=== PATIENT | male | born 1960 | race Caucasian/White ===

== ENCOUNTER 2016-08-01 15:43 | Inpatient (IN) | payer MEDICARE ==
[2016-08-01 17:58] VITALS: BMI 28.0
[2016-08-01] MEDS ORDERED: ALBUTEROL NEBULIZED 2.5 MG/3 ML INHALATION PRN (18:51)
[2016-08-01] MEDS ORDERED: IPRATROPIUM-ALBUTEROL 3 ML NEB INHALATION PRN (18:51)
[2016-08-01] MEDS ORDERED: BENZOCAINE/MENTHOL LOZENG 1 EACH LOZENGE MUCOUS MEM PRN (20:20)
[2016-08-01 20:48] LABS: Troponin I 0.018 ng/mL (0.000-0.034)
[2016-08-01 20:57] LABS: Creatine Kinase MB 2.5 ng/mL (0.0-2.4)
[2016-08-01] MEDS: SYMBICORT 160-4.5 MCG INHALER INHALATION SCH (21:05)
[2016-08-01] MEDS: OSELTAMIVIR 75 MG CAP PO SCH (21:12)
[2016-08-01] MEDS: VARENICLINE 1 MG TAB PO SCH (21:13)
[2016-08-01] MEDS: methylPREDNISolone SOD SUCCI 125 MG/2 ML VIAL IV SCH ×2 (21:13→23:02)
[2016-08-01] MEDS: POTASSIUM CHLORIDE ER 10 MEQ TAB.ER.PRT PO SCH (21:13)
[2016-08-01] MEDS: traZODone HCL 50 MG TAB PO SCH (21:13)
[2016-08-01] MEDS: ACETAMINOPHEN TAB 500 MG TAB PO PRN (21:21)
[2016-08-01] MEDS: INSULIN LISPRO (humaLOG) 300 UNIT/3 ML VIAL SQ SCH (21:46)
[2016-08-01 22:21] LABS: Glucose,Whole Blood 126 mg/dL (75-99)
[2016-08-02] MEDS ORDERED: IPRATROPIUM-ALBUTEROL 3 ML NEB INHALATION SCH
[2016-08-02 01:21] LABS: CH 34.2; CHCM 32.4; HCT 49.7 % (39.0-53.0); HDW 2.19; HGB 16.2 gm/dL (13.0-17.5); MCH 34.5 pg (25.0-35.0); MCHC 32.5 g/dL (31.0-37.0); Macrocytosis Slight; RBC 4.69 m/uL (4.30-5.90); WBC 11.6 k/uL (3.8-10.6)
[2016-08-02 01:36] LABS: Anion Gap 9 mmol/L; Blood Urea Nitrogen 18 mg/dL (9-20); Calcium 8.6 mg/dL (8.4-10.2); Carbon Dioxide 35 mmol/L (22-30); Chloride 96 mmol/L (98-107); Glucose 153 mg/dL (74-99); Non-African American GFR(MDRD) >60 (>60 ml/min/1.73 sqM); Potassium 4.4 mmol/L (3.5-5.1); Sodium 140 mmol/L (137-145)
[2016-08-02] MEDS: methylPREDNISolone SOD SUCCI 125 MG/2 ML VIAL IV SCH (06:11)
[2016-08-02 06:52] LABS: Glucose,Whole Blood 142 mg/dL (75-99)
[2016-08-02] MEDS: INSULIN LISPRO (humaLOG) 300 UNIT/3 ML VIAL SQ SCH ×4 (06:52→20:46)
[2016-08-02] MEDS: SYMBICORT 160-4.5 MCG INHALER INHALATION SCH ×2 (07:03→19:03)
[2016-08-02] MEDS: IPRATROPIUM-ALBUTEROL 3 ML NEB INHALATION SCH ×4 (07:03→19:03)
[2016-08-02] MEDS: OSELTAMIVIR 75 MG CAP PO SCH ×2 (08:28→20:54)
[2016-08-02] MEDS: THEOPHYLLINE 24 HOUR 300 MG CAP.ER.24H PO SCH (08:28)
[2016-08-02] MEDS: VARENICLINE 1 MG TAB PO SCH ×2 (08:29→20:54)
[2016-08-02] MEDS: POTASSIUM CHLORIDE ER 10 MEQ TAB.ER.PRT PO SCH (08:29)
[2016-08-02] MEDS: ACETAMINOPHEN TAB 500 MG TAB PO PRN ×2 (08:49→21:04)
[2016-08-02] MEDS ORDERED: LEVOFLOXACIN 750MG-D5W PMX 750 MG in DEXTROSE/WATER 1 150ML.BAG IVPB SCH (09:00)
--- NOTE | 2016-08-02 09:00 | P.CRDCN ---
History of Present Illness Consult date: 08/02/16 Requesting physician: Nazanin Klein Consult reason: shortness of breath Chief complaint: Shortness of breath History of present illness: This is a 56-year-old gentleman with known history of COPD, nicotine dependence, asthma, who was transferred here from [facility]. He states that he presented there with symptoms of shortness of breath. Patient has been progressively more short of breath at home, he states he's also been having chills and productive cough. Denies any chest discomfort. Denies any history of hypertension, no diabetes, no hyperlipidemia, no family history of premature coronary artery disease, he has not had a prior cardiac workup.. He does drink at least 6 beers per day. Patient states that he has been cutting down on his smoking, smoking maybe 7-8 cigarettes a day now, he has smoked for 40 years. Currently on Chantix. Laboratory data [place] was reviewed, patient is positive for influenza A. Sodium 136, potassium 4.6, BUN 11, creatinine 0.5. Magnesium level II.2. WBC 11.9, hemoglobin 16.9, platelet count 193. EKG shows a sinus tachycardia, troponin at [place] 0.032, BNP level 159, TSH 0.7 to free T4 1 0.0, subsequent troponin 0.028. Approximately 2 weeks ago patient was started on home O2. Patient was transferred to [facility] because of abnormal troponin values. Laboratory data here at [facility], troponin 0.018, 0.019, 0.0- 7. WBC 11.6, hemoglobin 16.2, potassium 4.4, BUN 18, creatinine 0.6. Blood pressure 136/70, heart rate currently in the 80s, 120s on admission. At the time of my examination this morning, patient continues to feel short of breath. He states he did not sleep through the night last night. Past Medical History Past Medical History: COPD History of Any Multi-Drug Resistant Organisms: None Reported Smoking Status: Current every day smoker Medications and Allergies Home Medications Medication Instructions Recorded Confirmed Type Acetaminophen Tab [Tylenol Tab] 1,000 mg PO Q6HR PRN 08/01/16 08/01/16 History Albuterol Sulfate [Proair Hfa] 2 puff INHALATION RT-QID PRN 08/01/16 08/01/16 History Amoxicillin/Potassium Clav 1 tab PO MOWEFR 08/01/16 08/01/16 History [Augmentin 875-125 Tablet] Budesonide/Formoterol Fumarate 2 puff INHALATION RT-BID 08/01/16 08/01/16 History [Symbicort 160-4.5 Mcg Inhaler] Furosemide [Lasix] 20 mg PO DAILY 08/01/16 08/01/16 History Ipratropium-Albuterol Nebulize 3 ml INHALATION RT-QID PRN 08/01/16 08/01/16 History [Duoneb 0.5 mg-3 mg/3 ml Soln] Potassium Chloride [K-Tab ER] 10 meq PO BID 08/01/16 08/01/16 History Theophylline 12 Hour [Cayetano-Dur] 300 mg PO BID 08/01/16 08/01/16 History Varenicline [Chantix] 1 mg PO BID 08/01/16 08/01/16 History predniSONE [Deltasone] 20 mg PO BID 08/01/16 08/01/16 History traZODone HCL 50 mg PO HS 08/01/16 08/01/16 History Allergies Allergy/AdvReac Type Severity Reaction Status Date / Time No Known Allergies Allergy Verified 08/01/16 18:13 Physical Exam Vitals: Vital Signs Temp Pulse Pulse Resp BP Pulse Ox 08/02/16 07:17 80 08/02/16 07:03 76 08/02/16 03:00 98.7 F 120 H 22 137/70 90 L 08/02/16 01:34 80 08/02/16 01:24 92 08/01/16 23:20 97.6 F 133 H 22 149/97 90 L 08/01/16 21:26 122 H 08/01/16 21:09 122 H 08/01/16 20:00 97.6 F 123 H 22 161/73 93 L 08/01/16 19:00 97.6 F 135 H 22 154/65 90 L 08/01/16 17:45 135 H 22 136/82 90 L Intake and Output 08/01/16 08/02/16 08/02/16 22:59 06:59 14:59 Intake Total 20 200 Balance 20 200 Intake: IV 20 200 0.9@20mls/hr 20 200 Other: Voiding Method Toilet Toilet # Voids 1 3 Weight 83.7 kg 83.2 kg PHYSICAL EXAMINATION: HEENT: Head is atraumatic, normocephalic. Pupils equal, round. Neck is supple. There is no elevated jugular venous pressure. HEART EXAMINATION: Heart S1, S2 normal. No murmur or gallop heard. CHEST EXAMINATION: Lungs reveal scattered coarse rhonchi and wheezing throughout. ABDOMEN: Soft, nontender. Bowel sounds are heard. No organomegaly noted. EXTREMITIES: 1+ peripheral pulses with trace evidence of peripheral edema , no calf tenderness noted. NEUROLOGIC patient is awake, alert and oriented -3. . Results 08/02/16 00:34 08/02/16 00:34 Cardiac Enzymes 08/01/16 08/02/16 08/02/16 Range/Units 19:52 00:34 06:18 CK-MB (CK-2) 2.5 H* (0.0-2.4) ng/mL Troponin I 0.018 0.019 0.027 (0.000-0.034) ng/mL CBC 08/02/16 Range/Units 00:34 WBC 11.6 H (3.8-10.6) k/uL RBC 4.69 (4.30-5.90) m/uL Hgb 16.2 (13.0-17.5) gm/dL Hct 49.7 (39.0-53.0) % Plt Count 207 (150-450) k/uL Comprehensive Metabolic Panel 08/02/16 Range/Units 00:34 Sodium 140 (137-145) mmol/L Potassium 4.4 (3.5-5.1) mmol/L Chloride 96 L (98-107) mmol/L Carbon Dioxide 35 H (22-30) mmol/L BUN 18 (9-20) mg/dL Creatinine 0.60 L (0.66-1.25) mg/dL Glucose 153 H (74-99) mg/dL Calcium 8.6 (8.4-10.2) mg/dL Current Medications Generic Name Dose Route Start Last Admin Trade Name Freq PRN Reason Stop Dose Admin Acetaminophen 1,000 mg 08/01/16 18:51 08/01/16 21:21 Tylenol Tab PO 1,000 mg Q6HR PRN Administration Pain Albuterol/Ipratropium 3 ml 08/01/16 21:45 Duoneb 0.5 Mg-3 Mg/3 Ml Soln INHALATION RT-Q2H PRN Shortness Of Breath Albuterol/Ipratropium 3 ml 08/02/16 08:00 08/02/16 07:03 Duoneb 0.5 Mg-3 Mg/3 Ml Soln INHALATION 3 ml RT-QID MARGARET Administration Benzocaine/Menthol 1 each 08/01/16 20:20 Cepacol Lozenge MUCOUS MEM Q6HR PRN Cough Budesonide/Formoterol Fumarate 2 puff 08/01/16 20:00 08/02/16 07:03 Symbicort 160-4.5 Mcg Inhaler INHALATION 2 puff RT-BID MARGARET Administration Levofloxacin 750 mg/ IV 150 mls @ 100 mls/hr 08/02/16 09:00 Solution IVPB Q24H MARGARET Insulin Human Lispro 0 unit 08/01/16 21:00 08/02/16 06:52 Humalog SQ Not Given ACHS [facility] Protocol Methylprednisolone Sodium Succinate 60 mg 08/01/16 19:00 08/02/16 06:11 Solu-Medrol IV 60 mg Q6HR MARGARET Administration Oseltamivir Phosphate 75 mg 08/01/16 21:00 08/01/16 21:12 Tamiflu PO 08/06/16 09:01 75 mg Q12HR MARGARET Administration Potassium Chloride 10 meq 08/01/16 21:00 08/01/16 21:13 K-Dur 10 PO 10 meq BID MARGARET Administration Theophylline 600 mg 08/02/16 09:00 [place]-24 PO DAILY MARGARET Trazodone HCl 50 mg 08/01/16 21:00 08/01/16 21:13 Desyrel PO 50 mg HS MARGARET Administration Varenicline 1 mg 08/01/16 21:00 08/01/16 21:13 Chantix PO 1 mg BID MARGARET Administration Intake and Output 08/01/16 08/02/16 08/02/16 22:59 06:59 14:59 Intake Total 20 200 Balance 20 200 Intake: IV 20 200 0.9@20mls/hr 20 200 Other: Voiding Method Toilet Toilet # Voids 1 3 Weight 83.7 kg 83.2 kg 08/02/16 00:34 08/02/16 00:34 EKG Interpretations (text) EKG shows a sinus tachycardia Assessment and Plan Plan: Assessment and plan #1 symptoms of shortness of breath with associated chills and productive cough of green sputum. Possible exacerbation of COPD with tracheobronchitis. Positive influenza A. #2 abnormal troponins, not consistent with acute coronary syndrome, could be secondary to oxygen supply and demand mismatch. #3 nicotine dependence #4 EtOH use, patient states he drinks at least 6 beers a day. #5 COPD with home O2 use Plan We will obtain an echocardiogram with Doppler study. Continue Steroids and IV antibiotics. Obtain fasting lipid profile. Chest x-ray. Start the patient on a baby aspirin daily. Once the patient is stable from a lung perspective, stress testing as an outpatient may need to be performed to rule out underlying coronary artery disease. Further recommendations to follow. DNP note has been reviewed, I agree with a documented findings and plan of care. Patient was seen and examined.
[2016-08-02 09:21] LABS: Cholesterol 204 mg/dL (<200); HDL Cholesterol 71 mg/dL (40-60); Triglycerides 91 mg/dL (<150)
--- NOTE | 2016-08-02 09:22 | P.PN ---
Progress Note - Text This is an addendum to the dictated cardiology consultation. The patient has a known history of severe chronic obstructive lung disease, recently seen by Dr. Servin the first time recently. He is on home oxygen and has decreased his smoking quantity. He used to smoke up to a pack and a half daily. He presented with severe progression of dyspnea on exertion and cough. He was seen in [place] because of that and because of minimal elevation of the troponin he was transferred. He's feeling better today although continues to be dyspneic with minimal activity. He has chest tightness from his dyspnea, no dizziness or palpitations. He has no prior documented history of CAD. He had an episode of peripheral edema that resolved few weeks ago. His physical examination is remarkable for severe bilateral wheezing and decreased air exchange. He has no significant peripheral edema. His troponin are normal and there is no evidence of congestive heart failure by NT proBNP. His EKG shows no acute changes. The patient presents with exacerbation of severe chronic obstructive lung disease and probable influenza infection. I do not see any evidence to suggest acute ischemic heart disease or congestive heart failure. Because of his history of chronic dyspnea, COPD and chronic alcohol intake I will obtain an echocardiogram to evaluate his right-sided pressure and his systolic function. Thank you for this consult we will follow with you.
--- NOTE | 2016-08-02 09:30 | XR ---
EXAMINATION TYPE: XR chest 2V DATE OF EXAM: 08/02/2016 9:26 AM COMPARISON: 07/08/2016 TECHNIQUE: PA and lateral views submitted. HISTORY: Shortness of breath, COPD FINDINGS: The lungs are clear and there is no pneumothorax, pleural effusion, or focal pneumonia. Hyperinflation suggests COPD. Prominence the pulmonary arteries can be associated with pulmonary vijay rial hypertension. Findings appear stable. IMPRESSION: 1. No acute process. Correlate for COPD.
[2016-08-02 10:14] LABS: Hemoglobin A1C 6.6 % (4.2-6.1)
[2016-08-02 11:59] LABS: Glucose,Whole Blood 122 mg/dL (75-99)
[2016-08-02] MEDS: DOXYCYCLINE 50 MG CAP PO SCH ×2 (12:01→20:53)
[2016-08-02] MEDS: ASPIRIN 81 MG CHEW PO SCH (12:01)
[2016-08-02] MEDS: SODIUM CHLORIDE 0.9% 1,000 ML IV SCH ×2 (12:01→20:53)
--- NOTE | 2016-08-02 13:36 | P.CNPUL ---
History of Present Illness Consult date: 08/02/16 Requesting physician: Nazanin Klein Chief complaint: Shortness of breath cough and wheezing History of present illness: This is a 56-year-old white male, quite familiar to my service, patient is known to have history of severe emphysema, FEV1 is in the range of 21%. Patient is O2 dependent, he is on multiple bronchodilators, and unfortunately he was smoking until a couple of weeks ago. Patient quit smoking shortly after I saw him in the office a few weeks ago. I saw him for the first time a few weeks ago, and I have explained to him the severity of his underlying condition/ emphysema. 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 Since then the patient quit smoking, however the patient presented to [facility] on 08/01/2016 with symptoms of acute exacerbation of COPD including cough wheezing shortness of breath. Patient also had a sore throat, low-grade fever, aches and pains, and he was positive for influenza A. Patient was transferred to our facility, chest x-ray showed no evidence of infiltrate. Patient seems to be on proper bronchodilators, and he is already on treatment for his underlying influenza infection. Chest x-ray showed no evidence of infiltrate. Labs were reviewed he had a relatively normal CBC. Normal electrolytes. And normal renal profile. His meds were reviewed he is on proper bronchodilators including DuoNeb, methylprednisolone, Symbicort, Vibramycin, and he is also on theophylline patient is also on Tamiflu. Review of Systems 14 point review of systems were obtained, please refer to pertinent positives and negatives in HPI. Past Medical History Past Medical History: COPD History of Any Multi-Drug Resistant Organisms: None Reported Smoking Status: Current every day smoker Medications and Allergies Home Medications Medication Instructions Recorded Confirmed Type Acetaminophen Tab [Tylenol Tab] 1,000 mg PO Q6HR PRN 08/01/16 08/01/16 History Albuterol Sulfate [Proair Hfa] 2 puff INHALATION RT-QID PRN 08/01/16 08/01/16 History Amoxicillin/Potassium Clav 1 tab PO MOWEFR 08/01/16 08/01/16 History [Augmentin 875-125 Tablet] Budesonide/Formoterol Fumarate 2 puff INHALATION RT-BID 08/01/16 08/01/16 History [Symbicort 160-4.5 Mcg Inhaler] Furosemide [Lasix] 20 mg PO DAILY 08/01/16 08/01/16 History Ipratropium-Albuterol Nebulize 3 ml INHALATION RT-QID PRN 08/01/16 08/01/16 History [Duoneb 0.5 mg-3 mg/3 ml Soln] Potassium Chloride [K-Tab ER] 10 meq PO BID 08/01/16 08/01/16 History Theophylline 12 Hour [C[place]etano-Dur] 300 mg PO BID 08/01/16 08/01/16 History Varenicline [Chantix] 1 mg PO BID 08/01/16 08/01/16 History predniSONE [Deltasone] 20 mg PO BID 08/01/16 08/01/16 History traZODone HCL 50 mg PO HS 08/01/16 08/01/16 History Allergies Allergy/AdvReac Type Severity Reaction Status Date / Time No Known Allergies Allergy Verified 08/01/16 18:13 Physical Exam Vitals: Vital Signs Temp Pulse Pulse Resp BP Pulse Ox 08/02/16 08:00 98.7 F 120 H 24 118/77 90 L 08/02/16 07:17 80 08/02/16 07:03 76 08/02/16 03:00 98.7 F 120 H 22 137/70 90 L 08/02/16 01:34 80 08/02/16 01:24 92 08/01/16 23:20 97.6 F 133 H 22 149/97 90 L 08/01/16 21:26 122 H 08/01/16 21:09 122 H 08/01/16 20:00 97.6 F 123 H 22 161/73 93 L 08/01/16 19:00 97.6 F 135 H 22 154/65 90 L 08/01/16 17:45 135 H 22 136/82 90 L Intake and Output 08/01/16 08/02/16 08/02/16 22:59 06:59 14:59 Intake Total 20 200 180 Balance 20 200 180 Intake: IV 20 200 0.9@20mls/hr 20 200 Oral 180 Other: Voiding Method Toilet Toilet Toilet # Voids 1 3 Weight 83.7 kg 83.2 kg Physical Exam: Revealed a 56-year-old white male in no distress. HEENT:[Neck is supple.] [No neck masses.] [No thyromegaly.] [No JVD.] Chest: [Diminished breath sound bilaterally wheezing on forced expiratory maneuver throughout..] Cardiac Exam: [Normal S1 and S2, no S3 gallop, no murmur.] Abdomen: [Soft, nontender, no megaly, no rebound, no guarding, normal bowel sounds.] Extremities: [No clubbing, no edema, no cyanosis.] Neurological Exam: [No focal neurologic deficit.] Results - Laboratory Findings CBC and BMP: 08/02/16 00:34 08/02/16 00:34 Abnormal lab findings: Abnormal Labs 08/01/16 08/01/16 08/02/16 19:52 21:45 00:34 WBC 11.6 H MCV 106.0 H Chloride Carbon Dioxide Creatinine Glucose POC Glucose (mg/dL) 126 H Hemoglobin A1c CK-MB (CK-2) 2.5 H* Cholesterol LDL Cholesterol, Calc HDL Cholesterol 08/02/16 08/02/16 08/02/16 00:34 06:18 06:18 WBC MCV Chloride 96 L Carbon Dioxide 35 H Creatinine 0.60 L Glucose 153 H POC Glucose (mg/dL) Hemoglobin A1c 6.6 H CK-MB (CK-2) Cholesterol 204 H LDL Cholesterol, Calc 115 H HDL Cholesterol 71 H 08/02/16 08/02/16 06:37 11:56 WBC MCV Chloride Carbon Dioxide Creatinine Glucose POC Glucose (mg/dL) 142 H 122 H Hemoglobin A1c CK-MB (CK-2) Cholesterol LDL Cholesterol, Calc HDL Cholesterol - Diagnostic Findings Chest x-ray: image reviewed (No evidence of infiltrate.) Assessment and Plan Plan: Impression: Acute exacerbation of severe end-stage COPD, most likely triggered by his recent influenza infection. Recommendation: I fully agree with the present treatment plan, continue present bronchodilators, steroids, antibiotics, and antiviral therapy. Expect the patient to improve and possibly discharge home in the next 2-3 days. Time with Patient: Greater than 30
[2016-08-02] MEDS ORDERED: IV VANCOMYCIN PER PHARMACY 1 EACH MISC MISCELLANE PRN (16:53)
[2016-08-02 17:09] LABS: Glucose,Whole Blood 110 mg/dL (75-99)
[2016-08-02] MEDS: VANCOMYCIN 1,500 MG in SODIUM CHLORIDE 0.9% 250 ML IVPB SCH (18:21)
--- NOTE | 2016-08-02 18:27 | HP ---
DATE OF ADMISSION: Patient is a very pleasant 56-year-old gentleman who came in with known history of COPD; was recently started on oxygen by primary care physician Dr. Cohen. He came in with complaints of shortness of breath ( ) and patient is complaining of yellowish to greenish phlegm production. Chest x-ray did not show any pneumonic process. Patient denied any present fevers. Patient was quite ( ) better now and patient's myalgia was improving. Patient was started on Tamiflu. Patient has significant wheezing on exam. Patient is admitted for COPD exacerbation. Patient has minimally elevated troponins, although not high enough to say myocardial infarction. Troponins here have been normal: 0.018, 0.019 and 0.07, all of which are essentially within normal limits in my opinion. Cardiology evaluated the patient. No further workup from their perspective. Patient ( ) used to smoke in the past until 3 days ago. Patient was on Chantix ( ) patient used to smoke a pack per day in the past. He is trying to cut it down at this time. REVIEW OF SYSTEMS: CONSTITUTIONAL: No fever, no malaise, no fatigue. HEENT: No recent visual problems or hearing problems. Denied any sore throat. CARDIOVASCULAR: No chest pain, orthopnea, PND, no palpitations, no syncope. PULMONARY: As described in HPI. GASTROINTESTINAL: No diarrhea, no nausea, no vomiting, no abdominal pain. Normoactive bowel sounds. NEUROLOGICAL: No headaches, no weakness, no numbness. HEMATOLOGICAL: Denies any bleeding or petechiae. GENITOURINARY: Denies any burning micturition, frequency, or urgency. MUSCULOSKELETAL/RHEUMATOLOGICAL: Denies any joint pain, swelling, or any muscle pain. ENDOCRINE: Denies any polyuria or polydipsia. The rest of the 14 point review of systems is negative. Patient denies any active chest pain at this point of time. PAST MEDICAL HISTORY: COPD. Smoking history as mentioned above. Denied any alcohol abuse or any drug abuse. Home medications include: 1. Acetaminophen/hydrocodone. 2. Oxygen. 3. ( ) 4. Lasix. 5. Potassium. 6. ( ) 7. Prednisone 20 mg p.o. b.i.d. 8. Trazodone. ALLERGIES: NO KNOWN DRUG ALLERGIES. PHYSICAL EXAMINATION: VITAL SIGNS: Temperature 98.7, pulse of 120, respiratory rate of 22. Blood pressure is 137/70. Saturating at 90% on 4 L of oxygen. GENERAL: Xwecj-bjy-tvff-old female. Patient has significant expiratory wheezing with rhonchorous breath sounds. HEENT: Pupils are round and equally reacting to light. EOMI. No scleral icterus. No conjunctival pallor. Normocephalic, atraumatic. No pharyngeal erythema. No thyromegaly. CARDIOVASCULAR: S1 and S2 present. No murmurs, rubs, or gallops. PULMONARY: Significant expiratory wheezing with rhonchorous breath sounds. ABDOMEN: Soft, nontender, nondistended, normoactive bowel sounds. No palpable organomegaly. MUSCULOSKELETAL: No joint swelling or deformity. EXTREMITIES: No cyanosis, clubbing, or pedal edema. NEUROLOGICAL: Gross neurological examination did not reveal any focal deficits. SKIN: No rashes. LABORATORY DATA: CBC and CMP are abnormal for mildly elevated WBC count of 11,600 ( ) Rest of the lab data: no significant abnormality was appreciated except for elevated bicarbonate, secondary to CO2 retention. Troponins as mentioned above. EKG was reviewed. ASSESSMENT AND PLAN: 1. Acute hypercapnic respiratory failure secondary to chronic obstructive pulmonary disease exacerbation. Patient has ( ) respiratory failure. Will obtain sputum cultures. Patient will be started on broad-spectrum ( ) continue with ( ) treatment, systemic steroids ( ) 40 IV b.i.d. 2. Mildly elevated troponin; low suspicion for acute coronary syndromes. Mild elevation in troponin ( ) secondary to ( ). 3. Severe nicotine dependence. Counseling was provided. ( ) will watch him for withdrawals. Alcohol cessation counseling was provided. 4. Tachycardia secondary to intravascular volume ( ) Lasix will be held. Potassium will be held. ( )
[2016-08-02 20:47] LABS: Glucose,Whole Blood 119 mg/dL (75-99)
[2016-08-02] MEDS: traZODone HCL 50 MG TAB PO SCH (20:54)
[2016-08-02] MEDS: methylPREDNISolone SOD SUCCI 40 MG/ML 1 ML VIAL IV SCH (20:54)
[2016-08-02] MEDS ORDERED: LORazepam 2 MG/ML SYRINGE IV PRN ×2 (21:18)
[2016-08-02] MEDS: MELATONIN 5 MG TABLET PO SCH (22:17)
[2016-08-02] MEDS: LORazepam 2 MG/ML SYRINGE IV PRN (22:17)
[2016-08-03] MEDS: ACETAMINOPHEN TAB 500 MG TAB PO PRN ×3 (05:16→19:53)
[2016-08-03 06:25] LABS: Glucose,Whole Blood 138 mg/dL (75-99)
[2016-08-03] MEDS: INSULIN LISPRO (humaLOG) 300 UNIT/3 ML VIAL SQ SCH ×4 (06:26→19:49)
[2016-08-03] MEDS: SODIUM CHLORIDE 0.9% 1,000 ML IV SCH ×2 (06:26→11:13)
[2016-08-03] MEDS: VANCOMYCIN 1,500 MG in SODIUM CHLORIDE 0.9% 250 ML IVPB SCH ×2 (06:29→18:22)
[2016-08-03] MEDS: IPRATROPIUM-ALBUTEROL 3 ML NEB INHALATION SCH ×4 (08:17→19:53)
[2016-08-03] MEDS: SYMBICORT 160-4.5 MCG INHALER INHALATION SCH ×2 (08:17→19:53)
[2016-08-03] MEDS: THEOPHYLLINE 24 HOUR 300 MG CAP.ER.24H PO SCH (09:12)
[2016-08-03] MEDS: DOXYCYCLINE 50 MG CAP PO SCH ×2 (09:13→19:53)
[2016-08-03] MEDS: OSELTAMIVIR 75 MG CAP PO SCH ×2 (09:13→19:53)
[2016-08-03] MEDS: VARENICLINE 1 MG TAB PO SCH ×2 (09:13→19:53)
[2016-08-03] MEDS: ASPIRIN 81 MG CHEW PO SCH (09:14)
[2016-08-03] MEDS: methylPREDNISolone SOD SUCCI 40 MG/ML 1 ML VIAL IV SCH ×2 (09:14→19:53)
--- NOTE | 2016-08-03 10:50 | CDI ---
In responding to this query, please exercise your independent professional judgment. The [facility] Coding Staff and Clinical Documentation Specialists appreciate your assistance in clarifying documentation, maintaining compliance with coding guidelines, accurately documenting patients condition and capturing severity of illness. The fact that a question is asked does not imply that any particular answer is desired or expected. Communication forms are a method of clarifying documentation and are not made part of the Legal Health Record. Thank you in advance for your clarification. Last Revision, August 2015 Gary Hooks [address] [facility] [place] [address] Documentation Clarification Form Date: 08/03/2016 10:41:00 AM From: Marci Anderson Admit Date: 08/01/2016 5:27:00 PM Patient Name: Arian Pastrana Visit Number: [id number] Dr. Rafiq Servin Documentation in medical record included: 'O2 dependent' on 08/02 progress note. History/Risk Factors: COPD Influenza A Exsmoker Clinical Indicators: Documentation of O2 dependent Documentation of Acute Hypercapnic Respiratory Failure in H&P Vital signs: on admission HR 135, RR 22, sats 90% on 3L Lung/Breathing assessment: labored, accessory muscle use Treatment: Bronchodilators IV steroids Tamiflu IV Vancomycin O2 nasal cannula In your professional opinion, can you please clarify if these findings signify one of the following conditions? o Acute on Chronic Respiratory failure with hypercapnia o Acute on Chronic Respiratory failure with hypoxia o Other Diagnosis, please specify o Unable to determine Please document in your progress notes and discharge summary in order to capture severity of illness and risk of mortality. Include clinical findings that support your diagnosis. FYI: Press F11 to launch patient chart. Place X here if this finding has no clinical significance, is not applicable or if you are not able to provide any additional documentation. GILMA
--- NOTE | 2016-08-03 11:03 | CDI ---
In responding to this query, please exercise your independent professional judgment. The [facility] Coding Staff and Clinical Documentation Specialists appreciate your assistance in clarifying documentation, maintaining compliance with coding guidelines, accurately documenting patients condition and capturing severity of illness. The fact that a question is asked does not imply that any particular answer is desired or expected. Communication forms are a method of clarifying documentation and are not made part of the Legal Health Record. Thank you in advance for your clarification. Last Revision, April 2015 Gary Hooks [address] [facility] [place] [address] Documentation Clarification Form Date: 08/03/2016 10:51:00 AM From: Marci Lindsayeleanor Admit Date: 08/01/2016 5:27:00 PM Patient Name: Arian Pastrana Visit Number: [id number] Dr. Nazanin Klein Influenza A is documented by both Cardiology and Pulmonary. Patient started on Tamiflu per your H&P. Please include in your documentation if you agree. Patient history/risk factors COPD Home O2 Exsmoker Clinical Indicators: Lab findings: wbc 11.6 Lab data from [place] showed positive for influenza A per Cardiology note Vital Signs: on admission HR 135, RR 22, sats 90% on 3L Treatment: Consults: Pulmonary PO Tamiflu In your professional opinion, can you please clarify? Influenza A present on admission Other (please specify) Unable to determine Please document in your progress notes and discharge summary in order to capture severity of illness and risk of mortality. Include clinical findings that support your diagnosis. FYI: Press F11 to launch patient chart. Place X here if this finding has no clinical significance, is not applicable or if you are not able to provide any additional documentation. GILMA
--- NOTE | 2016-08-03 11:19 | ECHOF ---
Referral Reason:chf MEASUREMENTS -------- HEIGHT: 172.7 cm WEIGHT: 83.0 kg BP: 118/77 RVIDd: 3.3 cm (< 3.3) IVSd: 1.2 cm (0.6 - 1.1) LVIDd: 4.3 cm (3.9 - 5.3) LVPWd: 1.2 cm (0.6 - 1.1) IVSs: 1.6 cm LVIDs: 3.1 cm LVPWs: 1.9 cm LA Diam: 3.5 cm (2.7 - 3.8) LAESV Index (A-L): 30.44 ml/m Ao Diam: 3.5 cm (2.0 - 3.7) AV Cusp: 2.1 cm (1.5 - 2.6) MV EXCURSION: 26.920 mm (> 18.000) MV EF SLOPE: 118 mm/s (70 - 150) EPSS: 0.9 cm MV E Crow: 0.90 m/s MV DecT: 225 ms MV A Crow: 1.11 m/s MV E/A Ratio: 0.81 AV maxP.00 mmHg AV meanP.57 mmHg RAP: 5.00 mmHg RVSP: 42.30 mmHg FINDINGS -------- Resting tachycardia (HR>100bpm). This was a technically adequate study. The left ventricular size is normal. There is borderline concentric left ventricular hypertrophy. Overall left ventricular systolic function is normal with, an EF between 55 - 60 %. The right ventricle is mildly enlarged. LA is midly dilated 29-33ml/m2. The right atrium is normal in size. 1.5mg of Definity was utilized for enhancement of images Aortic valve is trileaflet and is mildly thickened. There is mild aortic stenosis present. Peak/mean gradient across the Aortic Valve is 16.00mmHg / 7.57mmHg. The mitral valve leaflets are mildly thickened. Mild mitral annular calcification present. Mild tricuspid regurgitation present. There is mild pulmonary hypertension. The right ventricular systolic pressure, as measured by Doppler, is 42.30mmHg. The pulmonic valve is normal. The aortic root size is normal. The inferior vena cava is mildly dilated. There is no pericardial effusion. CONCLUSIONS -------- 1. Resting tachycardia (HR>100bpm). 2. Aortic valve is trileaflet and is mildly thickened. 3. There is mild aortic stenosis present. 4. Peak/mean gradient across the Aortic Valve is 16.00mmHg / 7.57mmHg. 5. The mitral valve leaflets are mildly thickened. 6. Mild mitral annular calcification present. 7. Mild tricuspid regurgitation present. 8. There is mild pulmonary hypertension. 9. The right ventricular systolic pressure, as measured by Doppler, is 42.30mmHg. 10. The pulmonic valve is normal. 11. The aortic root size is normal. 12. This was a technically adequate study. 13. The inferior vena cava is mildly dilated. 14. There is no pericardial effusion. 15. The left ventricular size is normal. 16. There is borderline concentric left ventricular hypertrophy. 17. Overall left ventricular systolic function is normal with, an EF between 55 - 60 %. 18. The right ventricle is mildly enlarged. 19. LA is midly dilated 29-33ml/m2. 20. The right atrium is normal in size. 21. 1.5mg of Definity was utilized for enhancement of images SHIPPING SUPPORT: Patricia Fam RDCS
[2016-08-03 11:36] LABS: Glucose,Whole Blood 140 mg/dL (75-99)
--- NOTE | 2016-08-03 14:00 | PN ---
A 56-year-old admitted with COPD exacerbation, influenza type A. Patient has improvement in his respiratory status but still wheezing. The patient has withdrawals of CIWA score of around 8 and patient received Ativan last night and today morning and will continue to monitor him. Patient is not willing to quit alcohol. REVIEW OF SYSTEMS: RESPIRATORY: Improved shortness of breath. CARDIOVASCULAR: No chest pain, no orthopnea, no PND, no palpitations. GASTROINTESTINAL: No diarrhea, nausea or vomiting. No abdominal pain. Normoactive bowel sounds. NEUROLOGIC: No headaches, no weakness, no numbness. Medications were reviewed. PHYSICAL EXAMINATION: Temperature 98.0, pulse of 100, respiratory rate of 20, blood pressure is 143/91, saturating at 98% on 4 L of O2 by nasal cannula which we will cut today. GENERAL: The patient is alert and oriented x3, not in any acute distress. Well developed, well nourished. HEENT: Pupils are round and equally reacting to light. EOMI. No scleral icterus. No conjunctival pallor. Normocephalic, atraumatic. No pharyngeal erythema. No thyromegaly. CARDIOVASCULAR: S1 and S2 present. No murmurs, rubs, or gallops. PULMONARY: Expiratory wheezing improved compared to yesterday, rhonchus breath sounds. No crackles were appreciated. ABDOMEN: Soft, nontender, nondistended, normoactive bowel sounds. No palpable organomegaly. MUSCULOSKELETAL: No joint swelling or deformity. EXTREMITIES: No cyanosis, clubbing, or pedal edema. NEUROLOGICAL: Gross neurological examination did not reveal any focal deficits. SKIN: No rashes. ASSESSMENT AND PLAN: 1. Acute hypercapnic respiratory failure secondary to chronic obstructive pulmonary disease exacerbation which is frustrated by influenza A on admission, sputum cultures are pending. 2. Mildly elevated troponin without any evidence of acute coronary artery syndrome. 3. Nicotine dependence counseling was provided. 4. Tachycardia due to hypoxemia. 5. Alcoholic abuse history. Patient will continue with Ativan CIWA protocol, thiamine supplementation. 6. Influenza A MTDD
--- NOTE | 2016-08-03 14:24 | P.PN ---
Subjective Principal diagnosis: Acute on chronic hypoxic respiratory failure secondary to COPD exacerbation his is a 56-year-old white male, quite familiar to my service, patient is known to have history of severe emphysema, FEV1 is in the range of 21%. Patient is O2 dependent, he is on multiple bronchodilators, and unfortunately he was smoking until a couple of weeks ago. Patient quit smoking shortly after I saw him in the office a few weeks ago. I saw him for the first time a few weeks ago , and I have explained to him the severity of his underlying condition/ emphysema. 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 Since then the patient quit smoking, however the patient presented to [facility] on 08/01/2016 with symptoms of acute exacerbation of COPD including cough wheezing shortness of breath. Patient also had a sore throat, low-grade fever, aches and pains, and he was positive for influenza A. Patient was transferred to our facility, chest x-ray showed no evidence of infiltrate. Patient seems to be on proper bronchodilators, and he is already on treatment for his underlying influenza infection. Chest x-ray showed no evidence of infiltrate. Labs were reviewed he had a relatively normal CBC. Normal electrolytes. And normal renal profile. His meds were reviewed he is on proper bronchodilators including DuoNeb, methylprednisolone, Symbicort, Vibramycin, and he is also on theophylline patient is also on Tamiflu. Patient was reevaluated today on 08/03/2016, slightly better, less cough and less wheezing less shortness of breath, but nonetheless, the patient continues to have some shortness of breath with any activity. Blood sugar today is 140, all labs since admission were reviewed. Objective - Vital Signs Vital signs: Vital Signs Temp 98.8 F 08/03/16 12:10 Pulse 100 08/03/16 12:56 Resp 18 08/03/16 12:10 BP 147/81 08/03/16 12:10 Pulse Ox 97 08/03/16 12:10 Intake & Output 08/02/16 08/03/16 08/03/16 18:59 06:59 18:59 Intake Total 180 236 118 Balance 180 236 118 Weight 80.1 kg Intake: Oral 180 236 118 Other: Voiding Method Toilet Toilet # Voids 3 2 1 - Exam Physical Exam: Revealed a 56-year-old white male in no distress. HEENT:[Neck is supple.] [No neck masses.] [No thyromegaly.] [No JVD.] Chest: [Diminished breath sound bilaterally wheezing on forced expiratory maneuver throughout..] Cardiac Exam: [Normal S1 and S2, no S3 gallop, no murmur.] Abdomen: [Soft, nontender, no megaly, no rebound, no guarding, normal bowel sounds.] Extremities: [No clubbing, no edema, no cyanosis.] Neurological Exam: [No focal neurologic deficit.] - Labs CBC & Chem 7: 08/02/16 00:34 08/02/16 00:34 Labs: Abnormal Lab Results - Last 24 Hours (Table) 08/02/16 08/02/16 08/03/16 Range/Units 17:01 20:46 06:23 POC Glucose (mg/dL) 110 H 119 H 138 H (75-99) mg/dL 08/03/16 Range/Units 11:29 POC Glucose (mg/dL) 140 H (75-99) mg/dL Microbiology - Last 24 Hours (Table) 08/02/16 19:20 Gram Stain - Preliminary Sputum Sputum Culture - Preliminary Assessment and Plan Plan: Impression: Acute on chronic hypoxic respiratory failure secondary to severe end -stage COPD FEV1 is 21% based on PFT done in the office recently. This may have been triggered by his recent influenza infection. No documentation of hypercapnia on this admission, but there is clearly a picture of acute on chronic respiratory failure with hypoxia. Recommendation: I continue present treatment plan, and the treatment plan including bronchodilators, antiviral therapy, steroids, possible discharge planning in the next 24-48 hours. Time with Patient: Less than 30
--- NOTE | 2016-08-03 15:30 | P.PN ---
Subjective Principal diagnosis: Shortness of breath This is a 56-year-old gentleman with known history of COPD, nicotine dependence, asthma, who was transferred here from [facility]. He states that he presented there with symptoms of shortness of breath. Positive for influenza A. Patient was initially transferred here from [facility] because of abnormal troponins, not consistent with acute coronary syndrome. Likely secondary to oxygen supply and demand mismatch. Echocardiogram with Doppler study was performed which revealed an ejection fraction of 55-60%. Overall patient states he is feeling better today. Blood pressure 140/80 with a heart rate in the 90s. Objective - Vital Signs Vital signs: Vital Signs Temp 98.8 F 08/03/16 12:10 Pulse 100 08/03/16 12:56 Resp 18 08/03/16 12:10 BP 147/81 08/03/16 12:10 Pulse Ox 97 08/03/16 12:10 Intake & Output 08/02/16 08/03/16 08/03/16 18:59 06:59 18:59 Intake Total 180 236 118 Balance 180 236 118 Weight 80.1 kg Intake: Oral 180 236 118 Other: Voiding Method Toilet Toilet # Voids 3 2 1 - Labs CBC & Chem 7: 08/02/16 00:34 08/02/16 00:34 Labs: Abnormal Lab Results - Last 24 Hours (Table) 08/02/16 08/02/16 08/03/16 Range/Units 17:01 20:46 06:23 POC Glucose (mg/dL) 110 H 119 H 138 H (75-99) mg/dL 08/03/16 Range/Units 11:29 POC Glucose (mg/dL) 140 H (75-99) mg/dL Microbiology - Last 24 Hours (Table) 08/02/16 19:20 Gram Stain - Preliminary Sputum Sputum Culture - Preliminary Assessment and Plan Plan: Assessment and plan #1 symptoms of shortness of breath with associated chills and productive cough of green sputum. Possible exacerbation of COPD with tracheobronchitis. Positive influenza A. #2 abnormal troponins, not consistent with acute coronary syndrome, could be secondary to oxygen supply and demand mismatch. #3 nicotine dependence #4 EtOH use, patient states he drinks at least 6 beers a day. #5 COPD with home O2 use Plan From cardiology's perspective, we will follow this patient with you now on an as -needed basis only, please don't hesitate to call with any questions. DNP note has been reviewed, I agree with a documented findings and plan of care. Patient was seen and examined.
[2016-08-03 17:06] LABS: Glucose,Whole Blood 152 mg/dL (75-99)
[2016-08-03 19:45] LABS: Glucose,Whole Blood 90 mg/dL (75-99)
[2016-08-03] MEDS: MELATONIN 5 MG TABLET PO SCH (19:53)
[2016-08-03] MEDS: traZODone HCL 50 MG TAB PO SCH (19:53)
[2016-08-04] MEDS: LORazepam 2 MG/ML SYRINGE IV PRN ×2 (01:22→23:42)
[2016-08-04] MEDS: ACETAMINOPHEN TAB 500 MG TAB PO PRN ×4 (04:14→23:42)
[2016-08-04] MEDS: IPRATROPIUM-ALBUTEROL 3 ML NEB INHALATION PRN (04:26)
[2016-08-04] MEDS ORDERED: VANCOMYCIN TROUGH DUE 1 EACH MISC MISCELLANE ONE (05:00)
[2016-08-04 05:51] LABS: Carbon Dioxide 37 mmol/L (22-30); Chloride 98 mmol/L (98-107); Glucose 133 mg/dL (74-99); Potassium 4.4 mmol/L (3.5-5.1); Sodium 141 mmol/L (137-145)
[2016-08-04 05:52] LABS: Anion Gap 6 mmol/L; Blood Urea Nitrogen 16 mg/dL (9-20); Calcium 8.3 mg/dL (8.4-10.2); Non-African American GFR(MDRD) >60 (>60 ml/min/1.73 sqM)
[2016-08-04] MEDS: VANCOMYCIN 1,500 MG in SODIUM CHLORIDE 0.9% 250 ML IVPB SCH (06:00)
[2016-08-04] MEDS: SODIUM CHLORIDE 0.9% 1,000 ML IV SCH ×2 (06:24→15:29)
[2016-08-04 07:20] LABS: Glucose,Whole Blood 83 mg/dL (75-99)
[2016-08-04] MEDS: INSULIN LISPRO (humaLOG) 300 UNIT/3 ML VIAL SQ SCH ×4 (08:19→20:49)
[2016-08-04] MEDS: methylPREDNISolone SOD SUCCI 40 MG/ML 1 ML VIAL IV SCH (08:19)
[2016-08-04] MEDS: OSELTAMIVIR 75 MG CAP PO SCH ×2 (08:19→20:53)
[2016-08-04] MEDS: VARENICLINE 1 MG TAB PO SCH ×2 (08:20→20:54)
[2016-08-04] MEDS: THEOPHYLLINE 24 HOUR 300 MG CAP.ER.24H PO SCH (08:20)
[2016-08-04] MEDS: ASPIRIN 81 MG CHEW PO SCH (08:20)
[2016-08-04] MEDS: DOXYCYCLINE 50 MG CAP PO SCH ×2 (08:20→20:53)
--- NOTE | 2016-08-04 10:41 | PN ---
The patient is being treated for COPD exacerbation, tracheobronchitis, which was precipitated by influenza A viral infection. Patient's CIWA score is low at this point of time, but patient is still wheezing quite a bit. REVIEW OF SYSTEMS: CARDIOVASCULAR: No chest pain, no orthopnea, no PND, no palpitations. PULMONARY: Denied any shortness of breath. No cough or hemoptysis. GASTROINTESTINAL: No diarrhea, nausea or vomiting. No abdominal pain. Normoactive bowel sounds. NEUROLOGIC: No headaches, no weakness, no numbness. Medications were reviewed. PHYSICAL EXAMINATION: VITAL SIGNS: Temperature 98.1, pulse of 98, respiratory rate of 18, blood pressure 125/85, saturating at 92% on 3 L O2 nasal cannula. GENERAL: The patient is alert and oriented x3, not in any acute distress. Well developed, well nourished. HEENT: Pupils are round and equally reacting to light. EOMI. No scleral icterus. No conjunctival pallor. Normocephalic, atraumatic. No pharyngeal erythema. No thyromegaly. CARDIOVASCULAR: S1 and S2 present. No murmurs, rubs, or gallops. RESPIRATORY EXAMINATION: Significant expiratory wheezing was appreciated. Decreased air entry in bilateral lung elizabeth. ABDOMEN: Soft, nontender, nondistended, normoactive bowel sounds. No palpable organomegaly. MUSCULOSKELETAL: No joint swelling or deformity. EXTREMITIES: No cyanosis, clubbing, or pedal edema. NEUROLOGICAL: Gross neurological examination did not reveal any focal deficits. SKIN: No rashes. LABORATORY DATA: CBC and basic metabolic profile is essentially within normal limits. ASSESSMENT AND PLAN: 1. Acute hypercapnic respiratory failure secondary to chronic obstructive pulmonary disease exacerbation which is precipitated by influenza A. 2. Influenza A on admission. 3. Tracheobronchitis. 4. Mildly elevated troponin secondary to ( ) . 5. Nicotine dependence. 6. Tachycardia due to hypoxemia, which is improving. 7. Alcohol abuse history and is on CIWA protocol. Continue with thiamine and multivitamin supplementation.
[2016-08-04 11:13] LABS: Glucose,Whole Blood 107 mg/dL (75-99)
[2016-08-04] MEDS: IPRATROPIUM-ALBUTEROL 3 ML NEB INHALATION SCH ×4 (12:05→20:15)
[2016-08-04] MEDS: SYMBICORT 160-4.5 MCG INHALER INHALATION SCH ×2 (12:05→20:15)
--- NOTE | 2016-08-04 13:57 | P.PN ---
Subjective This is a 56-year-old white male, quite familiar to our service, patient is known to have history of severe emphysema, FEV1 is in the range of 21%. Patient is O2 dependent, he is on multiple bronchodilators, and unfortunately he was smoking until a couple of weeks ago. Patient quit smoking shortly after I saw him in the office a few weeks ago. Dr. Servin saw him for the first time a few weeks ago, and he explained to him the severity of his underlying condition/emphysema. 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 Since then the patient quit smoking, however the patient presented to [facility] on 08/01/2016 with symptoms of acute exacerbation of COPD including cough wheezing shortness of breath. Patient also had a sore throat, low-grade fever, aches and pains, and he was positive for influenza A. Patient was transferred to our facility, chest x-ray showed no evidence of infiltrate. Patient seems to be on proper bronchodilators, and he is already on treatment for his underlying influenza infection. Chest x-ray showed no evidence of infiltrate. Labs were reviewed he had a relatively normal CBC. Normal electrolytes. And normal renal profile. His meds were reviewed he is on proper bronchodilators including DuoNeb, methylprednisolone, Symbicort, Vibramycin, and he is also on theophylline patient is also on Tamiflu. Patient was reevaluated today on 08/03/2016, slightly better, less cough and less wheezing less shortness of breath, but nonetheless, the patient continues to have some shortness of breath with any activity. Blood sugar today is 140, all labs since admission were reviewed. The patient is seen again today 08/04/2016 in follow-up on the regular medical floor. He is awake and alert in no acute distress. He is doing better today as compared to yesterday. He does continue with nonproductive cough, shortness of breath and congestion. He is dyspneic on minimal exertion. Not quite back to his baseline. He continues to maintain good O2 saturations on 2 L/m per nasal cannula. His been afebrile. He denies any nausea, vomiting or diarrhea. Objective - Vital Signs Vital signs: Vital Signs Temp 98.1 F 08/04/16 07:00 Pulse 92 08/04/16 12:18 Resp 18 08/04/16 08:00 BP 125/85 08/04/16 07:00 Pulse Ox 92 L 08/04/16 07:00 Intake & Output 08/03/16 08/04/16 08/04/16 18:59 06:59 18:59 Intake Total 298 2540 Balance 298 2540 Intake: IV 1150 Sodium Chloride 0.9% 1, 1150 000 ml @ 100 mls/hr IV . Q10H MARGARET Rx#:[id number] Intake, IV Titration 250 Amount Vancomycin 1,500 mg In 250 Sodium Chloride 0.9% 250 ml @ 125 mls/hr IVPB Q12H MARGARET Rx#:[id number] Oral 298 1140 Other: Voiding Method Toilet Toilet # Voids 1 1 - Exam GENERAL EXAM: Alert, active, comfortable in no apparent distress. HEAD: Normocephalic. EYES: Normal reaction of pupils, equal size. NOSE: Clear with pink turbinates. THROAT: No erythema or exudates. NECK: No masses, no JVD. CHEST: No chest wall deformity. LUNGS: Equal air entry with bilateral wheeze. Diminished throughout.. CVS: S1 and S2 normal with no audible murmurs, regular rhythm. ABDOMEN: No hepatosplenomegaly, normal bowel sounds, no guarding or rigidity. SPINE: No scoliosis or deformity SKIN: No rashes CENTRAL NERVOUS SYSTEM: No focal deficits, tone is normal in all 4 extremities. Extremities: There is no significant peripheral edema. No clubbing, no cyanosis. Peripheral pulses are intact. - Labs CBC & Chem 7: 08/02/16 00:34 08/04/16 05:21 Labs: Abnormal Lab Results - Last 24 Hours (Table) 08/03/16 08/04/16 08/04/16 Range/Units 17:00 05:21 11:12 Carbon Dioxide 37 H (22-30) mmol/L Creatinine 0.49 L (0.66-1.25) mg/dL Glucose 133 H (74-99) mg/dL POC Glucose (mg/dL) 152 H 107 H (75-99) mg/dL Calcium 8.3 L (8.4-10.2) mg/dL Microbiology - Last 24 Hours (Table) 08/02/16 17:36 Blood Culture - Preliminary Blood No Growth after 24 hours Assessment and Plan Plan: Impression: #1 Acute exacerbation of severe end-stage Gold stage IV oxygen dependent chronic obstructive pulmonary disease with an FEV1 value 21% of predicted. #2 Acute on chronic hypoxic respiratory failure secondary to above. #3 Chronic and ongoing tobacco dependence. #4 Influenza A. #5 Daily alcohol use. Plan: The patient was seen and evaluated by Dr. Servin. The patient is improved but not quite back to his baseline. He remains on bronchodilators, Symbicort, IV site and Medrol and empiric antibiotics in the form of Vibramycin. He will also complete his course of Tamiflu. He is again educated regarding the importance of complete smoking cessation. He remains on Chantix. He remains in the CIXA protocol, he did receive 1 mg of Ativan at 1:20 this morning. We will increase his activity as tolerated. We'll continue to follow make further recommendations based on his clinical status.
[2016-08-04 17:15] LABS: Glucose,Whole Blood 125 mg/dL (75-99)
[2016-08-04] MEDS ORDERED: VANCOMYCIN 1,750 MG in SODIUM CHLORIDE 0.9% 250 ML IVPB SCH (18:00)
[2016-08-04 20:01] LABS: Glucose,Whole Blood 135 mg/dL (75-99)
[2016-08-04] MEDS: traZODone HCL 50 MG TAB PO SCH (20:53)
[2016-08-04] MEDS: MELATONIN 5 MG TABLET PO SCH (20:54)
[2016-08-05] MEDS: IPRATROPIUM-ALBUTEROL 3 ML NEB INHALATION PRN
[2016-08-05] MEDS: ACETAMINOPHEN TAB 500 MG TAB PO PRN ×3 (05:35→19:20)
[2016-08-05 07:42] LABS: Glucose,Whole Blood 92 mg/dL (75-99)
[2016-08-05] MEDS: IPRATROPIUM-ALBUTEROL 3 ML NEB INHALATION SCH ×4 (08:05→19:47)
[2016-08-05] MEDS: SYMBICORT 160-4.5 MCG INHALER INHALATION SCH ×2 (08:05→19:47)
[2016-08-05] MEDS: OSELTAMIVIR 75 MG CAP PO SCH ×2 (08:56→20:54)
[2016-08-05] MEDS: predniSONE 20 MG TAB PO SCH (08:57)
[2016-08-05] MEDS: THEOPHYLLINE 24 HOUR 300 MG CAP.ER.24H PO SCH (08:57)
[2016-08-05] MEDS: ASPIRIN 81 MG CHEW PO SCH (08:57)
[2016-08-05] MEDS: VARENICLINE 1 MG TAB PO SCH ×2 (08:58→20:53)
[2016-08-05] MEDS: INSULIN LISPRO (humaLOG) 300 UNIT/3 ML VIAL SQ SCH ×4 (09:05→20:53)
[2016-08-05 09:30] LABS: Blood Urea Nitrogen 17 mg/dL (9-20); Calcium 8.6 mg/dL (8.4-10.2); Chloride 94 mmol/L (98-107); Glucose 125 mg/dL (74-99); Non-African American GFR(MDRD) >60 (>60 ml/min/1.73 sqM); Potassium 4.1 mmol/L (3.5-5.1); Sodium 141 mmol/L (137-145)
[2016-08-05 09:37] LABS: Anion Gap 7 mmol/L
[2016-08-05 09:39] LABS: Carbon Dioxide 40 mmol/L (22-30)
[2016-08-05] MEDS: DOXYCYCLINE 50 MG CAP PO SCH ×2 (10:21→20:53)
--- NOTE | 2016-08-05 11:41 | PN ---
Patient is still wheezing quite a bit. Patient is still requiring a significant amount of oxygen 3 L and saturating 92%. Patient will need a day or two more. REVIEW OF SYSTEMS: CARDIOVASCULAR: No chest pain, no orthopnea, no PND, no palpitations. RESPIRATORY: Continued shortness of breath. GASTROINTESTINAL: No diarrhea, nausea or vomiting. No abdominal pain. Normoactive bowel sounds. NEUROLOGIC: No headaches, no weakness, no numbness. Medications were reviewed. PHYSICAL EXAMINATION: VITAL SIGNS: Temperature 98.3, pulse of 92, respiratory rate of 20, blood pressure is 139/77, saturating at 92% on 3 L of O2 by nasal cannula. GENERAL: The patient is alert and oriented x3, not in any acute distress. Well developed, well nourished. HEENT: Pupils are round and equally reacting to light. EOMI. No scleral icterus. No conjunctival pallor. Normocephalic, atraumatic. No pharyngeal erythema. No thyromegaly. CARDIOVASCULAR: S1 and S2 present. No murmurs, rubs, or gallops. RESPIRATORY EXAMINATION: Expiratory wheezing was appreciated. No crackles were appreciated. ABDOMEN: Soft, nontender, nondistended, normoactive bowel sounds. No palpable organomegaly. MUSCULOSKELETAL: No joint swelling or deformity. EXTREMITIES: No cyanosis, clubbing, or pedal edema. NEUROLOGICAL: Gross neurological examination did not reveal any focal deficits. SKIN: No rashes. LABORATORY DATA: Laboratory data was reviewed. The patient does have elevated bicarbonate secondary to CO2 retention. ASSESSMENT AND PLAN: 1. Acute hypercapnic respiratory failure secondary to chronic obstructive pulmonary disease exacerbation. 2. Influenza A tracheobronchitis. 3. ( ) tracheobronchitis. 4. Nicotine dependence. 5. Tachycardia due to hypoxemia, which is improving. 6. Alcohol dependence and patient is being watched for alcohol withdrawal. Plan is to continue the present medications. Continue to monitor. Patient may ( ) in the hospital for a day or two more. Patient may require oxygen at the time of discharge. Will try to get it set up tomorrow.
[2016-08-05 12:09] LABS: Glucose,Whole Blood 226 mg/dL (75-99)
--- NOTE | 2016-08-05 13:00 | P.PN ---
Subjective This is a 56-year-old white male, quite familiar to our service, patient is known to have history of severe emphysema, FEV1 is in the range of 21%. Patient is O2 dependent, he is on multiple bronchodilators, and unfortunately he was smoking until a couple of weeks ago. Patient quit smoking shortly after I saw him in the office a few weeks ago. Dr. Servin saw him for the first time a few weeks ago, and he explained to him the severity of his underlying condition/emphysema. 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 Since then the patient quit smoking, however the patient presented to [facility] on 08/01/2016 with symptoms of acute exacerbation of COPD including cough wheezing shortness of breath. Patient also had a sore throat, low-grade fever, aches and pains, and he was positive for influenza A. Patient was transferred to our facility, chest x-ray showed no evidence of infiltrate. Patient seems to be on proper bronchodilators, and he is already on treatment for his underlying influenza infection. Chest x-ray showed no evidence of infiltrate. Labs were reviewed he had a relatively normal CBC. Normal electrolytes. And normal renal profile. His meds were reviewed he is on proper bronchodilators including DuoNeb, methylprednisolone, Symbicort, Vibramycin, and he is also on theophylline patient is also on Tamiflu. Patient was reevaluated today on 08/03/2016, slightly better, less cough and less wheezing less shortness of breath, but nonetheless, the patient continues to have some shortness of breath with any activity. Blood sugar today is 140, all labs since admission were reviewed. The patient is seen again today 08/04/2016 in follow-up on the regular medical floor. He is awake and alert in no acute distress. He is doing better today as compared to yesterday. He does continue with nonproductive cough, shortness of breath and congestion. He is dyspneic on minimal exertion. Not quite back to his baseline. He continues to maintain good O2 saturations on 2 L/m per nasal cannula. His been afebrile. He denies any nausea, vomiting or diarrhea. The patient is seen again today 07/08/2016 in follow-up on the regular medical floor. He is awake and alert in no acute distress. He states he is breathing easier today as compared to yesterday. Nearly back to his baseline. He does have some dyspnea on exertion. He denies any nausea vomiting diarrhea. His cough is loose but nonproductive. His sputum culture revealed few normal madhu. He is currently afebrile. Objective - Vital Signs Vital signs: Vital Signs Temp 98.3 F 08/05/16 07:00 Pulse 92 08/05/16 08:17 Resp 20 08/05/16 08:00 BP 139/77 08/05/16 07:00 Pulse Ox 92 L 08/05/16 07:00 Intake & Output 08/04/16 08/05/16 08/05/16 18:59 06:59 18:59 Other: Voiding Method Toilet Toilet # Voids 2 2 - Exam GENERAL EXAM: Alert, active, comfortable in no apparent distress. HEAD: Normocephalic. EYES: Normal reaction of pupils, equal size. NOSE: Clear with pink turbinates. THROAT: No erythema or exudates. NECK: No masses, no JVD. CHEST: No chest wall deformity. LUNGS: Equal air entry with bilateral wheeze. Diminished throughout.. CVS: S1 and S2 normal with no audible murmurs, regular rhythm. ABDOMEN: No hepatosplenomegaly, normal bowel sounds, no guarding or rigidity. SPINE: No scoliosis or deformity SKIN: No rashes CENTRAL NERVOUS SYSTEM: No focal deficits, tone is normal in all 4 extremities. Extremities: There is no significant peripheral edema. No clubbing, no cyanosis. Peripheral pulses are intact. - Labs CBC & Chem 7: 08/02/16 00:34 08/05/16 08:42 Labs: Abnormal Lab Results - Last 24 Hours (Table) 08/04/16 08/04/16 08/05/16 Range/Units 17:12 19:59 08:42 Chloride 94 L (98-107) mmol/L Carbon Dioxide 40 H* (22-30) mmol/L Creatinine 0.53 L (0.66-1.25) mg/dL Glucose 125 H (74-99) mg/dL POC Glucose (mg/dL) 125 H 135 H (75-99) mg/dL 08/05/16 Range/Units 12:07 Chloride (98-107) mmol/L Carbon Dioxide (22-30) mmol/L Creatinine (0.66-1.25) mg/dL Glucose (74-99) mg/dL POC Glucose (mg/dL) 226 H (75-99) mg/dL Microbiology - Last 24 Hours (Table) 08/02/16 19:20 Gram Stain - Final Sputum Sputum Culture - Final 08/02/16 17:36 Blood Culture - Preliminary Blood No Growth after 48 hours Assessment and Plan Plan: Impression: #1 Acute exacerbation of severe end-stage Gold stage IV oxygen dependent chronic obstructive pulmonary disease with an FEV1 value 21% of predicted. #2 Acute on chronic hypoxic respiratory failure secondary to above. #3 Chronic and ongoing tobacco dependence. #4 Influenza A. #5 Daily alcohol use. Plan: The patient was seen and evaluated by Dr. Servin. He remains on bronchodilators , Symbicort, prednisone and empiric antibiotics in the form of Vibramycin. He will also complete his course of Tamiflu. He is again educated regarding the importance of complete smoking cessation. He remains on Chantix. He remains in the CIXA protocol, he did receive 1 mg of Ativan at 1:20 this morning. We will increase his activity as tolerated. We'll continue to follow make further recommendations based on his clinical status. The patient is anxious to go home and once discharged he will follow-up in our office with Dr. Servin in 1-2 weeks' time..
[2016-08-05] MEDS: SODIUM CHLORIDE 0.9% 1,000 ML IV SCH ×2 (16:13→20:38)
[2016-08-05 17:22] LABS: Glucose,Whole Blood 153 mg/dL (75-99)
[2016-08-05] MEDS: MELATONIN 5 MG TABLET PO SCH (20:53)
[2016-08-05 20:54] LABS: Glucose,Whole Blood 103 mg/dL (75-99)
[2016-08-05] MEDS: traZODone HCL 50 MG TAB PO SCH (20:54)
[2016-08-06] MEDS: LORazepam 2 MG/ML SYRINGE IV PRN (00:16)
[2016-08-06] MEDS: SODIUM CHLORIDE 0.9% 1,000 ML IV SCH ×2 (02:13→08:19)
[2016-08-06] MEDS: ACETAMINOPHEN TAB 500 MG TAB PO PRN ×2 (04:55→11:08)
[2016-08-06 07:52] LABS: Glucose,Whole Blood 91 mg/dL (75-99)
[2016-08-06 07:57] LABS: Anion Gap 5 mmol/L; Blood Urea Nitrogen 18 mg/dL (9-20); Calcium 8.6 mg/dL (8.4-10.2); Chloride 97 mmol/L (98-107); Glucose 100 mg/dL (74-99); Non-African American GFR(MDRD) >60 (>60 ml/min/1.73 sqM); Potassium 4.1 mmol/L (3.5-5.1); Sodium 142 mmol/L (137-145)
[2016-08-06 08:04] LABS: Carbon Dioxide 40 mmol/L (22-30)
[2016-08-06] MEDS: INSULIN LISPRO (humaLOG) 300 UNIT/3 ML VIAL SQ SCH ×2 (08:14→12:15)
[2016-08-06] MEDS: THEOPHYLLINE 24 HOUR 300 MG CAP.ER.24H PO SCH (08:17)
[2016-08-06] MEDS: ASPIRIN 81 MG CHEW PO SCH (08:17)
[2016-08-06] MEDS: VARENICLINE 1 MG TAB PO SCH (08:17)
[2016-08-06] MEDS: OSELTAMIVIR 75 MG CAP PO SCH (08:17)
[2016-08-06] MEDS: DOXYCYCLINE 50 MG CAP PO SCH (08:17)
[2016-08-06] MEDS: predniSONE 20 MG TAB PO SCH (08:17)
[2016-08-06 08:27] VITALS: BP 149/86; RESP 16; TEMP 98.2
[2016-08-06] MEDS: IPRATROPIUM-ALBUTEROL 3 ML NEB INHALATION SCH ×2 (08:54→12:58)
[2016-08-06] MEDS: SYMBICORT 160-4.5 MCG INHALER INHALATION SCH (08:54)
[2016-08-06 09:06] VITALS: PULSE 100
[2016-08-06 11:50] LABS: Glucose,Whole Blood 119 mg/dL (75-99)
--- NOTE | 2016-08-06 11:58 | P.PN ---
Subjective Principal diagnosis: Acute on chronic hypoxic respiratory failure secondary to COPD exacerbation his is a 56-year-old white male, quite familiar to my service, patient is known to have history of severe emphysema, FEV1 is in the range of 21%. Patient is O2 dependent, he is on multiple bronchodilators, and unfortunately he was smoking until a couple of weeks ago. Patient quit smoking shortly after I saw him in the office a few weeks ago. I saw him for the first time a few weeks ago , and I have explained to him the severity of his underlying condition/ emphysema. 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 Since then the patient quit smoking, however the patient presented to [facility] on 08/01/2016 with symptoms of acute exacerbation of COPD including cough wheezing shortness of breath. Patient also had a sore throat, low-grade fever, aches and pains, and he was positive for influenza A. Patient was transferred to our facility, chest x-ray showed no evidence of infiltrate. Patient seems to be on proper bronchodilators, and he is already on treatment for his underlying influenza infection. Chest x-ray showed no evidence of infiltrate. Labs were reviewed he had a relatively normal CBC. Normal electrolytes. And normal renal profile. His meds were reviewed he is on proper bronchodilators including DuoNeb, methylprednisolone, Symbicort, Vibramycin, and he is also on theophylline patient is also on Tamiflu. Patient was reevaluated today on 08/03/2016, slightly better, less cough and less wheezing less shortness of breath, but nonetheless, the patient continues to have some shortness of breath with any activity. Blood sugar today is 140, all labs since admission were reviewed. The patient is seen again today 08/04/2016 in follow-up on the regular medical floor. He is awake and alert in no acute distress. He is doing better today as compared to yesterday. He does continue with nonproductive cough, shortness of breath and congestion. He is dyspneic on minimal exertion. Not quite back to his baseline. He continues to maintain good O2 saturations on 2 L/m per nasal cannula. His been afebrile. He denies any nausea, vomiting or diarrhea. The patient is seen again today 07/08/2016 in follow-up on the regular medical floor. He is awake and alert in no acute distress. He states he is breathing easier today as compared to yesterday. Nearly back to his baseline. He does have some dyspnea on exertion. He denies any nausea vomiting diarrhea. His cough is loose but nonproductive. His sputum culture revealed few normal madhu. He is currently afebrile. Reevaluated today on 08/06/2016, patient is feeling much better, breathing a lot easier, he continues to have occasional cough and wheezing. Not surprising since the patient has severe underlying COPD. Patient remains on Tamiflu, remains on antibiotics and bronchodilators and steroids. Hence the patient could be considered for discharge planning today. Objective - Vital Signs Vital signs: Vital Signs Temp 98.2 F 08/06/16 07:00 Pulse 100 08/06/16 09:06 Resp 16 08/06/16 07:00 BP 149/86 08/06/16 07:00 Pulse Ox 94 L 08/06/16 07:00 Intake & Output 08/05/16 08/06/16 08/06/16 18:59 06:59 18:59 Other: Voiding Method Toilet # Voids 2 1 - Exam GENERAL EXAM: Alert, active, comfortable in no apparent distress. HEAD: Normocephalic. EYES: Normal reaction of pupils, equal size. NOSE: Clear with pink turbinates. THROAT: No erythema or exudates. NECK: No masses, no JVD. CHEST: No chest wall deformity. LUNGS: Equal air entry with bilateral wheeze. Diminished throughout.. CVS: S1 and S2 normal with no audible murmurs, regular rhythm. ABDOMEN: No hepatosplenomegaly, normal bowel sounds, no guarding or rigidity. SPINE: No scoliosis or deformity SKIN: No rashes CENTRAL NERVOUS SYSTEM: No focal deficits, tone is normal in all 4 extremities. Extremities: There is no significant peripheral edema. No clubbing, no cyanosis. Peripheral pulses are intact. - Labs CBC & Chem 7: 08/02/16 00:34 08/06/16 07:17 Labs: Abnormal Lab Results - Last 24 Hours (Table) 08/05/16 08/05/16 08/05/16 Range/Units 12:07 17:20 20:53 Chloride (98-107) mmol/L Carbon Dioxide (22-30) mmol/L Creatinine (0.66-1.25) mg/dL Glucose (74-99) mg/dL POC Glucose (mg/dL) 226 H 153 H 103 H (75-99) mg/dL 08/06/16 08/06/16 Range/Units 07:17 11:49 Chloride 97 L (98-107) mmol/L Carbon Dioxide 40 H* (22-30) mmol/L Creatinine 0.57 L (0.66-1.25) mg/dL Glucose 100 H (74-99) mg/dL POC Glucose (mg/dL) 119 H (75-99) mg/dL Microbiology - Last 24 Hours (Table) 08/02/16 17:36 Blood Culture - Preliminary Blood No Growth after 72 hours 08/02/16 19:20 Gram Stain - Final Sputum Sputum Culture - Final Assessment and Plan Plan: IImpression: #1 Acute exacerbation of severe end-stage Gold stage IV oxygen dependent chronic obstructive pulmonary disease with an FEV1 value 21% of predicted. #2 Acute on chronic hypoxic respiratory failure secondary to above. #3 Chronic and ongoing tobacco dependence. #4 Influenza A. #5 Daily alcohol use. Recommendation: Patient can be switched to oral antibiotics, prednisone burst and taper, and discharge the patient home today, continue his usual bronchodilators as given to him on outpatient basis. Cleared for discharge from the pulmonary perspective, patient already has home O2. I will see him in the office in one week post discharge Time with Patient: Less than 30
--- NOTE | 2016-08-06 13:26 | P.DS ---
Providers Date of admission: 08/01/16 17:27 Expected date of discharge: 08/06/16 Attending physician: Nazanin Klein Consults: 08/01/16 19:01 Consult Physician Routine Consulting Provider: Rafiq Servin Consult Reason/Comments: copd exacerbation Do you want consulting provider notified?: Yes, Notify in am 08/01/16 19:02 Consult Physician Routine Consulting Provider: Hoda Pratt Consult Reason/Comments: Positive troponins, tachycardia. Do you want consulting provider notified?: Yes, Notify in am Primary care physician: Diogenes Cohen [facility] Course: Final Diagnoses: 1. Acute hypoxic, hypercapnic respiratory failure secondary to COPD exacerbation 2. Influenza A tracheobronchitis 3. Nicotine dependence 4. Tachycardia due to hypoxemia, improving 5. Alcohol dependence Hospital course: This a 56-year-old gentleman admitted with acute hypoxic, hypercapnic respiratory failure secondary to COPD exacerbation, influenza A and multiple other medical issues. Evaluated by pulmonary. Maintained on nebulized bronchodilators, IV steroids, antibiotics, and Tamiflu with significant clinical improvement. Patient has been cleared for discharge by pulmonary. Patient is being discharged home in a stable condition with guarded prognosis. The impression and plan of care has been dictated as directed. Dr.: I performed a H&P examination of this patient and discussed the same with the dictator. I agree with the dictator's note. Any additional findings/opinions/ etc. will be noted. Patient Condition at Discharge: Stable Plan - Discharge Summary New Discharge Prescriptions: Doxycycline [Vibramycin] 100 mg PO BID #14 cap Discharge Medication List Acetaminophen Tab [Tylenol] 1,000 mg PO Q6HR PRN 08/01/16 [History] Albuterol Sulfate [Proair Hfa] 2 puff INHALATION RT-QID PRN 08/01/16 [History] Budesonide/Formoterol Fumarate [Symbicort 160-4.5 Mcg Inhaler] 2 puff INHALATION RT-BID 08/01/16 [History] Furosemide [Lasix] 20 mg PO DAILY 08/01/16 [History] Potassium Chloride [K-Tab ER] 10 meq PO BID 08/01/16 [History] Theophylline 12 Hour [Cayetano-Dur] 300 mg PO BID 08/01/16 [History] Varenicline [Chantix] 1 mg PO BID 08/01/16 [History] predniSONE [Deltasone] 20 mg PO BID 08/01/16 [History] traZODone HCL 50 mg PO HS 08/01/16 [History] Doxycycline [Vibramycin] 100 mg PO BID #14 cap 08/06/16 [Rx] Ipratropium-Albuterol Nebulize [Duoneb 0.5 mg-3 mg/3 ml Soln] 3 ml INHALATION RT -QID PRN #0 08/06/16 [Rx] Follow up Appointment(s)/Referral(s): Rafiq Servin MD [STAFF PHYSICIAN] - 1 Week Diogenes Cohen MD [Primary Care Provider] - 3 Days Ambulatory/Diagnostic Orders: Complete Blood Count w/diff [LAB.AMB] Time Frame: 3 Days, Location: Determined By Patient Activity/Diet/Wound Care/Special Instructions: 2lnc O2 prednisone taper as per pulmonary No ETOH, No smoking
== END 2016-08-06 15:40 | disposition home or self-care (01) | DRG 193 ==
LOC: 6SEL 17:27 → 5MS5E 08-04 00:02
PROVIDERS: ADMIT Internal Medicine; ATTEND Internal Medicine
PROC: HZ2ZZZZ Detoxification Services for Substance Abuse Treatment (ICD-10-PCS; principal; 2016-08-03)
DX: J10.1 Influenza due to other identified influenza virus with other respiratory manifestations (principal); J96.21 Acute and chronic respiratory failure with hypoxia; Z99.81 Dependence on supplemental oxygen; J44.1 Chronic obstructive pulmonary disease with (acute) exacerbation; F10.239 Alcohol dependence with withdrawal, unspecified; J45.909 Unspecified asthma, uncomplicated; R00.0 Tachycardia, unspecified; M79.1 Myalgia; R74.8 Abnormal levels of other serum enzymes; F17.210 Nicotine dependence, cigarettes, uncomplicated; Z71.6 Tobacco abuse counseling; Z79.891 Long term (current) use of opiate analgesic; Z79.52 Long term (current) use of systemic steroids; Z79.899 Other long term (current) drug therapy; Z79.51 Long term (current) use of inhaled steroids; Z71.41 Alcohol abuse counseling and surveillance of alcoholic
CPT/HCPCS: 71020; 80048; 80061; 80202; 82550; 82553; 83036; 84484; 85027; 87040; 87070; 87205; 93306; 94640; 94667; 94760

== ENCOUNTER 2022-09-29 09:24 | Day surgery (SDC) | payer MEDICARE, OTHER ==
[2022-09-24 13:12] VITALS: BMI 25.4
--- NOTE | 2022-09-28 18:18 | P.GSHP ---
History of Present Illness H&P Date: 09/28/22 62 yo male with gross hematuria. Was sent to me. Ct scan showed normal upper tracts and a cysto identified a 3 cm left posterior wall bladder tumor. He comes for a turbt. the risks , complications and alternatives have been discussed. - Constitutional Constitutional: Denies chills, Denies fever - EENT Eyes: denies blurred vision, denies pain Ears, nose, mouth and throat: Denies headache, Denies sore throat - Cardiovascular Cardiovascular: Denies chest pain, Denies shortness of breath - Respiratory Comment: covid with ventilator dependency last fall. resolved. Respiratory: Denies cough, Denies 7 - Gastrointestinal Gastrointestinal: Denies abdominal pain, Denies diarrhea, Denies nausea, Denies vomiting - Genitourinary (Female) Genitourinary: Denies dysuria, Denies hematuria - Genitourinary (Male) Genitourinary: Denies dysuria, Denies hematuria - Musculoskeletal Musculoskeletal: Denies myalgias - Integumentary Integumentary: Denies pruritus, Denies rash - Neurological Neurological: Denies numbness, Denies weakness - Psychiatric Psychiatric: Denies anxiety, Denies depression - Endocrine Endocrine: Denies fatigue, Denies weight change Past Medical History Past Medical History: Atrial Fibrillation, COPD, Hyperlipidemia, Hypertension Additional Past Medical History / Comment(s): Current bladder tumor, pressure with urination. Hx Covid 06/24/22, was hospitalized at [facility] for 18 days, was in ICU and on vent, went to rehab after that. History of Any Multi-Drug Resistant Organisms: None Reported Additional Past Surgical History / Comment(s): Colonoscopy. Past Anesthesia/Blood Transfusion Reactions: No Reported Reaction Additional Past Anesthesia/Blood Transfusion Reaction / Comment(s): Hx blood transfusion Jul 2022, no problems. Past Psychological History: No Psychological Hx Reported Smoking Status: Former smoker Past Alcohol Use History: Daily Additional Past Alcohol Use History / Comment(s): Quit smoking 3-4 months ago, started at age 13-14, smoked 2 ppd. No alcohol in 4 months, used to drink 2-3 beers daily prior to that. Past Drug Use History: Marijuana Additional Drug Use History / Comment(s): Marijuana use once in a while. Aware no use 24 hrs prior to procedure. - Past Family History Mother Family Medical History: No Reported History Medications and Allergies Home Medications Medication Instructions Recorded Confirmed Type Acetaminophen Tab [Tylenol] 1,000 mg PO Q6HR PRN 08/01/16 09/24/22 History Albuterol Sulfate [Proair Hfa] 2 puff INHALATION QID 08/01/16 09/24/22 History Budesonide/Formoterol Fumarate 2 puff INHALATION BID 08/01/16 09/24/22 History [Symbicort 160-4.5 Mcg Inhaler] Furosemide [Lasix] 20 mg PO QAM 08/01/16 09/24/22 History Theophylline 12 Hour [Cayetano-Dur] 300 mg PO BID 08/01/16 09/24/22 History Apixaban [Eliquis] 5 mg PO BID 09/24/22 09/24/22 History Ascorbic Acid [Vitamin C] 500 mg PO DAILY 09/24/22 09/24/22 History Atorvastatin [Lipitor] 10 mg PO HS 09/24/22 09/24/22 History Cholecalciferol [Vitamin D3 (25 50 mcg PO DAILY 09/24/22 09/24/22 History Mcg = 1000 Iu)] Cyanocobalamin [Vitamin B-12] 500 mcg PO DAILY 09/24/22 09/24/22 History FLUoxetine HCL 20 mg PO QAM 09/24/22 09/24/22 History Famotidine 20 mg PO BID 09/24/22 09/24/22 History Ferrous Sulfate [Feosol] 325 mg PO DAILY 09/24/22 09/24/22 History Metoprolol Tartrate 25 mg PO BID 09/24/22 09/24/22 History Multivitamins, Thera [Multivitamin 1 tab PO DAILY 09/24/22 09/24/22 History (formulary)] Zinc Gluconate [Zinc] 50 mg PO DAILY 09/24/22 09/24/22 History predniSONE 5 mg PO QAM 09/24/22 09/24/22 History traZODone HCL 100 mg PO HS 09/24/22 09/24/22 History Allergies Allergy/AdvReac Type Severity Reaction Status Date / Time No Known Allergies Allergy Verified 09/24/22 12:44 Surgical - Exam - General well developed, well nourished, no distress - Eyes normal ocular movement, no icteric - ENT no hearing loss, no congestion - Neck no masses, trachea midline - Respiratory normal respiratory effort, clear to auscultation - Abdomen Abdomen: soft, non tender, no guarding, no rigid, no rebound - Integumentary no rash, no abnormal pigmentation - Neurologic no disoriented, no combative - Psychiatric oriented to time, oriented to person, oriented to place, speech is normal, memory intact Results - Imaging CT scan - abdomen: report reviewed, image reviewed CT scan - pelvis: report reviewed, image reviewed Assessment and Plan Assessment: Impression: bladder ca, copd, asthma. htn, afib Plan: turbt
[~2022-09-29 09:24] MED LIST: DEXAMETHASONE SOD PHOSPHATE 4 MG/ML 1 ML VIAL IV ONE; LACTATED RINGERS 1,000 ML IV SCH; LIDOCAINE 1% (10MG/ML) FOR IV START INTRADERMA PRN; ONDANSETRON 4 MG/2 ML VIAL IVP ONE
[2022-09-29 10:26] LABS: Glucose,Whole Blood 106 mg/dL (70-110)
[2022-09-29] MEDS ORDERED: MIDAZOLAM 2 MG/2 ML VIAL ONE (11:20)
[2022-09-29] MEDS ORDERED: SUCCINYLCHOLINE CHLORIDE 200 MG/10 ML VIAL IV ONE (11:20)
[2022-09-29] MEDS ORDERED: LIDOCAINE 2% INJ 20 MG/ML (2 ML VIAL) ONE (11:20)
[2022-09-29] MEDS ORDERED: fentaNYL (PF) 50 MCG/ML 2 ML AMP ONE (11:20)
[2022-09-29] MEDS ORDERED: PROPOFOL 10 MG/ML 20 ML VIAL IV ONE (11:20)
[2022-09-29] MEDS ORDERED: PHENYLEPHRINE-0.9% NACL SYG 1,000 MCG/10 ML SYRINGE ONE (11:20)
--- NOTE | 2022-09-29 12:20 | P.OP ---
Date of Procedure: 09/29/22 Preoperative Diagnosis: Bladder cancer, medium Postoperative Diagnosis: Same Implants: TURBT medium (3 cm) Anesthesia: GETA Surgeon: Keshawn Agarwal Estimated Blood Loss (ml): 25 Pathology: other (Bladder tumor) Condition: stable Disposition: PACU Indications for Procedure: Patient had gross hematuria. He had a computed tomography scan identified a possible tumor on the posterior bladder wall. Cystoscopy identified a 3 cm tumor in the posterior directing towards anterior bladder wall on the left he comes for resection Description of Procedure: Patient brought to the operating suite. Given general anesthesia. He is placed lithotomy position with a sterile prep and drape. Under direct vision the 25- [place] sheath direct vision obturator and Foroblique lenses introduced in urethra. Normal. The prostate urethra shows minimal obstruction. The bladder wall shows some trabeculation. The posterior directing towards the anterior bladder wall towards the left side a medium-sized tumor is identified. His resected from medial to lateral. Dissected down to muscle tissue a. The bladder is free to of tumor with the Ellik evacuator. I control the bleeding of the bladder tumor site with electrocautery. At the end of the procedure the no remaining of the tumor nor is there any active bleeding. I removed the resectoscope. Introduce an 18-[place] Bakre catheter into the bladder with clear to light pink urine return. The patient's awake and returned recovery room good condition. He'll be discharged home upon recovery and found the office in one week for catheter removal path report.
[2022-09-29 12:31] VITALS: TEMP 97.8
[2022-09-29] MEDS: HYDROmorphone 0.5 MG/0.5 ML SYRINGE IVP PRN ×3 (12:32→12:54)
[2022-09-29 14:11] VITALS: BP 118/70; PULSE 61; RESP 15
== END 2022-09-29 14:11 | disposition home or self-care (01) ==
LOC: OR 09:24
PROVIDERS: ATTEND Urology
DX: C67.9 Malignant neoplasm of bladder, unspecified (principal); I48.91 Unspecified atrial fibrillation; J44.9 Chronic obstructive pulmonary disease, unspecified; I10 Essential (primary) hypertension; E78.5 Hyperlipidemia, unspecified; F10.20 Alcohol dependence, uncomplicated; F12.90 Cannabis use, unspecified, uncomplicated; K21.9 Gastro-esophageal reflux disease without esophagitis; Z86.16 Personal history of COVID-19; Z87.891 Personal history of nicotine dependence; Z79.51 Long term (current) use of inhaled steroids; Z79.01 Long term (current) use of anticoagulants; Z79.899 Other long term (current) drug therapy; Z79.52 Long term (current) use of systemic steroids
CPT/HCPCS: 52235; 88307; J2250; J0330; J1100; J0690; J2405; J3010; J2370; J2704; J1170; J2001

== ENCOUNTER 2023-01-01 14:52 | Emergency (ER) | payer MEDICARE ==
[2023-01-01 17:00] LABS: Color,Urine Red
[2023-01-01 17:02] LABS: Bacteria,Urine Few /hpf; RBC,Urine >182 /hpf (0-5); Squamous Epithelial Cell,Urine 0 /hpf (0-4); WBC,Urine 10 /hpf (0-5)
--- NOTE | 2023-01-01 17:16 | ED ---
Male Urogenital HPI - General Chief complaint: Urogenital Stated complaint: Blood in urine Time Seen by Provider: 01/01/23 15:59 Source: patient, RN notes reviewed Mode of arrival: ambulatory Limitations: no limitations - History of Present Illness Initial comments: This is a 62-year-old male who presents to the emergency department for hematuria. Patient states that a week ago he had an episode of blood in his urine. He had another episode of blood in his urine today. Patient is on Eliquis, and was concerned about losing too much blood, prompting him to come to the emergency department. He had a tumor in his bladder resected recently, however he was not having bleeding at that time. He has ongoing back and abdominal pain, however this is not worse than prior. Patient is on oxygen at home, and states that he has had mild increasing shortness of breath over the last several weeks. Denies any chest pain. Denies any fevers, chills, sore throat, cough, chest pain, palpitations, nausea, vomiting, diarrhea, or headaches. MD Complaint: other (Hematuria) - Related Data Home Medications Medication Instructions Recorded Confirmed Acetaminophen Tab [Tylenol] 1,000 mg PO Q6HR PRN 08/01/16 09/24/22 Albuterol Sulfate [Proair Hfa] 2 puff INHALATION QID 08/01/16 09/29/22 Budesonide/Formoterol Fumarate 2 puff INHALATION BID 08/01/16 09/24/22 [Symbicort 160-4.5 Mcg Inhaler] Furosemide [Lasix] 20 mg PO QAM 08/01/16 09/29/22 Theophylline 12 Hour [Cayetano-Dur] 300 mg PO BID 08/01/16 09/24/22 Apixaban [Eliquis] 5 mg PO BID 09/24/22 09/29/22 Ascorbic Acid [Vitamin C] 500 mg PO DAILY 09/24/22 09/24/22 Atorvastatin [Lipitor] 10 mg PO HS 09/24/22 09/29/22 Cholecalciferol [Vitamin D3 (25 50 mcg PO DAILY 09/24/22 09/24/22 Mcg = 1000 Iu)] Cyanocobalamin [Vitamin B-12] 500 mcg PO DAILY 09/24/22 09/24/22 FLUoxetine HCL 20 mg PO QAM 09/24/22 09/24/22 Famotidine 20 mg PO BID 09/24/22 09/24/22 Ferrous Sulfate [Feosol] 325 mg PO DAILY 09/24/22 09/24/22 Metoprolol Tartrate 25 mg PO BID 09/24/22 09/24/22 Multivitamins, Thera [Multivitamin 1 tab PO DAILY 09/24/22 09/24/22 (formulary)] Zinc Gluconate [Zinc] 50 mg PO DAILY 09/24/22 09/24/22 predniSONE 5 mg PO QAM 09/24/22 09/24/22 traZODone HCL 100 mg PO HS 09/24/22 09/29/22 Previous Rx's Medication Instructions Recorded HYDROcodone/APAP 7.5-325MG [Stow 1 tab PO Q6HR PRN 3 Days #12 tab 01/01/23 7.5-325] Allergies Allergy/AdvReac Type Severity Reaction Status Date / Time No Known Allergies Allergy Verified 09/24/22 12:44 Review of Systems ROS Statement: Those systems with pertinent positive or pertinent negative responses have been documented in the HPI. ROS Other: All systems not noted in ROS Statement are negative. Past Medical History Past Medical History: Atrial Fibrillation, Cancer, COPD, Hyperlipidemia, Hypertension Additional Past Medical History / Comment(s): Current bladder tumor, pressure with urination. Hx Covid 06/24/22, was hospitalized at [facility] for 18 days, was in ICU and on vent, went to rehab after that, bladder cancer History of Any Multi-Drug Resistant Organisms: None Reported Additional Past Surgical History / Comment(s): Colonoscopy. Past Anesthesia/Blood Transfusion Reactions: No Reported Reaction Additional Past Anesthesia/Blood Transfusion Reaction / Comment(s): Hx blood transfusion Jul 2022, no problems. Past Psychological History: No Psychological Hx Reported Smoking Status: Former smoker Past Alcohol Use History: Daily Past Drug Use History: Marijuana - Past Family History Mother Family Medical History: No Reported History General Exam Limitations: no limitations General appearance: alert, in no apparent distress Head exam: Present: atraumatic, normocephalic, normal inspection Respiratory exam: Present: normal lung sounds bilaterally. Absent: respiratory distress, wheezes, rales, rhonchi, stridor Cardiovascular Exam: Present: regular rate, normal rhythm, normal heart sounds. Absent: systolic murmur, diastolic murmur, rubs, gallop, clicks GI/Abdominal exam: Present: soft, normal bowel sounds. Absent: distended, tenderness, guarding, rebound, rigid Back exam: Absent: CVA tenderness (R), CVA tenderness (L) Neurological exam: Present: alert, oriented X3, CN II-XII intact Psychiatric exam: Present: normal affect, normal mood Skin exam: Present: warm, dry, intact, normal color. Absent: rash Course Vital Signs 01/01/23 01/01/23 01/01/23 15:10 18:13 20:12 Temperature 99.4 F 98.7 F Pulse Rate 88 83 81 Respiratory 16 20 18 Rate Blood Pressure 123/63 127/70 110/74 O2 Sat by Pulse 94 L 96 97 Oximetry Medical Decision Making - Medical Decision Making This is a 62-year-old male who presents to the emergency department for hematuria. Was pt. sent in by a medical professional or institution? @ -No Did you speak to anyone other than the patient for history? @ -No Did you review nursing and triage notes? @ -Yes, and I agree, it is accurate with regards to the patient's symptoms. Were old charts reviewed? @ -No Differential Diagnosis? @ -Differential Hematuria: UTI, pyelonephritis, malignancy, kidney stone, urethral injury, glomerulonephritis, this is not meant to be an all-inclusive list. EKG interpreted by me (3pts min.)? @ -Not obtained X-rays interpreted by me (1pt min.)? @ -Chest x-ray obtained. My interpretation identifies a possible nodularity in the right upper lobe. CT interpreted by me (1pt min.)? @ -Not obtained U/S interpreted by me (1pt. min.)? @ -Not interpreted by me What testing was considered but not performed? (CT, X-rays, U/S, labs)? Why? @ -None What meds were considered but not given? Why? @ -None Did you discuss the management of the patient with other professionals? @ -No Did you reconcile home meds? @ -No Was smoking cessation discussed for >3mins.? @ -No Was critical care preformed (if so, how long)? @ -No Were there social determinants of health that impacted care today? How? (Homelessness, low income, unemployed, alcoholism, drug addiction, transportation, low edu. Level, literacy, decrease access to med. care, [facility], rehab)? @ -No Was there de-escalation of care discussed even if they declined? (Discuss DNR or withdrawal of care, Hospice)? @ -No What co-morbidities impacted this encounter? (DM, HTN, Smoking, COPD, CAD, Cancer, CVA, Hep., AIDS, mental health diagnosis, sleep apnea, morbid obesity)? @ -A-fib, cancer Was patient admitted / discharged? @ -Discharged. Lab work obtained revealing a slightly decreased hemoglobin of 10.3. Lab work was otherwise nonactionable. Urinalysis revealed a large amount of blood which prevented it from being fully evaluated for signs of infection. Chest x-ray obtained revealing right apical pleural scarring with development of a right upper lobe the nodularity, which may be infectious versus inflammatory nature. Patient is advised to have close follow-up on this with his primary care provider. Given his lack of fevers and because he does not have an elevated white blood cell count or other upper respiratory symptoms, will avoid antibiotics at this time. Ultrasound of the abdomen and bladder obtained revealing a urinary bladder mass measuring up to 3.4 cm with vascular flow most consistent with tumor recurrence. Findings reviewed with the patient, in that this is most likely the cause of his hematuria. The patient admits to passing small clots in his urine, however this is not inhibiting his urine stream at th is time. He is instructed to hold his Eliquis for the next 2 days. Patient did not like the urologist he previously saw, and was thus given information for local urology follow-up. He is instructed to contact them first thing Tuesday morning for a follow-up appointment regarding the ultrasound findings. Patient inquired about medication to help manage his pain, as it is not effectively treated with ibuprofen and Tylenol at home. In light of the patient's recent cancer diagnosis, with likely recurrence of bladder cancer, I am agreeable to providing him with a 3 day course of Stow. He is instructed to take this sparingly when his pain is the most severe and to avoid driving or operating machinery when taking this. Undiagnosed new problem with uncertain prognosis? @ -None Drug Therapy requiring intensive monitoring for toxicity (Heparin, Nitro, Insulin, Cardizem)? @ -None Were any procedures done? @ -None Diagnosis/symptom? @ -Hematuria, bladder tumor Acute, or Chronic, or Acute on Chronic? @ -Acute Uncomplicated (without systemic symptoms) or Complicated (systemic symptoms)? @ -Uncomplicated Side effects of treatment? @ -None Exacerbation, Progression, or Severe Exacerbation] @ -Not applicable Poses a threat to life or bodily function? @ -Yes Return precautions reviewed in depth, the patient is instructed to return to the emergency department with any new, worsening, or concerning symptoms. Patient verbalized understanding. This case was discussed in detail with the attending ED physician, Dr. Elizabeth. Presentation, findings, and treatment plan discussed in detail as well. - Lab Data Result diagrams: 01/01/23 18:12 01/01/23 18:12 Lab Results 01/01/23 01/01/23 01/01/23 Range/Units 16:00 18:12 18:12 WBC 10.1 (3.8-10.6) k/uL RBC 3.53 L (4.30-5.90) m/uL Hgb 10.3 L (13.0-17.5) gm/dL Hct 31.7 L (39.0-53.0) % MCV 89.6 (80.0-100.0) fL MCH 29.3 (25.0-35.0) pg MCHC 32.6 (31.0-37.0) g/dL RDW 14.9 (11.5-15.5) % Plt Count 375 (150-450) k/uL MPV 7.0 Neutrophils % 71 % Lymphocytes % 16 % Monocytes % 10 % Eosinophils % 1 % Basophils % 0 % Neutrophils # 7.1 (1.3-7.7) k/uL Lymphocytes # 1.6 (1.0-4.8) k/uL Monocytes # 1.0 (0-1.0) k/uL Eosinophils # 0.1 (0-0.7) k/uL Basophils # 0.0 (0-0.2) k/uL PT 9.6 (9.0-12.0) sec INR 0.9 (<1.2) APTT 22.5 (22.0-30.0) sec Sodium (137-145) mmol/L Potassium (3.5-5.1) mmol/L Chloride (98-107) mmol/L Carbon Dioxide (22-30) mmol/L Anion Gap mmol/L BUN (9-20) mg/dL Creatinine (0.66-1.25) mg/dL Est GFR (CKD-EPI)AfAm (>60 ml/min/1.73 sqM) Est GFR (CKD-EPI)NonAf (>60 ml/min/1.73 sqM) Glucose (74-99) mg/dL Calcium (8.4-10.2) mg/dL Total Bilirubin (0.2-1.3) mg/dL AST (17-59) U/L ALT (4-49) U/L Alkaline Phosphatase (38-126) U/L Total Protein (6.3-8.2) g/dL Albumin (3.5-5.0) g/dL Urine Color Red Urine Appearance Bloody (Clear) Urine pH (5.0-8.0) Ur Specific [place] (1.001-1.035) Urine Protein (Negative) Urine Glucose (UA) (Negative) Urine Ketones (Negative) Urine Blood (Negative) Urine Nitrite (Negative) Urine Bilirubin (Negative) Urine Urobilinogen (<2.0) mg/dL Ur Leukocyte Esterase (Negative) Urine RBC >182 H (0-5) /hpf Urine WBC 10 H (0-5) /hpf Ur Squamous Epith Cells 0 (0-4) /hpf Urine Bacteria Few H (None) /hpf 01/01/23 Range/Units 18:12 WBC (3.8-10.6) k/uL RBC (4.30-5.90) m/uL Hgb (13.0-17.5) gm/dL Hct (39.0-53.0) % MCV (80.0-100.0) fL MCH (25.0-35.0) pg MCHC (31.0-37.0) g/dL RDW (11.5-15.5) % Plt Count (150-450) k/uL MPV Neutrophils % % Lymphocytes % % Monocytes % % Eosinophils % % Basophils % % Neutrophils # (1.3-7.7) k/uL Lymphocytes # (1.0-4.8) k/uL Monocytes # (0-1.0) k/uL Eosinophils # (0-0.7) k/uL Basophils # (0-0.2) k/uL PT (9.0-12.0) sec INR (<1.2) APTT (22.0-30.0) sec Sodium 140 (137-145) mmol/L Potassium 5.0 (3.5-5.1) mmol/L Chloride 102 (98-107) mmol/L Carbon Dioxide 32 H (22-30) mmol/L Anion Gap 6 mmol/L BUN 28 H (9-20) mg/dL Creatinine 1.02 (0.66-1.25) mg/dL Est GFR (CKD-EPI)AfAm >90 (>60 ml/min/1.73 sqM) Est GFR (CKD-EPI)NonAf 79 (>60 ml/min/1.73 sqM) Glucose 91 (74-99) mg/dL Calcium 9.0 (8.4-10.2) mg/dL Total Bilirubin 0.4 (0.2-1.3) mg/dL AST 28 (17-59) U/L ALT 23 (4-49) U/L Alkaline Phosphatase 106 (38-126) U/L Total Protein 7.1 (6.3-8.2) g/dL Albumin 4.2 (3.5-5.0) g/dL Urine Color Urine Appearance (Clear) Urine pH (5.0-8.0) Ur Specific [place] (1.001-1.035) Urine Protein (Negative) Urine Glucose (UA) (Negative) Urine Ketones (Negative) Urine Blood (Negative) Urine Nitrite (Negative) Urine Bilirubin (Negative) Urine Urobilinogen (<2.0) mg/dL Ur Leukocyte Esterase (Negative) Urine RBC (0-5) /hpf Urine WBC (0-5) /hpf Ur Squamous Epith Cells (0-4) /hpf Urine Bacteria (None) /hpf - Radiology Data Radiology results: report reviewed, image reviewed Disposition Clinical Impression: Hematuria, Bladder mass Disposition: HOME SELF-CARE Instructions (If sedation given, give patient instructions): Hematuria (ED) Additional Instructions: Return to the emergency department with any new, worsening, or concerning symptoms. Do not take your Eliquis tomorrow or the next day. Contact the urologist listed below. Let them know that you were seen in the emergency de partment for blood in your urine and found to have a tumor in the bladder, and they will schedule you for a follow-up appointment. Take the Stow sparingly when your pain is the most severe and be aware that it may make you drowsy. Follow up with your primary care provider in 1-2 days. Prescriptions: HYDROcodone/APAP 7.5-325MG [Stow 7.5-325] 1 tab PO Q6HR PRN 3 Days #12 tab PRN Reason: Pain Is patient prescribed a controlled substance at d/c from ED?: Yes When asked, does pt state using other controlled substances?: No If prescribed controlled substance>3 days was MAPS reviewed?: Prescribed <3 Days Referrals: [facility] [Family Provider] - 1-2 days Pierre Salas MD [STAFF PHYSICIAN] - 1-2 days
--- NOTE | 2023-01-01 17:22 | US ---
EXAMINATION TYPE: US kidneys/renal and bladder DATE OF EXAM: 01/01/2023 COMPARISON: None available CLINICAL INDICATION: Male, 62 years old with history of Hematuria, hx of bladder tumor; Patient had b ladder tumor removed last September, recent PET showed uptake at bladder, patient has gross hematuria wit h clots EXAM MEASUREMENTS: Right Kidney: 11.9 x 5.2 x 6.2 cm Left Kidney: 11.2 x 6.0 x 6.6 cm Right Kidney: No hydronephrosis or masses seen Left Kidney: No hydronephrosis or masses seen Bladder: superior mass seen measuring 2.9 x 2.6 x 2.4cm There is no evidence for hydronephrosis at this point in time. No nephrolithiasis is seen. Corticome dullary differentiation is maintained. No renal masses are identified. There is a soft tissue mass identified within the urinary bladder anterior superior wall measuring 2.9 x 3.4 x 2.6 cm with summer internship al color flow. IMPRESSION: Urinary bladder mass measuring up to 3.4 cm with vascular flow most consistent with tumor recurrence. Direct visualization is recommended.
--- NOTE | 2023-01-01 18:02 | XR ---
EXAMINATION TYPE: XR chest 2V DATE OF EXAM: 01/01/2023 5:53 PM COMPARISON: Chest radiographs from 08/23/2022, CT chest 10/12/2022 TECHNIQUE: XR chest 2V Frontal and lateral views of the chest. CLINICAL INDICATION:Male, 62 years old with history of ZULY; FINDINGS: Lungs/Pleura: There is flattening of the diaphragm with increased lucency of the lungs. No evidence o f pneumothorax, pleural effusion or focal consolidation. Chronic senescent parenchymal change. Right apical pleural-parenchymal scarring. Right upper lung faint nodularity suggested. Pulmonary vascularity: Unremarkable. Heart/mediastinum: Cardiomediastinal silhouette is unremarkable. Atherosclerotic calcifications are seen in the aorta. Musculoskeletal: No acute osseous pathology. IMPRESSION: Right apical pleural parenchymal scarring with development of right upper lobe faint nodularity. Like ly an infectious/inflammatory process. COPD changes. Continued follow-up is recommended.
[2023-01-01 18:18] LABS: Appearance,Urine Bloody (Clear)
[2023-01-01] MEDS ORDERED: HYDROmorphone 0.5 MG/0.5 ML SYRINGE IVP STA (18:22)
[2023-01-01 18:42] LABS: Basophils % (A) 0 %; Eosinophils # (A) 0.1 k/uL (0-0.7); Eosinophils % (A) 1 %; HCT 31.7 % (39.0-53.0); HGB 10.3 gm/dL (13.0-17.5); Lymphocytes # (A) 1.6 k/uL (1.0-4.8); Lymphocytes % (A) 16 %; MCH 29.3 pg (25.0-35.0); MCHC 32.6 g/dL (31.0-37.0); MCV 89.6 fL (80.0-100.0); Monocytes % (A) 10 %; Neutrophils # (A) 7.1 k/uL (1.3-7.7); Neutrophils % (A) 71 %; Platelet Count 375 k/uL (150-450); RBC 3.53 m/uL (4.30-5.90); RDW 14.9 % (11.5-15.5); WBC 10.1 k/uL (3.8-10.6)
[2023-01-01 18:55] LABS: ALT 23 U/L (4-49); AST 28 U/L (17-59); African American GFR (CKD) >90 (>60 ml/min/1.73 sqM); Albumin 4.2 g/dL (3.5-5.0); Alkaline Phosphatase 106 U/L (38-126); Anion Gap 6 mmol/L; Blood Urea Nitrogen 28 mg/dL (9-20); Carbon Dioxide 32 mmol/L (22-30); Chloride 102 mmol/L (98-107); Glucose 91 mg/dL (74-99); Non-African American GFR(CKD) 79 (>60 ml/min/1.73 sqM); Sodium 140 mmol/L (137-145); Total Bilirubin 0.4 mg/dL (0.2-1.3); Total Protein 7.1 g/dL (6.3-8.2)
[2023-01-01 19:01] LABS: INR 0.9 (<1.2); Partial Thromboplastin Time 22.5 sec (22.0-30.0); Prothrombin Time 9.6 sec (9.0-12.0)
[2023-01-01 20:14] VITALS: BP 110/74; PULSE 81; RESP 18; TEMP 98.7
== END 2023-01-01 20:14 | disposition home or self-care (01) ==
LOC: EC 14:52
DX: C67.9 Malignant neoplasm of bladder, unspecified (principal); R31.9 Hematuria, unspecified; I10 Essential (primary) hypertension; J44.9 Chronic obstructive pulmonary disease, unspecified; I48.91 Unspecified atrial fibrillation; E78.5 Hyperlipidemia, unspecified; F12.90 Cannabis use, unspecified, uncomplicated; Z79.01 Long term (current) use of anticoagulants; Z79.51 Long term (current) use of inhaled steroids; Z79.899 Other long term (current) drug therapy; Z87.891 Personal history of nicotine dependence
CPT/HCPCS: 36415; 80053; 85025; 85610; 85730; 81001; 71046; 76770; 99284; 96374; J1170

== ENCOUNTER → 2023-01-06 | Outpatient (CLI) | payer MEDICARE ==
--- NOTE | 2023-01-06 17:54 | CT ---
EXAMINATION TYPE: CT abdomen pelvis w con DATE OF EXAM: 01/06/2023 COMPARISON: 10/12/2022 HISTORY: 63-year-old male C67.9, neoplasm of the bladder. TECHNIQUE: Contiguous axial scanning of the abdomen and pelvis following administration of 100 ml Iso kelley 300 IV contrast. Delayed images through the kidneys and coronal/sagittal reconstructions perform ed. CT DLP: 1294.0 mGycm Automated exposure control for dose reduction was used. FINDINGS: Heart normal size without pericardial effusion. A few bilateral pulmonary nodules at the lung bases measuring up to 1 cm. These appear to be largely new from 10/12/2022. Underlying moderate emphysematous change. Patchy pleural parenchymal scarring post erior right base unchanged. Multiple new masses within both right and left liver lobes especially towards the hepatic dome measur ing up to 4.2 cm. Portal venous system is patent. No biliary ductal dilatation. Gallbladder, adrenal glands, spleen, and pancreas within normal limits. There is a small 1 cm cortical hypodensity right kidney and 8 mm cortical hypodensity left kidney too small for accurate CT characterization, likely small benign cortical cysts. Moderate atherosclerotic calcifications infrarenal abdominal aorta and iliac arteries. No dilated small bowel, free fluid, or free air. Numerous small retroperitoneal nodes though some are borderline enlarged measuring up to 1 cm. Possib le metastatic nodes. No mesenteric lymphadenopathy seen. Normal appendix. Mild to moderate stool in the right side of the colon. Minimal sigmoid diverticulosi s. No pericolonic inflammatory change. There is an irregular mass reporting the right anterior bladder wall. The mass measures approximately 4.7 x 4.2 x 2.8 cm, axial image 68 and coronal image 47. Prostate gland borderline enlarged at 4.1 cm wide. No abnormal fluid collection in the pelvis. Border line size lymph nodes along the right external iliac chain measuring up to 1 cm. Suspicious given irma t they are asymmetric to the contralateral side. Bones: Mild degenerative change of the hips. Moderate degenerative disc disease L4-L5 and L5-S1. Ther e is a lytic lesion centered within the L4 vertebral body which is suspicious. IMPRESSION: 1. IRREGULAR RIGHT ANTERIOR BLADDER WALL MASS MEASURING 4.7 X 4.2 X 2.8 CM. 2. NEW METASTATIC PULMONARY NODULES MEASURING UP TO 1 CM IN THE VISUALIZED LOWER LUNGS. IN ADDITION, THERE ARE NEW HEPATIC METASTASES MEASURING UP TO 4.2 CM. 3. NUMEROUS NONENLARGED AND BORDERLINE-SIZED RETROPERITONEAL NODES ARE NONSPECIFIC BUT SOMEWHAT SUSPI CIOUS MEASURING UP TO 1 CM. 4. A COUPLE RIGHT EXTERNAL ILIAC CHAIN LYMPH NODES MEASURING UP TO 1 CM ARE SUSPICIOUS WELL GIVEN ASYMMETRY. 5. A 2.4 CM LYTIC LESION CENTERED WITHIN THE L4 VERTEBRAL BODY SUGGESTIVE OF OSSEOUS METASTASIS.
== END | disposition home or self-care (01) ==
LOC: RADCTMAIN 15:29
PROVIDERS: ATTEND Internal Medicine
DX: C78.7 Secondary malignant neoplasm of liver and intrahepatic bile duct (principal); C78.00 Secondary malignant neoplasm of unspecified lung; C67.9 Malignant neoplasm of bladder, unspecified
CPT/HCPCS: 74177; Q9967

== ENCOUNTER 2023-01-12 07:44 | Day surgery (SDC) | payer MEDICARE ==
[2023-01-12] MEDS ORDERED: ALPRAZolam 0.5 MG TAB PO PRN (08:46)
[2023-01-12 09:24] LABS: Platelet Count 448 k/uL (150-450)
[2023-01-12 09:28] VITALS: TEMP 98
[2023-01-12 09:36] LABS: INR 0.9 (<1.2); Prothrombin Time 9.7 sec (9.0-12.0)
[2023-01-12] MEDS: HYDROmorphone 0.5 MG/0.5 ML SYRINGE IVP PRN ×2 (10:42→12:14)
[2023-01-12] MEDS ORDERED: HYDROcodone/APAP 5-325MG 1 EACH TAB PO PRN (11:15)
[2023-01-12 14:46] VITALS: RESP 16
[2023-01-12 15:12] VITALS: BP 137/75; PULSE 67
--- NOTE | 2023-01-12 19:01 | US ---
EXAMINATION TYPE: US biopsy liver DATE OF EXAM: 01/12/2023 11:08 AM CLINICAL INDICATION:Male, 63 years old with history of Liver mass; COMPARISON: Correlation CT 01/06/2023 Radiologist: Dr. Cerrato TECHNIQUE: Ultrasound guided percutaneous liver biopsy using coaxial method. Nursing administered 0.5 mg IV Dila udid to the patient. The patient was monitored by a qualified trained nurse independent of the Radiol ogist during sedation. FINDINGS: The procedure was explained to the patient. All questions were answered and informed consent was obta ined. The patient was placed supine and transverse ultrasound images of the anterior left liver lobe at the site of the dominant mass were obtained. The overlying skin was marked and prepped using sterile method. Timeout was taken per protocol. Follo wing administration 1% local lidocaine anesthesia, a 17/18-gauge Bard biopsy system was advanced with needle tip visualized within the anterior left liver lobe mass. Three 18-gauge core biopsies were obtained, placed in formalin solution, and sent to pathology. The needle was removed , hemostasis obtained, and a dressing placed. Other additional ultrasound scan funmi shows no abnormal fluid collection or evident complication. Patient was taken for postprocedure observation in stable condition. IMPRESSIONS: Status post ultrasound guided targeted biopsy of the anterior left liver lobe mass. Pathology results pending.
== END 2023-01-12 15:15 | disposition home or self-care (01) ==
LOC: RADPROMAIN 07:44
PROVIDERS: ATTEND Internal Medicine
DX: K76.89 Other specified diseases of liver (principal)
CPT/HCPCS: 85049; 85610; 88342; 88307; 88341; 36415; 47000; 76942; J1170

== ENCOUNTER 2023-01-27 12:11 | Emergency (ER) | payer MEDICARE ==
[2023-01-27 12:43] VITALS: PULSE 89; RESP 20
--- NOTE | 2023-01-27 13:05 | ED ---
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 Additionally, patient seen here on 01/01/23 due to recurrent dysuria and hematuria. At this time had an ultrasound of the knees and bladder that showed recurrent mass measuring 2.9 x 2.6 x 2.4 cm. Patient reports that this has not been resected. Patient presents to the ED for chief complaint of hematuria and difficulty urinating. Patient states that this is a recurrent issue however over the past week has had increasing difficulty urinating due to several clots. Was seen at [facility] earlier today and was advised to present to the ED for further evaluation. Notes abdominal pain however patient states that this is chronic in nature and unchanged. Denies nausea, vomiting, diarrhea, chest pain, shortness of breath. No other complaints. - Related Data Home Medications Medication Instructions Recorded Confirmed Acetaminophen Tab [Tylenol] 1,000 mg PO Q6HR PRN 08/01/16 01/12/23 Albuterol Sulfate [Proair Hfa] 2 puff INHALATION QID 08/01/16 01/12/23 Budesonide/Formoterol Fumarate 2 puff INHALATION BID 08/01/16 01/12/23 [Symbicort 160-4.5 Mcg Inhaler] Furosemide [Lasix] 20 mg PO QAM 08/01/16 01/12/23 Theophylline 12 Hour [Cayetano-Dur] 300 mg PO BID 08/01/16 01/12/23 Apixaban [Eliquis] 5 mg PO BID 09/24/22 01/12/23 Atorvastatin [Lipitor] 10 mg PO HS 09/24/22 01/12/23 Cholecalciferol [Vitamin D3 (25 50 mcg PO DAILY 09/24/22 01/12/23 Mcg = 1000 Iu)] Cyanocobalamin [Vitamin B-12] 500 mcg PO DAILY 09/24/22 01/12/23 FLUoxetine HCL 20 mg PO QAM 09/24/22 01/12/23 Famotidine 20 mg PO BID 09/24/22 01/12/23 Ferrous Sulfate [Feosol] 325 mg PO DAILY 09/24/22 01/12/23 Metoprolol Tartrate 25 mg PO BID 09/24/22 01/12/23 Multivitamins, Thera [Multivitamin 1 tab PO DAILY 09/24/22 01/12/23 (formulary)] Zinc Gluconate [Zinc] 50 mg PO DAILY 09/24/22 01/12/23 predniSONE 5 mg PO QAM 09/24/22 01/12/23 traZODone HCL 100 mg PO HS 09/24/22 01/12/23 Previous Rx's Medication Instructions Recorded HYDROcodone/APAP 7.5-325MG [[place] 1 tab PO Q6HR PRN 3 Days #12 tab 01/01/23 7.5-325] Cephalexin [Keflex] 500 mg PO Q6HR 5 Days #20 cap 01/27/23 Allergies Allergy/AdvReac Type Severity Reaction Status Date / Time No Known Allergies Allergy Verified 01/27/23 12:43 Review of Systems ROS Statement: Those systems with pertinent positive or pertinent negative responses have been documented in the HPI. ROS Other: All systems not noted in ROS Statement are negative. Past Medical History Past Medical History: Atrial Fibrillation, Cancer, COPD, Hyperlipidemia, Hypertension Additional Past Medical History / Comment(s): Current bladder tumor, pressure with urination. Hx Covid 06/24/22, was hospitalized at [facility] for 18 days, was in ICU and on vent, went to rehab after that, bladder cancer History of Any Multi-Drug Resistant Organisms: None Reported Additional Past Surgical History / Comment(s): Colonoscopy. Past Anesthesia/Blood Transfusion Reactions: No Reported Reaction Additional Past Anesthesia/Blood Transfusion Reaction / Comment(s): Hx blood transfusion Jul 2022, no problems. Past Psychological History: No Psychological Hx Reported Smoking Status: Former smoker Past Alcohol Use History: Daily Past Drug Use History: Marijuana - Past Family History Mother Family Medical History: No Reported History General Exam Limitations: no limitations General appearance: alert, in no apparent distress Eye exam: Present: normal appearance Neck exam: Present: normal inspection Respiratory exam: Present: normal lung sounds bilaterally Cardiovascular Exam: Present: regular rate, normal rhythm GI/Abdominal exam: Present: soft (No tenderness palpation. No rebound guarding or rigidity. No flank tenderness to percussion bilaterally.) Back exam: Present: normal inspection Neurological exam: Present: alert, oriented X3 Skin exam: Present: warm, dry Course Vital Signs 01/27/23 12:38 Temperature 98.9 F Pulse Rate 89 Respiratory 20 Rate Blood Pressure 130/65 O2 Sat by Pulse 93 L Oximetry Medical Decision Making - Medical Decision Making Was pt. sent in by a medical professional or institution (, [facility], [employer], urgent care, hospital, or [facility]...) When possible be specific @ -No Did you speak to anyone other than the patient for history (EMS, parent, family, police, friend...)? What history was obtained from this source @ -No Did you review nursing and triage notes (agree or disagree)? Why? @ -I reviewed and agree with nursing and triage notes Were old charts reviewed (outside hosp., previous admission, EMS record, old EKG, old radiological studies, urgent care reports/EKG's, [facility] records)? Report findings @ -Old charts reviewed. For further details please see HPI. Differential Diagnosis (chest pain, altered mental status, abdominal pain women, abdominal pain men, vaginal bleeding, weakness, fever, dyspnea, syncope, headache, dizziness, GI bleed, back pain, seizure, CVA, palpatations, mental health, musculoskeletal)? @ -Differential Abdominal Pain Men: Appendicitis, cholecystitis, diverticulosis, ischemic bowel, pancreatitis, hepatitis, UTI, gastroenteritis, AAA, incarcerated hernia, bowel obstruction, constipation, inflammatory bowel, hepatitis, peptic ulcer disease, splenic infarction, perforated viscus, testicular torsion, this is not meant to be an all-inclusive list EKG interpreted by me (3pts min.). @ -None X-rays interpreted by me (1pt min.). @ -None done CT interpreted by me (1pt min.). @ -None done U/S interpreted by me (1pt. min.). @ -Ultrasound interpreted by me. Ultrasound shows mass stable from prior. New approximately 2 cm mass versus clot. What testing was considered but not performed or refused? (CT, X-rays, U/S, labs)? Why? @ -None What meds were considered but not given or refused? Why? @ -None Did you discuss the management of the patient with other professionals ( professionals i.e. , [facility], [employer], lab, RT, psych nurse, social media assistant, volunteer services assistant, teacher, tax compliance officer, case management assistant)? Give summary @ -No Was smoking cessation discussed for >3mins.? @ -No Was critical care preformed (if so, how long)? @ -No Were there social determinants of health that impacted care today? How? (Homelessness, low income, unemployed, alcoholism, drug addiction, transpo rtation, low edu. Level, literacy, decrease access to med. care, care home, rehab)? @ -No Was there de-escalation of care discussed even if they declined (Discuss DNR or withdrawal of care, Hospice)? DNR status @ -No What co-morbidities impacted this encounter? (DM, HTN, Smoking, COPD, CAD, Cancer, CVA, ARF, Chemo, Hep., AIDS, mental health diagnosis, sleep apnea, morbid obesity)? @ -None Was patient admitted / discharged? Hospital course, mention meds given and route, prescriptions, significant lab abnormalities, going to OR and other pertinent info. @ -Discharge. Laboratory studies significant for a white blood cell count 12.1. Hemoglobin 9.8. Urine shows concern for UTI with greater than 182 white cells. Also has greater than 182 red blood cells. Otherwise laboratory studies unremarkable. Baker catheter inserted. With elevation in white count and whi te cells in urine, patient will be covered for UTI. Discharged home in stable condition. Discussed return precautions with patient who verbalizes agreement. Undiagnosed new problem with uncertain prognosis? @ -No Drug Therapy requiring intensive monitoring for toxicity (Heparin, Nitro, Insulin, Cardizem)? @ -No Were any procedures done? @ -No Diagnosis/symptom? @ -Dysuria/hematuria, UTI Acute, or Chronic, or Acute on Chronic? @ -Acute on chronic, acute Uncomplicated (without systemic symptoms) or Complicated (systemic symptoms)? @ -Uncomplicated Side effects of treatment? @ -No Exacerbation, Progression, or Severe Exacerbation? @ -No Poses a threat to life or bodily function? How? (Chest pain, USA, CT, pneumonia, PE, COPD, DKA, ARF, appy, cholecystitis, CVA, Diverticulitis, Homicidal, Suicidal, threat to staff... and all critical care pts) @ -No - Lab Data Result diagrams: 01/27/23 13:12 01/27/23 13:12 Lab Results 01/27/23 01/27/23 01/27/23 Range/Units 13:12 13:12 14:02 WBC 12.1 H (3.8-10.6) k/uL RBC 3.51 L (4.30-5.90) m/uL Hgb 9.8 L (13.0-17.5) gm/dL Hct 31.3 L (39.0-53.0) % MCV 89.2 (80.0-100.0) fL MCH 27.8 (25.0-35.0) pg MCHC 31.2 (31.0-37.0) g/dL RDW 14.1 (11.5-15.5) % Plt Count 500 H (150-450) k/uL MPV 7.0 Neutrophils % 77 % Lymphocytes % 11 % Monocytes % 8 % Eosinophils % 1 % Basophils % 0 % Neutrophils # 9.3 H (1.3-7.7) k/uL Lymphocytes # 1.4 (1.0-4.8) k/uL Monocytes # 0.9 (0-1.0) k/uL Eosinophils # 0.2 (0-0.7) k/uL Basophils # 0.0 (0-0.2) k/uL Hypochromasia Moderate Sodium 138 (137-145) mmol/L Potassium 5.0 (3.5-5.1) mmol/L Chloride 98 (98-107) mmol/L Carbon Dioxide 29 (22-30) mmol/L Anion Gap 11 mmol/L BUN 17 (9-20) mg/dL Creatinine 0.99 (0.66-1.25) mg/dL Est GFR (CKD-EPI)AfAm >90 (>60 ml/min/1.73 sqM) Est GFR (CKD-EPI)NonAf 81 (>60 ml/min/1.73 sqM) Glucose 118 H (74-99) mg/dL Calcium 9.3 (8.4-10.2) mg/dL Total Bilirubin 0.4 (0.2-1.3) mg/dL AST 38 (17-59) U/L ALT 31 (4-49) U/L Alkaline Phosphatase 159 H (38-126) U/L Total Protein 7.1 (6.3-8.2) g/dL Albumin 3.9 (3.5-5.0) g/dL Urine Color Dark Red Urine Appearance Bloody (Clear) Urine RBC >182 H (0-5) /hpf Urine WBC >182 H (0-5) /hpf Disposition Clinical Impression: Dysuria, Hematuria Disposition: HOME SELF-CARE Condition: Good Instructions (If sedation given, give patient instructions): Urinary Tract Infection in Men (ED) Additional Instructions: Please return to the Emergency Department if symptoms worsen or any other concerns. Follow up with urology. Prescriptions: Cephalexin [Keflex] 500 mg PO Q6HR 5 Days #20 cap Is patient prescribed a controlled substance at d/c from ED?: No Referrals: Diogenes Cohen MD [Primary Care Provider] - 1-2 days Time of Disposition: 15:30
[2023-01-27] MEDS ORDERED: HYDROcodone/APAP 7.5-325MG 1 EACH TAB PO ONE (13:12)
[2023-01-27 13:31] LABS: Basophils % (A) 0 %; Eosinophils # (A) 0.2 k/uL (0-0.7); Eosinophils % (A) 1 %; HCT 31.3 % (39.0-53.0); HGB 9.8 gm/dL (13.0-17.5); Hypochromasia Moderate; Lymphocytes # (A) 1.4 k/uL (1.0-4.8); Lymphocytes % (A) 11 %; MCH 27.8 pg (25.0-35.0); MCHC 31.2 g/dL (31.0-37.0); MCV 89.2 fL (80.0-100.0); Monocytes # (A) 0.9 k/uL (0-1.0); Monocytes % (A) 8 %; Neutrophils # (A) 9.3 k/uL (1.3-7.7); Neutrophils % (A) 77 %; Platelet Count 500 k/uL (150-450); RBC 3.51 m/uL (4.30-5.90); RDW 14.1 % (11.5-15.5); WBC 12.1 k/uL (3.8-10.6)
[2023-01-27 13:45] LABS: ALT 31 U/L (4-49); AST 38 U/L (17-59); African American GFR (CKD) >90 (>60 ml/min/1.73 sqM); Albumin 3.9 g/dL (3.5-5.0); Alkaline Phosphatase 159 U/L (38-126); Anion Gap 11 mmol/L; Blood Urea Nitrogen 17 mg/dL (9-20); Calcium 9.3 mg/dL (8.4-10.2); Carbon Dioxide 29 mmol/L (22-30); Chloride 98 mmol/L (98-107); Glucose 118 mg/dL (74-99); Non-African American GFR(CKD) 81 (>60 ml/min/1.73 sqM); Sodium 138 mmol/L (137-145); Total Bilirubin 0.4 mg/dL (0.2-1.3); Total Protein 7.1 g/dL (6.3-8.2)
[2023-01-27 14:28] LABS: RBC,Urine >182 /hpf (0-5); WBC,Urine >182 /hpf (0-5)
[2023-01-27 14:33] LABS: Appearance,Urine Bloody (Clear); Color,Urine Dark Red
--- NOTE | 2023-01-27 14:34 | US ---
EXAMINATION TYPE: US renals and bladder DATE OF EXAM: 01/27/2023 COMPARISON: NONE CLINICAL INDICATION: Male, 63 years old with history of recurrent dysuria hematuria hx 3.4 cm bladder mass; hematuria with clots EXAM MEASUREMENTS: Right Kidney: 12.1 x 6.5 x 6.0 cm Left Kidney: 11.4 x 6.0 x 4.9 cm Right Kidney: anechoic area = 1.1 x 0.9 x 1.1cm Left Kidney: no evidence of hydronephrosis Bladder: mass = 3.9 x 3.1 x 3.2cm superiorly (as on prior exam). possible 2nd mass = 1.8 x 1.3 x 1.6c m vs. clot Bilateral Jets seen: no There is no evidence for hydronephrosis at this point in time. No nephrolithiasis is seen. No mitra s are identified. IMPRESSION: Urinary bladder wall mass with a second mass possibly reflecting additional lesion versus a blood queenie t.
[2023-01-27 17:07] VITALS: BP 131/66; TEMP 98.5
== END 2023-01-27 16:45 | disposition home or self-care (01) ==
LOC: EC 12:11
DX: R31.9 Hematuria, unspecified (principal); R30.0 Dysuria; I48.91 Unspecified atrial fibrillation; I10 Essential (primary) hypertension; E78.5 Hyperlipidemia, unspecified; Z87.891 Personal history of nicotine dependence; F12.90 Cannabis use, unspecified, uncomplicated; Z86.16 Personal history of COVID-19; Z79.899 Other long term (current) drug therapy; Z79.51 Long term (current) use of inhaled steroids; Z79.01 Long term (current) use of anticoagulants
CPT/HCPCS: 36415; 51702; 76770; 80053; 81001; 85025; 99284

== ENCOUNTER → 2023-02-01 | Outpatient (CLI) | payer MEDICARE ==
--- NOTE | 2023-02-02 07:51 | XR ---
EXAMINATION TYPE: XR chest 2V DATE OF EXAM: 02/01/2023 5:28 PM COMPARISON: Chest radiographs from 01/01/2023 TECHNIQUE: XR chest 2V Frontal and lateral views of the chest. CLINICAL INDICATION:Male, 63 years old with history of C67.9,Z71.3; FINDINGS: Lungs/Pleura: Blunting of the right costophrenic angle. Patchy reticular nodular opacities throughout the right lung. Hyperinflation compatible with COPD. Pulmonary vascularity: Unremarkable. Heart/mediastinum: Cardiomediastinal silhouette is unremarkable. Atherosclerotic calcifications are seen in the aorta. Musculoskeletal: No acute osseous pathology. IMPRESSION: Small right pleural effusion with increased patchy reticulonodular opacities within the right lung co ncerning for infectious/inflammatory process.
== END | disposition home or self-care (01) ==
LOC: RADXRMAIN 17:16
PROVIDERS: ATTEND Nurse Practitioner Family
DX: C67.9 Malignant neoplasm of bladder, unspecified (principal); J90 Pleural effusion, not elsewhere classified; R91.8 Other nonspecific abnormal finding of lung field; Z71.3 Dietary counseling and surveillance
CPT/HCPCS: 71046

== ENCOUNTER 2023-02-15 14:02 | Inpatient (IN) | payer MEDICARE, OTHER ==
[2023-02-15] MEDS ORDERED: HYDROmorphone 0.5 MG/0.5 ML SYRINGE IVP STA (14:28)
--- NOTE | 2023-02-15 14:34 | ED ---
General Adult HPI - General Chief complaint: Shortness of Breath Stated complaint: SOB Time Seen by Provider: 02/15/23 14:15 Source: patient, RN notes reviewed, old records reviewed Mode of arrival: wheelchair - History of Present Illness Initial comments: This is a 63-year-old male who presents emergency Department with a past medical history significant for metastatic bladder disease but states this is due to his liver lungs. Patient comes in today because he was at Dr. Servin's office and only oxygenating at 85%. Patient had an x-ray there and Dr. Servin suspects a pleural effusion that needs to be drained so he sent to the emergency department immediately. Patient states she's also expressing sharp chest pain which is unusual for him. Patient states he also is very short of breath particularly with any movement. Patient states this is been ongoing for the last couple of weeks and getting progressively worse per patient denies any fever chills or cough per patient denies abdominal pain patient denies nausea vomiting diarrhea. Patient denies any palpitations. Patient denies headache patient denies numbness weakness per patient denies lightheadedness or dizziness. - Related Data Home Medications Medication Instructions Recorded Confirmed Acetaminophen Tab [Tylenol] 1,000 mg PO Q6HR 08/01/16 02/15/23 Albuterol Sulfate [Proair Hfa] 2 puff INHALATION RT-QID PRN 08/01/16 02/15/23 Budesonide/Formoterol Fumarate 2 puff INHALATION RT-BID@0500,1700 08/01/16 02/15/23 [Symbicort 160-4.5 Mcg Inhaler] Furosemide [Lasix] 20 mg PO Q2D 08/01/16 02/15/23 Theophylline 12 Hour [[place]-Dur] 300 mg PO BID@0500,1700 08/01/16 02/15/23 Atorvastatin [Lipitor] 10 mg PO HS 09/24/22 02/15/23 Famotidine 20 mg PO BID@0500,1700 09/24/22 02/15/23 Ferrous Sulfate [Feosol] 325 mg PO DAILY 09/24/22 02/15/23 Metoprolol Tartrate 25 mg PO BID@0500,1700 09/24/22 02/15/23 predniSONE 5 mg PO DAILY 09/24/22 02/15/23 traZODone HCL 100 mg PO HS 09/24/22 02/15/23 ALPRAZolam [Xanax] 0.25 mg PO BID PRN 02/15/23 02/15/23 FLUoxetine HCL [PROzac] 40 mg PO DAILY 02/15/23 02/15/23 Ipratropium-Albuterol Nebulize 3 ml INHALATION RT-QID 02/15/23 02/15/23 [Duoneb 0.5 mg-3 mg/3 ml Soln] Ondansetron [Zofran] 4 mg PO Q4H PRN 02/15/23 02/15/23 Previous Rx's Medication Instructions Recorded HYDROcodone/APAP 7.5-325MG [[place] 1 tab PO Q6HR PRN 3 Days #12 tab 01/01/23 7.5-325] Allergies Allergy/AdvReac Type Severity Reaction Status Date / Time No Known Allergies Allergy Verified 02/15/23 17:27 Review of Systems ROS Statement: Those systems with pertinent positive or pertinent negative responses have been documented in the HPI. ROS Other: All systems not noted in ROS Statement are negative. Past Medical History Past Medical History: Atrial Fibrillation, Cancer, COPD, Hyperlipidemia, Hypertension Additional Past Medical History / Comment(s): Current bladder tumor, pressure with urination. Hx Covid 06/24/22, was hospitalized at [facility] for 18 days, was in ICU and on vent, went to rehab after that, bladder cancer History of Any Multi-Drug Resistant Organisms: None Reported Additional Past Surgical History / Comment(s): Colonoscopy. Past Anesthesia/Blood Transfusion Reactions: No Reported Reaction Additional Past Anesthesia/Blood Transfusion Reaction / Comment(s): Hx blood transfusion Jul 2022, no problems. Past Psychological History: No Psychological Hx Reported Smoking Status: Former smoker Past Alcohol Use History: Daily Past Drug Use History: Marijuana - Past Family History Mother Family Medical History: No Reported History General Exam - General Exam Comments Initial Comments: GENERAL: Patient is well-developed and well-nourished. Patient is nontoxic and well-hydrated and is in mild distress. ENT: Neck is soft and supple. No significant lymphadenopathy is noted. Oropharynx is clear. Moist mucous membranes. Neck has full range of motion without eliciting any pain. EYES: The sclera were anicteric and conjunctiva were pink and moist. Extraocular movements were intact and pupils were equal round and reactive to light. Eyelids were unremarkable. PULMONARY: Diminished breath sounds on the left more so than the right CARDIOVASCULAR: There is a regular rate and rhythm without any murmurs gallops or rubs. ABDOMEN: Soft and nontender with normal bowel sounds. SKIN: Skin is clear with no lesions or rashes and otherwise unremarkable. NEUROLOGIC: Patient is alert and oriented x3. Cranial nerves II through XII are grossly intact. Motor and sensory are also intact. Normal speech, volume and content. Symmetrical smile. MUSCULOSKELETAL: Normal extremities with adequate strength and full range of motion. LYMPHATICS: No significant lymphadenopathy is noted PSYCHIATRIC: Normal psychiatric evaluation. Course Vital Signs 02/15/23 02/15/23 02/15/23 14:04 14:07 14:28 Temperature 98.6 F Pulse Rate 114 H 112 H Respiratory 24 22 21 Rate Blood Pressure 102/51 117/70 O2 Sat by Pulse 85 L 94 L Oximetry 02/15/23 02/15/23 02/15/23 14:30 15:00 17:00 Temperature Pulse Rate 108 H 109 H 114 H Respiratory 15 22 22 Rate Blood Pressure 117/70 118/72 116/91 O2 Sat by Pulse 95 94 L 89 L Oximetry 02/15/23 02/15/23 02/15/23 17:30 18:00 18:30 Temperature Pulse Rate 112 H 112 H 112 H Respiratory 22 16 16 Rate Blood Pressure 125/54 117/62 124/63 O2 Sat by Pulse 88 L 93 L 95 Oximetry Medical Decision Making - Medical Decision Making EKG is interpreted by myself. EKG shows a sinus rhythm at 96 bpm TN interval 229 dresses 100 QT interval 340 QTC is 411. Patient's EKG shows no ST segment elevation or depression Was pt. sent in by a medical professional or institution (, PA, PATIENT REGISTRATION SUPERVISOR, urgent care, hospital, or assisted...) When possible be specific @ -Dr. Servin or sent the patient in Did you speak to anyone other than the patient for history (EMS, parent, family, police, friend...)? What history was obtained from this source @ -Dr. Servin gave him extensive history on the patient Did you review nursing and triage notes (agree or disagree)? Why? @ -I reviewed and agree with nursing and triage notes Were old charts reviewed (outside hosp., previous admission, EMS record, old EKG, old radiological studies, urgent care reports/EKG's, assisted records)? Report findings @ -I reviewed prior charts in prior lab work Differential Diagnosis (chest pain, altered mental status, abdominal pain women, abdominal pain men, vaginal bleeding, weakness, fever, dyspnea, syncope, headache, dizziness, GI bleed, back pain, seizure, CVA, palpatations, mental health, musculoskeletal)? @ -Differential Dyspnea: Coronary syndrome, arrhythmia, tamponade, asthma, COPD, pulmonary embolism, pneumonia, pneumothorax, pulmonary effusion, anaphylaxis, diabetic ketoacidosis, flailed chest, pulmonary contusion, diaphragmatic rupture, anemia, neuromuscular, this is not meant to be an all-inclusive list. EKG interpreted by me (3pts min.). @ -As above X-rays interpreted by me (1pt min.). @ -Chest x-ray shows a large pleural effusion on the right CT interpreted by me (1pt min.). @ -CT shows no PE and a large pleural effusion U/S interpreted by me (1pt. min.). @ -None done What testing was considered but not performed or refused? (CT, X-rays, U/S, labs)? Why? @ -None What meds were considered but not given or refused? Why? @ -None Did you discuss the management of the patient with other professionals (professionals i.e. , PA, PATIENT REGISTRATION SUPERVISOR, lab, RT, psych nurse, social media content specialist, trailhead maintenance worker, teacher, ethics officer, home health care case manager)? Give summary @ -I spoke with Dr. Rosas and he agreed to admit the patient admitted the patient I wrote admitting orders Was smoking cessation discussed for >3mins.? @ -No Was critical care preformed (if so, how long)? @ -No Were there social determinants of health that impacted care today? How? (Homelessness, low income, unemployed, alcoholism, drug addiction, transportation, low edu. Level, literacy, decrease access to med. care, [place] [facility], rehab)? @ -No Was there de-escalation of care discussed even if they declined (Discuss DNR or withdrawal of care, Hospice)? DNR status @ -No What co-morbidities impacted this encounter? (DM, HTN, Smoking, COPD, CAD, Cancer, CVA, ARF, Chemo, Hep., AIDS, mental health diagnosis, sleep apnea, morbid obesity)? @ -None Was patient admitted / discharged? Hospital course, mention meds given and route, prescriptions, significant lab abnormalities, going to OR and other pertinent info. @ -Patient is a large pleural effusion on the right and patient will be admitted to Dr. Rosas with consult to Dr. Servin Undiagnosed new problem with uncertain prognosis? @ -No Drug Therapy requiring intensive monitoring for toxicity (Heparin, Nitro, Insulin, Cardizem)? @ -No Were any procedures done? @ -No Diagnosis/symptom? @ -Pleural effusion Acute, or Chronic, or Acute on Chronic? @ -Acute on chronic Uncomplicated (without systemic symptoms) or Complicated (systemic symptoms)? @ -Complicated Side effects of treatment? @ -No Exacerbation, Progression, or Severe Exacerbation? @ -No Poses a threat to life or bodily function? How? (Chest pain, USA, SC, pneumonia, PE, COPD, DKA, ARF, appy, cholecystitis, CVA, Diverticulitis, Homicidal, Suicidal, threat to staff... and all critical care pts) @ -No Diagnosis/symptom? @ -Metastatic cancer. Acute, or Chronic, or Acute on Chronic? @ -Acute Uncomplicated (without systemic symptoms) or Complicated (systemic symptoms)? @ -Complicated Side effects of treatment? @ -none Exacerbation, Progression, or Severe Exacerbation] @ -no Poses a threat to life or bodily function? @ -no - Lab Data Result diagrams: 02/15/23 14:31 02/15/23 14:31 Lab Results 02/15/23 02/15/23 02/15/23 Range/Units 14:31 14:31 14:31 WBC 16.9 H (3.8-10.6) k/uL RBC 3.24 L (4.30-5.90) m/uL Hgb 8.5 L (13.0-17.5) gm/dL Hct 28.3 L (39.0-53.0) % MCV 87.3 (80.0-100.0) fL MCH 26.1 (25.0-35.0) pg MCHC 29.9 L (31.0-37.0) g/dL RDW 15.0 (11.5-15.5) % Plt Count 625 H (150-450) k/uL MPV 7.0 Neutrophils % 85 % Lymphocytes % 6 % Monocytes % 7 % Eosinophils % 1 % Basophils % 0 % Neutrophils # 14.3 H (1.3-7.7) k/uL Lymphocytes # 1.0 (1.0-4.8) k/uL Monocytes # 1.1 H (0-1.0) k/uL Eosinophils # 0.2 (0-0.7) k/uL Basophils # 0.1 (0-0.2) k/uL Hypochromasia Marked PT 10.3 (9.0-12.0) sec INR 1.0 (<1.2) APTT 22.3 (22.0-30.0) sec D-Dimer 30.12 H (<0.60) mg/L FEU Sodium 138 (137-145) mmol/L Potassium 5.4 H (3.5-5.1) mmol/L Chloride 97 L (98-107) mmol/L Carbon Dioxide 32 H (22-30) mmol/L Anion Gap 9 mmol/L BUN 29 H (9-20) mg/dL Creatinine 0.96 (0.66-1.25) mg/dL Est GFR (CKD-EPI)AfAm >90 (>60 ml/min/1.73 sqM) Est GFR (CKD-EPI)NonAf 84 (>60 ml/min/1.73 sqM) Glucose 124 H (74-99) mg/dL Plasma Lactic Acid Ruddy (0.7-2.0) mmol/L Calcium 9.1 (8.4-10.2) mg/dL Magnesium 2.7 H (1.6-2.3) mg/dL Total Bilirubin 0.3 (0.2-1.3) mg/dL AST 43 (17-59) U/L ALT 40 (4-49) U/L Alkaline Phosphatase 175 H (38-126) U/L Troponin I (0.000-0.034) ng/mL Total Protein 6.7 (6.3-8.2) g/dL Albumin 3.3 L (3.5-5.0) g/dL 02/15/23 02/15/23 Range/Units 14:31 14:31 WBC (3.8-10.6) k/uL RBC (4.30-5.90) m/uL Hgb (13.0-17.5) gm/dL Hct (39.0-53.0) % MCV (80.0-100.0) fL MCH (25.0-35.0) pg MCHC (31.0-37.0) g/dL RDW (11.5-15.5) % Plt Count (150-450) k/uL MPV Neutrophils % % Lymphocytes % % Monocytes % % Eosinophils % % Basophils % % Neutrophils # (1.3-7.7) k/uL Lymphocytes # (1.0-4.8) k/uL Monocytes # (0-1.0) k/uL Eosinophils # (0-0.7) k/uL Basophils # (0-0.2) k/uL Hypochromasia PT (9.0-12.0) sec INR (<1.2) APTT (22.0-30.0) sec D-Dimer (<0.60) mg/L FEU Sodium (137-145) mmol/L Potassium (3.5-5.1) mmol/L Chloride (98-107) mmol/L Carbon Dioxide (22-30) mmol/L Anion Gap mmol/L BUN (9-20) mg/dL Creatinine (0.66-1.25) mg/dL Est GFR (CKD-EPI)AfAm (>60 ml/min/1.73 sqM) Est GFR (CKD-EPI)NonAf (>60 ml/min/1.73 sqM) Glucose (74-99) mg/dL Plasma Lactic Acid Ruddy 1.7 (0.7-2.0) mmol/L Calcium (8.4-10.2) mg/dL Magnesium (1.6-2.3) mg/dL Total Bilirubin (0.2-1.3) mg/dL AST (17-59) U/L ALT (4-49) U/L Alkaline Phosphatase (38-126) U/L Troponin I 0.048 H* (0.000-0.034) ng/mL Total Protein (6.3-8.2) g/dL Albumin (3.5-5.0) g/dL Disposition Clinical Impression: Pleural effusion, Malignant neoplasm metastatic from bladder Disposition: ADMITTED IP TO THIS [facility] Referrals: Diogenes Cohen MD [Primary Care Provider] - 1-2 days Time of Disposition: 18:51
[2023-02-15 14:48] LABS: Basophils # (A) 0.1 k/uL (0-0.2); Basophils % (A) 0 %; Eosinophils # (A) 0.2 k/uL (0-0.7); Eosinophils % (A) 1 %; HCT 28.3 % (39.0-53.0); HGB 8.5 gm/dL (13.0-17.5); Hypochromasia Marked; Lymphocytes % (A) 6 %; MCH 26.1 pg (25.0-35.0); MCHC 29.9 g/dL (31.0-37.0); MCV 87.3 fL (80.0-100.0); Monocytes # (A) 1.1 k/uL (0-1.0); Monocytes % (A) 7 %; Neutrophils # (A) 14.3 k/uL (1.3-7.7); Neutrophils % (A) 85 %; Platelet Count 625 k/uL (150-450); RBC 3.24 m/uL (4.30-5.90); WBC 16.9 k/uL (3.8-10.6)
--- NOTE | 2023-02-15 14:57 | XR ---
EXAMINATION TYPE: XR chest 2V DATE OF EXAM: 02/15/2023 COMPARISON: 02/01/2023 and 02/15/2023 HISTORY: 63-year-old male shortness of breath, difficulty breathing TECHNIQUE: AP and lateral views FINDINGS: As compared to 02/01/2023, increasing now moderate size right pleural effusion extending to the mid lorene ng level and obscuring the right heart margin. Similar to minimally larger from 02/15/2023. Reticulono dular opacities remain throughout. Bullous change at the right apex. No pleural effusion on the left. IMPRESSION: Redemonstrates diffuse metastatic pulmonary nodules. A moderate-sized right pleural effusion with und erlying atelectasis and/or consolidation much larger from 02/01/2023 and slightly larger from 3.
[2023-02-15 15:03] LABS: Partial Thromboplastin Time 22.3 sec (22.0-30.0); Prothrombin Time 10.3 sec (9.0-12.0)
[2023-02-15 15:08] LABS: ALT 40 U/L (4-49); AST 43 U/L (17-59); African American GFR (CKD) >90 (>60 ml/min/1.73 sqM); Albumin 3.3 g/dL (3.5-5.0); Alkaline Phosphatase 175 U/L (38-126); Anion Gap 9 mmol/L; Blood Urea Nitrogen 29 mg/dL (9-20); Calcium 9.1 mg/dL (8.4-10.2); Carbon Dioxide 32 mmol/L (22-30); Chloride 97 mmol/L (98-107); Glucose 124 mg/dL (74-99); Magnesium 2.7 mg/dL (1.6-2.3); Non-African American GFR(CKD) 84 (>60 ml/min/1.73 sqM); Potassium 5.4 mmol/L (3.5-5.1); Sodium 138 mmol/L (137-145); Total Bilirubin 0.3 mg/dL (0.2-1.3); Total Protein 6.7 g/dL (6.3-8.2)
--- NOTE | 2023-02-15 16:21 | CT ---
EXAMINATION TYPE: CT chest angio for PE DATE OF EXAM: 02/15/2023 COMPARISON: 10/22/2022 HISTORY: elevated d-dimer CT DLP: 437.7 mGycm CONTRAST: CT chest with contrast and 3D reconstruction with MIP imaging is performed with IV Contrast, patient injected with 80cc mL of Isovue 370. Contrast-enhanced CT of the chest was performed through the course of the pulmonary arteries with benitez g and mediastinal window settings submitted. 3D reconstruction with MIP imaging was also performed. PULMONARY ARTERIES: The pulmonary arteries and their major tributaries are patent. I do not see torres dence for sizable filling defect to suggest pulmonary embolic process. LUNGS: Innumerable pulmonary nodules are seen compatible with metastatic disease. There is right lowe r lobe volume loss with probable underlying mass right lower lobe measuring estimated 3.4 x 3.3 cm. T here is moderate right-sided pleural effusion. Nodular pleural scarring is noted as well. MEDIASTINUM: Thoracic aorta is of normal caliber. Small tracheal diverticulum noted to the right of midline seen on image 25 sequence 401. The heart is mildly enlarged. No evidence for mediastinal mas s. No mediastinal lymph nodes greater than 1cm. HILAR STRUCTURES: No evidence for mass. No hilar lymph nodes greater than 1 cm. UPPER ABDOMEN: Numerous hypoattenuating lesions are seen throughout the liver compatible with metasta tic disease. Periportal adenopathy measuring up to 1.6 cm. Adenopathy gastrohepatic ligament measurin g 1.1 cm. IMPRESSION: 1. No evidence for Pulmonary embolism at this time. 2. Findings compatible with metastatic disease to the chest and liver. 3. Periportal adenopathy. 4. Moderate right-sided pleural effusion.
--- NOTE | 2023-02-15 16:58 | US ---
EXAMINATION TYPE: US chest DATE OF EXAM: 02/15/2023 COMPARISON: CXR & CT CLINICAL INDICATION: Male, 63 years old with history of For possible thoracentesis; Effusion TECHNIQUE: Targeted ultrasound of the posterior lower right hemithorax EXAM MEASUREMENTS: Right Pleural Effusion pocket size: 14.5 cm Right skin surface to fluid distance: 4.0 cm Right side marked for possible thoracentesis outside the dept. Pulmonologists are able to review the images in the patient?s EMR. IMPRESSIONS: Moderate right pleural effusion
[2023-02-15] MEDS ORDERED: ALBUTEROL NEBULIZED 2.5 MG/3 ML INHALATION PRN (19:29)
[2023-02-15] MEDS ORDERED: ONDANSETRON 4 MG TAB PO PRN (19:29)
[2023-02-15] MEDS ORDERED: HYDROmorphone 1 MG/ML 1 ML SYRINGE IVP STA (19:51)
[2023-02-15] MEDS ORDERED: IPRATROPIUM-ALBUTEROL 3 ML NEB INHALATION SCH ×2 (20:00→21:32)
[2023-02-15] MEDS: ATORVASTATIN 10 MG TAB PO SCH (21:02)
--- NOTE | 2023-02-15 21:33 | P.HPIM ---
History of Present Illness H&P Date: 02/15/23 Chief Complaint: Short of breath 63-year-old patient who follows with [facility], with Dr. Cohen. Patient presented to weeks of increased shortness of breath. Some cough. Some brown sputum. Patient is on home oxygen 2-1/2 L. Also has some intermittent chest pressure. Patient does follow with surgery consultant Dr. Ellis Mullen. He was told that he's had a previous NV based on his stress test/echocardiogram done at our [facility] office. Patient has a bladder tumor that is being followed by Dr. Narayanan from urology. He did resected once. Patient is also started seeing Dr. Benz spending his first dose of immunotherapy. Patient does get intermittent hematuria. As he does not take any anticoagulation for his underlying atrial fibrillation. Patient had covered in May 2022 was on the ventilator for 9 days. 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 Patient is not short of breath at rest. No edema. is at the bedside. Patient had gone to Dr. Chu's office his diesel service journeyman who to send the patient to the ER. Patient known to have anemia from 20-30% lung function Review of systems: GEN.: Tired, EYES: None HEENT: None NECK: None RESPIRATORY: As above CARDIOVASCULAR: As above GASTROINTESTINAL: None GENITOURINARY: None MUSCULOSKELETAL: None LYMPHATICS: None HEMATOLOGICAL: None PSYCHIATRY: Anxious NEUROLOGICAL: None Past medical history to include: Atrial fibrillation, COPD, hypertension, hyperlipidemia, bladder Tumma resected transplant starting immunotherapy with Dr. Benz, COVID-19 intubated May 2022, Social history: Averaged about 2 packs a day for 50 years stopped about 9 months ago. Averaged about 6 beers a day for close to 50 years. 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 . Physical examination: VITAL SIGNS: 98.6, 114, 24, 102/51, 94% on 3 L GENERAL: BMI 26.1, sitting up in bed leaning forward short of breath. Scattered bruising EYES: Pupils equal. Conjunctiva normal. HEENT: External appearance of nose and ears normal, oral cavity grossly normal. NECK: JVD not raised; masses not palpable. HEART: First and second heart sounds are normal; no edema. LUNGS: Respiratory rate increased, accessory muscles or working, not able to speak in full centers, poor air entry. ABDOMEN: Soft, nontender, liver spleen not palpable, no masses palpable. PSYCH: Alert and oriented x3; mood and affect anxiousl. MUSCULOSKELETAL:No Clubbing/cyanosis;muscles-grossly intact. OA NEUROLOGICAL: Cranial nerves grossly intact; no facial asymmetry, power and sensation grossly intact. LYMPHATICS: No lymph nodes palpable in the axilla and neck INVESTIGATIONS, reviewed in the clinical context: White count 16.9 hemoglobin 8.5 platelets 625 sodium 138 potassium 5.4 BUN 29 creatinine 0.96 Troponin I 0.048 EKG tracing personally reviewed by me-normal sinus rhythm. Rate 96. Chest x-ray film personally reviewed by me-infiltrates. Right-sided effusion Chest CTA: No PE. Finding compatible metastatic disease of the chest and liver. Periportal adenopathy. Moderate right-sided pleural effusion. Chest ultrasound: Moderate right pleural effusion Assessment plan: -Acute on chronic shortness of breath multifactorial. COPD exacerbation. Right pleural effusion. Metastatic disease of the lung. Causing acute hypoxic respiratory failure. Supplemental oxygen -Chronic hypoxic respiratory failure from underlying COPD COPD 2-1/2 liters of oxygen at home. -Chest pressure. The patient will known cardiac factors. Positive troponin. Consult cardiology. -Bladder tumor. Patient underwent resection in September [address] Narayanan. Pathology shows: Invasive high-grade urothelial carcinoma. 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 Patient is due to start immunotherapy by DrF. Benz from oncology. This has been causing intermittent hematuria. Patient had a liver biopsy in January. Confirmed metastatic urothelial carcinoma. -Paroxysmal atrial fibrillation currently sinus rhythm. Because of hematuria patient is off any blood tenderness. -Moderate right pleural effusion, contributing acute hypoxicischemic failure. Patient will need to have this drained with thoracentesis and possibly have a Pleur-evac placed. -Acute COPD exacerbation in an ex-smoker Deena. -Hyperlipidemia Lipitor 10 mg daily at bedtime -Depression and anxiety Prozac 40 mg a day trazodone 100 mg daily at bedtime -Full code. Discussed with patient Discussed with patient and . Past Medical History Past Medical History: Atrial Fibrillation, Cancer, COPD, Hyperlipidemia, Hypertension Additional Past Medical History / Comment(s): Current bladder tumor, pressure with urination. Hx Covid 06/24/22, was hospitalized at [facility] for 18 days, was in ICU and on vent, went to rehab after that, bladder cancer History of Any Multi-Drug Resistant Organisms: None Reported Additional Past Surgical History / Comment(s): Colonoscopy. Past Anesthesia/Blood Transfusion Reactions: No Reported Reaction Additional Past Anesthesia/Blood Transfusion Reaction / Comment(s): Hx blood transfusion Jul 2022, no problems. Past Psychological History: No Psychological Hx Reported Smoking Status: Former smoker Past Alcohol Use History: Daily Past Drug Use History: Marijuana - Past Family History Mother Family Medical History: No Reported History Medications and Allergies Home Medications Medication Instructions Recorded Confirmed Type Acetaminophen Tab [Tylenol] 1,000 mg PO Q6HR 08/01/16 02/15/23 History Albuterol Sulfate [Proair Hfa] 2 puff INHALATION RT-QID PRN 08/01/16 02/15/23 History Budesonide/Formoterol Fumarate 2 puff INHALATION RT-BID@0500,1700 08/01/16 02/15/23 History [Symbicort 160-4.5 Mcg Inhaler] Furosemide [Lasix] 20 mg PO Q2D 08/01/16 02/15/23 History Theophylline 12 Hour [Cayetano-Dur] 300 mg PO BID@0500,1700 08/01/16 02/15/23 History Atorvastatin [Lipitor] 10 mg PO HS 09/24/22 02/15/23 History Famotidine 20 mg PO BID@0500,1700 09/24/22 02/15/23 History Ferrous Sulfate [Feosol] 325 mg PO DAILY 09/24/22 02/15/23 History Metoprolol Tartrate 25 mg PO BID@0500,1700 09/24/22 02/15/23 History predniSONE 5 mg PO DAILY 09/24/22 02/15/23 History traZODone HCL 100 mg PO HS 09/24/22 02/15/23 History HYDROcodone/APAP 7.5-325MG [[place] 1 tab PO Q6HR PRN 3 Days #12 tab 01/01/23 02/15/23 Rx 7.5-325] ALPRAZolam [Xanax] 0.25 mg PO BID PRN 02/15/23 02/15/23 History FLUoxetine HCL [PROzac] 40 mg PO DAILY 02/15/23 02/15/23 History Ipratropium-Albuterol Nebulize 3 ml INHALATION RT-QID 02/15/23 02/15/23 History [Duoneb 0.5 mg-3 mg/3 ml Soln] Ondansetron [Zofran] 4 mg PO Q4H PRN 02/15/23 02/15/23 History Allergies Allergy/AdvReac Type Severity Reaction Status Date / Time No Known Allergies Allergy Verified 02/15/23 17:27 Physical Exam Vitals: Vital Signs Temp Pulse Resp BP Pulse Ox 02/15/23 20:46 112 H 02/15/23 20:37 98 02/15/23 20:35 112 H 02/15/23 19:30 114 H 18 133/63 02/15/23 19:00 115 H 18 130/66 89 L 02/15/23 18:30 112 H 16 124/63 95 02/15/23 18:00 112 H 16 117/62 93 L 02/15/23 17:30 112 H 22 125/54 88 L 02/15/23 17:00 114 H 22 116/91 89 L 02/15/23 15:00 109 H 22 118/72 94 L 02/15/23 14:30 108 H 15 117/70 95 02/15/23 14:28 112 H 21 117/70 94 L 02/15/23 14:07 22 02/15/23 14:04 98.6 F 114 H 24 102/51 85 L Intake and Output 02/15/23 02/15/23 02/15/23 06:59 14:59 22:59 Other: Weight 78.925 kg Results CBC & Chem 7: 02/15/23 14:31 02/15/23 14:31 Labs: Abnormal Lab Results - Last 24 Hours (Table) 02/15/23 02/15/23 02/15/23 Range/Units 14:31 14:31 14:31 WBC 16.9 H (3.8-10.6) k/uL RBC 3.24 L (4.30-5.90) m/uL Hgb 8.5 L (13.0-17.5) gm/dL Hct 28.3 L (39.0-53.0) % MCHC 29.9 L (31.0-37.0) g/dL Plt Count 625 H (150-450) k/uL Neutrophils # 14.3 H (1.3-7.7) k/uL Monocytes # 1.1 H (0-1.0) k/uL D-Dimer 30.12 H (<0.60) mg/L FEU Potassium 5.4 H (3.5-5.1) mmol/L Chloride 97 L (98-107) mmol/L Carbon Dioxide 32 H (22-30) mmol/L BUN 29 H (9-20) mg/dL Glucose 124 H (74-99) mg/dL Magnesium 2.7 H (1.6-2.3) mg/dL Alkaline Phosphatase 175 H (38-126) U/L Troponin I (0.000-0.034) ng/mL Albumin 3.3 L (3.5-5.0) g/dL 02/15/23 Range/Units 14:31 WBC (3.8-10.6) k/uL RBC (4.30-5.90) m/uL Hgb (13.0-17.5) gm/dL Hct (39.0-53.0) % MCHC (31.0-37.0) g/dL Plt Count (150-450) k/uL Neutrophils # (1.3-7.7) k/uL Monocytes # (0-1.0) k/uL D-Dimer (<0.60) mg/L FEU Potassium (3.5-5.1) mmol/L Chloride (98-107) mmol/L Carbon Dioxide (22-30) mmol/L BUN (9-20) mg/dL Glucose (74-99) mg/dL Magnesium (1.6-2.3) mg/dL Alkaline Phosphatase (38-126) U/L Troponin I 0.048 H* (0.000-0.034) ng/mL Albumin (3.5-5.0) g/dL
[2023-02-15] MEDS: traZODone HCL 100 MG TAB PO SCH (22:30)
[2023-02-15] MEDS: ASPIRIN 81 MG PO SCH (23:27)
[2023-02-16] MEDS: BUDESONIDE 1 MG/2 ML NEBU INHALATION SCH ×3 (00:31→21:18)
[2023-02-16] MEDS: FORMOTEROL FUMARATE 20 MCG/2 ML NEBU INHALATION SCH ×3 (00:31→21:18)
[2023-02-16] MEDS: IPRATROPIUM-ALBUTEROL 3 ML NEB INHALATION SCH ×6 (00:37→21:18)
--- NOTE | 2023-02-16 02:58 | P.CNPUL ---
History of Present Illness Consult date: 02/16/23 Requesting physician: Kobi Rosas Reason for consult: pleural effusion Chief complaint: Shortness of breath History of present illness: I am seeing this patient in new consultation today 02/16/2023 after he was sent from the Pulmonary office with concerns of a dyspnea/hypoxia and moderate sized right sided pleural effusion. Patient is a 63-year-old white male with past medical history significant for metastatic bladder cancer with evidence of diffuse metastases to the liver and lung and bone, severe COPD with an FEV1 of 21% of predicted, chronic oxygen dependence on 2 L/m nasal cannula 27/12, coronary artery disease, pulmonary hypertension and cor pulmonale. Patient does follow Dr. Servin in the office for management of his severe oxygen and steroid dependent COPD. His established oncologist is Dr. Daniel. He reportedly has not started systemic treatment as of yet. He did have a TURBT September,. 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 Servin. He was found to be hypoxemic and in some respiratory distress. Chest x-ray demonstrated diffuse metastatic pulmonary nodules, moderate size right pleural effusion, and underlying atelectasis versus consolidation. Denies any fevers, chills, myalgias, cough, hemoptysis. Admits a generalized anterior chest pain without radiation. He was sent to the emergency room for further evaluation and possible thoracentesis. Chest CTA on arrival did not show any evidence of pulmonary embolism. It did demonstrate known suspected metastatic disease to the chest and liver, a right lower lobe masslike consolidation measuring 3.4 x 3.3 cm, and a moderate right-sided pleural effusion. Suspected malignant pleural effusion, However, infectious process with parapneumonic effusion is not ruled out. Denies prior thoracentesis. He is currently sitting up in bed, on 4 L per minute nasal cannula, in no acute distress. CBC on arrival shows leukocytosis with WBC count of 16.9, hemoglobin 8.5, hematocrit 28.3, platelets 625. BMP on arrival shows sodium 138, potassium 5.4, chloride 97, serum bicarbonate 32, BUN 29, creatinine 0.96, glucose 124. Lactic acid level was 1.7. Troponin mildly elevated at 0.048. ECG shows normal sinus rhythm without any obvious ischemic changes. Patient appears hemodynamically stable. Review of Systems REVIEW OF SYSTEMS: CONSTITUTIONAL: Denies any recent significant weight loss or weight gain. EYES: Denies change in vision. EARS, NOSE, MOUTH, THROAT: Denies headaches, denies sore throat. CARDIOVASCULAR: Denies palpitations, lightheadedness, syncopal episodes, lower extremity swelling. RESPIRATORY: See HPI GASTROINTESTINAL: Denies change in appetite, abdominal pain, nausea and vomiting, or diarrhea GENITOURINARY: Admits occasional hematuria, but none presently. denies infections. MUSKULOSKELETAL: Denies pain, denies swelling. INTEGUMENTARY: Denies rash, denies eczema. NEUROLOGICAL: Denies recent memory loss, no recent seizure activity. PSYCHIATRIC: Denies anxiety, denies depression. HEMATOLOGIC/LYMPHATIC: Denies anemia, denies enlarged lymph node Past Medical History Past Medical History: Atrial Fibrillation, Cancer, COPD, Hyperlipidemia, Hypertension Additional Past Medical History / Comment(s): Current bladder tumor, pressure with urination. Hx Covid 06/24/22, was hospitalized at [facility] for 18 days, was in ICU and on vent, went to rehab after that, bladder cancer History of Any Multi-Drug Resistant Organisms: None Reported Additional Past Surgical History / Comment(s): Colonoscopy. Past Anesthesia/Blood Transfusion Reactions: No Reported Reaction Additional Past Anesthesia/Blood Transfusion Reaction / Comment(s): Hx blood transfusion Jul 2022, no problems. Past Psychological History: No Psychological Hx Reported Smoking Status: Former smoker Past Alcohol Use History: Daily Past Drug Use History: Marijuana - Past Family History Mother Family Medical History: No Reported History Medications and Allergies Home Medications Medication Instructions Recorded Confirmed Type Acetaminophen Tab [Tylenol] 1,000 mg PO Q6HR 08/01/16 02/15/23 History Albuterol Sulfate [Proair Hfa] 2 puff INHALATION RT-QID PRN 08/01/16 02/15/23 History Budesonide/Formoterol Fumarate 2 puff INHALATION RT-BID@0500,1700 08/01/16 02/15/23 History [Symbicort 160-4.5 Mcg Inhaler] Furosemide [Lasix] 20 mg PO Q2D 08/01/16 02/15/23 History Theophylline 12 Hour [Cayetano-Dur] 300 mg PO BID@0500,1700 08/01/16 02/15/23 History Atorvastatin [Lipitor] 10 mg PO HS 09/24/22 02/15/23 History Famotidine 20 mg PO BID@0500,1700 09/24/22 02/15/23 History Ferrous Sulfate [Feosol] 325 mg PO DAILY 09/24/22 02/15/23 History Metoprolol Tartrate 25 mg PO BID@0500,1700 09/24/22 02/15/23 History predniSONE 5 mg PO DAILY 09/24/22 02/15/23 History traZODone HCL 100 mg PO HS 09/24/22 02/15/23 History HYDROcodone/APAP 7.5-325MG [Drake 1 tab PO Q6HR PRN 3 Days #12 tab 01/01/23 02/15/23 Rx 7.5-325] ALPRAZolam [Xanax] 0.25 mg PO BID PRN 02/15/23 02/15/23 History FLUoxetine HCL [PROzac] 40 mg PO DAILY 02/15/23 02/15/23 History Ipratropium-Albuterol Nebulize 3 ml INHALATION RT-QID 02/15/23 02/15/23 History [Duoneb 0.5 mg-3 mg/3 ml Soln] Ondansetron [Zofran] 4 mg PO Q4H PRN 02/15/23 02/15/23 History Allergies Allergy/AdvReac Type Severity Reaction Status Date / Time No Known Allergies Allergy Verified 02/15/23 17:27 Physical Exam Vitals: Vital Signs Temp Pulse Resp BP Pulse Ox 02/16/23 00:48 81 02/16/23 00:38 93 02/15/23 22:30 105 H 18 118/67 94 L 02/15/23 22:00 133/60 02/15/23 21:30 112 H 25 H 131/60 89 L 02/15/23 21:00 116 H 18 113/66 02/15/23 20:46 112 H 02/15/23 20:37 98 02/15/23 20:35 112 H 02/15/23 20:30 111 H 16 127/63 02/15/23 20:00 117 H 17 128/62 02/15/23 19:30 114 H 18 133/63 02/15/23 19:00 115 H 18 130/66 89 L 02/15/23 18:30 112 H 16 124/63 95 02/15/23 18:00 112 H 16 117/62 93 L 02/15/23 17:30 112 H 22 125/54 88 L 02/15/23 17:00 114 H 22 116/91 89 L 02/15/23 15:00 109 H 22 118/72 94 L 02/15/23 14:30 108 H 15 117/70 95 02/15/23 14:28 112 H 21 117/70 94 L 02/15/23 14:07 22 02/15/23 14:04 98.6 F 114 H 24 102/51 85 L Intake and Output 02/15/23 02/15/23 02/16/23 14:59 22:59 06:59 Other: Weight 78.925 kg GENERAL EXAM: Alert, 60-year-old white male, comfortable in no apparent distress. HEAD: Normocephalic and atraumatic EYES: Normal reaction of pupils, equal size. NOSE: Clear with pink turbinates. THROAT: No erythema or exudates. NECK: No masses, no JVD. CHEST: No chest wall deformity. LUNGS: Diminished right lower lobe lung sounds with minimal end expiratory wheezes heard throughout. On 4 L/m nasal cannula. No conversational dyspnea or accessory muscle use. CVS: S1 and S2 normal with no audible murmur, regular rhythm. No extra heart sounds ABDOMEN: No hepatosplenomegaly, active bowel sounds, no guarding or rigidity. SPINE: No scoliosis or deformity SKIN: No rashes CENTRAL NERVOUS SYSTEM: No focal deficits, tone is normal in all 4 extremities. EXTREMITIES: There is mild nonpitting bilateral lower extremity edema. No clubbing, or cyanosis. Peripheral pulses are intact. Results - Laboratory Findings CBC and BMP: 02/15/23 14:31 02/15/23 14:31 PT/INR, D-dimer PT 10.3 sec (9.0-12.0) 02/15/23 14:31 INR 1.0 (<1.2) 02/15/23 14:31 D-Dimer 30.12 mg/L FEU (<0.60) H 02/15/23 14:31 Abnormal lab findings: Abnormal Labs 02/15/23 02/15/23 02/15/23 14:31 14:31 14:31 WBC 16.9 H RBC 3.24 L Hgb 8.5 L Hct 28.3 L MCHC 29.9 L Plt Count 625 H Neutrophils # 14.3 H Monocytes # 1.1 H D-Dimer 30.12 H Potassium 5.4 H Chloride 97 L Carbon Dioxide 32 H BUN 29 H Glucose 124 H Magnesium 2.7 H Alkaline Phosphatase 175 H Troponin I Albumin 3.3 L 02/15/23 14:31 WBC RBC Hgb Hct MCHC Plt Count Neutrophils # Monocytes # D-Dimer Potassium Chloride Carbon Dioxide BUN Glucose Magnesium Alkaline Phosphatase Troponin I 0.048 H* Albumin - Diagnostic Findings Chest x-ray: image reviewed Assessment and Plan Assessment: Moderate sized right pleural effusion, Chest CTA on arrival did not show any evidence of pulmonary embolism. It did redemonstrate metastatic disease to the chest and liver. There was a new right lower lobe masslike consolidation measuring 3.4 x 3.3 cm, and a moderate right-sided pleural effusion. Suspected malignant pleural effusion, however, underlying infectious process with parapneumonic effusion is not ruled out. Acute on chronic hypoxemic respiratory failure, currently on 4 L/m nasal cannula, secondary to above Leukocytosis Chronic obstructive pulmonary disease, stable. History of severe chronic obstructive pulmonary disease with baseline FEV1 21% of predicted. Normally steroid and oxygen dependent. Metastatic bladder cancer, with diffuse metastasis demonstrated to the liver, lungs, and bone. Liver biopsy done January, was consistent with urothelial carcinoma. History of hematuria Anemia, possibly related to above Elevated troponins, rule out NSTEMI History of pulmonary hypertension Ex-smoker, as of May, Plan: Patient's medications, labs, imaging reviewed Chest ultrasound showed a 14.5 cm right pleural fluid pocket I will talk to Dr. Richter in the morning about a right-sided thoracentesis Risks/benefits/alternatives were discussed with the patient, who is agreeable. Will send pleural fluid cytology and cultures. Started on empiric antibiotics, although, suspect malignant pleural effusion Check procalcitonin level Started on a combination of bronchodilators, budesonide, formoterol. Cardiology was consulted for chest pressure and elevated troponins Oncology consult also obtained We will continue to follow, and further recommendations are forthcoming I have personally seen and examined the patient, performed the documentation and the assessment and plan as written. Number of minutes spent on the visit:20 This is a joint evaluation that was done along with the nurse practitioner. In summary, the patient has advanced COPD and metastatic rectal cancer. He had diffuse metastasis to the liver and the lungs with multiple pulmonary nodules and a moderate-sized right-sided pleural effusion. The patient was restless for worsening shortness of breath. This is multifactorial and obviously the pleural fluid is discontinuity due to his increased shortness of breath. The patient is going to undergo a diagnostic and therapeutic thoracentesis today. The fluid was sent for analysis. We'll optimize his COPD. The patient is also on empiric antibiotic coverage which will be discontinued within the next 24-48 hours if there is no signs of pneumonia. Obtain an echocardiogram as there is a vague history of aortic stenosis. Cardiology consultation. Oncology consultation. We'll continue to follow. Time with Patient: Greater than 30
[2023-02-16] MEDS: ACETAMINOPHEN TAB 500 MG TAB PO SCH ×6 (03:09→19:42)
[2023-02-16] MEDS: AZITHROMYCIN 500 MG in SODIUM CHLORIDE 0.9% 250 ML IVPB SCH ×3 (04:23→20:53)
[2023-02-16] MEDS ORDERED: SYMBICORT 160-4.5 MCG INHALER INHALATION SCH (05:00)
[2023-02-16] MEDS: FAMOTIDINE 20 MG TAB PO SCH ×2 (05:23→15:58)
[2023-02-16] MEDS: METOPROLOL TARTRATE 25 MG TAB PO SCH ×2 (05:23→15:58)
[2023-02-16] MEDS: FUROSEMIDE 20 MG TAB PO SCH (08:24)
[2023-02-16] MEDS: FERROUS SULFATE 325 MG TAB PO SCH (08:24)
[2023-02-16] MEDS: ASPIRIN 81 MG PO SCH (08:24)
[2023-02-16] MEDS: FLUoxetine HCL 20 MG CAP PO SCH (08:25)
[2023-02-16] MEDS: predniSONE 5 MG TAB PO SCH (08:26)
[2023-02-16] MEDS: THEOPHYLLINE 24 HOUR 300 MG CAP.ER.24H PO SCH (08:26)
--- NOTE | 2023-02-16 08:45 | P.PCN ---
Date of Procedure: 02/16/23 Preoperative Diagnosis: Pleural effusion, right Postoperative Diagnosis: Pleural effusion, right Procedure(s) Performed: Thoracentesis, right Anesthesia: local Surgeon: Zafar Richter Estimated Blood Loss (ml): 0 Pathology: other Condition: stable Disposition: floor Operative Findings: A time out was performed and the chest x-ray was reviewed, the appropriate side was confirmed and marked. My hands were washed immediately prior to the procedure. I wore a surgical cap, mask with protective eyewear, sterile gown and sterile gloves throughout the procedure. The patient was prepped and draped in a sterile manner using chlorhexidine scrub after the appropriate level was percussed and confirmed by ultrasound. 1% lidocaine was used to anesthesize the skin, subcutaneous tissue, superior aspect of the rib periosteum and parietal pleura. A finder needle was then introduced over the superior aspect of the rib to locate the pleural fluid; 2colored fluid was aspirated at a depth of approximately 2 cm. A 10-blade scalpel was used to moises the skin at the insertion site. The [id number] needle was then introduced through the skin incision into the pleural space using negative aspiration pressure and the red colometric indicator to confirm appropriate positioning of the needle. The thoracentesis catheter was then threaded without difficulty. 1800 ml of turbid colored fluid was removed without difficulty. The catheter was then removed. No immediate complications were noted during the procedure. A post-procedure chest x-ray is pending at the time of this note. The fluid will be sent for studies. Estimated blood loss is 0cc
[2023-02-16] MEDS: HYDROcodone/APAP 7.5-325MG 1 EACH TAB PO PRN ×3 (09:09→23:35)
--- NOTE | 2023-02-16 10:35 | XR ---
EXAMINATION TYPE: XR chest 1V DATE OF EXAM: 02/16/2023 COMPARISON: 02/15/2023 INDICATION: Postthoracentesis TECHNIQUE: Single frontal view of the chest is obtained. FINDINGS: The heart size is normal. The pulmonary vasculature is normal. Diffuse nodularities in the bilateral lung elizabeth. Small to moderate pleural effusion is present, dim inished from comparison. No pneumothorax is evident. IMPRESSION: 1. No pneumothorax postthoracentesis. 2. Nodularity present throughout the bilateral lung elizabeth.
[2023-02-16] MEDS: APIXABAN 2.5 MG TABLET PO SCH ×2 (12:28→20:52)
--- NOTE | 2023-02-16 13:15 | P.CRDCN ---
History of Present Illness Consult date: 02/16/23 Consult reason: chest pain History of present illness: History of present illness: This is a 63-year-old male patient of Dr. Lyons with past medical history of paroxysmal atrial fibrillation previously on eliquis, hypertension, metastatic bladder cancer with metastases to the liver, lung and bone, severe COPD, chronic hypoxic respiratory failure on home O2 at 2 L, history of tobacco use. We have been asked to evaluate the patient for chest pain. Patient was sent into the hospital from his pulmonary doctors office due to dyspnea and right-sided pleural effusion. He underwent a thoracentesis this morning with Dr. Richter with removal of 1800 ML's of turbid colored fluid. Patient states that he has had chest pain across his chest and also down in the right side of his abdomen since he was in the ER on 01/27 for hematuria . Pain is across his chest and goes down in the right side of his abdomen. EKG sinus rhythm with ventricular rate of 96. Chest x-ray: redemonstrated diffuse metastatic pulmonary nodules. Moderate sized right pleural effusion with underlying atelectasis and/or consolidation much larger from 02/01 and slightly larger from 02/15. CTA of the chest no evidence of pulmonary embolism. Findings compatible with me tastatic disease to the chest and liver.. Portal adenopathy. Moderate right- sided pleural effusion. Chest ultrasound moderate right pleural effusion pocket 14.5 cm WBC 16.9, hemoglobin 8.5, platelet count 625. INR 1. D-dimer 30. Sodium 138, potassium 5.4, chloride 97, CO2 32, BUN 29 creatinine 0.96. Blood sugar 124. Magnesium 2.7. Troponin 0.048. Alk phos 175 otherwise liver function tests are normal. Home cardiac medications: atorvastatin 10 mg at bedtime, Lasix 20 mg every 2 days, metoprolol tartrate 25 mg twice daily Echocardiogram performed in the office on 12/02/2022 revealed EF 50%. Small hypokinetic area of the inferior septal wall from the base to the mid wall. Small hypokinetic area of the inferior wall at the base. Moderate concentric left ventricular hypertrophy. Trileaflet aortic valve calcific aortic stenosis, [id number]. Mild mitral regurgitation. Trace to mild tricuspid regurgitation. Normal pulmonary artery systolic pressure of 22. Review Of Systems: At the time of my evaluation: Constitutional: No fever, no chills. No weakness, fatigue or lethargy. EENT: No headache. No dizziness. Lungs: Reports shortness of breath, cough, no sputum production. No wheezing. Cardiovascular: Reports chest pain, no lower extremity edema. No palpitations. No paroxysmal nocturnal dyspnea. No orthopnea. No lightheadedness or dizziness. No syncopal episodes. Abdominal: No abdominal pain. No nausea, vomiting. No diarrhea. No constipation. No bloody or tarry stools. Genitourinary: No dysuria.. No urinary retention. Musculoskeletal: No myalgias. No muscle weakness, no frequent falls. No back pain. No neck pain. Integumentary: No wounds. No rash. No unusual bruising. Neurologic: No aphasia. No facial droop. No change in mentation. No head injury. No headache. Physical examination: Gen: This is a 63 year old male resting in bed in no acute distress. VS: reviewed HEENT: Head is atraumatic, normocephalic. Pupils equal, round. Sclerae is anicteric. NECK: Supple. No JVD. . LUNGS:Diminished i. No intercostal retractions. HEART: Regular rate and rhythm. ABDOMEN: Soft No tenderness. EXTREMITIES: No pedal edema. No calf tenderness. NEUROLOGICAL: Patient is awake, alert and oriented x3. Assessment Atypical chest pain Elevated troponin Moderate right pleural effusion status post thoracentesis Acute on chronic hypoxic respiratory failure Paroxysmal atrial fibrillation [id number] aortic stenosis Hypertension Metastatic bladder cancer with metastatic disease to the liver, lung and bone Severe COPD Plan: Resume patient's home cardiac medications Repeat troponin 2 Resume patient on eliquis 2.5 mg twice daily at lower dose due to recent hematuria secondary to bladder cancer No need to repeat echocardiogram Further recommendations to follow based upon clinical course Thank you kindly for this consultation. Nurse practitioner note has been reviewed, I agree with documented findings and plan of care. Patient was seen and examined. Past Medical History Past Medical History: Atrial Fibrillation, Cancer, COPD, Hyperlipidemia, Hypertension Additional Past Medical History / Comment(s): Current bladder tumor, pressure with urination. Hx Covid 06/24/22, was hospitalized at [facility] for 18 days, was in ICU and on vent, went to rehab after that, bladder cancer History of Any Multi-Drug Resistant Organisms: None Reported Additional Past Surgical History / Comment(s): Colonoscopy. Past Anesthesia/Blood Transfusion Reactions: No Reported Reaction Additional Past Anesthesia/Blood Transfusion Reaction / Comment(s): Hx blood transfusion Jul 2022, no problems. Past Psychological History: No Psychological Hx Reported Smoking Status: Former smoker Past Alcohol Use History: Daily Past Drug Use History: Marijuana - Past Family History Mother Family Medical History: No Reported History Medications and Allergies Home Medications Medication Instructions Recorded Confirmed Type Acetaminophen Tab [Tylenol] 1,000 mg PO Q6HR 08/01/16 02/15/23 History Albuterol Sulfate [Proair Hfa] 2 puff INHALATION RT-QID PRN 08/01/16 02/15/23 History Budesonide/Formoterol Fumarate 2 puff INHALATION RT-BID@0500,1700 08/01/16 02/15/23 History [Symbicort 160-4.5 Mcg Inhaler] Furosemide [Lasix] 20 mg PO Q2D 08/01/16 02/15/23 History Theophylline 12 Hour [[place]-Dur] 300 mg PO BID@0500,1700 08/01/16 02/15/23 History Atorvastatin [Lipitor] 10 mg PO HS 09/24/22 02/15/23 History Famotidine 20 mg PO BID@0500,1700 09/24/22 02/15/23 History Ferrous Sulfate [Feosol] 325 mg PO DAILY 09/24/22 02/15/23 History Metoprolol Tartrate 25 mg PO BID@0500,1700 09/24/22 02/15/23 History predniSONE 5 mg PO DAILY 09/24/22 02/15/23 History traZODone HCL 100 mg PO HS 09/24/22 02/15/23 History HYDROcodone/APAP 7.5-325MG [[place] 1 tab PO Q6HR PRN 3 Days #12 tab 01/01/23 02/15/23 Rx 7.5-325] ALPRAZolam [Xanax] 0.25 mg PO BID PRN 02/15/23 02/15/23 History FLUoxetine HCL [PROzac] 40 mg PO DAILY 02/15/23 02/15/23 History Ipratropium-Albuterol Nebulize 3 ml INHALATION RT-QID 02/15/23 02/15/23 History [Duoneb 0.5 mg-3 mg/3 ml Soln] Ondansetron [Zofran] 4 mg PO Q4H PRN 02/15/23 02/15/23 History Allergies Allergy/AdvReac Type Severity Reaction Status Date / Time No Known Allergies Allergy Verified 02/15/23 17:27 Physical Exam Vitals: Vital Signs Temp Pulse Resp BP Pulse Ox 02/16/23 08:11 85 02/16/23 08:04 82 02/16/23 08:03 82 02/16/23 08:00 97 02/16/23 07:53 80 02/16/23 06:25 69 18 105/54 97 02/16/23 06:00 68 16 110/71 02/16/23 05:30 105 H 20 93 L 02/16/23 05:03 88 02/16/23 05:00 105 H 17 103/54 99 02/16/23 04:53 105 H 02/16/23 04:30 80 18 103/54 98 02/16/23 04:26 79 16 103/54 97 02/16/23 04:00 78 18 103/54 96 02/16/23 02:00 88 18 106/66 91 L 02/16/23 00:48 81 02/16/23 00:38 93 02/15/23 22:30 105 H 18 118/67 94 L 02/15/23 22:00 133/60 02/15/23 21:30 112 H 25 H 131/60 89 L 02/15/23 21:00 116 H 18 113/66 02/15/23 20:46 112 H 02/15/23 20:37 98 02/15/23 20:35 112 H 02/15/23 20:30 111 H 16 127/63 02/15/23 20:00 117 H 17 128/62 02/15/23 19:30 114 H 18 133/63 02/15/23 19:00 115 H 18 130/66 89 L 02/15/23 18:30 112 H 16 124/63 95 02/15/23 18:00 112 H 16 117/62 93 L 02/15/23 17:30 112 H 22 125/54 88 L 02/15/23 17:00 114 H 22 116/91 89 L 02/15/23 15:00 109 H 22 118/72 94 L 02/15/23 14:30 108 H 15 117/70 95 02/15/23 14:28 112 H 21 117/70 94 L 02/15/23 14:07 22 02/15/23 14:04 98.6 F 114 H 24 102/51 85 L Results 02/15/23 14:31 02/15/23 14:31 Cardiac Enzymes 02/15/23 02/15/23 Range/Units 14:31 14:31 AST 43 (17-59) U/L Troponin I 0.048 H* (0.000-0.034) ng/mL Coagulation 02/15/23 Range/Units 14:31 PT 10.3 (9.0-12.0) sec APTT 22.3 (22.0-30.0) sec CBC 02/15/23 Range/Units 14:31 WBC 16.9 H (3.8-10.6) k/uL RBC 3.24 L (4.30-5.90) m/uL Hgb 8.5 L (13.0-17.5) gm/dL Hct 28.3 L (39.0-53.0) % Plt Count 625 H (150-450) k/uL Comprehensive Metabolic Panel 02/15/23 Range/Units 14:31 Sodium 138 (137-145) mmol/L Potassium 5.4 H (3.5-5.1) mmol/L Chloride 97 L (98-107) mmol/L Carbon Dioxide 32 H (22-30) mmol/L BUN 29 H (9-20) mg/dL Creatinine 0.96 (0.66-1.25) mg/dL Glucose 124 H (74-99) mg/dL Calcium 9.1 (8.4-10.2) mg/dL AST 43 (17-59) U/L ALT 40 (4-49) U/L Alkaline Phosphatase 175 H (38-126) U/L Total Protein 6.7 (6.3-8.2) g/dL Albumin 3.3 L (3.5-5.0) g/dL Current Medications Generic Name Dose Route Start Last Admin Trade Name Freq PRN Reason Stop Dose Admin Acetaminophen 1,000 mg 02/16/23 00:00 02/16/23 03:18 Acetaminophen Tab 500 Mg Tab PO 1,000 mg Q6HR MARGARET Administration Hydrocodone Bitart/Acetaminophen 1 each 02/15/23 19:29 Hydrocodone/Apap 7.5-325mg 1 Each Tab PO Q6HR PRN Pain Albuterol Sulfate 2.5 mg 02/15/23 19:29 Albuterol Nebulized 2.5 Mg/3 Ml INHALATION RT-QID PRN Shortness Of Breath Albuterol/Ipratropium 3 ml 02/16/23 00:00 02/16/23 07:53 Ipratropium-Albuterol 3 Ml Neb INHALATION 3 ml Q4H MARGARET Administration Alprazolam 0.25 mg 02/15/23 19:29 Alprazolam 0.25 Mg Tab PO BID PRN Anxiety Aspirin 81 mg 02/15/23 21:45 02/15/23 23:27 Aspirin 81 Mg PO 81 mg DAILY MARGARET Administration Atorvastatin Calcium 10 mg 02/15/23 21:00 02/15/23 21:02 Atorvastatin 10 Mg Tab PO 10 mg HS MARGARET Administration Budesonide 1 mg 02/15/23 21:31 02/16/23 07:53 Budesonide 1 Mg/2 Ml Nebu INHALATION 1 mg RT-BID MARGARET Administration Famotidine 20 mg 02/16/23 05:00 02/16/23 05:23 Famotidine 20 Mg Tab PO 20 mg BID@0500,1700 MARGARET Administration Ferrous Sulfate 325 mg 02/16/23 09:00 Ferrous Sulfate 325 Mg Tab PO DAILY MARGARET Fluoxetine HCl 40 mg 02/16/23 09:00 Fluoxetine Hcl 20 Mg Cap PO DAILY MARGARET Formoterol Fumarate 20 mcg 02/15/23 21:31 02/16/23 07:53 Formoterol Fumarate 20 Mcg/2 Ml Nebu INHALATION 20 mcg RT-BID MARGARET Administration Furosemide 20 mg 02/16/23 09:00 Furosemide 20 Mg Tab PO Q2D MARGARET Azithromycin 500 mg/ Sodium 250 mls @ 250 mls/hr 02/16/23 02:20 02/16/23 04:23 Chloride IVPB 02/17/23 09:59 250 mls/hr DAILY MARGARET Administration Protocol Ceftriaxone Sodium 1 gm/ 50 mls @ 100 mls/hr 02/16/23 03:00 02/16/23 03:08 Sodium Chloride IVPB 100 mls/hr Q24H MARGARET Administration Protocol Metoprolol Tartrate 25 mg 02/16/23 05:00 02/16/23 05:23 Metoprolol Tartrate 25 Mg Tab PO 25 mg BID@0500,1700 [facility] Administration Ondansetron HCl 4 mg 02/15/23 19:29 Ondansetron 4 Mg Tab PO Q4H PRN Nausea Prednisone 5 mg 02/16/23 09:00 Prednisone 5 Mg Tab PO DAILY [facility] Theophylline 600 mg 02/16/23 09:00 Theophylline 24 Hour 300 Mg Cap.Er.24h PO DAILY [facility] Trazodone HCl 100 mg 02/15/23 21:00 02/15/23 22:30 Trazodone Hcl 100 Mg Tab PO 100 mg HS MARGARET Administration 02/15/23 14:31 02/15/23 14:31
--- NOTE | 2023-02-16 14:14 | P.CONS ---
History of Present Illness - Reason for Consult Consult date: 02/16/23 metastatic bladder cancer Requesting physician: Kobi Rosas - Chief Complaint SOB - History of Present Illness Mr. Pastrana is a 62-year-old gentleman with a past medical significant for COPD on home O2, atrial fibrillation, and stage IV high-grade urothelial carcinoma of the bladder. He noted having hematuria in August 2022. CT abdomen/pelvis with and without contrast on 09/06/2022 noted 3.5 x 2.6 cm mass in the bladder to the right of midline. No other abnormalities or pelvic lymphadenopathy was noted. He underwent TURBT on 09/29/2022, which noted a 3 cm tumor in the posterior bladder direction towards the anterior bladder wall. Pathology was notable for invasive high-grade urothelial carcinoma with invasion of the muscularis propria. Focal perineural invasion was noted with no evidence of lymphovascular invasion. Nuclear medicine bone scan performed on 10/12/2022 noted no suspicious uptake suggestive of osseous metastases. CT of the chest on 10/12/2022 with contrast noted noted mild centrilobular emphysematous and fibrotic changes with pulmonary nodules along the left major fissure measuring 3 mm in the right upper lobe measuring 5 mm. PET/CT noted findings concerning for metastatic disease to the lungs, liver, T4 vertebral body, and retroperitoneal lymphadenopathy. Liver biopsy performed on 01/14/2023 confirmed metastatic urothelial carcinoma. PD-L1 noted TPS of 20 to 25%. NGS noted EGFR amplification with 2 TP53 mutations and RB1 mutation. TMB was low and MSI negative. Guardant revealed known TP53 mutations in RB1 mutation. Given his ECOG performance status of 2 with oxygen dependent COPD, patient is not a good candidate for systemic chemotherapy with carboplatin/gemcitabine. Given his TPS of 20-25%, pembrolizumab/enfortumab vedotin for systemic treatment was recommended. Patient was scheduled to start regimen 2 weeks ago but upon clinic visit, he was diagnosed with suspected pneumonia and was started on moxifloxacin. He was subsequently seen in the ER in [place] and was given additional antibiotics. Patient states after treatment for pneumonia he had no significant improvement in symptoms. He denied fever and chills. Patient presented to the ER for worsening shortness of breath and cough and chest tightness. On admission chest x-ray redemonstrated diffuse metastatic pulmonary nodules. Moderate sized right pleural effusion with underlying atelectasis and/or consolidation much larger from 8/29/23. CTA chest showed no evidence for PE. Findings compatible with metastatic disease to chest and liver. Periportal adenopathy and moderate right sized right-sided pleural effusion. Ultrasound chest revealed moderate right pleural effusion. Patient underwent thoracentesis today with pulmonology and 1.8 L of fluid removed. Fluid sent for analysis and cytology. Patient has been started on azithromycin and rocephin. At today's visit patient is reporting improvement in symptoms since admission and S/P thoracentesis. Reports some chest discomfort with deep inspiration status post procedure. Repeat chest x-ray S/P thoracentesis revealed no pneumothorax. Patient afebrile, 97% on 3 L. WBC 16.9, hemoglobin 8.5, platelets 625,000. Blood cultures pending Review of Systems 10 point ROS is negative except as stated in the HPI Past Medical History Past Medical History: Atrial Fibrillation, Cancer, COPD, Hyperlipidemia, Hypertension Additional Past Medical History / Comment(s): Current bladder tumor, pressure with urination. Hx Covid 06/24/22, was hospitalized at [facility] for 18 days, was in ICU and on vent, went to rehab after that, bladder cancer History of Any Multi-Drug Resistant Organisms: None Reported Additional Past Surgical History / Comment(s): Colonoscopy. Past Anesthesia/Blood Transfusion Reactions: No Reported Reaction Additional Past Anesthesia/Blood Transfusion Reaction / Comm: Hx blood transfusion Jul 2022, no problems. Past Psychological History: No Psychological Hx Reported Smoking Status: Former smoker Past Alcohol Use History: Daily Past Drug Use History: Marijuana - Past Family History Mother Family Medical History: No Reported History Medications and Allergies Home Medications Medication Instructions Recorded Confirmed Type Acetaminophen Tab [Tylenol] 1,000 mg PO Q6HR 08/01/16 02/15/23 History Albuterol Sulfate [Proair Hfa] 2 puff INHALATION RT-QID PRN 08/01/16 02/15/23 History Budesonide/Formoterol Fumarate 2 puff INHALATION RT-BID@0500,1700 08/01/16 02/15/23 History [Symbicort 160-4.5 Mcg Inhaler] Furosemide [Lasix] 20 mg PO Q2D 08/01/16 02/15/23 History Theophylline 12 Hour [[place]-Dur] 300 mg PO BID@0500,1700 08/01/16 02/15/23 History Atorvastatin [Lipitor] 10 mg PO HS 09/24/22 02/15/23 History Famotidine 20 mg PO BID@0500,1700 09/24/22 02/15/23 History Ferrous Sulfate [Feosol] 325 mg PO DAILY 09/24/22 02/15/23 History Metoprolol Tartrate 25 mg PO BID@0500,1700 09/24/22 02/15/23 History predniSONE 5 mg PO DAILY 09/24/22 02/15/23 History traZODone HCL 100 mg PO HS 09/24/22 02/15/23 History HYDROcodone/APAP 7.5-325MG [[place] 1 tab PO Q6HR PRN 3 Days #12 tab 01/01/23 02/15/23 Rx 7.5-325] ALPRAZolam [Xanax] 0.25 mg PO BID PRN 02/15/23 02/15/23 History FLUoxetine HCL [PROzac] 40 mg PO DAILY 02/15/23 02/15/23 History Ipratropium-Albuterol Nebulize 3 ml INHALATION RT-QID 02/15/23 02/15/23 History [Duoneb 0.5 mg-3 mg/3 ml Soln] Ondansetron [Zofran] 4 mg PO Q4H PRN 02/15/23 02/15/23 History Allergies Allergy/AdvReac Type Severity Reaction Status Date / Time No Known Allergies Allergy Verified 02/15/23 17:27 Physical Exam Vitals: Vital Signs Temp Pulse Pulse Resp BP BP Pulse Ox 02/16/23 11:35 92 02/16/23 11:22 90 02/16/23 08:40 98.9 F 78 20 98/56 95 02/16/23 08:11 85 02/16/23 08:04 82 02/16/23 08:03 82 02/16/23 08:00 97 02/16/23 07:53 80 02/16/23 06:25 69 18 105/54 97 02/16/23 06:00 68 16 110/71 02/16/23 05:30 105 H 20 93 L 02/16/23 05:03 88 02/16/23 05:00 105 H 17 103/54 99 02/16/23 04:53 105 H 02/16/23 04:30 80 18 103/54 98 02/16/23 04:26 79 16 103/54 97 02/16/23 04:00 78 18 103/54 96 02/16/23 02:00 88 18 106/66 91 L 02/16/23 00:48 81 02/16/23 00:38 93 02/15/23 22:30 105 H 18 118/67 94 L 02/15/23 22:00 133/60 02/15/23 21:30 112 H 25 H 131/60 89 L 02/15/23 21:00 116 H 18 113/66 02/15/23 20:46 112 H 02/15/23 20:37 98 02/15/23 20:35 112 H 02/15/23 20:30 111 H 16 127/63 02/15/23 20:00 117 H 17 128/62 02/15/23 19:30 114 H 18 133/63 02/15/23 19:00 115 H 18 130/66 89 L 02/15/23 18:30 112 H 16 124/63 95 02/15/23 18:00 112 H 16 117/62 93 L 02/15/23 17:30 112 H 22 125/54 88 L 02/15/23 17:00 114 H 22 116/91 89 L 02/15/23 15:00 109 H 22 118/72 94 L 02/15/23 14:30 108 H 15 117/70 95 02/15/23 14:28 112 H 21 117/70 94 L 02/15/23 14:07 22 02/15/23 14:04 98.6 F 114 H 24 102/51 85 L Intake and Output 02/15/23 02/16/23 02/16/23 22:59 06:59 14:59 Intake Total 180 Balance 180 Intake: Oral 180 Other: Weight 78.925 kg - Constitutional General appearance: average body habitus, no acute distress - EENT Eyes: anicteric sclerae, EOMI ENT: hearing grossly normal - Respiratory Breathing mildly labored, distant breath sounds throughout, mild rales RLL - Cardiovascular Rhythm: regular Heart sounds: normal: S1, S2 Abnormal Heart Sounds: no systolic murmur, no diastolic murmur, no rub, no S3 Gallop, no S4 Gallop, no click, no other - Gastrointestinal General gastrointestinal: no distended, soft, no tenderness - Integumentary Integumentary: no cyanotic, no jaundiced - Neurologic grossly intact - Musculoskeletal Musculoskeletal: strength equal bilaterally - Psychiatric Psychiatric: A&O x's 3, appropriate affect, intact judgment & insight Results CBC & Chem 7: 02/15/23 14:31 02/15/23 14:31 Labs: Abnormal Lab Results - Last 24 Hours (Table) 02/15/23 02/15/23 02/15/23 Range/Units 14:31 14:31 14:31 WBC 16.9 H (3.8-10.6) k/uL RBC 3.24 L (4.30-5.90) m/uL Hgb 8.5 L (13.0-17.5) gm/dL Hct 28.3 L (39.0-53.0) % MCHC 29.9 L (31.0-37.0) g/dL Plt Count 625 H (150-450) k/uL Neutrophils # 14.3 H (1.3-7.7) k/uL Monocytes # 1.1 H (0-1.0) k/uL D-Dimer 30.12 H (<0.60) mg/L FEU Potassium 5.4 H (3.5-5.1) mmol/L Chloride 97 L (98-107) mmol/L Carbon Dioxide 32 H (22-30) mmol/L BUN 29 H (9-20) mg/dL Glucose 124 H (74-99) mg/dL Magnesium 2.7 H (1.6-2.3) mg/dL Alkaline Phosphatase 175 H (38-126) U/L Troponin I (0.000-0.034) ng/mL Albumin 3.3 L (3.5-5.0) g/dL Procalcitonin (0.02-0.09) ng/mL 02/15/23 02/16/23 02/16/23 Range/Units 14:31 06:39 11:36 WBC (3.8-10.6) k/uL RBC (4.30-5.90) m/uL Hgb (13.0-17.5) gm/dL Hct (39.0-53.0) % MCHC (31.0-37.0) g/dL Plt Count (150-450) k/uL Neutrophils # (1.3-7.7) k/uL Monocytes # (0-1.0) k/uL D-Dimer (<0.60) mg/L FEU Potassium (3.5-5.1) mmol/L Chloride (98-107) mmol/L Carbon Dioxide (22-30) mmol/L BUN (9-20) mg/dL Glucose (74-99) mg/dL Magnesium (1.6-2.3) mg/dL Alkaline Phosphatase (38-126) U/L Troponin I 0.048 H* 0.035 H* (0.000-0.034) ng/mL Albumin (3.5-5.0) g/dL Procalcitonin 0.61 H (0.02-0.09) ng/mL Comments: US chest reviewed Chest x-ray: report reviewed CT scan - chest: report reviewed Assessment and Plan (1) Malignant neoplasm metastatic from bladder Current Visit: Yes Status: Acute Priority: High Code(s): C67.9 - MALIGNANT NEOPLASM OF BLADDER, UNSPECIFIED SNOMED Code(s): 88862692 (2) Pleural effusion Current Visit: Yes Status: Acute Priority: High Code(s): J90 - PLEURAL EFFUSION, NOT ELSEWHERE CLASSIFIED SNOMED Code(s): 93596143 Plan: Pleural effusion: -Upon admission chest x-ray revealed moderate sized right pleural effusion with underlying atelectasis and/or consolidation much larger from 02/01/23. CTA chest showed no evidence for PE. And moderate right sized right-sided pleural effusion. Ultrasound chest revealed moderate right pleural effusion. Patient underwent thoracentesis today with pulmonology and 1.8 L of fluid removed. Fluid sent for analysis and cytology. Reports improvement in breathing s/p thoracentesis -Patient has been started on azithromycin and rocephin. Blood cultures pending -Patient was on 2 courses on antibiotics over the last 2 weeks without improvement in symptoms. Concerning that pleural effusion may be due to malignancy. Will await cytology -Pulmonology following -Will continue to monitor Stage IV high-grade urothelial bladder carcinoma: -He underwent TURBT on 09/29/2022, which noted a 3 cm tumor in the posterior bladder direction towards the anterior bladder wall. Pathology was notable for invasive high-grade urothelial carcinoma with invasion of the muscularis propria. Focal perineural invasion was noted with no evidence of lymphovascular invasion. Nuclear medicine bone scan performed on 10/12/2022 noted no suspicious uptake suggestive of osseous metastases. CT of the chest on 10/12/2022 with contrast noted noted mild centrilobular emphysematous and fibrotic changes with pulmonary nodules along the left major fissure measuring 3 mm in the right upper lobe measuring 5 mm. PET/CT noted findings concerning for metastatic disease to the lungs, liver, T4 vertebral body, and retroperitoneal lymphadenopathy. Liver biopsy performed on 01/14/2023 confirmed metastatic urothelial carcinoma. -Given his ECOG performance status of 2 with oxygen dependent COPD, patient is not a good candidate for systemic chemotherapy with carboplatin/gemcitabine. Given his TPS of 20-25%, pembrolizumab/enfortumab vedotin for systemic treatment was recommended. Patient was scheduled to start regimen 2 weeks ago. But due to repeat hospitalizations treatment has been delayed -He is scheduled to start treatment on 02/18. Pending course of hospitalization may need to delay treatment by 1 week Pt updated on POC attests: I performed a history and physical examination of this patient, de veloped impression and plan of care. Discussed with dictator. I agree with dictators note, documented as a scribe.
--- NOTE | 2023-02-16 14:58 | P.PN ---
Progress Note - Text Progress Note Date: 02/16/23 Chief Complaint: Short of breath 63-year-old patient who follows with [facility], with Dr. Cohen. Patient presented to weeks of increased shortness of breath. Some cough. Some brown sputum. Patient is on home oxygen 2-1/2 L. Also has some intermittent chest pressure. Patient does follow with steeplechase jockey Dr. Ellis Mullen. He was told that he's had a previous HI based on his stress test/echocardiogram done at our [facility] office. Patient has a bladder tumor that is being followed by Dr. Narayanan from urology. He did resected once. Patient is also started seeing Dr. Benz spending his first dose of immunotherapy. Patient does get intermittent hematuria. As he does not take any anticoagulation for his underlying atrial fibrillation. Patient had covered in May 2022 was on the ventilator for 9 days. 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 Patient is not short of breath at rest. No edema. is at the bedside. Patient had gone to Dr. Servin office his deck mechanic who to send the patient to the ER. Patient known to have lung function from 20-30% l Admitted with acute COPD exacerbation, acute hypoxia, right-sided pleural effusion. February 16: Dr. Richter - 1800 mL of right thoracentesis turbid fluid, from the right site. Breathing better. Computed tomography scan chest order to rule out any underlying malignancy. Slight improvement in shortness of breath.. Decreased appetite Cardiology did resume eliquis at a smaller dose because of hematuria Active Medications Acetaminophen (Acetaminophen Tab 500 Mg Tab) 1,000 mg PO Q6HR MARGARET Last Admin: 02/16/23 12:29 Dose: 1,000 mg Hydrocodone Bitart/Acetaminophen (Hydrocodone/Apap 7.5-325mg 1 Each Tab) 1 each PO Q6HR PRN PRN Reason: Pain Last Admin: 02/16/23 09:09 Dose: 1 each Albuterol Sulfate (Albuterol Nebulized 2.5 Mg/3 Ml) 2.5 mg INHALATION RT-QID PRN PRN Reason: Shortness Of Breath Albuterol/Ipratropium (Ipratropium-Albuterol 3 Ml Neb) 3 ml INHALATION Q4H MARGARET Last Admin: 02/16/23 11:22 Dose: 3 ml Alprazolam (Alprazolam 0.25 Mg Tab) 0.25 mg PO BID PRN PRN Reason: Anxiety Apixaban (Apixaban 2.5 Mg Tablet) 2.5 mg PO BID [facility]; Protocol Last Admin: 02/16/23 12:28 Dose: 2.5 mg Aspirin (Aspirin 81 Mg) 81 mg PO DAILY [facility] Last Admin: 02/16/23 08:24 Dose: 81 mg Atorvastatin Calcium (Atorvastatin 10 Mg Tab) 10 mg PO HS [facility] Last Admin: 02/15/23 21:02 Dose: 10 mg Budesonide (Budesonide 1 Mg/2 Ml Nebu) 1 mg INHALATION RT-BID [facility] Last Admin: 02/16/23 07:53 Dose: 1 mg Famotidine (Famotidine 20 Mg Tab) 20 mg PO BID@0500,1700 [facility] Last Admin: 02/16/23 05:23 Dose: 20 mg Ferrous Sulfate (Ferrous Sulfate 325 Mg Tab) 325 mg PO DAILY [facility] Last Admin: 02/16/23 08:24 Dose: 325 mg Fluoxetine HCl (Fluoxetine Hcl 20 Mg Cap) 40 mg PO DAILY [facility] Last Admin: 02/16/23 08:25 Dose: 40 mg Formoterol Fumarate (Formoterol Fumarate 20 Mcg/2 Ml Nebu) 20 mcg INHALATION RT-BID [facility] Last Admin: 02/16/23 07:53 Dose: 20 mcg Furosemide (Furosemide 20 Mg Tab) 20 mg PO Q2D [facility] Last Admin: 02/16/23 08:24 Dose: 20 mg Ceftriaxone Sodium 1 gm/ (Sodium Chloride) 50 mls @ 100 mls/hr IVPB Q24H [facility]; Protocol Last Admin: 02/16/23 03:08 Dose: 100 mls/hr Azithromycin 500 mg/ Sodium (Chloride) 250 mls @ 250 mls/hr IVPB HS [facility]; Protocol Stop: 02/17/23 21:59 Metoprolol Tartrate (Metoprolol Tartrate 25 Mg Tab) 25 mg PO BID@0500,1700 [facility] Last Admin: 02/16/23 05:23 Dose: 25 mg Ondansetron HCl (Ondansetron 4 Mg Tab) 4 mg PO Q4H PRN PRN Reason: Nausea Prednisone (Prednisone 5 Mg Tab) 5 mg PO DAILY [facility] Last Admin: 02/16/23 08:26 Dose: 5 mg Theophylline (Theophylline 24 Hour 300 Mg Cap.Er.24h) 600 mg PO DAILY [facility] Last Admin: 02/16/23 08:26 Dose: 600 mg Trazodone HCl (Trazodone Hcl 100 Mg Tab) 100 mg PO HS [facility] Last Admin: 02/15/23 22:30 Dose: 100 mg Past medical history to include: Atrial fibrillation, COPD, hypertension, hyperlipidemia, bladder Tumma resected transplant starting immunotherapy with Dr. Benz, COVID-19 intubated May 2022, Social history: Averaged about 2 packs a day for 50 years stopped about 9 months ago. Averaged about 6 beers a day for close to 50 years. 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 . Physical examination: VITAL SIGNS: 96.9, 86, 18, 1:30/60, 96% on 3 L GENERAL: Resting in bed. Scattered bruising EYES: Pupils equal. Conjunctiva normal. HEENT: External appearance of nose and ears normal, oral cavity grossly normal. NECK: JVD not raised; masses not palpable. HEART: First and second heart sounds are normal; no edema. LUNGS: Respiratory rate increased, , poor air entry. ABDOMEN: Soft, nontender, liver spleen not palpable, no masses palpable. PSYCH: Alert and oriented x3; mood and affect anxiousl. MUSCULOSKELETAL:No Clubbing/cyanosis;muscles-grossly intact. OA INVESTIGATIONS, reviewed in the clinical context: Procalcitonin 0.61 White count 16.9 hemoglobin 8.5 platelets 625 sodium 138 potassium 5.4 BUN 29 creatinine 0.96 Troponin I 0.048 EKG tracing personally reviewed by me-normal sinus rhythm. Rate 96. Chest x-ray film personally reviewed by me-infiltrates. Right-sided effusion Chest CTA: No PE. Finding compatible metastatic disease of the chest and liver. Periportal adenopathy. Moderate right-sided pleural effusion. Chest ultrasound: Moderate right pleural effusion Previous testin-D echocardiogram at [facility] [November 2022: EF 50%. Small area of hypokinesis of the inferior septal wall. Moderate concentric LVH. Some aortic stenosis. Assessment plan: -Acute on chronic shortness of breath multifactorial. COPD exacerbation. Right pleural effusion. Metastatic disease of the lung. Causing acute hypoxic respiratory failure. Supplemental oxygen -Chronic hypoxic respiratory failure from underlying COPD 2-1/2 liters of oxygen at home. -Chest pressure. Has known cardiac risk factors. Positive troponin. Being followed by cardiology -Bladder tumor. Patient underwent resection in September [address] Narayanan. Pathology shows: Invasive high-grade urothelial carcinoma. 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 Patient is due to start immunotherapy by DrF. Benz from oncology. This has been causing intermittent hematuria. Patient had a liver biopsy in January. Confirmed metastatic urothelial carcinoma. -Paroxysmal atrial fibrillation currently sinus rhythm. Eliquis started at a smaller dose per cardiology today because of hematuria -Moderate right pleural effusion, contributing acute hypoxici respiratory failure. Thoracentesis 1800 mL done -Acute COPD exacerbation in an ex-smoker: Slow to respond DuoNeb. -Hyperlipidemia Lipitor 10 mg daily at bedtime -Depression and anxiety Prozac 40 mg a day trazodone 100 mg daily at bedtime -Full code. Discussed with patient Thoracentesis today. Computed tomography scan chest ordered for rule out malignancy. Follow with pulmonary and cardiology. Started on eliquis. Watch for hematuria. Past Medical History Past Medical History: Atrial Fibrillation, Cancer, COPD, Hyperlipidemia, Hypertension Additional Past Medical History / Comment(s): Current bladder tumor, pressure wi th urination. Hx Covid 06/24/22, was hospitalized at [facility] for 18 days, was in ICU and on vent, went to rehab after that, bladder cancer History of Any Multi-Drug Resistant Organisms: None Reported Additional Past Surgical History / Comment(s): Colonoscopy. Past Anesthesia/Blood Transfusion Reactions: No Reported Reaction Additional Past Anesthesia/Blood Transfusion Reaction / Comment(s): Hx blood transfusion Jul 2022, no problems. Past Psychological History: No Psychological Hx Reported Smoking Status: Former smoker Past Alcohol Use History: Daily Past Drug Use History: Marijuana - Past Family History Mother Family Medical History: No Reported History Medications and Allergies Home Medications Medication Instructions Recorded Confirmed Type Acetaminophen Tab [Tylenol] 1,000 mg PO Q6HR 08/01/16 02/15/23 History Albuterol Sulfate [Proair Hfa] 2 puff INHALATION RT-QID PRN 08/01/16 02/15/23 History Budesonide/Formoterol Fumarate 2 puff INHALATION RT-BID@0500,1700 08/01/16 02/15/23 History [Symbicort 160-4.5 Mcg Inhaler] Furosemide [Lasix] 20 mg PO Q2D 08/01/16 02/15/23 History Theophylline 12 Hour [[place]-Dur] 300 mg PO BID@0500,1700 08/01/16 02/15/23 History Atorvastatin [Lipitor] 10 mg PO HS 09/24/22 02/15/23 History Famotidine 20 mg PO BID@0500,1700 09/24/22 02/15/23 History Ferrous Sulfate [Feosol] 325 mg PO DAILY 09/24/22 02/15/23 History Metoprolol Tartrate 25 mg PO BID@0500,1700 09/24/22 02/15/23 History predniSONE 5 mg PO DAILY 09/24/22 02/15/23 History traZODone HCL 100 mg PO HS 09/24/22 02/15/23 History HYDROcodone/APAP 7.5-325MG [[place] 1 tab PO Q6HR PRN 3 Days #12 tab 01/01/23 02/15/23 Rx 7.5-325] ALPRAZolam [Xanax] 0.25 mg PO BID PRN 02/15/23 02/15/23 History FLUoxetine HCL [PROzac] 40 mg PO DAILY 02/15/23 02/15/23 History Ipratropium-Albuterol Nebulize 3 ml INHALATION RT-QID 02/15/23 02/15/23 History [Duoneb 0.5 mg-3 mg/3 ml Soln] Ondansetron [Zofran] 4 mg PO Q4H PRN 02/15/23 02/15/23 History Allergies Allergy/AdvReac Type Severity Reaction Status Date / Time No Known Allergies Allergy Verified 02/15/23 17:27
[2023-02-16] MEDS: ATORVASTATIN 10 MG TAB PO SCH (20:52)
[2023-02-16] MEDS: ALPRAZolam 0.25 MG TAB PO PRN (20:53)
[2023-02-16] MEDS: traZODone HCL 100 MG TAB PO SCH (20:53)
[2023-02-17] MEDS: IPRATROPIUM-ALBUTEROL 3 ML NEB INHALATION SCH ×6 (00:28→19:49)
[2023-02-17] MEDS: ACETAMINOPHEN TAB 500 MG TAB PO SCH ×2 (00:50→05:33)
[2023-02-17] MEDS: METOPROLOL TARTRATE 25 MG TAB PO SCH ×2 (05:48→16:43)
[2023-02-17] MEDS: FAMOTIDINE 20 MG TAB PO SCH ×2 (05:48→16:43)
[2023-02-17] MEDS: HYDROcodone/APAP 7.5-325MG 1 EACH TAB PO PRN ×2 (05:48→12:07)
[2023-02-17] MEDS: FORMOTEROL FUMARATE 20 MCG/2 ML NEBU INHALATION SCH ×2 (07:11→19:49)
[2023-02-17] MEDS: BUDESONIDE 1 MG/2 ML NEBU INHALATION SCH ×2 (07:11→19:49)
[2023-02-17] MEDS: FLUoxetine HCL 20 MG CAP PO SCH (09:11)
[2023-02-17] MEDS: FERROUS SULFATE 325 MG TAB PO SCH (09:12)
[2023-02-17] MEDS: predniSONE 5 MG TAB PO SCH (09:12)
[2023-02-17] MEDS: ASPIRIN 81 MG PO SCH (09:12)
[2023-02-17] MEDS: THEOPHYLLINE 24 HOUR 300 MG CAP.ER.24H PO SCH (09:12)
[2023-02-17 12:06] LABS: African American GFR (CKD) >90 (>60 ml/min/1.73 sqM); Anion Gap 0 mmol/L; Blood Urea Nitrogen 33 mg/dL (9-20); Calcium 8.4 mg/dL (8.4-10.2); Carbon Dioxide 38 mmol/L (22-30); Chloride 99 mmol/L (98-107); Glucose 106 mg/dL (74-99); Non-African American GFR(CKD) 80 (>60 ml/min/1.73 sqM); Potassium 5.3 mmol/L (3.5-5.1); Sodium 137 mmol/L (137-145)
--- NOTE | 2023-02-17 12:28 | P.PN ---
Subjective Progress Note Date: 02/17/23 I am seeing this patient in new consultation today 02/16/2023 after he was sent from the Pulmonary office with concerns of a dyspnea/hypoxia and moderate sized right sided pleural effusion. Patient is a 63-year-old white male with past medical history significant for metastatic bladder cancer with evidence of diffuse metastases to the liver and lung and bone, severe COPD with an FEV1 of 21% of predicted, chronic oxygen dependence on 2 L/m nasal cannula /, coronary artery disease, pulmonary hypertension and cor pulmonale. Patient does follow Dr. Servin in the office for management of his severe oxygen and steroid dependent COPD. His established oncologist is Dr. Daniel. He reportedly has no t started systemic treatment as of yet. He did have a TURBT September,. Patient had been experiencing progressively worsening shortness of breath over the last 3 weeks, So he made an appointment with his application specialist Dr. Servin. He was found to be hypoxemic and in some respiratory distress. Chest x-ray demonstrated diffuse metastatic pulmonary nodules, moderate size right pleural effusion, and underlying atelectasis versus consolidation. Denies any fevers, chills, myalgias, cough, hemoptysis. Admits a generalized anterior chest pain without radiation. He was sent to the emergency room for further evaluation and possible thoracentesis. Chest CTA on arrival did not show any evidence of pulmonary embolism. It did demonstrate known suspected metastatic disease to the chest and liver, a right lower lobe masslike consolidation measuring 3.4 x 3.3 cm, and a moderate right-sided pleural effusion. Suspected malignant pleural effusion, However, infectious process with parapneumonic effusion is not ruled out. Denies prior thoracentesis. He is currently sitting up in bed, on 4 L per minute nasal cannula, in no acute distress. CBC on arrival shows leukocytosis with WBC count of 16.9, hemoglobin 8.5, hematocrit 28.3, platelets 625. BMP on arrival shows sodium 138, potassium 5.4, chloride 97, serum bicarbonate 32, BUN 29, creatinine 0.96, glucose 124. Lactic acid level was 1.7. Troponin mildly elevated at 0.048. ECG shows normal sinus rhythm without any obvious ischemic changes. Patient appears hemodynamically stable. On today's evaluation of 02/17/2023, the patient is stable. The patient has no significant respiratory difficulties at rest. Thoracentesis was done yesterday without any complication and a total of 1.8 L of fluid was removed. The cytology is still pending for now. Meanwhile, the patient remains on oxygen at 4 L with a pulse ox of 96%. BUN is at 33 with a creatinine of 1.0 and the troponins are 0.03 respectively 2 with a pro-calcitonin level of 0.6. Pleural fluid analysis including chemistry and cytology is still pending for now. The patient has no specific complaints. He is hemodynamically stable. There is evidence of metastatic disease as mentioned of a primary bladder cancer. The patient also has advanced COPD with an FEV1 of 21% of predicted as stated earlier. Objective - Vital Signs Vital signs: Vital Signs Temp 98 F 02/17/23 09:10 Pulse 77 02/17/23 09:10 Resp 18 02/17/23 09:10 BP 105/63 02/17/23 09:10 Pulse Ox 91 L 02/17/23 09:10 FiO2 Intake & Output 02/16/23 02/17/23 02/17/23 18:59 06:59 18:59 Intake Total 480 240 Output Total 250 300 Balance 230 -300 240 Intake: Oral 480 240 Output: Urine 250 300 Other: Voiding Method Urinal # Voids 2 - Exam GENERAL EXAM: Alert, 60-year-old white male, comfortable in no apparent distress. The patient is currently on 4 L of O2 nasal cannula HEAD: Normocephalic and atraumatic EYES: Normal reaction of pupils, equal size. NOSE: Clear with pink turbinates. THROAT: No erythema or exudates. NECK: No masses, no JVD. CHEST: No chest wall deformity. LUNGS: Diminished right lower lobe lung sounds with minimal end expiratory wheezes heard throughout. On 4 L/m nasal cannula. No conversational dyspnea or accessory muscle use. CVS: S1 and S2 normal with no audible murmur, regular rhythm. No extra heart sounds ABDOMEN: No hepatosplenomegaly, active bowel sounds, no guarding or rigidity. SPINE: No scoliosis or deformity SKIN: No rashes CENTRAL NERVOUS SYSTEM: No focal deficits, tone is normal in all 4 extremities. EXTREMITIES: There is mild nonpitting bilateral lower extremity edema. No clu bbing, or cyanosis. Peripheral pulses are intact. - Labs CBC & Chem 7: 02/15/23 14:31 02/17/23 11:32 Labs: Abnormal Lab Results - Last 24 Hours (Table) 02/16/23 02/16/23 Range/Units 06:39 11:36 Troponin I 0.035 H* (0.000-0.034) ng/mL Procalcitonin 0.61 H (0.02-0.09) ng/mL Microbiology - Last 24 Hours (Table) 02/15/23 14:28 Blood Culture - Preliminary Blood 02/15/23 14:12 Blood Culture - Preliminary Blood Assessment and Plan Assessment: Moderate sized right pleural effusion, Chest CTA on arrival did not show any evidence of pulmonary embolism. It did redemonstrate metastatic disease to the chest and liver. There was a new right lower lobe masslike consolidation measuring 3.4 x 3.3 cm, and a moderate right-sided pleural effusion. Suspected malignant pleural effusion, however, underlying infectious process with parapneumonic effusion is not ruled out.. The patient is post thoracentesis. Pleural fluid chemistry and cytology still pending for now. Less short of breath Acute on chronic shortness of breath improved following thoracentesis and evacuation of 1.8 L of pleural fluid from the right. Acute on chronic hypoxemic respiratory failure, currently on 4 L/m nasal cannula, secondary to above Leukocytosis Chronic obstructive pulmonary disease, stable. History of severe chronic obstructive pulmonary disease with baseline FEV1 21% of predicted. Normally steroid and oxygen dependent. Metastatic bladder cancer, with diffuse metastasis demonstrated to the liver, lungs, and bone. Liver biopsy done January, was consistent with urothelial carcinoma. History of hematuria Anemia, possibly related to above Elevated troponins, rule out NSTEMI History of pulmonary hypertension Ex-smoker, as of May, Plan: Right lung thoracentesis was done Pleural fluid chemistry and pathology still pending Currently on 4 L of O2 nasal cannula No clear indication for infection and the pro calcitonin level is at 0.6 Continue bronchodilators, budesonide, formoterol. Cardiology was consulted for chest pressure and elevated troponins Oncology consult also obtained We will continue to follow, and further recommendations are forthcoming
--- NOTE | 2023-02-17 13:10 | P.PN ---
Progress Note - Text Progress Note Date: 02/17/23 Chief Complaint: Short of breath 63-year-old patient who follows with [place], with Dr. Cohen. Patient presented to weeks of increased shortness of breath. Some cough. Some brown sputum. Patient is on home oxygen 2-1/2 L. Also has some intermittent chest pressure. Patient does follow with contract mail carrier Dr. Ellis Mullen. He was told that he's had a previous MT based on his stress test/echocardiogram done at our [facility] office. Patient has a bladder tumor that is being followed by Dr. Narayanan from urology. He did resected once. Patient is also started seeing Dr. Benz spending his first dose of immunotherapy. Patient does get intermittent hematuria. As he does not take any anticoagulation for his underlying atrial fibrillation. Patient had covered in May 2022 was on the ventilator for 9 days. 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 Patient is not short of breath at rest. No edema. is at the bedside. Patient had gone to Dr. Servin office his educational administrator who to send the patient to the ER. Patient known to have lung function from 20-30% l Admitted with acute COPD exacerbation, acute hypoxia, right-sided pleural effusion. February 16: Dr. Richter - 1800 mL of right thoracentesis turbid fluid, from the right site. Breathing better. Computed tomography scan chest order to rule out any underlying malignancy. Slight improvement in shortness of breath.. Decreased appetite Cardiology did resume eliquis at a smaller dose because of hematuria February 17: Laying in bed. Breathing has been better. 4 L nasal cannula. Add incentive spirometry. Eating about 25%. Increase activity. probable discharge tomorrow. Active Medications Hydrocodone Bitart/Acetaminophen (Hydrocodone/Apap 10-325mg 1 Each Tab) 1 each PO Q4HR PRN PRN Reason: Pain Albuterol Sulfate (Albuterol Nebulized 2.5 Mg/3 Ml) 2.5 mg INHALATION RT-QID PRN PRN Reason: Shortness Of Breath Albuterol/Ipratropium (Ipratropium-Albuterol 3 Ml Neb) 3 ml INHALATION Q4H MARGARET Last Admin: 02/17/23 11:43 Dose: 3 ml Alprazolam (Alprazolam 0.25 Mg Tab) 0.25 mg PO BID PRN PRN Reason: Anxiety Last Admin: 02/16/23 20:53 Dose: 0.25 mg Aspirin (Aspirin 81 Mg) 81 mg PO DAILY COUNT INCLUDES THE [facility] Last Admin: 02/17/23 09:12 Dose: 81 mg Atorvastatin Calcium (Atorvastatin 10 Mg Tab) 10 mg PO HS COUNT INCLUDES THE [facility] Last Admin: 02/16/23 20:52 Dose: 10 mg Budesonide (Budesonide 1 Mg/2 Ml Nebu) 1 mg INHALATION RT-BID COUNT INCLUDES THE [facility] Last Admin: 02/17/23 07:11 Dose: 1 mg Docusate Sodium (Docusate 100 Mg Cap) 100 mg PO BID COUNT INCLUDES THE [facility] Famotidine (Famotidine 20 Mg Tab) 20 mg PO BID@0500,1700 COUNT INCLUDES THE [facility] Last Admin: 02/17/23 05:48 Dose: 20 mg Ferrous Sulfate (Ferrous Sulfate 325 Mg Tab) 325 mg PO DAILY COUNT INCLUDES THE [facility] Last Admin: 02/17/23 09:12 Dose: 325 mg Fluoxetine HCl (Fluoxetine Hcl 20 Mg Cap) 40 mg PO DAILY COUNT INCLUDES THE [facility] Last Admin: 02/17/23 09:11 Dose: 40 mg Formoterol Fumarate (Formoterol Fumarate 20 Mcg/2 Ml Nebu) 20 mcg INHALATION RT-BID COUNT INCLUDES THE [facility] Last Admin: 02/17/23 07:11 Dose: 20 mcg Furosemide (Furosemide 20 Mg Tab) 20 mg PO Q2D COUNT INCLUDES THE [facility] Last Admin: 02/16/23 08:24 Dose: 20 mg Ceftriaxone Sodium 1 gm/ (Sodium Chloride) 50 mls @ 100 mls/hr IVPB Q24H COUNT INCLUDES THE [facility]; Protocol Last Admin: 02/17/23 03:56 Dose: 100 mls/hr Azithromycin 500 mg/ Sodium (Chloride) 250 mls @ 250 mls/hr IVPB HS COUNT INCLUDES THE [facility]; Protocol Stop: 02/17/23 21:59 Last Admin: 02/16/23 20:53 Dose: 250 mls/hr Metoprolol Tartrate (Metoprolol Tartrate 25 Mg Tab) 25 mg PO BID@0500,1700 COUNT INCLUDES THE [facility] Last Admin: 02/17/23 05:48 Dose: 25 mg Ondansetron HCl (Ondansetron 4 Mg Tab) 4 mg PO Q4H PRN PRN Reason: Nausea Prednisone (Prednisone 5 Mg Tab) 5 mg PO DAILY COUNT INCLUDES THE [facility] Last Admin: 02/17/23 09:12 Dose: 5 mg Theophylline (Theophylline 24 Hour 300 Mg Cap.Er.24h) 600 mg PO DAILY COUNT INCLUDES THE [facility] Last Admin: 02/17/23 09:12 Dose: 600 mg Trazodone HCl (Trazodone Hcl 100 Mg Tab) 100 mg PO HS COUNT INCLUDES THE [facility] Last Admin: 02/16/23 20:53 Dose: Not Given Past medical history to include: Atrial fibrillation, COPD, hypertension, hyperlipidemia, bladder Tumma resected transplant starting immunotherapy with Dr. Benz, COVID-19 intubated May 2022, Social history: Averaged about 2 packs a day for 50 years stopped about 9 months ago. Averaged about 6 beers a day for close to 50 years. 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 . Physical examination: VITAL SIGNS: 98.8, 78, 18, 124/56, 96% on 4 L GENERAL: Resting in bed. Scattered bruising EYES: Pupils equal. Conjunctiva normal. HEENT: External appearance of nose and ears normal, oral cavity grossly normal. NECK: JVD not raised; masses not palpable. HEART: First and second heart sounds are normal; no edema. LUNGS: Respiratory rate increased, , poor air entry. ABDOMEN: Soft, nontender, liver spleen not palpable, no masses palpable. PSYCH: Alert and oriented x3; mood and affect less anxious MUSCULOSKELETAL:No Clubbing/cyanosis;muscles-grossly intact. OA INVESTIGATIONS, reviewed in the clinical context: February 17: Potassium 5.3 BUN 33 creatinine 1.0 Procalcitonin 0.61 White count 16.9 hemoglobin 8.5 platelets 625 sodium 138 potassium 5.4 BUN 29 creatinine 0.96 Troponin I 0.048 EKG tracing personally reviewed by me-normal sinus rhythm. Rate 96. Chest x-ray film personally reviewed by me-infiltrates. Right-sided effusion Chest CTA: No PE. Finding compatible metastatic disease of the chest and liver. Periportal adenopathy. Moderate right-sided pleural effusion. Chest ultrasound: Moderate right pleural effusion Previous testin-D echocardiogram at [facility] [November 2022: EF 50%. Small area of hypokinesis of the inferior septal wall. Moderate concentric LVH. Some aortic stenosis. Assessment plan: -Acute on chronic shortness of breath multifactorial. COPD exacerbation. Right pleural effusion. Metastatic disease of the lung. Causing acute hypoxic resp iratory failure.: Better Supplemental oxygen -Chronic hypoxic respiratory failure from underlying COPD 2-1/2 liters of oxygen at home. -Chest pressure. Has known cardiac risk factors. Positive troponin. Being followed by cardiology -Bladder tumor. Patient underwent resection in September [address] Narayanan. Pathology shows: Invasive high-grade urothelial carcinoma. 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 Patient is due to start immunotherapy by DrF. Benz from oncology. This has been causing intermittent hematuria. Patient had a liver biopsy in January. Confirmed metastatic urothelial carcinoma. -Paroxysmal atrial fibrillation currently sinus rhythm. Eliquis 2.5 mg twice a day per cardiology -Moderate right pleural effusion, contributing acute hypoxici respiratory failure. Thoracentesis 1800 mL done -Acute COPD exacerbation in an ex-smoker: Improving DuoNeb. -Hyperlipidemia Lipitor 10 mg daily at bedtime -Depression and anxiety Prozac 40 mg a day trazodone 100 mg daily at bedtime -Full code. Discussed with patient Discussed with patient. Increase activity. Probable discharge tomorrow. Past Medical History Past Medical History: Atrial Fibrillation, Cancer, COPD, Hyperlipidemia, Hypertension Additional Past Medical History / Comment(s): Current bladder tumor, pressure with urination. Hx Covid 06/24/22, was hospitalized at [facility] for 18 days, was in ICU and on vent, went to rehab after that, bladder cancer History of Any Multi-Drug Resistant Organisms: None Reported Additional Past Surgical History / Comment(s): Colonoscopy. Past Anesthesia/Blood Transfusion Reactions: No Reported Reaction Additional Past Anesthesia/Blood Transfusion Reaction / Comment(s): Hx blood transfusion Jul 2022, no problems. Past Psychological History: No Psychological Hx Reported Smoking Status: Former smoker Past Alcohol Use History: Daily Past Drug Use History: Marijuana - Past Family History Mother Family Medical History: No Reported History Medications and Allergies Home Medications Medication Instructions Recorded Confirmed Type Acetaminophen Tab [Tylenol] 1,000 mg PO Q6HR 08/01/16 02/15/23 History Albuterol Sulfate [Proair Hfa] 2 puff INHALATION RT-QID PRN 08/01/16 02/15/23 Hi story Budesonide/Formoterol Fumarate 2 puff INHALATION RT-BID@0500,1700 08/01/16 02/15/23 History [Symbicort 160-4.5 Mcg Inhaler] Furosemide [Lasix] 20 mg PO Q2D 08/01/16 02/15/23 History Theophylline 12 Hour [[place]] 300 mg PO BID@0500,1700 08/01/16 02/15/23 History Atorvastatin [Lipitor] 10 mg PO HS 09/24/22 02/15/23 History Famotidine 20 mg PO BID@0500,1700 09/24/22 02/15/23 History Ferrous Sulfate [Feosol] 325 mg PO DAILY 09/24/22 02/15/23 History Metoprolol Tartrate 25 mg PO BID@0500,1700 09/24/22 02/15/23 History predniSONE 5 mg PO DAILY 09/24/22 02/15/23 History traZODone HCL 100 mg PO HS 09/24/22 02/15/23 History HYDROcodone/APAP 7.5-325MG [[place] 1 tab PO Q6HR PRN 3 Days #12 tab 01/01/23 02/15/23 Rx 7.5-325] ALPRAZolam [Xanax] 0.25 mg PO BID PRN 02/15/23 02/15/23 History FLUoxetine HCL [PROzac] 40 mg PO DAILY 02/15/23 02/15/23 History Ipratropium-Albuterol Nebulize 3 ml INHALATION RT-QID 02/15/23 02/15/23 History [Duoneb 0.5 mg-3 mg/3 ml Soln] Ondansetron [Zofran] 4 mg PO Q4H PRN 02/15/23 02/15/23 History Allergies Allergy/AdvReac Type Severity Reaction Status Date / Time No Known Allergies Allergy Verified 02/15/23 17:27
[2023-02-17 13:50] LABS: Glucose, BF Source Pleural fluid; Glucose, Body Fluid 67 mg/dL; LDH, Body Fluid Source Pleural fluid; T. Protein, Body Fluid Source Pleural fluid; Total Protein, Body Fluid >3600 mg/dL
--- NOTE | 2023-02-17 14:19 | P.PN ---
Subjective Progress Note Date: 02/17/23 Principal diagnosis: metastatic bladder cancer At todays visit pt is resting comfortably in bed. He reports some improvement in breathing. Breathing is unlabored. SPO2 91% on 4L. Reports chest pain with coughing, and current pain regimen not managing pain well. Will adjust pain regimen, from norco 7.5 to norco 10mg q4hrs prn. Also reports mild nausea, denies vomiting. Zofran ordered prn. Objective - Vital Signs Vital signs: Vital Signs Temp 98.8 F 02/17/23 12:00 Pulse 78 02/17/23 12:00 Resp 18 02/17/23 12:00 BP 124/56 02/17/23 12:00 Pulse Ox 96 02/17/23 12:00 FiO2 Intake & Output 02/16/23 02/17/23 02/17/23 18:59 06:59 18:59 Intake Total 480 360 Output Total 250 300 Balance 230 -300 360 Intake: Oral 480 360 Output: Urine 250 300 Other: Voiding Method Urinal Urinal # Voids 2 2 - Constitutional General appearance: Present: average body habitus, no acute distress - EENT Eyes: Present: anicteric sclerae, EOMI ENT: Present: hearing grossly normal - Respiratory Details: breathing even and unlabored - Cardiovascular Details: skin warm and dry - Gastrointestinal General gastrointestinal: Present: soft. Absent: tenderness - Integumentary Integumentary: Absent: cyanotic, jaundiced - Neurologic Neurologic Comment(s): grossly intact - Musculoskeletal Musculoskeletal: Present: generalized weakness - Psychiatric Psychiatric: Present: A&O x's 3, appropriate affect, intact judgment & insight - Labs CBC & Chem 7: 02/15/23 14:31 02/17/23 11:32 Labs: Abnormal Lab Results - Last 24 Hours (Table) 02/17/23 Range/Units 11:32 Potassium 5.3 H (3.5-5.1) mmol/L Carbon Dioxide 38 H (22-30) mmol/L BUN 33 H (9-20) mg/dL Glucose 106 H (74-99) mg/dL Microbiology - Last 24 Hours (Table) 02/15/23 14:28 Blood Culture - Preliminary Blood 02/15/23 14:12 Blood Culture - Preliminary Blood Assessment and Plan (1) Malignant neoplasm metastatic from bladder Current Visit: Yes Status: Acute Priority: High Code(s): C67.9 - MALIGNANT NEOPLASM OF BLADDER, UNSPECIFIED SNOMED Code(s): 26524761 (2) Pleural effusion Current Visit: Yes Status: Acute Priority: High Code(s): J90 - PLEURAL EFFUSION, NOT ELSEWHERE CLASSIFIED SNOMED Code(s): 41390626 Plan: Pleural effusion: -Upon admission chest x-ray revealed moderate sized right pleural effusion with underlying atelectasis and/or consolidation much larger from 02/01/23. CTA chest showed no evidence for PE. And moderate right sized right-sided pleural effusion. Ultrasound chest revealed moderate right pleural effusion. Patient underwent thoracentesis today with pulmonology and 1.8 L of fluid removed. Fluid sent for culture and cytology, results pending. Reports improvement in breathing s/p thoracentesis -Continues on azithromycin and rocephin. Blood cultures negative thus far -Patient was on 2 courses on antibiotics over the last 2 weeks without improvement in symptoms. Concerning that pleural effusion may be due to malignancy. Cytology pending -Pulmonology following -Will continue to monitor Stage IV high-grade urothelial bladder carcinoma: -He underwent TURBT on 09/29/2022, which noted a 3 cm tumor in the posterior bladder direction towards the anterior bladder wall. Pathology was notable for invasive high-grade urothelial carcinoma with invasion of the muscularis propria. Focal perineural invasion was noted with no evidence of lymphovascular invasion. Nuclear medicine bone scan performed on 10/12/2022 noted no suspicious uptake suggestive of osseous metastases. CT of the chest on 10/12/2022 with contrast noted noted mild centrilobular emphysematous and fibrotic changes with pulmonary nodules along the left major fissure measuring 3 mm in the right upper lobe measuring 5 mm. PET/CT noted findings concerning for metastatic disease to the lungs, liver, T4 vertebral body, and retroperitoneal lymphadenopathy. Liver biopsy performed on 01/14/2023 confirmed metastatic urothelial carcinoma. -Given his ECOG performance status of 2 with oxygen dependent COPD, patient is not a good candidate for systemic chemotherapy with carboplatin/gemcitabine. Given his TPS of 20-25%, pembrolizumab/enfortumab vedotin for systemic treatment was recommended. Patient was scheduled to start regimen 2 weeks ago. But due to repeat hospitalizations treatment has been delayed -He is scheduled to start treatment on 02/18. Will plan to delay treatment by 1 week. F/u in clinic scheduled with Dr. Medina Daniel on 02/23. Will reevaluate patient at that time to ensure he has adequately recovered prior to proceeding with tx Pt and updated on POC
--- NOTE | 2023-02-17 16:20 | P.PN ---
Subjective Progress Note Date: 02/17/23 History of present illness: This is a 63-year-old male patient of Dr. Lyons with past medical history of paroxysmal atrial fibrillation previously on eliquis, hypertension, metastatic bladder cancer with metastases to the liver, lung and bone, severe COPD, chronic hypoxic respiratory failure on home O2 at 2 L, history of tobacco use. We have been asked to evaluate the patient for chest pain. Patient was sent into the hospital from his pulmonary doctors office due to dyspnea and right-sided pleural effusion. He underwent a thoracentesis this morning with Dr. Richter with removal of 1800 ML's of turbid colored fluid. Patient states that he has had chest pain across his chest and also down in the right side of his abdomen since he was in the ER on 01/27 for hematuria . Pain is across his chest and goes down in the right side of his abdomen. EKG sinus rhythm with ventricular rate of 96. Chest x-ray: redemonstrated diffuse metastatic pulmonary nodules. Moderate sized right pleural effusion with underlying atelectasis and/or consolidation much larger from 02/01 and slightly larger from 02/15. CTA of the chest no evidence of pulmonary embolism. Findings compatible with metastatic disease to the chest and liver.. Portal adenopathy. Moderate right- sided pleural effusion. Chest ultrasound moderate right pleural effusion pocket 14.5 cm WBC 16.9, hemoglobin 8.5, platelet count 625. INR 1. D-dimer 30. Sodium 138, potassium 5.4, chloride 97, CO2 32, BUN 29 creatinine 0.96. Blood sugar 124. Magnesium 2.7. Troponin 0.048. Alk phos 175 otherwise liver function tests are normal. Home cardiac medications: atorvastatin 10 mg at bedtime, Lasix 20 mg every 2 days, metoprolol tartrate 25 mg twice daily Echocardiogram performed in the office on 12/02/2022 revealed EF 50%. Small hypo kinetic area of the inferior septal wall from the base to the mid wall. Small hypokinetic area of the inferior wall at the base. Moderate concentric left ventricular hypertrophy. [place] aortic valve calcific aortic stenosis, [id number]. Mild mitral regurgitation. Trace to mild tricuspid regurgitation. Normal pulmonary artery systolic pressure of 22. 9/14 Patient is seen today in follow-up. Repeat troponins came back flat neck and indicative of acute coronary syndrome. Repeat blood work reveals potassium of 5.3, creatinine 1.0. Patient is followed bipolar medicine and oncology. Due to intermittent bleeding, eliquis will be discontinued. Physical examination: Gen: This is a 63 year old male resting in bed in no acute distress. VS: reviewed HEENT: Head is atraumatic, normocephalic. Pupils equal, round. Sclerae is anicteric. NECK: Supple. No JVD. . LUNGS:Diminished i. No intercostal retractions. HEART: Regular rate and rhythm. ABDOMEN: Soft No tenderness. EXTREMITIES: No pedal edema. No calf tenderness. NEUROLOGICAL: Patient is awake, alert and oriented x3. Assessment Atypical chest pain Elevated troponin acute coronary syndrome ruled out Moderate right pleural effusion status post thoracentesis Acute on chronic hypoxic respiratory failure Paroxysmal atrial fibrillation [id number] aortic stenosis Hypertension Metastatic bladder cancer with metastatic disease to the liver, lung and bone Severe COPD Plan: Continue patient's home cardiac medications No need to repeat echocardiogram Cardiology will sign off this case and follow on an as-needed basis. Please reconsult for any new concerns. Patient may follow-up in the office in one to 2 weeks. Nurse practitioner note has been reviewed, I agree with documented findings and plan of care. Patient was seen and examined. Objective - Vital Signs Vital signs: Vital Signs Temp 98 F 02/17/23 09:10 Pulse 77 02/17/23 09:10 Resp 18 02/17/23 09:10 BP 105/63 02/17/23 09:10 Pulse Ox 91 L 02/17/23 09:10 FiO2 Intake & Output 02/16/23 02/17/23 02/17/23 18:59 06:59 18:59 Intake Total 480 240 Output Total 250 300 Balance 230 -300 240 Intake: Oral 480 240 Output: Urine 250 300 Other: Voiding Method Urinal # Voids 2 - Labs CBC & Chem 7: 02/15/23 14:31 02/17/23 11:32 Labs: Abnormal Lab Results - Last 24 Hours (Table) 02/16/23 02/16/23 Range/Units 06:39 11:36 Troponin I 0.035 H* (0.000-0.034) ng/mL Procalcitonin 0.61 H (0.02-0.09) ng/mL Microbiology - Last 24 Hours (Table) 02/15/23 14:28 Blood Culture - Preliminary Blood 02/15/23 14:12 Blood Culture - Preliminary Blood
[2023-02-17] MEDS: ALPRAZolam 0.25 MG TAB PO PRN (16:54)
[2023-02-17] MEDS: HYDROcodone/APAP 10-325MG 1 EACH TAB PO PRN (18:58)
[2023-02-17 19:40] LABS: Glucose,Whole Blood 164 mg/dL (70-110)
[2023-02-17] MEDS: APIXABAN 2.5 MG TABLET PO SCH (20:03)
[2023-02-17] MEDS: ATORVASTATIN 10 MG TAB PO SCH (21:00)
[2023-02-17] MEDS: AZITHROMYCIN 500 MG in SODIUM CHLORIDE 0.9% 250 ML IVPB SCH (21:00)
[2023-02-17] MEDS: traZODone HCL 100 MG TAB PO SCH (21:00)
[2023-02-17] MEDS: DOCUSATE 100 MG CAP PO SCH (21:00)
[2023-02-17 23:26] LABS: Glucose,Whole Blood 147 mg/dL (70-110)
[2023-02-18] MEDS: IPRATROPIUM-ALBUTEROL 3 ML NEB INHALATION SCH ×6 (00:23→21:19)
--- NOTE | 2023-02-18 00:44 | XR ---
EXAM: XR Chest, 1 View CLINICAL HISTORY: ITS.REASON XR Reason: Right pleural effusion; increased oxygen demands TECHNIQUE: Frontal view of the chest. COMPARISON: No relevant prior studies available. FINDINGS: Lungs: See below. Pleural space: Mild-moderate RIGHT pleural effusion. Airspace consolidation at the RIGHT lung base, correlate for pneumonia. No pneumothorax. Heart: Cardiomegaly. Mediastinum: Unremarkable. Bones/joints: Unremarkable. IMPRESSION: Mild-moderate RIGHT pleural effusion. Airspace consolidation at the RIGHT lung base, correlate for pneumonia.
[2023-02-18] MEDS: HYDROcodone/APAP 10-325MG 1 EACH TAB PO PRN ×3 (01:57→17:06)
[2023-02-18] MEDS: FAMOTIDINE 20 MG TAB PO SCH ×2 (04:58→16:31)
[2023-02-18] MEDS: METOPROLOL TARTRATE 25 MG TAB PO SCH ×2 (04:58→16:31)
[2023-02-18 06:25] LABS: Glucose,Whole Blood 164 mg/dL (70-110)
[2023-02-18 07:12] LABS: HGB 7.8 gm/dL (13.0-17.5); Hypochromasia Marked; MCH 26.6 pg (25.0-35.0); MCHC 29.8 g/dL (31.0-37.0); MCV 89.1 fL (80.0-100.0); Mean Platelet Volume 7.7; Platelet Count 679 k/uL (150-450); RBC 2.92 m/uL (4.30-5.90); RDW 15.2 % (11.5-15.5); WBC 15.2 k/uL (3.8-10.6)
[2023-02-18 07:59] LABS: ALT 30 U/L (4-49); AST 41 U/L (17-59); African American GFR (CKD) >90 (>60 ml/min/1.73 sqM); Albumin 2.9 g/dL (3.5-5.0); Alkaline Phosphatase 146 U/L (38-126); Anion Gap 4 mmol/L; Blood Urea Nitrogen 29 mg/dL (9-20); Calcium 8.5 mg/dL (8.4-10.2); Carbon Dioxide 33 mmol/L (22-30); Chloride 100 mmol/L (98-107); Glucose 130 mg/dL (74-99); Non-African American GFR(CKD) 84 (>60 ml/min/1.73 sqM); Potassium 5.2 mmol/L (3.5-5.1); Sodium 137 mmol/L (137-145); Total Bilirubin 0.3 mg/dL (0.2-1.3); Total Protein 5.9 g/dL (6.3-8.2)
[2023-02-18] MEDS: BUDESONIDE 1 MG/2 ML NEBU INHALATION SCH ×2 (08:08→21:19)
[2023-02-18] MEDS: FORMOTEROL FUMARATE 20 MCG/2 ML NEBU INHALATION SCH ×2 (08:08→21:19)
[2023-02-18 09:02] VITALS: BMI 26.0
[2023-02-18] MEDS: FLUoxetine HCL 20 MG CAP PO SCH (09:02)
[2023-02-18] MEDS: FERROUS SULFATE 325 MG TAB PO SCH (09:02)
[2023-02-18] MEDS: ASPIRIN 81 MG PO SCH (09:02)
[2023-02-18] MEDS: ALPRAZolam 0.25 MG TAB PO PRN (09:03)
[2023-02-18] MEDS: DOCUSATE 100 MG CAP PO SCH ×2 (09:04→20:25)
[2023-02-18] MEDS: predniSONE 5 MG TAB PO SCH (09:05)
[2023-02-18] MEDS: FUROSEMIDE 20 MG TAB PO SCH (09:07)
[2023-02-18] MEDS: THEOPHYLLINE 24 HOUR 300 MG CAP.ER.24H PO SCH (09:09)
[2023-02-18 11:43] LABS: Glucose,Whole Blood 160 mg/dL (70-110)
--- NOTE | 2023-02-18 12:44 | P.PN ---
Subjective Progress Note Date: 02/18/23 I am seeing this patient in new consultation today 02/16/2023 after he was sent from the Pulmonary office with concerns of a dyspnea/hypoxia and moderate sized right sided pleural effusion. Patient is a 63-year-old white male with past medical history significant for metastatic bladder cancer with evidence of diffuse metastases to the liver and lung and bone, severe COPD with an FEV1 of 21% of predicted, chronic oxygen dependence on 2 L/m nasal cannula /, coronary artery disease, pulmonary hypertension and cor pulmonale. Patient does follow Dr. Servin in the office for management of his severe oxygen and steroid dependent COPD. His established oncologist is Dr. Daniel. He reportedly has no t started systemic treatment as of yet. He did have a TURBT September,. Patient had been experiencing progressively worsening shortness of breath over the last 3 weeks, So he made an appointment with his senior asic design engineer Dr. Servin. He was found to be hypoxemic and in some respiratory distress. Chest x-ray demonstrated diffuse metastatic pulmonary nodules, moderate size right pleural effusion, and underlying atelectasis versus consolidation. Denies any fevers, chills, myalgias, cough, hemoptysis. Admits a generalized anterior chest pain without radiation. He was sent to the emergency room for further evaluation and possible thoracentesis. Chest CTA on arrival did not show any evidence of pulmonary embolism. It did demonstrate known suspected metastatic disease to the chest and liver, a right lower lobe masslike consolidation measuring 3.4 x 3.3 cm, and a moderate right-sided pleural effusion. Suspected malignant pleural effusion, However, infectious process with parapneumonic effusion is not ruled out. Denies prior thoracentesis. He is currently sitting up in bed, on 4 L per minute nasal cannula, in no acute distress. CBC on arrival shows leukocytosis with WBC count of 16.9, hemoglobin 8.5, hematocrit 28.3, platelets 625. BMP on arrival shows sodium 138, potassium 5.4, chloride 97, serum bicarbonate 32, BUN 29, creatinine 0.96, glucose 124. Lactic acid level was 1.7. Troponin mildly elevated at 0.048. ECG shows normal sinus rhythm without any obvious ischemic changes. Patient appears hemodynamically stable. On today's evaluation of 02/17/2023, the patient is stable. The patient has no significant respiratory difficulties at rest. Thoracentesis was done yesterday without any complication and a total of 1.8 L of fluid was removed. The cytology is still pending for now. Meanwhile, the patient remains on oxygen at 4 L with a pulse ox of 96%. BUN is at 33 with a creatinine of 1.0 and the troponins are 0.03 respectively 2 with a pro-calcitonin level of 0.6. Pleural fluid analysis including chemistry and cytology is still pending for now. The patient has no specific complaints. He is hemodynamically stable. There is evidence of metastatic disease as mentioned of a primary bladder cancer. The patient also has advanced COPD with an FEV1 of 21% of predicted as stated earlier. On 02/18/2023, the patient is on airvo , 50 L an FiO2 of 50%. There was interval decompensation worsening in his respiratory status and oxygenation overnight and the patient was taken from 4 L to high flow oxygen. Note that I performed a thoracentesis and the patient and the patient felt much better following the procedure. A repeat chest x-ray was done at time of the hypoxemia overnight and the chest x-ray findings of essentially stable, no evidence of any pneumothorax. The patient has a small to moderate-sized right-sided pleural effusion along with air space consolidation right lung base and bilateral nodularities consistent with metastatic disease. Remains on IV Rocephin. The interval decompensation of the exercises are explained. We'll do another CT angiogram of the chest accordingly. Objective - Vital Signs Vital signs: Vital Signs Temp 98 F 02/18/23 04:00 Pulse 114 H 02/18/23 08:31 Resp 20 02/18/23 04:00 BP 125/77 02/18/23 04:00 Pulse Ox 94 L 02/18/23 04:00 FiO2 50 02/18/23 08:09 Intake & Output 02/17/23 02/18/23 02/18/23 18:59 06:59 18:59 Intake Total 480 Output Total 225 175 Balance 480 -225 -175 Weight 78.925 kg Intake: Oral 480 Output: Urine 225 175 Other: Voiding Method Urinal Urinal # Voids 2 2 - Exam GENERAL EXAM: Alert, 60-year-old white male, comfortable in no apparent distress. The patient is currently on airvo at 50 L with an FiO2 of 50% HEAD: Normocephalic and atraumatic EYES: Normal reaction of pupils, equal size. NOSE: Clear with pink turbinates. THROAT: No erythema or exudates. NECK: No masses, no JVD. CHEST: No chest wall deformity. LUNGS: Diminished right lower lobe lung sounds with minimal end expiratory wheezes heard throughout. No conversational dyspnea or accessory muscle use. CVS: S1 and S2 normal with no audible murmur, regular rhythm. No extra heart sounds ABDOMEN: No hepatosplenomegaly, active bowel sounds, no guarding or rigidity. SPINE: No scoliosis or deformity SKIN: No rashes CENTRAL NERVOUS SYSTEM: No focal deficits, tone is normal in all 4 extremities. EXTREMITIES: There is mild nonpitting bilateral lower extremity edema. No clubbing, or cyanosis. Peripheral pulses are intact. - Labs CBC & Chem 7: 02/18/23 06:43 02/18/23 06:43 Labs: Abnormal Lab Results - Last 24 Hours (Table) 02/17/23 02/17/23 02/17/23 Range/Units 11:32 19:39 23:24 WBC (3.8-10.6) k/uL RBC (4.30-5.90) m/uL Hgb (13.0-17.5) gm/dL Hct (39.0-53.0) % MCHC (31.0-37.0) g/dL Plt Count (150-450) k/uL Potassium 5.3 H (3.5-5.1) mmol/L Carbon Dioxide 38 H (22-30) mmol/L BUN 33 H (9-20) mg/dL Glucose 106 H (74-99) mg/dL POC Glucose (mg/dL) 164 H 147 H (70-110) mg/dL Alkaline Phosphatase (38-126) U/L Total Protein (6.3-8.2) g/dL Albumin (3.5-5.0) g/dL 02/18/23 02/18/23 02/18/23 Range/Units 06:24 06:43 06:43 WBC 15.2 H (3.8-10.6) k/uL RBC 2.92 L (4.30-5.90) m/uL Hgb 7.8 L (13.0-17.5) gm/dL Hct 26.0 L (39.0-53.0) % MCHC 29.8 L (31.0-37.0) g/dL Plt Count 679 H (150-450) k/uL Potassium 5.2 H (3.5-5.1) mmol/L Carbon Dioxide 33 H (22-30) mmol/L BUN 29 H (9-20) mg/dL Glucose 130 H (74-99) mg/dL POC Glucose (mg/dL) 164 H (70-110) mg/dL Alkaline Phosphatase 146 H (38-126) U/L Total Protein 5.9 L (6.3-8.2) g/dL Albumin 2.9 L (3.5-5.0) g/dL Microbiology - Last 24 Hours (Table) 02/15/23 14:28 Blood Culture - Preliminary Blood 02/15/23 14:12 Blood Culture - Preliminary Blood Assessment and Plan Assessment: Moderate sized right pleural effusion, Chest CTA on arrival did not show any evidence of pulmonary embolism. It did redemonstrate metastatic disease to the chest and liver. There was a new right lower lobe masslike consolidation measuring 3.4 x 3.3 cm, and a moderate right-sided pleural effusion. Suspected malignant pleural effusion, however, underlying infectious process with parapneumonic effusion is not ruled out.. The patient is post thoracentesis. Pleural fluid chemistry and cytology still pending for now. Less short of breath Acute on chronic hypoxemia and the patient is currently on airvo 50 L an FiO2 of 50%, the exact cause for the worsening in oxygenation and respiratory status is no clear. I will recommend repeating the CT angiogram Acute on chronic shortness of breath improved following thoracentesis and evacuation of 1.8 L of pleural fluid from the right. Fluid cytology still pending for now Leukocytosis Chronic obstructive pulmonary disease, stable. History of severe chronic obstructive pulmonary disease with baseline FEV1 21% of predicted. Normally steroid and oxygen dependent. Metastatic bladder cancer, with diffuse metastasis demonstrated to the liver, lungs, and bone. Liver biopsy done January, was consistent with urothelial carcinoma. History of hematuria Anemia, possibly related to above Elevated troponins, rule out NSTEMI History of pulmonary hypertension Ex-smoker, as of May, Plan: Right lung thoracentesis was completed and the repeat chest x-ray shows a small to moderate-sized right-sided pleural effusion Pleural fluid chemistry and pathology still pending Interval worsening in oxygenation recommend doing a CT angiogram No clear indication for infection and the pro calcitonin level is at 0.6, pneumonia is doubtful Continue bronchodilators, budesonide, formoterol. Cardiology was consulted for chest pressure and elevated troponins Oncology consult also obtained We will continue to follow, and further recommendations are forthcoming
[2023-02-18] MEDS: ALPRAZolam 0.25 MG TAB PO SCH ×2 (14:15→20:25)
--- NOTE | 2023-02-18 15:51 | P.PN ---
Progress Note - Text Progress Note Date: 02/18/23 Chief Complaint: Short of breath 63-year-old patient who follows with [facility], with Dr. Cohen. Patient presented to weeks of increased shortness of breath. Some cough. Some brown sputum. Patient is on home oxygen 2-1/2 L. Also has some intermittent chest pressure. Patient does follow with mimeograph operator Dr. Ellis Mullen. He was told that he's had a previous RI based on his stress test/echocardiogram done at our [facility] office. Patient has a bladder tumor that is being followed by Dr. Narayanan from urology. He did resected once. Patient is also started seeing Dr. Benz spending his first dose of immunotherapy. Patient does get intermittent hematuria. As he does not take any anticoagulation for his underlying atrial fibrillation. Patient had covered in May 2022 was on the ventilator for 9 days. 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 Patient is not short of breath at rest. No edema. is at the bedside. Patient had gone to Dr. Servin office his regional marketing manager who to send the patient to the ER. Patient known to have lung function from 20-30% l Admitted with acute COPD exacerbation, acute hypoxia, right-sided pleural effusion. February 16: Dr. Richter - 1800 mL of right thoracentesis turbid fluid, from the right site. Breathing better. Computed tomography scan chest order to rule out any underlying malignancy. Slight improvement in shortness of breath.. Decreased appetite Cardiology did resume eliquis at a smaller dose because of hematuria February 17: Laying in bed. Breathing has been better. 4 L nasal cannula. Add incentive spirometry. Eating about 25%. Increase activity. probable discharge tomorrow. February 18: Overnight patient became more short of breath. Was placed on a Airvo. 50/50. CT chest with angiogram is pending today. Active Medications Hydrocodone Bitart/Acetaminophen (Hydrocodone/Apap 10-325mg 1 Each Tab) 1 each PO Q4HR PRN PRN Reason: Pain Last Admin: 02/18/23 09:03 Dose: 1 each Albuterol Sulfate (Albuterol Nebulized 2.5 Mg/3 Ml) 2.5 mg INHALATION RT-QID PRN PRN Reason: Shortness Of Breath Albuterol/Ipratropium (Ipratropium-Albuterol 3 Ml Neb) 3 ml INHALATION Q4H [facility] Last Admin: 02/18/23 11:53 Dose: 3 ml Alprazolam (Alprazolam 0.25 Mg Tab) 0.25 mg PO TID [facility] Last Admin: 02/18/23 14:15 Dose: 0.25 mg Aspirin (Aspirin 81 Mg) 81 mg PO DAILY [facility] Last Admin: 02/18/23 09:02 Dose: 81 mg Atorvastatin Calcium (Atorvastatin 10 Mg Tab) 10 mg PO HS [facility] Last Admin: 02/17/23 21:00 Dose: Not Given Budesonide (Budesonide 1 Mg/2 Ml Nebu) 1 mg INHALATION RT-BID [facility] Last Admin: 02/18/23 08:08 Dose: 1 mg Docusate Sodium (Docusate 100 Mg Cap) 100 mg PO BID [facility] Last Admin: 02/18/23 09:04 Dose: 100 mg Famotidine (Famotidine 20 Mg Tab) 20 mg PO BID@0500,1700 [facility] Last Admin: 02/18/23 04:58 Dose: 20 mg Ferrous Sulfate (Ferrous Sulfate 325 Mg Tab) 325 mg PO DAILY [facility] Last Admin: 02/18/23 09:02 Dose: 325 mg Fluoxetine HCl (Fluoxetine Hcl 20 Mg Cap) 40 mg PO DAILY [facility] Last Admin: 02/18/23 09:02 Dose: 40 mg Formoterol Fumarate (Formoterol Fumarate 20 Mcg/2 Ml Nebu) 20 mcg INHALATION RT-BID [facility] Last Admin: 02/18/23 08:08 Dose: 20 mcg Furosemide (Furosemide 20 Mg Tab) 20 mg PO Q2D [facility] Last Admin: 02/18/23 09:07 Dose: 20 mg Ceftriaxone Sodium 1 gm/ (Sodium Chloride) 50 mls @ 100 mls/hr IVPB Q24H [facility]; Protocol Last Admin: 02/18/23 04:58 Dose: 100 mls/hr Metoprolol Tartrate (Metoprolol Tartrate 25 Mg Tab) 25 mg PO BID@0500,1700 [facility] Last Admin: 02/18/23 04:58 Dose: 25 mg Ondansetron HCl (Ondansetron 4 Mg Tab) 4 mg PO Q4H PRN PRN Reason: Nausea Prednisone (Prednisone 5 Mg Tab) 5 mg PO DAILY [facility] Last Admin: 02/18/23 09:05 Dose: 5 mg Theophylline (Theophylline 24 Hour 300 Mg Cap.Er.24h) 600 mg PO DAILY [facility] Last Admin: 02/18/23 09:09 Dose: 600 mg Trazodone HCl (Trazodone Hcl 100 Mg Tab) 100 mg PO HS [facility] Last Admin: 02/17/23 21:00 Dose: Not Given Past medical history to include: Atrial fibrillation, COPD, hypertension, hyperlipidemia, bladder Tumma resected transplant starting immunotherapy with Dr. Benz, COVID-19 intubated May 2022, Social history: Averaged about 2 packs a day for 50 years stopped about 9 months ago. Averaged about 6 beers a day for close to 50 years. 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 . Physical examination: VITAL SIGNS: 98, 102, 20, 1 22 x 67, 96% on AIRVO GENERAL: Resting in bed. Scattered bruising EYES: Pupils equal. Conjunctiva normal. HEENT: External appearance of nose and ears normal, oral cavity grossly normal. NECK: JVD not raised; masses not palpable. HEART: First and second heart sounds are normal; no edema. LUNGS: Respiratory rate increased, , poor air entry. Some wheezing ABDOMEN: Soft, nontender, liver spleen not palpable, no masses palpable. PSYCH: Alert and oriented x3; mood and affect - anxious MUSCULOSKELETAL:No Clubbing/cyanosis;muscles-grossly intact. OA INVESTIGATIONS, reviewed in the clinical context: February 18: White count 15.2 hemoglobin 7.8 potassium 5.2 creatinine 0.96 February 17: Potassium 5.3 BUN 33 creatinine 1.0 Procalcitonin 0.61 White count 16.9 hemoglobin 8.5 platelets 625 sodium 138 potassium 5.4 BUN 29 creatinine 0.96 Troponin I 0.048 EKG tracing personally reviewed by me-normal sinus rhythm. Rate 96. Chest x-ray film personally reviewed by me-infiltrates. Right-sided effusion Chest CTA: No PE. Finding compatible metastatic disease of the chest and liver. Periportal adenopathy. Moderate right-sided pleural effusion. Chest ultrasound: Moderate right pleural effusion Previous testin-D echocardiogram at [facility] [November 2022: EF 50%. Small area of hypokinesis of the inferior septal wall. Moderate concentric LVH. Some aortic stenosis. Assessment plan: -Acute on chronic shortness of breath multifactorial. COPD exacerbation. Right pleural effusion. Metastatic disease of the lung. Causing acute hypoxic respiratory failure.: Worsening Supplemental oxygen -Acute hypoxic respiratory failure overnight, exact cause unknown Patient requiring Airvo 50/50. CT angiograms pending. -Chronic hypoxic respiratory failure from underlying COPD 2-1/2 liters of oxygen at home. -Chest pressure. Has known cardiac risk factors. Positive troponin. Being followed by cardiology -Bladder tumor. Patient underwent resection in September [address] Narayanan. Pathology shows: Invasive high-grade urothelial carcinoma. 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 Patient is due to start immunotherapy by DrF. Benz from oncology. This has been causing intermittent hematuria. Patient had a liver biopsy in January. Confirmed metastatic urothelial carcinoma. -Paroxysmal atrial fibrillation currently sinus rhythm. Eliquis 2.5 mg twice a day per cardiology -Moderate right pleural effusion, contributing acute hypoxici respiratory failure. Thoracentesis 1800 mL done -Acute COPD exacerbation in an ex-smoker: Improving DuoNeb. -Hyperlipidemia Lipitor 10 mg daily at bedtime -Depression and anxiety Prozac 40 mg a day trazodone 100 mg daily at bedtime -Full code. Discussed with patient Discussed. CT angiogram pending. Past Medical History Past Medical History: Atrial Fibrillation, Cancer, COPD, Hyperlipidemia, Hypertension Additional Past Medical History / Comment(s): Current bladder tumor, pressure with urination. Hx Covid 06/24/22, was hospitalized at [facility] for 18 days, was in ICU and on vent, went to rehab after that, bladder cancer History of Any Multi-Drug Resistant Organisms: None Reported Additional Past Surgical History / Comment(s): Colonoscopy. Past Anesthesia/Blood Transfusion Reactions: No Reported Reaction Additional Past Anesthesia/Blood Transfusion Reaction / Comment(s): Hx blood transfusion Jul 2022, no problems. Past Psychological History: No Psychological Hx Reported Smoking Status: Former smoker Past Alcohol Use History: Daily Past Drug Use History: Marijuana - Past Family History Mother Family Medical History: No Reported History Medications and Allergies Home Medications Medication Instructions Recorded Confirmed Type Acetaminophen Tab [Tylenol] 1,000 mg PO Q6HR 08/01/16 02/15/23 History Albuterol Sulfate [Proair Hfa] 2 puff INHALATION RT-QID PRN 08/01/16 02/15/23 History Budesonide/Formoterol Fumarate 2 puff INHALATION RT-BID@0500,1700 08/01/16 02/15/23 History [Symbicort 160-4.5 Mcg Inhaler] Furosemide [Lasix] 20 mg PO Q2D 08/01/16 02/15/23 History Theophylline 12 Hour [[place]-Dur] 300 mg PO BID@0500,1700 08/01/16 02/15/23 History Atorvastatin [Lipitor] 10 mg PO HS 09/24/22 02/15/23 History Famotidine 20 mg PO BID@0500,1700 09/24/22 02/15/23 History Ferrous Sulfate [Feosol] 325 mg PO DAILY 09/24/22 02/15/23 History Metoprolol Tartrate 25 mg PO BID@0500,1700 09/24/22 02/15/23 History predniSONE 5 mg PO DAILY 09/24/22 02/15/23 History traZODone HCL 100 mg PO HS 09/24/22 02/15/23 History HYDROcodone/APAP 7.5-325MG [[place] 1 tab PO Q6HR PRN 3 Days #12 tab 01/01/23 02/15/23 Rx 7.5-325] ALPRAZolam [Xanax] 0.25 mg PO BID PRN 02/15/23 02/15/23 History FLUoxetine HCL [PROzac] 40 mg PO DAILY 02/15/23 02/15/23 History Ipratropium-Albuterol Nebulize 3 ml INHALATION RT-QID 02/15/23 02/15/23 History [Duoneb 0.5 mg-3 mg/3 ml Soln] Ondansetron [Zofran] 4 mg PO Q4H PRN 02/15/23 02/15/23 History Allergies Allergy/AdvReac Type Severity Reaction Status Date / Time No Known Allergies Allergy Verified 02/15/23 17:27
--- NOTE | 2023-02-18 16:38 | P.PN ---
Subjective Progress Note Date: 02/18/23 Principal diagnosis: metastatic bladder cancer At todays visit pt is resting comfortably in bed. He reports some improvement in breathing today. he states last night when walking to the bathroom he began having significant shortness of breath which was further exacerbated by anxiety. Patient was found to be hypoxic and was placed on high flow O2. Breathing is currently mildly labored. SPO2 94% on high flow oxygen. Reports improvement in pain with adjusted pain regimen. Denies nausea and vomiting. Tolerating oral intake Objective - Vital Signs Vital signs: Vital Signs Temp 98.0 F 02/18/23 12:00 Pulse 112 H 02/18/23 16:10 Resp 20 02/18/23 14:00 BP 122/67 02/18/23 12:00 Pulse Ox 96 02/18/23 12:00 FiO2 50 02/18/23 11:56 Intake & Output 02/17/23 02/18/23 02/18/23 18:59 06:59 18:59 Intake Total 480 100 Output Total 225 175 Balance 480 -225 -75 Weight 78.925 kg Intake: Oral 480 100 Output: Urine 225 175 Other: Voiding Method Urinal Urinal Urinal # Voids 2 2 # Bowel Movements 1 - Constitutional General appearance: Present: average body habitus, no acute distress - EENT Eyes: Present: anicteric sclerae, EOMI ENT: Present: hearing grossly normal - Respiratory Respiratory: right: diminished - Cardiovascular Details: tachycardic Rhythm: regular Heart sounds: normal: S1, S2 Abnormal Heart Sounds: Absent: systolic murmur, diastolic murmur, rub, S3 Gallop, S4 Gallop, click, other - Gastrointestinal General gastrointestinal: Present: soft. Absent: tenderness - Integumentary Integumentary: Present: pale. Absent: cyanotic, jaundiced - Musculoskeletal Musculoskeletal: Present: generalized weakness - Psychiatric Psychiatric: Present: A&O x's 3, appropriate affect, intact judgment & insight - Labs CBC & Chem 7: 02/18/23 06:43 02/18/23 06:43 Labs: Abnormal Lab Results - Last 24 Hours (Table) 02/17/23 02/17/23 02/18/23 Range/Units 19:39 23:24 06:24 WBC (3.8-10.6) k/uL RBC (4.30-5.90) m/uL Hgb (13.0-17.5) gm/dL Hct (39.0-53.0) % MCHC (31.0-37.0) g/dL Plt Count (150-450) k/uL Potassium (3.5-5.1) mmol/L Carbon Dioxide (22-30) mmol/L BUN (9-20) mg/dL Glucose (74-99) mg/dL POC Glucose (mg/dL) 164 H 147 H 164 H (70-110) mg/dL Alkaline Phosphatase (38-126) U/L Total Protein (6.3-8.2) g/dL Albumin (3.5-5.0) g/dL 02/18/23 02/18/23 02/18/23 Range/Units 06:43 06:43 11:36 WBC 15.2 H (3.8-10.6) k/uL RBC 2.92 L (4.30-5.90) m/uL Hgb 7.8 L (13.0-17.5) gm/dL Hct 26.0 L (39.0-53.0) % MCHC 29.8 L (31.0-37.0) g/dL Plt Count 679 H (150-450) k/uL Potassium 5.2 H (3.5-5.1) mmol/L Carbon Dioxide 33 H (22-30) mmol/L BUN 29 H (9-20) mg/dL Glucose 130 H (74-99) mg/dL POC Glucose (mg/dL) 160 H (70-110) mg/dL Alkaline Phosphatase 146 H (38-126) U/L Total Protein 5.9 L (6.3-8.2) g/dL Albumin 2.9 L (3.5-5.0) g/dL Microbiology - Last 24 Hours (Table) 02/15/23 14:28 Blood Culture - Preliminary Blood 02/15/23 14:12 Blood Culture - Preliminary Blood Assessment and Plan (1) Malignant neoplasm metastatic from bladder Current Visit: Yes Status: Acute Priority: High Code(s): C67.9 - MALIGNANT NEOPLASM OF BLADDER, UNSPECIFIED SNOMED Code(s): 84521916 (2) Pleural effusion Current Visit: Yes Status: Acute Priority: High Code(s): J90 - PLEURAL EFFUSION, NOT ELSEWHERE CLASSIFIED SNOMED Code(s): 34799762 Plan: Pleural effusion: -Upon admission chest x-ray revealed moderate sized right pleural effusion with underlying atelectasis and/or consolidation much larger from 02/01/23. CTA chest showed no evidence for PE. And moderate right sized right-sided pleural effusion. Ultrasound chest revealed moderate right pleural effusion. Patient underwent thoracentesis today with pulmonology and 1.8 L of fluid removed. Fluid sent for culture and cytology, results pending. Reports improvement in breathing s/p thoracentesis, however due to hypoxia upon exertion last night pt has been transitioned to high flow O2, SPO2 94% -Continues on IV abx. Blood cultures negative thus far -Patient was on 2 courses on antibiotics over the last 2 weeks without improvement in symptoms. Concerning that pleural effusion may be due to malignancy. Cytology pending -Pulmonology following. Repeat CTA chest ordered -Will continue to monitor Stage IV high-grade urothelial bladder carcinoma: -He underwent TURBT on 09/29/2022, which noted a 3 cm tumor in the posterior bladder direction towards the anterior bladder wall. Pathology was notable for invasive high-grade urothelial carcinoma with invasion of the muscularis propria. Focal perineural invasion was noted with no evidence of lymphovascular invasion. Nuclear medicine bone scan performed on 10/12/2022 noted no suspicious uptake suggestive of osseous metastases. CT of the chest on 10/12/2022 with contrast noted noted mild centrilobular emphysematous and fibrotic changes with pulmonary nodules along the left major fissure measuring 3 mm in the right upper lobe measuring 5 mm. PET/CT noted findings concerning for metastatic disease to the lungs, liver, T4 vertebral body, and retroperitoneal lymphadenopathy. Liver biopsy performed on 01/14/2023 confirmed metastatic urothelial carcinoma. -Given his ECOG performance status of 2 with oxygen dependent COPD, patient is not a good candidate for systemic chemotherapy with carboplatin/gemcitabine. Given his TPS of 20-25%, pembrolizumab/enfortumab vedotin for systemic treatment was recommended. Patient was scheduled to start regimen 2 weeks ago. But due to repeat hospitalizations treatment has been delayed -He was scheduled to start treatment on 02/18. Will plan to delay treatment by 1 week. F/u in clinic scheduled with Dr. Medina Daniel on 02/23. Will reevaluate patient at that time to ensure he has adequately recovered prior to proceeding with tx Pt and updated on POC
[2023-02-18 16:45] LABS: Glucose,Whole Blood 161 mg/dL (70-110)
--- NOTE | 2023-02-18 17:05 | US ---
EXAMINATION TYPE: US venous doppler duplex LE BI DATE OF EXAM: 02/18/2023 4:35 PM Exam done portable COMPARISON: NONE CLINICAL INDICATION: Male, 63 years old with history of lower leg edema, assses for DVT; SIDE PERFORMED: Bilateral TECHNIQUE: The lower extremity deep venous system is examined utilizing real time linear array sonog roberto with graded compression, doppler sonography and color-flow sonography. VESSELS IMAGED: Common Femoral Vein Deep Femoral Vein Greater Saphenous Vein * Femoral Vein Popliteal Vein Small Saphenous Vein * Proximal Calf Veins (* superficial vessels) Right Leg: Positive for DVT from CFV through proximal calf veins Left Leg: Positive for DVT from mid femoral vein through proximal calf veins IMPRESSION: Findings compatible with bilateral DVT.
[2023-02-18 19:55] LABS: Glucose,Whole Blood 144 mg/dL (70-110)
[2023-02-18] MEDS: traZODone HCL 100 MG TAB PO SCH (20:25)
[2023-02-18] MEDS: ATORVASTATIN 10 MG TAB PO SCH (20:25)
[2023-02-18 21:13] LABS: Glucose,Whole Blood 166 mg/dL (70-110)
[2023-02-18] MEDS ORDERED: NALOXONE 0.4 MG/ML 1 ML VIAL IV PRN (21:20)
[2023-02-18 22:26] LABS: African American GFR (CKD) >90 (>60 ml/min/1.73 sqM); Anion Gap 4 mmol/L; Blood Urea Nitrogen 31 mg/dL (9-20); Calcium 8.4 mg/dL (8.4-10.2); Carbon Dioxide 35 mmol/L (22-30); Chloride 95 mmol/L (98-107); Glucose 129 mg/dL (74-99); Magnesium 2.7 mg/dL (1.6-2.3); Non-African American GFR(CKD) 83 (>60 ml/min/1.73 sqM); Potassium 5.3 mmol/L (3.5-5.1); Sodium 134 mmol/L (137-145)
[2023-02-18 22:52] LABS: Basophils # (A) 0.1 k/uL (0-0.2); Basophils % (A) 0 %; Eosinophils # (A) 0.1 k/uL (0-0.7); Eosinophils % (A) 1 %; HGB 7.7 gm/dL (13.0-17.5); Hypochromasia Marked; Lymphocytes # (A) 1.1 k/uL (1.0-4.8); Lymphocytes % (A) 7 %; MCH 26.4 pg (25.0-35.0); MCHC 29.5 g/dL (31.0-37.0); MCV 89.5 fL (80.0-100.0); Mean Platelet Volume 7.5; Monocytes # (A) 1.3 k/uL (0-1.0); Monocytes % (A) 8 %; Neutrophils % (A) 82 %; Platelet Count 635 k/uL (150-450); WBC 15.9 k/uL (3.8-10.6)
[2023-02-19] MEDS: IPRATROPIUM-ALBUTEROL 3 ML NEB INHALATION SCH ×6 (00:11→19:49)
[2023-02-19] MEDS: ACETAMINOPHEN TAB 325 MG TAB PO PRN ×2 (00:33→14:10)
[2023-02-19 04:25] LABS: Basophils % (A) 0 %; Eosinophils # (A) 0.2 k/uL (0-0.7); Eosinophils % (A) 1 %; HCT 27.3 % (39.0-53.0); HGB 8.2 gm/dL (13.0-17.5); Hypochromasia Marked; Lymphocytes # (A) 1.4 k/uL (1.0-4.8); Lymphocytes % (A) 8 %; MCH 26.4 pg (25.0-35.0); MCHC 29.9 g/dL (31.0-37.0); MCV 88.5 fL (80.0-100.0); Mean Platelet Volume 6.8; Monocytes # (A) 1.5 k/uL (0-1.0); Monocytes % (A) 9 %; Neutrophils # (A) 12.9 k/uL (1.3-7.7); Neutrophils % (A) 79 %; Platelet Count 634 k/uL (150-450); RBC 3.08 m/uL (4.30-5.90); RDW 15.5 % (11.5-15.5); WBC 16.3 k/uL (3.8-10.6)
[2023-02-19 04:40] LABS: African American GFR (CKD) >90 (>60 ml/min/1.73 sqM); Anion Gap 5 mmol/L; Blood Urea Nitrogen 28 mg/dL (9-20); Calcium 8.6 mg/dL (8.4-10.2); Carbon Dioxide 34 mmol/L (22-30); Chloride 96 mmol/L (98-107); Glucose 120 mg/dL (74-99); Non-African American GFR(CKD) 89 (>60 ml/min/1.73 sqM); Sodium 135 mmol/L (137-145)
[2023-02-19] MEDS: HYDROcodone/APAP 10-325MG 1 EACH TAB PO PRN ×3 (06:22→18:37)
[2023-02-19] MEDS: FAMOTIDINE 20 MG TAB PO SCH ×3 (06:30→18:37)
[2023-02-19] MEDS: METOPROLOL TARTRATE 25 MG TAB PO SCH ×3 (06:30→18:37)
[2023-02-19] MEDS: FORMOTEROL FUMARATE 20 MCG/2 ML NEBU INHALATION SCH ×2 (07:59→19:49)
[2023-02-19] MEDS: BUDESONIDE 1 MG/2 ML NEBU INHALATION SCH ×2 (08:00→19:49)
--- NOTE | 2023-02-19 08:07 | XR ---
EXAMINATION TYPE: XR chest 1V DATE OF EXAM: 02/19/2023 HISTORY: Shortness of breath. COMPARISON: 02/17/2023 TECHNIQUE: Single view of the chest is submitted. FINDINGS: Demonstrated are scattered senescent parenchymal change. Nonspecific reticulonodular infiltrates right greater than left more patchy flowing component to the right lung base. Small right-sided pleural effusion. Overall no significant change. The heart is stable. Hilar and mediastinal structures are within normal limits. Degenerative changes are seen of the dorsal spine. IMPRESSION: 1. Nonspecific reticulonodular infiltrates right greater than left more patchy flowing component to the right lung base. Small right-sided pleural effusion. Overall no significant change.
[2023-02-19 08:12] LABS: Glucose,Whole Blood 143 mg/dL (70-110)
[2023-02-19] MEDS: ASPIRIN 81 MG PO SCH (08:13)
[2023-02-19] MEDS: THEOPHYLLINE 24 HOUR 300 MG CAP.ER.24H PO SCH (08:14)
[2023-02-19] MEDS: FLUoxetine HCL 20 MG CAP PO SCH (08:14)
[2023-02-19] MEDS: FERROUS SULFATE 325 MG TAB PO SCH (08:14)
[2023-02-19] MEDS: DOCUSATE 100 MG CAP PO SCH ×2 (08:14→21:59)
[2023-02-19] MEDS: predniSONE 5 MG TAB PO SCH (08:15)
--- NOTE | 2023-02-19 09:40 | CT ---
EXAMINATION TYPE: CT angio chest DATE OF EXAM: 02/19/2023 COMPARISON: 02/15/2023 HISTORY: Severe SOB, mets to lung/liver from Bladder ca, rule out PE. CT DLP: 540.7 mGycm CONTRAST: CT chest with contrast and 3D reconstruction with MIP imaging is performed with IV Contrast, patient injected with 100 mL of Isovue 370. Contrast-enhanced CT of the chest was performed through the course of the pulmonary arteries with benitez g and mediastinal window settings submitted. 3D reconstruction with MIP imaging was also performed. PULMONARY ARTERIES: There is interval development of pulmonary embolism with saddle component noted w ithin the main pulmonary artery. A few Filling defects are now identified extending into the left upp er lobe segmental and subsegmental branches as well as right lower lobe segmental and subsegmental br anches. No evidence for right heart strain at this time. LUNGS: Innumerable pulmonary nodules are redemonstrated. Large infiltrate right lower lobe with pleur al effusion is unchanged. Emphysematous changes noted. MEDIASTINUM: Thoracic aorta is of normal caliber,however, evaluation is limited given timing of the contrast bolus. If there is concern for thoracic aortic pathology consider ALEN. Correlate clinicall y . The heart is is enlarged. No evidence for mediastinal mass. No mediastinal lymph nodes greater than 1cm. HILAR STRUCTURES: No evidence for mass. No hilar lymph nodes greater than 1 cm. UPPER ABDOMEN: No significant abnormality is seen. IMPRESSION: 1. Interval development of saddle embolism within the main pulmonary artery with segmental and subse gmental components as discussed above. No evidence for right heart strain at this time. 2. Persistent right lower lobe infiltrate and/or atelectasis with associated pleural effusion. 3. Scattered pulmonary nodules as described previously. This was notified via telephone
[2023-02-19] MEDS: ALPRAZolam 0.25 MG TAB PO SCH ×2 (09:59→15:27)
[2023-02-19 10:01] LABS: Appearance,Urine Turbid (Clear); Color,Urine Red
[2023-02-19 10:04] LABS: Hyaline Casts,Urine 16 /lpf (0-2); RBC,Urine >182 /hpf (0-5); WBC,Urine 88 /hpf (0-5)
--- NOTE | 2023-02-19 11:34 | P.PN ---
Subjective Progress Note Date: 02/19/23 I am seeing this patient in new consultation today 02/16/2023 after he was sent from the Pulmonary office with concerns of a dyspnea/hypoxia and moderate sized right sided pleural effusion. Patient is a 63-year-old white male with past medical history significant for metastatic bladder cancer with evidence of diffuse metastases to the liver and lung and bone, severe COPD with an FEV1 of 21% of predicted, chronic oxygen dependence on 2 L/m nasal cannula /, coronary artery disease, pulmonary hypertension and cor pulmonale. Patient does follow Dr. Servin in the office for management of his severe oxygen and steroid dependent COPD. His established oncologist is Dr. Daniel. He reportedly has no t started systemic treatment as of yet. He did have a TURBT September,. Patient had been experiencing progressively worsening shortness of breath over the last 3 weeks, So he made an appointment with his peg driver Dr. Servin. He was found to be hypoxemic and in some respiratory distress. Chest x-ray demonstrated diffuse metastatic pulmonary nodules, moderate size right pleural effusion, and underlying atelectasis versus consolidation. Denies any fevers, chills, myalgias, cough, hemoptysis. Admits a generalized anterior chest pain without radiation. He was sent to the emergency room for further evaluation and possible thoracentesis. Chest CTA on arrival did not show any evidence of pulmonary embolism. It did demonstrate known suspected metastatic disease to the chest and liver, a right lower lobe masslike consolidation measuring 3.4 x 3.3 cm, and a moderate right-sided pleural effusion. Suspected malignant pleural effusion, However, infectious process with parapneumonic effusion is not ruled out. Denies prior thoracentesis. He is currently sitting up in bed, on 4 L per minute nasal cannula, in no acute distress. CBC on arrival shows leukocytosis with WBC count of 16.9, hemoglobin 8.5, hematocrit 28.3, platelets 625. BMP on arrival shows sodium 138, potassium 5.4, chloride 97, serum bicarbonate 32, BUN 29, creatinine 0.96, glucose 124. Lactic acid level was 1.7. Troponin mildly elevated at 0.048. ECG shows normal sinus rhythm without any obvious ischemic changes. Patient appears hemodynamically stable. On today's evaluation of 02/17/2023, the patient is stable. The patient has no significant respiratory difficulties at rest. Thoracentesis was done yesterday without any complication and a total of 1.8 L of fluid was removed. The cytology is still pending for now. Meanwhile, the patient remains on oxygen at 4 L with a pulse ox of 96%. BUN is at 33 with a creatinine of 1.0 and the troponins are 0.03 respectively 2 with a pro-calcitonin level of 0.6. Pleural fluid analysis including chemistry and cytology is still pending for now. The patient has no specific complaints. He is hemodynamically stable. There is evidence of metastatic disease as mentioned of a primary bladder cancer. The patient also has advanced COPD with an FEV1 of 21% of predicted as stated earlier. On 02/18/2023, the patient is on airvo , 50 L an FiO2 of 50%. There was interval decompensation worsening in his respiratory status and oxygenation overnight and the patient was taken from 4 L to high flow oxygen. Note that I performed a thoracentesis and the patient and the patient felt much better following the procedure. A repeat chest x-ray was done at time of the hypoxemia overnight and the chest x-ray findings of essentially stable, no evidence of any pneumothorax. The patient has a small to moderate-sized right-sided pleural effusion along with air space consolidation right lung base and bilateral nodularities consistent with metastatic disease. Remains on IV Rocephin. The interval decompensation of the exercises are explained. We'll do another CT angiogram of the chest accordingly. On 02/19/2023, transfer the patient to the intensive care unit because of hypoxic respiratory failure. He was transferred to the ICU yesterday. He remai ns on high flow oxygen at 30 L an FiO2 of 50%. Pulse ox is in order of 95-96%. I had a high suspicion that the patient had a pulmonary embolism. He was unable to complete as the angiogram yesterday. Doppler of the lower extremity was done and the patient was found to have bilateral DVTs. As evaluation was not started as the patient is having hematuria from his bladder cancer. The patient is producing bloody urine output. He is known to have bladder cancer. This is a metastatic condition. I discussed the case with the vascular surgeon regarding the possibility of [place] filter placement and catheter directed thrombectomy. Meanwhile, I'll order another echocardiogram to evaluate his RV pressure. CT antigram of the chest was also completed this morning which essentially showed presence of a saddle embolus within the main pulmonary artery and the segmental and subsegmental branches. No evidence of any RV pattern strain based on CAT scan criteria. There is scattered bilateral pulmonary nodules which is metastatic in nature and the patient continues to have some right-sided pleural effusion and atelectatic changes in the right lung base. The patient has a white second of 16, hemoglobin stable at 8.2 and a platelet count is 634. BUN is at 28 mg and 0.9 and his sodium level is at 135. Condition is obviously still critical. Vascular surgeries on the case. We'll consult also urology regarding his hematuria. Objective - Vital Signs Vital signs: Vital Signs Temp 99.3 F 02/19/23 08:00 Pulse 95 02/19/23 10:00 Resp 18 02/19/23 10:00 BP 97/50 02/19/23 10:00 Pulse Ox 95 02/19/23 10:00 FiO2 50 02/19/23 09:30 Intake & Output 02/18/23 02/19/23 02/19/23 18:59 06:59 18:59 Intake Total 100 714 140 Output Total 175 1230 230 Balance -75 -516 -90 Weight 78.925 kg 84.1 kg Intake: IV 160 40 0.9 NS KVO 160 40 Oral 100 100 Blood Product 554 Rc Pheresis 2 As3 Unit 277 [id number] Output: Urine 175 1230 230 Uretheral (Baker) 250 Other: Voiding Method Urinal Indwelling Catheter Indwelling Catheter # Bowel Movements 1 - Exam GENERAL EXAM: Alert, 60-year-old white male, comfortable in no apparent distress. The patient is currently on airvo at 30 L with an FiO2 of 50% HEAD: Normocephalic and atraumatic EYES: Normal reaction of pupils, equal size. NOSE: Clear with pink turbinates. THROAT: No erythema or exudates. NECK: No masses, no JVD. CHEST: No chest wall deformity. LUNGS: Diminished right lower lobe lung sounds with minimal end expiratory wheezes heard throughout. No conversational dyspnea or accessory muscle use. CVS: S1 and S2 normal with no audible murmur, regular rhythm. No extra heart sounds ABDOMEN: No hepatosplenomegaly, active bowel sounds, no guarding or rigidity. SPINE: No scoliosis or deformity SKIN: No rashes CENTRAL NERVOUS SYSTEM: No focal deficits, tone is normal in all 4 extremities. EXTREMITIES: There is mild nonpitting bilateral lower extremity edema. No clubbing, or cyanosis. Peripheral pulses are intact. - Labs CBC & Chem 7: 02/19/23 03:53 02/19/23 03:53 Labs: Abnormal Lab Results - Last 24 Hours (Table) 02/18/23 02/18/23 02/18/23 Range/Units 11:36 16:40 19:53 WBC (3.8-10.6) k/uL RBC (4.30-5.90) m/uL Hgb (13.0-17.5) gm/dL Hct (39.0-53.0) % MCHC (31.0-37.0) g/dL Plt Count (150-450) k/uL Neutrophils # (1.3-7.7) k/uL Monocytes # (0-1.0) k/uL Sodium (137-145) mmol/L Potassium (3.5-5.1) mmol/L Chloride (98-107) mmol/L Carbon Dioxide (22-30) mmol/L BUN (9-20) mg/dL Glucose (74-99) mg/dL POC Glucose (mg/dL) 160 H 161 H 144 H (70-110) mg/dL Magnesium (1.6-2.3) mg/dL Urine RBC (0-5) /hpf Urine WBC (0-5) /hpf Hyaline Casts (0-2) /lpf Crossmatch 02/18/23 02/18/23 02/18/23 Range/Units 21:11 21:44 21:44 WBC 15.9 H (3.8-10.6) k/uL RBC 2.90 L (4.30-5.90) m/uL Hgb 7.7 L (13.0-17.5) gm/dL Hct 26.0 L (39.0-53.0) % MCHC 29.5 L (31.0-37.0) g/dL Plt Count 635 H (150-450) k/uL Neutrophils # 13.0 H (1.3-7.7) k/uL Monocytes # 1.3 H (0-1.0) k/uL Sodium 134 L (137-145) mmol/L Potassium 5.3 H (3.5-5.1) mmol/L Chloride 95 L (98-107) mmol/L Carbon Dioxide 35 H (22-30) mmol/L BUN 31 H (9-20) mg/dL Glucose 129 H (74-99) mg/dL POC Glucose (mg/dL) 166 H (70-110) mg/dL Magnesium 2.7 H (1.6-2.3) mg/dL Urine RBC (0-5) /hpf Urine WBC (0-5) /hpf Hyaline Casts (0-2) /lpf Crossmatch 02/18/23 02/19/23 02/19/23 Range/Units 21:44 03:53 03:53 WBC 16.3 H (3.8-10.6) k/uL RBC 3.08 L (4.30-5.90) m/uL Hgb 8.2 L (13.0-17.5) gm/dL Hct 27.3 L (39.0-53.0) % MCHC 29.9 L (31.0-37.0) g/dL Plt Count 634 H (150-450) k/uL Neutrophils # 12.9 H (1.3-7.7) k/uL Monocytes # 1.5 H (0-1.0) k/uL Sodium 135 L (137-145) mmol/L Potassium (3.5-5.1) mmol/L Chloride 96 L (98-107) mmol/L Carbon Dioxide 34 H (22-30) mmol/L BUN 28 H (9-20) mg/dL Glucose 120 H (74-99) mg/dL POC Glucose (mg/dL) (70-110) mg/dL Magnesium (1.6-2.3) mg/dL Urine RBC (0-5) /hpf Urine WBC (0-5) /hpf Hyaline Casts (0-2) /lpf Crossmatch See Detail 02/19/23 02/19/23 Range/Units 08:11 09:45 WBC (3.8-10.6) k/uL RBC (4.30-5.90) m/uL Hgb (13.0-17.5) gm/dL Hct (39.0-53.0) % MCHC (31.0-37.0) g/dL Plt Count (150-450) k/uL Neutrophils # (1.3-7.7) k/uL Monocytes # (0-1.0) k/uL Sodium (137-145) mmol/L Potassium (3.5-5.1) mmol/L Chloride (98-107) mmol/L Carbon Dioxide (22-30) mmol/L BUN (9-20) mg/dL Glucose (74-99) mg/dL POC Glucose (mg/dL) 143 H (70-110) mg/dL Magnesium (1.6-2.3) mg/dL Urine RBC >182 H (0-5) /hpf Urine WBC 88 H (0-5) /hpf Hyaline Casts 16 H (0-2) /lpf Crossmatch Microbiology - Last 24 Hours (Table) 02/15/23 14:28 Blood Culture - Preliminary Blood 02/15/23 14:12 Blood Culture - Preliminary Blood Assessment and Plan Assessment: Acute hypoxic respiratory failure, multifactorial, currently on 50 L with an FiO2 of 50% Acute bilateral pulmonary embolism with a saddle embolus, not a candidate for anticoagulation due to ongoing active hematuria bilateral DVT of the lower extremities Moderate sized right pleural effusion, Chest CTA on arrival did not show any evidence of pulmonary embolism. It did redemonstrate metastatic disease to the chest and liver. There was a new right lower lobe masslike consolidation measuring 3.4 x 3.3 cm, and a moderate right-sided pleural effusion. Suspected malignant pleural effusion, however, underlying infectious process with parapneumonic effusion is not ruled out.. The patient is post thoracentesis. Pleural fluid chemistry and cytology still pending for now. hematuria secondary to bladder cancer Acute on chronic shortness of breath improved following thoracentesis and evacuation of 1.8 L of pleural fluid from the right. Fluid cytology still pending for now Leukocytosis Chronic anemia without any interval dropped a day hemoglobin Chronic obstructive pulmonary disease, stable. History of severe chronic obstructive pulmonary disease with baseline FEV1 21% of predicted. Normally steroid and oxygen dependent. Metastatic bladder cancer, with diffuse metastasis demonstrated to the liver, lungs, and bone. Liver biopsy done January, was consistent with urothelial carcinoma. History of hematuria Anemia, possibly related to above Elevated troponins, rule out NSTEMI History of pulmonary hypertension Ex-smoker, as of May, Plan: Consulting vascular surgery for [place] filter placement Wean down FiO2 as tolerated Consider catheter directed thrombectomy and S2 surgery was consulted that regard and I discussed the case with the vascular surgeon Overall prognosis poor based on underlying metastatic bladder cancer Right lung thoracentesis was completed and the repeat chest x-ray shows a small to moderate-sized right-sided pleural effusion Pleural fluid chemistry and pathology still pending No clear indication for infection and the pro calcitonin level is at 0.6, pneumonia is doubtful Continue bronchodilators, budesonide, formoterol. Cardiology was consulted for chest pressure and elevated troponins Oncology consult also obtained Consult neurology Keep the patient ICU DNR/DNI CODE STATUS
--- NOTE | 2023-02-19 12:54 | P.GSCN ---
History of Present Illness Consult date: 02/19/23 Reason for Consult: Gross Hematuria History of present illness: This is a 63 yo male with hx of metastatic bladder cancer. He is a patient of Dr. 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 Subsequent evaluation showed evidence of metastatic disease. He is currently in the ICU with respiratory failure, and saddle pulmonary embolus. Urology is consulted for gross hematuria. He does have history of DVT and was previously on anticoagulation, subsquently anticoagulation was discontinued in December due to gross hematuria. For the past 2 months he's been having intermittent gross hematuria. He's also been complaining of suprapubic pressure with dysuria. Patient is currently on high flow oxygen, secondary to respirator failure. Patient code status was changed to DNR/DNI yesterday. Review of Systems - Constitutional Denies chills, Denies fever - Cardiovascular Reports leg edema, Reports shortness of breath - Respiratory Reports dyspnea, Denies cough - Gastrointestinal Reports abdominal pain, Denies nausea, Denies vomiting - Genitourinary Reports hematuria, Denies dysuria, Denies flank pain - Integumentary Denies rash, Denies unusual bruising Past Medical History Past Medical History: Atrial Fibrillation, Cancer, COPD, Hyperlipidemia, Hypertension Additional Past Medical History / Comment(s): Current bladder tumor, pressure with urination. Hx Covid 06/24/22, was hospitalized at [facility] for 18 days, was in ICU and on vent, went to rehab after that, bladder cancer History of Any Multi-Drug Resistant Organisms: None Reported Additional Past Surgical History / Comment(s): Colonoscopy. Past Anesthesia/Blood Transfusion Reactions: No Reported Reaction Additional Past Anesthesia/Blood Transfusion Reaction / Comm: Hx blood transfusion Jul 2022, no problems. Past Psychological History: No Psychological Hx Reported Smoking Status: Former smoker Past Alcohol Use History: Daily Past Drug Use History: Marijuana - Past Family History Mother Family Medical History: No Reported History Medications and Allergies Home Medications Medication Instructions Recorded Confirmed Type Acetaminophen Tab [Tylenol] 1,000 mg PO Q6HR 08/01/16 02/15/23 History Albuterol Sulfate [Proair Hfa] 2 puff INHALATION RT-QID PRN 08/01/16 02/15/23 History Budesonide/Formoterol Fumarate 2 puff INHALATION RT-BID@0500,1700 08/01/16 02/15/23 History [Symbicort 160-4.5 Mcg Inhaler] Furosemide [Lasix] 20 mg PO Q2D 08/01/16 02/15/23 History Theophylline 12 Hour [[place]-Dur] 300 mg PO BID@0500,1700 08/01/16 02/15/23 History Atorvastatin [Lipitor] 10 mg PO HS 09/24/22 02/15/23 History Famotidine 20 mg PO BID@0500,1700 09/24/22 02/15/23 History Ferrous Sulfate [Feosol] 325 mg PO DAILY 09/24/22 02/15/23 History Metoprolol Tartrate 25 mg PO BID@0500,1700 09/24/22 02/15/23 History predniSONE 5 mg PO DAILY 09/24/22 02/15/23 History traZODone HCL 100 mg PO HS 09/24/22 02/15/23 History HYDROcodone/APAP 7.5-325MG [[place] 1 tab PO Q6HR PRN 3 Days #12 tab 01/01/23 02/15/23 Rx 7.5-325] ALPRAZolam [Xanax] 0.25 mg PO BID PRN 02/15/23 02/15/23 History FLUoxetine HCL [PROzac] 40 mg PO DAILY 02/15/23 02/15/23 History Ipratropium-Albuterol Nebulize 3 ml INHALATION RT-QID 02/15/23 02/15/23 History [Duoneb 0.5 mg-3 mg/3 ml Soln] Ondansetron [Zofran] 4 mg PO Q4H PRN 02/15/23 02/15/23 History Allergies Allergy/AdvReac Type Severity Reaction Status Date / Time No Known Allergies Allergy Verified 02/15/23 17:27 Surgical - Exam Vital Signs Temp Pulse Resp BP Pulse Ox 98.6 F 114 H 24 102/51 85 L 02/15/23 14:04 02/15/23 14:04 02/15/23 14:04 02/15/23 14:04 02/15/23 14:04 - General no distress, moderate pain - Eyes normal ocular movement, no pale - ENT normal nares, normal mucosa - Respiratory Labored breathing - Abdomen Abdomen: soft, tender (Diffuse), distended (Mild) - Genitourinary normal penis with no external lesions, testicles present - Psychiatric oriented to time, oriented to person, oriented to place Results - Labs 02/19/23 03:53 02/19/23 03:53 Abnormal Lab Results - Last 24 Hours (Table) 02/18/23 02/18/23 02/18/23 Range/Units 16:40 19:53 21:11 WBC (3.8-10.6) k/uL RBC (4.30-5.90) m/uL Hgb (13.0-17.5) gm/dL Hct (39.0-53.0) % MCHC (31.0-37.0) g/dL Plt Count (150-450) k/uL Neutrophils # (1.3-7.7) k/uL Monocytes # (0-1.0) k/uL Sodium (137-145) mmol/L Potassium (3.5-5.1) mmol/L Chloride (98-107) mmol/L Carbon Dioxide (22-30) mmol/L BUN (9-20) mg/dL Glucose (74-99) mg/dL POC Glucose (mg/dL) 161 H 144 H 166 H (70-110) mg/dL Magnesium (1.6-2.3) mg/dL Urine RBC (0-5) /hpf Urine WBC (0-5) /hpf Hyaline Casts (0-2) /lpf Crossmatch 02/18/23 02/18/23 02/18/23 Range/Units 21:44 21:44 21:44 WBC 15.9 H (3.8-10.6) k/uL RBC 2.90 L (4.30-5.90) m/uL Hgb 7.7 L (13.0-17.5) gm/dL Hct 26.0 L (39.0-53.0) % MCHC 29.5 L (31.0-37.0) g/dL Plt Count 635 H (150-450) k/uL Neutrophils # 13.0 H (1.3-7.7) k/uL Monocytes # 1.3 H (0-1.0) k/uL Sodium 134 L (137-145) mmol/L Potassium 5.3 H (3.5-5.1) mmol/L Chloride 95 L (98-107) mmol/L Carbon Dioxide 35 H (22-30) mmol/L BUN 31 H (9-20) mg/dL Glucose 129 H (74-99) mg/dL POC Glucose (mg/dL) (70-110) mg/dL Magnesium 2.7 H (1.6-2.3) mg/dL Urine RBC (0-5) /hpf Urine WBC (0-5) /hpf Hyaline Casts (0-2) /lpf Crossmatch See Detail 02/19/23 02/19/23 02/19/23 Range/Units 03:53 03:53 08:11 WBC 16.3 H (3.8-10.6) k/uL RBC 3.08 L (4.30-5.90) m/uL Hgb 8.2 L (13.0-17.5) gm/dL Hct 27.3 L (39.0-53.0) % MCHC 29.9 L (31.0-37.0) g/dL Plt Count 634 H (150-450) k/uL Neutrophils # 12.9 H (1.3-7.7) k/uL Monocytes # 1.5 H (0-1.0) k/uL Sodium 135 L (137-145) mmol/L Potassium (3.5-5.1) mmol/L Chloride 96 L (98-107) mmol/L Carbon Dioxide 34 H (22-30) mmol/L BUN 28 H (9-20) mg/dL Glucose 120 H (74-99) mg/dL POC Glucose (mg/dL) 143 H (70-110) mg/dL Magnesium (1.6-2.3) mg/dL Urine RBC (0-5) /hpf Urine WBC (0-5) /hpf Hyaline Casts (0-2) /lpf Crossmatch 02/19/23 Range/Units 09:45 WBC (3.8-10.6) k/uL RBC (4.30-5.90) m/uL Hgb (13.0-17.5) gm/dL Hct (39.0-53.0) % MCHC (31.0-37.0) g/dL Plt Count (150-450) k/uL Neutrophils # (1.3-7.7) k/uL Monocytes # (0-1.0) k/uL Sodium (137-145) mmol/L Potassium (3.5-5.1) mmol/L Chloride (98-107) mmol/L Carbon Dioxide (22-30) mmol/L BUN (9-20) mg/dL Glucose (74-99) mg/dL POC Glucose (mg/dL) (70-110) mg/dL Magnesium (1.6-2.3) mg/dL Urine RBC >182 H (0-5) /hpf Urine WBC 88 H (0-5) /hpf Hyaline Casts 16 H (0-2) /lpf Crossmatch Microbiology - Last 24 Hours (Table) 02/15/23 14:28 Blood Culture - Preliminary Blood 02/15/23 14:12 Blood Culture - Preliminary Blood Diabetes panel 02/18/23 02/19/23 Range/Units 21:44 03:53 Sodium 134 L 135 L (137-145) mmol/L Potassium 5.3 H 5.0 (3.5-5.1) mmol/L Chloride 95 L 96 L (98-107) mmol/L Carbon Dioxide 35 H 34 H (22-30) mmol/L BUN 31 H 28 H (9-20) mg/dL Creatinine 0.97 0.91 (0.66-1.25) mg/dL Glucose 129 H 120 H (74-99) mg/dL Calcium 8.4 8.6 (8.4-10.2) mg/dL Calcium panel 02/18/23 02/19/23 Range/Units 21:44 03:53 Calcium 8.4 8.6 (8.4-10.2) mg/dL Pituitary panel 02/18/23 02/19/23 Range/Units 21:44 03:53 Sodium 134 L 135 L (137-145) mmol/L Potassium 5.3 H 5.0 (3.5-5.1) mmol/L Chloride 95 L 96 L (98-107) mmol/L Carbon Dioxide 35 H 34 H (22-30) mmol/L BUN 31 H 28 H (9-20) mg/dL Creatinine 0.97 0.91 (0.66-1.25) mg/dL Glucose 129 H 120 H (74-99) mg/dL Calcium 8.4 8.6 (8.4-10.2) mg/dL Adrenal panel 02/18/23 02/19/23 Range/Units 21:44 03:53 Sodium 134 L 135 L (137-145) mmol/L Potassium 5.3 H 5.0 (3.5-5.1) mmol/L Chloride 95 L 96 L (98-107) mmol/L Carbon Dioxide 35 H 34 H (22-30) mmol/L BUN 31 H 28 H (9-20) mg/dL Creatinine 0.97 0.91 (0.66-1.25) mg/dL Glucose 129 H 120 H (74-99) mg/dL Calcium 8.4 8.6 (8.4-10.2) mg/dL Assessment and Plan Assessment: 62-year-old male with history of muscle invasive bladder cancer with widespread metastatic disease. Urology is consulted for gross hematuria, has been having intermittent gross hematuria the past 2 months, has required 1 unit of blood transfusion, his hemoglobin has been slowly trending down. Patient has respiratory failure secondary to saddle pulmonary embolus, and at baseline is on 2 L of oxygen. He is currently DNR/DNI. Prolonged discussion with the patient and the family at this point proceeding with surgical resection and clot evacuation carries high risk given his current clinical status. Discussed with him with him this will not change his prognosis. Option of palliative radiation to control bleeding was discussed with them, at this point both patient and family to hold off any aggressive measure and agree to proceeding with palliative radiation -Catheter was upsized 22-Armenian from 12-Armenian, irrigate catheter as needed -Consult radiation oncology -Hold any anticogulation given the ongoing hematuria
[2023-02-19 16:11] LABS: Basophils % (A) 0 %; Eosinophils # (A) 0.1 k/uL (0-0.7); Eosinophils % (A) 0 %; HGB 8.9 gm/dL (13.0-17.5); Hypochromasia Marked; Lymphocytes % (A) 6 %; MCH 26.5 pg (25.0-35.0); MCHC 29.8 g/dL (31.0-37.0); Mean Platelet Volume 7.2; Monocytes # (A) 1.3 k/uL (0-1.0); Monocytes % (A) 8 %; Neutrophils % (A) 84 %; Platelet Count 665 k/uL (150-450); RBC 3.38 m/uL (4.30-5.90); RDW 15.3 % (11.5-15.5); WBC 16.6 k/uL (3.8-10.6)
[2023-02-19] MEDS ORDERED: LIDOCAINE 1% INJ 10MG/ML (20 ML MDV) ONE (16:21)
--- NOTE | 2023-02-19 16:24 | P.GSCN ---
History of Present Illness Consult date: 02/19/23 Reason for Consult: PE, DVT, need for IVC filter History of present illness: 63 yo male with hx of metastatic bladder cancer, hematuria, and previous DVT presented to the hospital secondary to breathing issues. He underwent thoracentesis 3 days ago and was feeling better until yesterday when he had an acute change and increase in his oxygen requirements. He was worked up for pulmonary embolism with a CTA which demonstrated a saddle embolism and he also had an increase in troponin levels indicating right heart strain. He is still having bleeding from his bladder and is unable to be anticoagulated and we were consulted at that time for possible intervention and IVC filter placement. Patient code status was changed to DNR/DNI yesterday. Currently he states having increased work of breathing and would like something done to make him more comfortable. He denies any fevers, chills, chest pain or shortness of breath. Review of Systems All systems: negative (what is mentioned in the PMH or HPI) Past Medical History Past Medical History: Atrial Fibrillation, Cancer, COPD, Hyperlipidemia, Hypertension Additional Past Medical History / Comment(s): Current bladder tumor, pressure with urination. Hx Covid 06/24/22, was hospitalized at [facility] for 18 days, was in ICU and on vent, went to rehab after that, bladder cancer History of Any Multi-Drug Resistant Organisms: None Reported Additional Past Surgical History / Comment(s): Colonoscopy. Past Anesthesia/Blood Transfusion Reactions: No Reported Reaction Additional Past Anesthesia/Blood Transfusion Reaction / Comm: Hx blood transfusion Jul 2022, no problems. Past Psychological History: No Psychological Hx Reported Smoking Status: Former smoker Past Alcohol Use History: Daily Past Drug Use History: Marijuana - Past Family History Mother Family Medical History: No Reported History Medications and Allergies Home Medications Medication Instructions Recorded Confirmed Type RX: Acetaminophen Tab [Tylenol] 1,000 mg PO Q6HR 08/01/16 02/15/23 History RX: Albuterol Sulfate [Proair Hfa] 2 puff INHALATION RT-QID PRN 08/01/16 02/15/23 History RX: Budesonide/Formoterol Fumarate 2 puff INHALATION RT-BID@0500,1700 08/01/16 02/15/23 History [Symbicort 160-4.5 Mcg Inhaler] RX: Furosemide [Lasix] 20 mg PO Q2D 08/01/16 02/15/23 History RX: Theophylline 12 Hour [[place]-Dur] 300 mg PO BID@0500,1700 08/01/16 02/15/23 History Atorvastatin [Lipitor] 10 mg PO HS 09/24/22 02/15/23 History Ferrous Sulfate [Feosol] 325 mg PO DAILY 09/24/22 02/15/23 History RX: Famotidine 20 mg PO BID@0500,1700 09/24/22 02/15/23 History RX: Metoprolol Tartrate 25 mg PO BID@0500,1700 09/24/22 02/15/23 History RX: predniSONE 5 mg PO DAILY 09/24/22 02/15/23 History RX: traZODone HCL 100 mg PO HS 09/24/22 02/15/23 History HYDROcodone/APAP 7.5-325MG [[place] 1 tab PO Q6HR PRN 3 Days #12 tab 01/01/23 02/15/23 Rx 7.5-325] ALPRAZolam [Xanax] 0.25 mg PO BID PRN 02/15/23 02/15/23 History FLUoxetine HCL [PROzac] 40 mg PO DAILY 02/15/23 02/15/23 History Ipratropium-Albuterol Nebulize 3 ml INHALATION RT-QID 02/15/23 02/15/23 History [Duoneb 0.5 mg-3 mg/3 ml Soln] Ondansetron [Zofran] 4 mg PO Q4H PRN 02/15/23 02/15/23 History Allergies Allergy/AdvReac Type Severity Reaction Status Date / Time No Known Allergies Allergy Verified 02/15/23 17:27 Surgical - Exam Vital Signs Temp Pulse Resp BP Pulse Ox 98.6 F 114 H 24 102/51 85 L 02/15/23 14:04 02/15/23 14:04 02/15/23 14:04 02/15/23 14:04 02/15/23 14:04 - General moderate distress - Eyes PERRL, normal ocular movement - ENT normal pinna - Neck no masses - Respiratory poor respiratory expansion. On high flow oxygen - Abdomen Abdomen: soft, non tender - Integumentary no rash, no growths - Psychiatric oriented to time, oriented to person, oriented to place, speech is normal diminished dp and pt pulses Results - Labs 02/19/23 03:53 02/19/23 03:53 Abnormal Lab Results - Last 24 Hours (Table) 02/18/23 02/18/23 02/18/23 Range/Units 16:40 19:53 21:11 WBC (3.8-10.6) k/uL RBC (4.30-5.90) m/uL Hgb (13.0-17.5) gm/dL Hct (39.0-53.0) % MCHC (31.0-37.0) g/dL Plt Count (150-450) k/uL Neutrophils # (1.3-7.7) k/uL Monocytes # (0-1.0) k/uL Sodium (137-145) mmol/L Potassium (3.5-5.1) mmol/L Chloride (98-107) mmol/L Carbon Dioxide (22-30) mmol/L BUN (9-20) mg/dL Glucose (74-99) mg/dL POC Glucose (mg/dL) 161 H 144 H 166 H (70-110) mg/dL Magnesium (1.6-2.3) mg/dL Urine RBC (0-5) /hpf Urine WBC (0-5) /hpf Hyaline Casts (0-2) /lpf Crossmatch 02/18/23 02/18/23 02/18/23 Range/Units 21:44 21:44 21:44 WBC 15.9 H (3.8-10.6) k/uL RBC 2.90 L (4.30-5.90) m/uL Hgb 7.7 L (13.0-17.5) gm/dL Hct 26.0 L (39.0-53.0) % MCHC 29.5 L (31.0-37.0) g/dL Plt Count 635 H (150-450) k/uL Neutrophils # 13.0 H (1.3-7.7) k/uL Monocytes # 1.3 H (0-1.0) k/uL Sodium 134 L (137-145) mmol/L Potassium 5.3 H (3.5-5.1) mmol/L Chloride 95 L (98-107) mmol/L Carbon Dioxide 35 H (22-30) mmol/L BUN 31 H (9-20) mg/dL Glucose 129 H (74-99) mg/dL POC Glucose (mg/dL) (70-110) mg/dL Magnesium 2.7 H (1.6-2.3) mg/dL Urine RBC (0-5) /hpf Urine WBC (0-5) /hpf Hyaline Casts (0-2) /lpf Crossmatch See Detail 02/19/23 02/19/23 02/19/23 Range/Units 03:53 03:53 08:11 WBC 16.3 H (3.8-10.6) k/uL RBC 3.08 L (4.30-5.90) m/uL Hgb 8.2 L (13.0-17.5) gm/dL Hct 27.3 L (39.0-53.0) % MCHC 29.9 L (31.0-37.0) g/dL Plt Count 634 H (150-450) k/uL Neutrophils # 12.9 H (1.3-7.7) k/uL Monocytes # 1.5 H (0-1.0) k/uL Sodium 135 L (137-145) mmol/L Potassium (3.5-5.1) mmol/L Chloride 96 L (98-107) mmol/L Carbon Dioxide 34 H (22-30) mmol/L BUN 28 H (9-20) mg/dL Glucose 120 H (74-99) mg/dL POC Glucose (mg/dL) 143 H (70-110) mg/dL Magnesium (1.6-2.3) mg/dL Urine RBC (0-5) /hpf Urine WBC (0-5) /hpf Hyaline Casts (0-2) /lpf Crossmatch 02/19/23 Range/Units 09:45 WBC (3.8-10.6) k/uL RBC (4.30-5.90) m/uL Hgb (13.0-17.5) gm/dL Hct (39.0-53.0) % MCHC (31.0-37.0) g/dL Plt Count (150-450) k/uL Neutrophils # (1.3-7.7) k/uL Monocytes # (0-1.0) k/uL Sodium (137-145) mmol/L Potassium (3.5-5.1) mmol/L Chloride (98-107) mmol/L Carbon Dioxide (22-30) mmol/L BUN (9-20) mg/dL Glucose (74-99) mg/dL POC Glucose (mg/dL) (70-110) mg/dL Magnesium (1.6-2.3) mg/dL Urine RBC >182 H (0-5) /hpf Urine WBC 88 H (0-5) /hpf Hyaline Casts 16 H (0-2) /lpf Crossmatch Microbiology - Last 24 Hours (Table) 02/15/23 14:28 Blood Culture - Preliminary Blood 02/15/23 14:12 Blood Culture - Preliminary Blood Diabetes panel 02/18/23 02/19/23 Range/Units 21:44 03:53 Sodium 134 L 135 L (137-145) mmol/L Potassium 5.3 H 5.0 (3.5-5.1) mmol/L Chloride 95 L 96 L (98-107) mmol/L Carbon Dioxide 35 H 34 H (22-30) mmol/L BUN 31 H 28 H (9-20) mg/dL Creatinine 0.97 0.91 (0.66-1.25) mg/dL Glucose 129 H 120 H (74-99) mg/dL Calcium 8.4 8.6 (8.4-10.2) mg/dL Calcium panel 02/18/23 02/19/23 Range/Units 21:44 03:53 Calcium 8.4 8.6 (8.4-10.2) mg/dL Pituitary panel 02/18/23 02/19/23 Range/Units 21:44 03:53 Sodium 134 L 135 L (137-145) mmol/L Potassium 5.3 H 5.0 (3.5-5.1) mmol/L Chloride 95 L 96 L (98-107) mmol/L Carbon Dioxide 35 H 34 H (22-30) mmol/L BUN 31 H 28 H (9-20) mg/dL Creatinine 0.97 0.91 (0.66-1.25) mg/dL Glucose 129 H 120 H (74-99) mg/dL Calcium 8.4 8.6 (8.4-10.2) mg/dL Adrenal panel 02/18/23 02/19/23 Range/Units 21:44 03:53 Sodium 134 L 135 L (137-145) mmol/L Potassium 5.3 H 5.0 (3.5-5.1) mmol/L Chloride 95 L 96 L (98-107) mmol/L Carbon Dioxide 35 H 34 H (22-30) mmol/L BUN 31 H 28 H (9-20) mg/dL Creatinine 0.97 0.91 (0.66-1.25) mg/dL Glucose 129 H 120 H (74-99) mg/dL Calcium 8.4 8.6 (8.4-10.2) mg/dL - Imaging CT scan - chest: report reviewed, image reviewed Assessment and Plan Assessment: Acute saddle pulmonary embolism Acute on chronic bilateral lower extremity dvt Metastatic bladder cancer Hematuria Plan: long discussion had with the patient and family about options. he is unable to have anticoagulation due to his metastatic disease and active bleeding and therefore we discussed thrombectomy and IVC filter placement. all risks, benefits and complications including bleeding and were discussed with the patient. the family and patient want to go foreword with the procedure. discussed with critical care team who is in agreement for the procedure. will schedule procedure this afternoon.
[2023-02-19 16:29] LABS: Partial Thromboplastin Time 24.7 sec (22.0-30.0); Prothrombin Time 10.5 sec (9.0-12.0)
--- NOTE | 2023-02-19 16:39 | CA ---
Transthoracic Echo Report Name: Arian Pastrana Age: 63 Gender: M : 1960 Exam Date: 02/19/2023 10:14 Exam Location: [place] [facility] Ht (in): 68 Wt (lb): 185 Ordering Physician: Zafar Richter MD Attending/Referring Phys: Dough Machine Operator Cherelle Rojas RDCS Procedure CPT: Indications: evaluate for RV dilation/PAP Cardiac Hx: Technical Quality: Very technically difficult study Contrast 1: [place] Total Dose (mL): 4 Contrast 2: Total Dose (mL): MEASUREMENTS (Male / Female) Normal Values 2D ECHO LV Diastolic Diameter PLAX 5.2 cm 4.2 - 5.9 / 3.9 - 5.3 cm LV Systolic Diameter PLAX 3.6 cm IVS Diastolic Thickness 1.5 cm 0.6 - 1.0 / 0.6 - 0.9 cm LVPW Diastolic Thickness 1.6 cm 0.6 - 1.0 / 0.6 - 0.9 cm LV Relative Wall Thickness 0.6 RV Internal Dim ED PLAX 5.5 cm LVOT Diameter 3.1 cm LA Systolic Diameter LX 5.5 cm 3.0 - 4.0 / 2.7 - 3.8 cm M-MODE Aortic Root Diameter MM 3.1 cm LA Systolic Diameter MM 6.4 cm LA Ao Ratio MM 2.1 AV Cusp Separation MM 1.4 cm DOPPLER AV Peak Velocity 204.3 cm/s AV Peak Gradient 16.7 mmHg AV Mean Velocity 139.1 cm/s AV Mean Gradient 9.9 mmHg AV Velocity Time Integral 34.4 cm FINDINGS Left Ventricle Mild increased left ventricular wall thickness. Left ventricular cavity size normal. Reduced global left ventricular systolic function. Left ventricular ejection fraction is estimated at 50 %. Flattened septum in diastole consistent with right ventricle volume overload. Right Ventricle Severe right ventricular dilatation. Generalized right ventricular hypokinesis. Right Atrium Severe Right atrial dilatation. Left Atrium Severely increased left atrial diameter. Mitral Valve Mitral valve not well visualized. Mitral annular calcification. Mild mitral regurgitation. Aortic Valve Mild aortic stenosis with a peak gradient of 17mmHg and a mean gradient of 10 mmHg. Tricuspid Valve Moderate tricuspid regurgitation. Pulmonic Valve Pulmonic valve not well visualized. Pericardium No pericardial effusion. Aorta Normal size aortic root and proximal ascending aorta. CONCLUSIONS Very technically difficult study. Left ventricular ejection fraction is estimated at 50 %. Severe RV dilatation with reduced global RV systolic function Signs of right ventricular pressure and volume overload Severe biatrial dilatation Mild aortic stenosis with mean gradient of 10 mmHg next and moderate tricuspid regurgitation RVSP could not be estimated but appears to be high No prior echocardiogram to compare with Previewed by: Dr José Low (Electronically Signed) Final Date: 19 February 2023 16:38
[2023-02-19] MEDS ORDERED: SODIUM CHLORIDE 0.9% 500 ML 500 ML IV ONE (17:20)
[2023-02-19] MEDS ORDERED: ALTEPLASE 2 MG VIAL (CATHFLO) IV STA (17:21)
[2023-02-19] MEDS ORDERED: LIDOCAINE 1% INJ 10MG/ML (30 ML VIAL-PF) SQ ONE (17:24)
--- NOTE | 2023-02-19 17:33 | P.PN ---
Progress Note - Text Progress Note Date: 02/19/23 Chief Complaint: Short of breath 63-year-old patient who follows with [facility], with Dr. Cohen. Patient presented to weeks of increased shortness of breath. Some cough. Some brown sputum. Patient is on home oxygen 2-1/2 L. Also has some intermittent chest pressure. Patient does follow with branch office administrator Dr. Ellis Mullen. He was told that he's had a previous OK based on his stress test/echocardiogram done at our [facility] office. Patient has a bladder tumor that is being followed by Dr. Narayanan from urology. He did resected once. Patient is also started seeing Dr. Benz spending his first dose of immunotherapy. Patient does get intermittent hematuria. As he does not take any anticoagulation for his underlying atrial fibrillation. Patient had covered in May 2022 was on the ventilator for 9 days. 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 Patient is not short of breath at rest. No edema. is at the bedside. Patient had gone to Dr. Servin office his moisture tester who to send the patient to the ER. Patient known to have lung function from 20-30% l Admitted with acute COPD exacerbation, acute hypoxia, right-sided pleural effusion. February 16: Dr. Richter - 1800 mL of right thoracentesis turbid fluid, from the right site. Breathing better. Computed tomography scan chest order to rule out any underlying malignancy. Slight improvement in shortness of breath.. Decreased appetite Cardiology did resume eliquis at a smaller dose because of hematuria February 17: Laying in bed. Breathing has been better. 4 L nasal cannula. Add incentive spirometry. Eating about 25%. Increase activity. probable discharge tomorrow. February 18: Overnight patient became more short of breath. Was placed on a Airvo. 50/50. CT chest with angiogram is pending today. February 19: Yesterday evening patient Doppler ultrasound showed bilateral DVT. Discussed with Dr. Richter over the phone yesterday. Watch overnight. Because of hematuria IV heparin cannot be given. Eliquis was discontinued by cardiology on February 17. Vascular was consulted for possible IVC filter. Patient continues to have hematuria. Remains on AIRVO. Discussed with patient. He somewhat disheartened about his entire clinical picture. CT angiogram is come back showing acute saddle pulmonary embolism. He discussed with the patient about possible thrombectomy and the filter. This is being scheduled for this afternoon. Active Medications Acetaminophen (Acetaminophen Tab 325 Mg Tab) 650 mg PO Q6HR PRN PRN Reason: Fever and/ or Pain Last Admin: 02/19/23 14:10 Dose: 650 mg Hydrocodone Bitart/Acetaminophen (Hydrocodone/Apap 10-325mg 1 Each Tab) 1 each PO Q4HR PRN PRN Reason: Pain Last Admin: 02/19/23 11:17 Dose: 1 each Albuterol Sulfate (Albuterol Nebulized 2.5 Mg/3 Ml) 2.5 mg INHALATION RT-QID PRN PRN Reason: Shortness Of Breath Last Admin: 02/19/23 04:59 Dose: 2.5 mg Albuterol/Ipratropium (Ipratropium-Albuterol 3 Ml Neb) 3 ml INHALATION Q4H [facility] Last Admin: 02/19/23 15:20 Dose: 3 ml Alprazolam (Alprazolam 0.25 Mg Tab) 0.25 mg PO TID [facility] Last Admin: 02/19/23 15:27 Dose: Not Given Aspirin (Aspirin 81 Mg) 81 mg PO DAILY [facility] Last Admin: 02/19/23 08:13 Dose: 81 mg Atorvastatin Calcium (Atorvastatin 10 Mg Tab) 10 mg PO HS [facility] Last Admin: 02/18/23 20:25 Dose: 10 mg Budesonide (Budesonide 1 Mg/2 Ml Nebu) 1 mg INHALATION RT-BID [facility] Last Admin: 02/19/23 08:00 Dose: 1 mg Docusate Sodium (Docusate 100 Mg Cap) 100 mg PO BID [facility] Last Admin: 02/19/23 08:14 Dose: 100 mg Famotidine (Famotidine 20 Mg Tab) 20 mg PO BID@0500,1700 [facility] Last Admin: 02/19/23 16:01 Dose: Not Given Ferrous Sulfate (Ferrous Sulfate 325 Mg Tab) 325 mg PO DAILY [facility] Last Admin: 02/19/23 08:14 Dose: 325 mg Fluoxetine HCl (Fluoxetine Hcl 20 Mg Cap) 40 mg PO DAILY [facility] Last Admin: 02/19/23 08:14 Dose: 40 mg Formoterol Fumarate (Formoterol Fumarate 20 Mcg/2 Ml Nebu) 20 mcg INHALATION RT-BID [facility] Last Admin: 02/19/23 07:59 Dose: 20 mcg Furosemide (Furosemide 20 Mg Tab) 20 mg PO Q2D [facility] Last Admin: 02/18/23 09:07 Dose: 20 mg Ceftriaxone Sodium 1 gm/ (Sodium Chloride) 50 mls @ 100 mls/hr IVPB Q24H [facility]; Protocol Last Admin: 02/19/23 04:23 Dose: 100 mls/hr Metoprolol Tartrate (Metoprolol Tartrate 25 Mg Tab) 25 mg PO BID@0500,1700 [facility] Last Admin: 02/19/23 06:30 Dose: 25 mg Naloxone HCl (Naloxone 0.4 Mg/Ml 1 Ml Vial) 0.2 mg IV Q2M PRN PRN Reason: Opioid Reversal Ondansetron HCl (Ondansetron 4 Mg Tab) 4 mg PO Q4H PRN PRN Reason: Nausea Prednisone (Prednisone 5 Mg Tab) 5 mg PO DAILY [facility] Last Admin: 02/19/23 08:15 Dose: 5 mg Theophylline (Theophylline 24 Hour 300 Mg Cap.Er.24h) 600 mg PO DAILY [facility] Last Admin: 02/19/23 08:14 Dose: 600 mg Trazodone HCl (Trazodone Hcl 100 Mg Tab) 100 mg PO HS [facility] Last Admin: 02/18/23 20:25 Dose: 100 mg Past medical history to include: Atrial fibrillation, COPD, hypertension, hyperlipidemia, bladder Tumma resected transplant starting immunotherapy with Dr. Benz, [facility] May 2022, Social history: Averaged about 2 packs a day for 50 years stopped about 9 months ago. Averaged about 6 beers a day for close to 50 years. 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 . Physical examination: VITAL SIGNS: 98.6, 100, 18, 1 10 x 67, 93% on AIRVO GENERAL: Resting in bed. Scattered bruising, short of breath EYES: Pupils equal. Conjunctiva normal. HEENT: External appearance of nose and ears normal, oral cavity grossly normal. NECK: JVD not raised; masses not palpable. HEART: First and second heart sounds are normal; no edema. LUNGS: Respiratory rate increased, , poor air entry. Some wheezing ABDOMEN: Soft, nontender, liver spleen not palpable, no masses palpable. PSYCH: Alert and oriented x3; mood and affect - anxious MUSCULOSKELETAL:No Clubbing/cyanosis;muscles-grossly intact. OA INVESTIGATIONS, reviewed in the clinical context: Chest CTA: Saddle embolism within the main pulmonary artery with segmental and subsegmental components. No evidence of right heart strain. Scattered pulmonary nodules. Ultrasound Doppler lower extremity: Right leg: Positive for DVT from common femoral vein through proximal calf vein. Left leg: Positive for DVT from femoral vein through proximal calf vein. February 19: White count 16.3 hemoglobin 8.2 platelets 634 potassium 5 BUN 28 creatinine 0.91 February 18: White count 15.2 hemoglobin 7.8 potassium 5.2 creatinine 0.96 February 17: Potassium 5.3 BUN 33 creatinine 1.0 Procalcitonin 0.61 White count 16.9 hemoglobin 8.5 platelets 625 sodium 138 potassium 5.4 BUN 29 cr eatinine 0.96 Troponin I 0.048 EKG tracing personally reviewed by me-normal sinus rhythm. Rate 96. Chest x-ray film personally reviewed by me-infiltrates. Right-sided effusion Chest CTA: No PE. Finding compatible metastatic disease of the chest and liver. Periportal adenopathy. Moderate right-sided pleural effusion. Chest ultrasound: Moderate right pleural effusion Previous testin-D echocardiogram at [facility] [November 2022: EF 50%. Small area of hypokinesis of the inferior septal wall. Moderate concentric LVH. Some aortic stenosis. Assessment plan: -Acute bilateral DVT and pulmonary saddle embolism, precipitated her underlying medical debility, and malignancy. Patient not a candidate for anticoagulant medication because of persistent hematuria. Vascular Dr. Jameson consulted. He has spoken to the patient and the family. We'll proceed with thrombectomy and IVC filter. -Acute on chronic shortness of breath multifactorial. COPD exacerbation. Right pleural effusion. Metastatic disease of the lung. Causing acute hypoxic respiratory failure.: Worsening Supplemental oxygen -Acute hypoxic respiratory failure overnight, secondary to acute saddle pulmonary embolism: New Airvo 60/60. -Chronic hypoxic respiratory failure from underlying COPD 2-1/2 liters of oxygen at home. -Chest pressure. Has known cardiac risk factors. Positive troponin. Was seen by by cardiology. To follow up outpatient -Bladder tumor. Patient underwent resection in September [address] Narayanan. Pathology shows: Invasive high-grade urothelial carcinoma. 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 Patient is due to start immunotherapy by DrF. Benz from oncology. This has been causing intermittent hematuria. Patient had a liver biopsy in January. Confirmed metastatic urothelial carcinoma. -Paroxysmal atrial fibrillation currently sinus rhythm. Eliquis 2.5 mg twice a day per cardiology -Moderate right pleural effusion, contributing acute hypoxici respiratory failure. Thoracentesis 1800 mL done -Acute COPD exacerbation in an ex-smoker: Not improving DuoNeb. -Hyperlipidemia Lipitor 10 mg daily at bedtime -Depression and anxiety Prozac 40 mg a day trazodone 100 mg daily at bedtime -DO NOT RESUSCITATE Past Medical History Past Medical History: Atrial Fibrillation, Cancer, COPD, Hyperlipidemia, Hypertension Additional Past Medical History / Comment(s): Current bladder tumor, pressure with urination. Hx Covid 06/24/22, was hospitalized at [facility] for 18 days, was in ICU and on vent, went to rehab after that, bladder cancer History of Any Multi-Drug Resistant Organisms: None Reported Additional Past Surgical History / Comment(s): Colonoscopy. Past Anesthesia/Blood Transfusion Reactions: No Reported Reaction Additional Past Anesthesia/Blood Transfusion Reaction / Comment(s): Hx blood transfusion Jul 2022, no problems. Past Psychological History: No Psychological Hx Reported Smoking Status: Former smoker Past Alcohol Use History: Daily Past Drug Use History: Marijuana - Past Family History Mother Family Medical History: No Reported History
[2023-02-19] MEDS ORDERED: IOPAMIDOL-250 100ML BTL IVP ONE (18:00)
--- NOTE | 2023-02-19 18:33 | IR ---
EXAMINATION TYPE: IR IVC filter placement DATE OF EXAM: 02/19/2023 COMPARISON: NONE HISTORY: Fluoroscopy time. Fluoroscopy was provided to the referring clinician.
--- NOTE | 2023-02-19 18:46 | P.OP ---
Date of Procedure: 02/19/23 Preoperative Diagnosis: Saddle pulmonary embolism Acute on Chronic bilateral DVT Postoperative Diagnosis: same Procedure(s) Performed: Ultrasound guided right common femoral vein access Pulmonary artery angiogram Percutaneous thrombectomy with extirpation of matter with Inari device IVC venogram Percutaneous IVC filter placement Surgeon: Néstor Jameson Estimated Blood Loss (ml): 100 Pathology: none sent Condition: stable Disposition: ICU Indications for Procedure: 63 year old gentleman with saddle embolism with right heart strain, bladder cancer and hematuria presents to the dental laboratory assistant for percutaneous thrombectomy and IVC filter placement. Operative Findings: small filling defect in the right truncus anterior branch. No thrombus noted in the interlobar, or segmental branches with brisk flow throughout. No filling defect on the left or right main pulmonary arteries. No thrombus noted in the segmental branches on the left with brisk flow throughout. Description of Procedure: After written and informed consent was obtained an all risks, benefits and complications were discussed the patient was brought to the dental laboratory assistant and laid in a supine position. The area of the right groin was prepped and draped in the usual fashion. Using ultrasound the right common femoral vein was located and shown to be patent without thrombus and cannulated with a multipurpose needle. An 8F sheath was then placed in usual Seldinger technique. A glidewire was then placed followed by an angled pigtail catheter and directed into the ventricle and up to the pulmonary artery. The wire was placed into the right main pulmonary artery and pigtail was removed. A JR4 catheter was then placed and the wire was exchanged for an amplatz wire. The Inari femoral sheath was then placed after removal of the 8F sheath and a 20F Flowtriever was placed into the right pulmonary artery at the area of the clot which was visualized on CT scan and multiple aspirations were performed with minimal clot removal. Angiogram was then obtained demonstrating brisk flow throughout the right pulmonary artery system but still present with a small area of thrombus. Another aspiration was performed again with minimal thrombus removed due to likely chronic nature of the clot. The Flowtriever was then directed to the left pulmonary artery and aspiration was performed with minimal thrombus removed. Angiogram was again obtained and no thrombus noted in the left pulmonary artery system and none at the bifurcation. At that time attention was placed to the IVC filter placement. The sheath was pulled back into the right iliac and venogram was obtained demo nstrating takeoff of the renal vein and a wire was placed followed by a Celect [place] filter which was deployed in normal fashion at the L2-L3 vertebra. Final venogram was obtained demonstrating good positioning. All guidewires, catheters and sheath was removed and suture was placed for hemostasis. Pressure was then held and patient was sent to ICU for recovery.
[2023-02-19] MEDS: traZODone HCL 100 MG TAB PO SCH (21:59)
[2023-02-19] MEDS: ATORVASTATIN 10 MG TAB PO SCH (21:59)
[2023-02-20] MEDS: HYDROcodone/APAP 10-325MG 1 EACH TAB PO PRN ×5 (00:09→23:33)
[2023-02-20] MEDS: IPRATROPIUM-ALBUTEROL 3 ML NEB INHALATION SCH ×7 (00:22→23:58)
[2023-02-20] MEDS: ALPRAZolam 0.25 MG TAB PO SCH ×4 (03:17→21:24)
[2023-02-20 04:09] LABS: Basophils % (A) 0 %; Eosinophils # (A) 0.1 k/uL (0-0.7); Eosinophils % (A) 1 %; HCT 25.3 % (39.0-53.0); HGB 7.5 gm/dL (13.0-17.5); Hypochromasia Marked; Lymphocytes % (A) 7 %; MCH 26.2 pg (25.0-35.0); MCHC 29.5 g/dL (31.0-37.0); Mean Platelet Volume 7.1; Monocytes # (A) 1.5 k/uL (0-1.0); Monocytes % (A) 10 %; Neutrophils # (A) 11.8 k/uL (1.3-7.7); Neutrophils % (A) 80 %; Platelet Count 592 k/uL (150-450); RBC 2.84 m/uL (4.30-5.90); RDW 15.3 % (11.5-15.5); WBC 14.7 k/uL (3.8-10.6)
[2023-02-20 04:19] LABS: African American GFR (CKD) >90 (>60 ml/min/1.73 sqM); Anion Gap 1 mmol/L; Blood Urea Nitrogen 28 mg/dL (9-20); Calcium 8.4 mg/dL (8.4-10.2); Carbon Dioxide 36 mmol/L (22-30); Chloride 99 mmol/L (98-107); Glucose 114 mg/dL (74-99); Non-African American GFR(CKD) 79 (>60 ml/min/1.73 sqM); Potassium 5.3 mmol/L (3.5-5.1); Sodium 136 mmol/L (137-145)
[2023-02-20] MEDS: FAMOTIDINE 20 MG TAB PO SCH ×2 (06:53→16:00)
--- NOTE | 2023-02-20 07:34 | XR ---
EXAMINATION TYPE: XR chest 1V DATE OF EXAM: 02/20/2023 HISTORY: Shortness of breath. COMPARISON: 02/19/2023 TECHNIQUE: Single view of the chest is submitted. FINDINGS: Demonstrated are scattered senescent parenchymal change. Persistent and unchanged reticulonodular infiltrates right greater than left with right basilar pleur al effusion. The heart is stable. Hilar and mediastinal structures are within normal limits. Degenerative changes are seen of the dorsal spine. IMPRESSION: 1. Persistent and unchanged reticulonodular infiltrates right greater than left with right basilar p leural effusion.
[2023-02-20] MEDS: ASPIRIN 81 MG PO SCH (08:00)
[2023-02-20] MEDS: DOCUSATE 100 MG CAP PO SCH ×2 (08:00→21:23)
[2023-02-20] MEDS: METOPROLOL TARTRATE 25 MG TAB PO SCH ×2 (08:01→16:00)
[2023-02-20] MEDS: FLUoxetine HCL 20 MG CAP PO SCH (08:01)
[2023-02-20] MEDS: FUROSEMIDE 20 MG TAB PO SCH (08:01)
[2023-02-20] MEDS: FERROUS SULFATE 325 MG TAB PO SCH (08:01)
[2023-02-20] MEDS: predniSONE 5 MG TAB PO SCH (08:02)
[2023-02-20] MEDS: THEOPHYLLINE 24 HOUR 300 MG CAP.ER.24H PO SCH (08:02)
[2023-02-20] MEDS: FORMOTEROL FUMARATE 20 MCG/2 ML NEBU INHALATION SCH ×2 (08:17→20:35)
[2023-02-20] MEDS: BUDESONIDE 1 MG/2 ML NEBU INHALATION SCH ×2 (08:17→20:35)
[2023-02-20] MEDS ORDERED: MORPHINE SULFATE 4 MG/ML SYRINGE IVP STA (09:18)
--- NOTE | 2023-02-20 09:47 | P.PN ---
Subjective Progress Note Date: 02/20/23 still having gross hematuria, having leakage around the catheter. Objective - Vital Signs Vital signs: Vital Signs Temp 98.2 F 02/20/23 08:00 Pulse 105 H 02/20/23 08:39 Resp 19 02/20/23 08:00 BP 126/59 02/20/23 08:00 Pulse Ox 90 L 02/20/23 08:00 FiO2 60 02/20/23 08:00 Intake & Output 02/19/23 02/20/23 02/20/23 18:59 06:59 18:59 Intake Total 190 350 40 Output Total 665 510 90 Balance -475 -160 -50 Weight 85.1 kg Intake: IV 90 60 40 0.9 NS KVO 40 60 40 Intake, IV Titration 50 Amount cefTRIAXone 1 gm In 50 Sodium Chloride 0.9% 50 ml @ 100 mls/hr IVPB Q24H [facility] Rx#:[id number] Oral 100 240 Output: Urine 665 510 90 Other: Voiding Method Indwelling Catheter Indwelling Catheter Indwelling Catheter # Voids 1 - Constitutional General appearance: Present: no acute distress - Gastrointestinal General gastrointestinal: Present: soft. Absent: distended, tenderness - Psychiatric Psychiatric: Present: A&O x's 3 - Labs CBC & Chem 7: 02/20/23 03:35 02/20/23 03:35 Labs: Abnormal Lab Results - Last 24 Hours (Table) 02/19/23 02/19/23 02/19/23 Range/Units 09:45 15:43 15:43 WBC 16.6 H (3.8-10.6) k/uL RBC 3.38 L (4.30-5.90) m/uL Hgb 8.9 L (13.0-17.5) gm/dL Hct 30.0 L (39.0-53.0) % MCHC 29.8 L (31.0-37.0) g/dL Plt Count 665 H (150-450) k/uL Neutrophils # 14.0 H (1.3-7.7) k/uL Monocytes # 1.3 H (0-1.0) k/uL Fibrinogen 577 H (200-500) mg/dL Sodium (137-145) mmol/L Potassium (3.5-5.1) mmol/L Carbon Dioxide (22-30) mmol/L BUN (9-20) mg/dL Glucose (74-99) mg/dL Urine RBC >182 H (0-5) /hpf Urine WBC 88 H (0-5) /hpf Hyaline Casts 16 H (0-2) /lpf 02/20/23 02/20/23 Range/Units 03:35 03:35 WBC 14.7 H (3.8-10.6) k/uL RBC 2.84 L (4.30-5.90) m/uL Hgb 7.5 L (13.0-17.5) gm/dL Hct 25.3 L (39.0-53.0) % MCHC 29.5 L (31.0-37.0) g/dL Plt Count 592 H (150-450) k/uL Neutrophils # 11.8 H (1.3-7.7) k/uL Monocytes # 1.5 H (0-1.0) k/uL Fibrinogen (200-500) mg/dL Sodium 136 L (137-145) mmol/L Potassium 5.3 H (3.5-5.1) mmol/L Carbon Dioxide 36 H (22-30) mmol/L BUN 28 H (9-20) mg/dL Glucose 114 H (74-99) mg/dL Urine RBC (0-5) /hpf Urine WBC (0-5) /hpf Hyaline Casts (0-2) /lpf Assessment and Plan Assessment: 62-year-old male with history of muscle invasive bladder cancer with widespread metastatic disease. Urology is consulted for gross hematuria, has been having intermittent gross hematuria the past 2 months, has required 1 unit of blood transfusion, his hemoglobin has been slowly trending down. Patient has respiratory failure secondary to saddle pulmonary embolus, and at baseline is on 2 L of oxygen. He is currently DNR/DNI. Prolonged discussion with the patient and the family at this point proceeding with surgical resection and clot evacuation carries high risk given his current clinical status. Discussed with him with him this will not change his prognosis. Option of palliative radiation to control bleeding was discussed with them, at this point both patient and family to hold off any aggressive measure and agree to proceeding with palliative radiation. 22 [place] Island[place] Baker silicone catheter was placed yesterday, still having hematuria intermittently clotting. -Consult radiation oncology -Hold any anticogulation given the ongoing hematuria -His catheter was exchanged to a 22-[place] Islander hematuria catheter, -Irrigate every 4 hours when necessary,
--- NOTE | 2023-02-20 09:48 | P.PCN ---
Date of Procedure: 02/20/23 Preoperative Diagnosis: Gross hematuria, Postoperative Diagnosis: same Procedure(s) Performed: Baker catheter placement, bladder irrigation Description of Procedure: Previous Baker catheter was removed. Penis was prepped with Betadine. Next a 22-Welsh hematuria catheter was placed, balloon was inflated to 10 mL. Next the bladder was irrigated using 1 L of saline, approximately 50 mL of clot was obtained.
--- NOTE | 2023-02-20 09:54 | P.PCN ---
Date of Procedure: 02/20/23 Operative Findings: Preoperative Diagnosis: Pleural effusion, right Postoperative Diagnosis: Pleural effusion, right Procedure(s) Performed: Thoracentesis, right Anesthesia: local Surgeon: Zafar Richter Estimated Blood Loss (ml): 0 Pathology: other Condition: stable Disposition: floor Operative Findings: A time out was performed and the chest x-ray was reviewed, the appropriate side was confirmed and marked. My hands were washed immediately prior to the procedure. I wore a surgical cap, mask with protective eyewear, sterile gown and sterile gloves throughout the procedure. The patient was prepped and draped in a sterile manner using chlorhexidine scrub after the appropriate level was percussed and confirmed by ultrasound. 1% lidocaine was used to anesthesize the skin, subcutaneous tissue, superior aspect of the rib periosteum and parietal pleura. A finder needle was then introduced over the superior aspect of the rib to locate the pleural fluid; 2colored fluid was aspirated at a depth of approximately 2 cm. A 10-blade scalpel was used to moises the skin at the insertion site. The [id number] needle was then introduced through the skin incision into the pleural space using negative aspiration pressure and the red colometric indicator to confirm appropriate positioning of the needle. The thoracentesis catheter was then threaded without difficulty. 2000 ml of turbid colored fluid was removed without difficulty. The catheter was then removed. No immediate complications were noted during the procedure. A post-procedure chest x-ray is pending at the time of this note. The fluid will be sent for studies. Estimated blood loss is 0cc
--- NOTE | 2023-02-20 10:20 | XR ---
EXAMINATION TYPE: XR chest 1V DATE OF EXAM: 02/20/2023 HISTORY: Status post thoracentesis COMPARISON: 02/20/2023 TECHNIQUE: Single view of the chest is submitted. FINDINGS: Diminution in right-sided pleural effusion without evidence for sizable pneumothorax. Reticulonodular infiltrates persist throughout both lung elizabeth unchanged. The heart is stable. Hilar and mediastinal structures are within normal limits. Degenerative changes are seen of the dorsal spine. IMPRESSION: 1. Diminution in right-sided pleural effusion without evidence for sizable pneumothorax. 2. Reticulonodular infiltrates persist throughout both lung elizabeth unchanged.
--- NOTE | 2023-02-20 11:23 | P.PN ---
Subjective Progress Note Date: 02/20/23 I am seeing this patient in new consultation today 02/16/2023 after he was sent from the Pulmonary office with concerns of a dyspnea/hypoxia and moderate sized right sided pleural effusion. Patient is a 63-year-old white male with past medical history significant for metastatic bladder cancer with evidence of diffuse metastases to the liver and lung and bone, severe COPD with an FEV1 of 21% of predicted, chronic oxygen dependence on 2 L/m nasal cannula /, coronary artery disease, pulmonary hypertension and cor pulmonale. Patient does follow Dr. Servin in the office for management of his severe oxygen and steroid dependent COPD. His established oncologist is Dr. Daniel. He reportedly has no t started systemic treatment as of yet. He did have a TURBT September,. Patient had been experiencing progressively worsening shortness of breath over the last 3 weeks, So he made an appointment with his livestock nutritionist Dr. Servin. He was found to be hypoxemic and in some respiratory distress. Chest x-ray demonstrated diffuse metastatic pulmonary nodules, moderate size right pleural effusion, and underlying atelectasis versus consolidation. Denies any fevers, chills, myalgias, cough, hemoptysis. Admits a generalized anterior chest pain without radiation. He was sent to the emergency room for further evaluation and possible thoracentesis. Chest CTA on arrival did not show any evidence of pulmonary embolism. It did demonstrate known suspected metastatic disease to the chest and liver, a right lower lobe masslike consolidation measuring 3.4 x 3.3 cm, and a moderate right-sided pleural effusion. Suspected malignant pleural effusion, However, infectious process with parapneumonic effusion is not ruled out. Denies prior thoracentesis. He is currently sitting up in bed, on 4 L per minute nasal cannula, in no acute distress. CBC on arrival shows leukocytosis with WBC count of 16.9, hemoglobin 8.5, hematocrit 28.3, platelets 625. BMP on arrival shows sodium 138, potassium 5.4, chloride 97, serum bicarbonate 32, BUN 29, creatinine 0.96, glucose 124. Lactic acid level was 1.7. Troponin mildly elevated at 0.048. ECG shows normal sinus rhythm without any obvious ischemic changes. Patient appears hemodynamically stable. On today's evaluation of 02/17/2023, the patient is stable. The patient has no significant respiratory difficulties at rest. Thoracentesis was done yesterday without any complication and a total of 1.8 L of fluid was removed. The cytology is still pending for now. Meanwhile, the patient remains on oxygen at 4 L with a pulse ox of 96%. BUN is at 33 with a creatinine of 1.0 and the troponins are 0.03 respectively 2 with a pro-calcitonin level of 0.6. Pleural fluid analysis including chemistry and cytology is still pending for now. The patient has no specific complaints. He is hemodynamically stable. There is evidence of metastatic disease as mentioned of a primary bladder cancer. The patient also has advanced COPD with an FEV1 of 21% of predicted as stated earlier. On 02/18/2023, the patient is on airvo , 50 L an FiO2 of 50%. There was interval decompensation worsening in his respiratory status and oxygenation overnight and the patient was taken from 4 L to high flow oxygen. Note that I performed a thoracentesis and the patient and the patient felt much better following the procedure. A repeat chest x-ray was done at time of the hypoxemia overnight and the chest x-ray findings of essentially stable, no evidence of any pneumothorax. The patient has a small to moderate-sized right-sided pleural effusion along with air space consolidation right lung base and bilateral nodularities consistent with metastatic disease. Remains on IV Rocephin. The interval decompensation of the exercises are explained. We'll do another CT angiogram of the chest accordingly. On 02/19/2023, transfer the patient to the intensive care unit because of hypoxic respiratory failure. He was transferred to the ICU yesterday. He remai ns on high flow oxygen at 30 L an FiO2 of 50%. Pulse ox is in order of 95-96%. I had a high suspicion that the patient had a pulmonary embolism. He was unable to complete as the angiogram yesterday. Doppler of the lower extremity was done and the patient was found to have bilateral DVTs. As evaluation was not started as the patient is having hematuria from his bladder cancer. The patient is producing bloody urine output. He is known to have bladder cancer. This is a metastatic condition. I discussed the case with the vascular surgeon regarding the possibility of [place] filter placement and catheter directed thrombectomy. Meanwhile, I'll order another echocardiogram to evaluate his RV pressure. CT antigram of the chest was also completed this morning which essentially showed presence of a saddle embolus within the main pulmonary artery and the segmental and subsegmental branches. No evidence of any RV pattern strain based on CAT scan criteria. There is scattered bilateral pulmonary nodules which is metastatic in nature and the patient continues to have some right-sided pleural effusion and atelectatic changes in the right lung base. The patient has a white second of 16, hemoglobin stable at 8.2 and a platelet count is 634. BUN is at 28 mg and 0.9 and his sodium level is at 135. Condition is obviously still critical. Vascular surgeries on the case. We'll consult also urology regarding his hematuria. On 02/20/2023, the patient remains hypoxic and the patient is currently on 60 L with an FiO2 of 60%. Pulse ox is 98% on the current settings. Note that the patient had some initial improvement in oxygenation following the catheter directed thrombectomy and subsequently overnight, he had required higher oxygen flow. The patient also has an IVC filter placed yesterday by vascular surgery. Repeat chest x-ray shows a large right-sided pleural effusion. Based on ongoing hypoxemia shortness of breath, performed another thoracentesis on this patient w ith a total of 2 L of fluid was aspirated from the right lung without any complications. The patient continues to have hematuria. The patient was seen by urology. A Baker catheter 22-Croatian was placed and the patient is going to be monitored. Bladder irrigation was also done. His hemoglobin is at 7.5, white suppositive 14.7, BUN is at 28 with a creatinine of 1 and his sodium level is at 136 with a potassium level of 5.3. He is awake and alert and communicating. Objective - Vital Signs Vital signs: Vital Signs Temp 98.2 F 02/20/23 08:00 Pulse 105 H 02/20/23 08:39 Resp 19 02/20/23 08:00 BP 126/59 02/20/23 08:00 Pulse Ox 90 L 02/20/23 08:00 FiO2 60 02/20/23 08:00 Intake & Output 02/19/23 02/20/23 02/20/23 18:59 06:59 18:59 Intake Total 190 350 40 Output Total 665 510 90 Balance -475 -160 -50 Weight 85.1 kg Intake: IV 90 60 40 0.9 NS KVO 40 60 40 Intake, IV Titration 50 Amount cefTRIAXone 1 gm In 50 Sodium Chloride 0.9% 50 ml @ 100 mls/hr IVPB Q24H [facility] Rx#:[id number] Oral 100 240 Output: Urine 665 510 90 Other: Voiding Method Indwelling Catheter Indwelling Catheter Indwelling Catheter # Voids 1 - Exam GENERAL EXAM: Alert, 60-year-old white male, comfortable in no apparent distress. The patient is currently on airvo at 60 L an FiO2 of 80% HEAD: Normocephalic and atraumatic EYES: Normal reaction of pupils, equal size. NOSE: Clear with pink turbinates. THROAT: No erythema or exudates. NECK: No masses, no JVD. CHEST: No chest wall deformity. LUNGS: Diminished right lower lobe lung sounds with minimal end expiratory wheezes heard throughout. No conversational dyspnea or accessory muscle use. CVS: S1 and S2 normal with no audible murmur, regular rhythm. No extra heart sounds ABDOMEN: No hepatosplenomegaly, active bowel sounds, no guarding or rigidity. SPINE: No scoliosis or deformity SKIN: No rashes CENTRAL NERVOUS SYSTEM: No focal deficits, tone is normal in all 4 extremities. EXTREMITIES: There is mild nonpitting bilateral lower extremity edema. No clubbing, or cyanosis. Peripheral pulses are intact. - Labs CBC & Chem 7: 02/20/23 03:35 02/20/23 03:35 Labs: Abnormal Lab Results - Last 24 Hours (Table) 02/19/23 02/19/23 02/19/23 Range/Units 09:45 15:43 15:43 WBC 16.6 H (3.8-10.6) k/uL RBC 3.38 L (4.30-5.90) m/uL Hgb 8.9 L (13.0-17.5) gm/dL Hct 30.0 L (39.0-53.0) % MCHC 29.8 L (31.0-37.0) g/dL Plt Count 665 H (150-450) k/uL Neutrophils # 14.0 H (1.3-7.7) k/uL Monocytes # 1.3 H (0-1.0) k/uL Fibrinogen 577 H (200-500) mg/dL Sodium (137-145) mmol/L Potassium (3.5-5.1) mmol/L Carbon Dioxide (22-30) mmol/L BUN (9-20) mg/dL Glucose (74-99) mg/dL Urine RBC >182 H (0-5) /hpf Urine WBC 88 H (0-5) /hpf Hyaline Casts 16 H (0-2) /lpf 02/20/23 02/20/23 Range/Units 03:35 03:35 WBC 14.7 H (3.8-10.6) k/uL RBC 2.84 L (4.30-5.90) m/uL Hgb 7.5 L (13.0-17.5) gm/dL Hct 25.3 L (39.0-53.0) % MCHC 29.5 L (31.0-37.0) g/dL Plt Count 592 H (150-450) k/uL Neutrophils # 11.8 H (1.3-7.7) k/uL Monocytes # 1.5 H (0-1.0) k/uL Fibrinogen (200-500) mg/dL Sodium 136 L (137-145) mmol/L Potassium 5.3 H (3.5-5.1) mmol/L Carbon Dioxide 36 H (22-30) mmol/L BUN 28 H (9-20) mg/dL Glucose 114 H (74-99) mg/dL Urine RBC (0-5) /hpf Urine WBC (0-5) /hpf Hyaline Casts (0-2) /lpf Assessment and Plan Assessment: Acute hypoxic respiratory failure, multifactorial, currently on 60 L an FiO2 of 80% Acute bilateral pulmonary embolism with a saddle embolus, not a candidate for anticoagulation due to ongoing active hematuria bilateral DVT of the lower extremities, the patient underwent catheter directed thrombectomy and the patient is postop day #1. The patient also had IVC filter placed, postop day #1 Recurrent right sided pleural effusion, the patient underwent a second thoracentesis today with evacuation of 2.08 is a fluid on 02/20/2023 Moderate sized right pleural effusion, metastatic disease to the chest and liver. There was a new right lower lobe masslike consolidation measuring 3.4 x 3.3 cm, and a moderate right-sided pleural effusion. Suspected malignant pleural effusion, however, underlying infectious process with parapneumonic effusion is not ruled out.. The patient is post thoracentesis. Pleural fluid chemistry and cytology still pending for now. The patient underwent thoracentesis on 2 separate occasions. The patient underwent thoracentesis on 02/16/2023 with evacuation of 1.8 L of fluid and subsequent thoracentesis on 02/20/2023 with evacuation of 2 L. hematuria secondary to bladder cancer Acute on chronic shortness of breath secondary to above Leukocytosis, improving Chronic anemia without any interval dropped a day hemoglobin, secondary to hematuria Chronic obstructive pulmonary disease, stable. History of severe chronic obstructive pulmonary disease with baseline FEV1 21% of predicted. Normally steroid and oxygen dependent. Metastatic bladder cancer, with diffuse metastasis demonstrated to the liver, lungs, and bone. Liver biopsy done January, was consistent with urothelial carcinoma. History of hematuria Anemia, possibly related to above Elevated troponins, rule out NSTEMI History of pulmonary hypertension Ex-smoker, as of May, Plan: A second thoracentesis was done today Wean down FiO2 as tolerated Patient is post catheter directed thrombectomy Patient is post Ananth filter placement Wean down FiO2 as tolerated Consider catheter directed thrombectomy and S2 surgery was consulted that regard and I discussed the case with the vascular surgeon Overall prognosis poor based on underlying metastatic bladder cancer Right lung thoracentesis was completed and the repeat chest x-ray shows a small to moderate-sized right-sided pleural effusion Pleural fluid pathology still pending No clear indication for infection and the pro calcitonin level is at 0.6, pneumonia is doubtful Continue bronchodilators, budesonide, formoterol. Cardiology was consulted for chest pressure and elevated troponins Oncology consult also obtained Consult neurology Keep the patient ICU DNR/DNI CODE STATUS Very poor prognosis based on the above-mentioned comorbidities and prednisone metastatic bladder cancer.
--- NOTE | 2023-02-20 13:38 | P.PN ---
Progress Note - Text Progress Note Date: 02/20/23 Chief Complaint: Short of breath 63-year-old patient who follows with [facility], with Dr. Cohen. Patient presented to weeks of increased shortness of breath. Some cough. Some brown sputum. Patient is on home oxygen 2-1/2 L. Also has some intermittent chest pressure. Patient does follow with striker out Dr. Ellis Mullen. He was told that he's had a previous [place] based on his stress test/echocardiogram done at our [facility] office. Patient has a bladder tumor that is being followed by Dr. Narayanan from urology. He did resected once. Patient is also started seeing Dr. Benz spending his first dose of immunotherapy. Patient does get intermittent hematuria. As he does not take any anticoagulation for his underlying atrial fibrillation. Patient had covered in May 2022 was on the ventilator for 9 days. 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 Patient is not short of breath at rest. No edema. is at the bedside. Patient had gone to Dr. Servin office his informatics nurse specialist who to send the patient to the ER. Patient known to have lung function from 20-30% l Admitted with acute COPD exacerbation, acute hypoxia, right-sided pleural effusion. February 16: Dr. Richter - 1800 mL of right thoracentesis turbid fluid, from the right site. Breathing better. Computed tomography scan chest order to rule out any underlying malignancy. Slight improvement in shortness of breath.. Decreased appetite Cardiology did resume eliquis at a smaller dose because of hematuria February 16: Laying in bed. Breathing has been better. 4 L nasal cannula. Add incentive spirometry. Eating about 25%. Increase activity. probable discharge tomorrow. February 17: Overnight patient became more short of breath. Was placed on a Airvo. 50/50. CT chest with angiogram is pending today. February 18: Yesterday evening patient Doppler ultrasound showed bilateral DVT. Discussed with Dr. Richter over the phone yesterday. Watch overnight. Because of hematuria IV heparin cannot be given. Eliquis was discontinued by cardiology on February 19. Vascular was consulted for possible IVC filter. Patient continues to have hematuria. Remains on AIRVO. Discussed with patient. He somewhat disheartened about his entire clinical picture. CT angiogram is come back showing acute saddle pulmonary embolism. He discussed with the patient about possible thrombectomy and the filter. This is being scheduled for this afternoon. February 20: ICU. For gross hematuria today 22-Kazakh hematuria catheter was placed by urology today. And bladder was indicated and about 50 mL of blood clot removed. Dr. Richter removed thousand cc of turbid colored fluid from the right chest. Yesterday by Dr. Jameson: Patient underwent percutaneous thrombectomy to small amount of clot been removed. IVC filter was placed. Patient currently on AIRVO. FiO2 60% and 49 L. Telemetry sinus tachycardia. Reclining in bed awake tired. Family did feed the patient Active Medications Acetaminophen (Acetaminophen Tab 325 Mg Tab) 650 mg PO Q6HR PRN PRN Reason: Fever and/ or Pain Last Admin: 02/19/23 14:10 Dose: 650 mg Hydrocodone Bitart/Acetaminophen (Hydrocodone/Apap 10-325mg 1 Each Tab) 1 each PO Q4HR PRN PRN Reason: Pain Last Admin: 02/20/23 12:12 Dose: 1 each Albuterol Sulfate (Albuterol Nebulized 2.5 Mg/3 Ml) 2.5 mg INHALATION RT-QID PRN PRN Reason: Shortness Of Breath Last Admin: 02/19/23 04:59 Dose: 2.5 mg Albuterol/Ipratropium (Ipratropium-Albuterol 3 Ml Neb) 3 ml INHALATION Q4H [facility] Last Admin: 02/20/23 11:35 Dose: 3 ml Alprazolam (Alprazolam 0.25 Mg Tab) 0.25 mg PO TID [facility] Last Admin: 02/20/23 08:01 Dose: 0.25 mg Aspirin (Aspirin 81 Mg) 81 mg PO DAILY [facility] Last Admin: 02/20/23 08:00 Dose: 81 mg Atorvastatin Calcium (Atorvastatin 10 Mg Tab) 10 mg PO HS [facility] Last Admin: 02/19/23 21:59 Dose: 10 mg Budesonide (Budesonide 1 Mg/2 Ml Nebu) 1 mg INHALATION RT-BID [facility] Last Admin: 02/20/23 08:17 Dose: 1 mg Docusate Sodium (Docusate 100 Mg Cap) 100 mg PO BID [facility] Last Admin: 02/20/23 08:00 Dose: 100 mg Famotidine (Famotidine 20 Mg Tab) 20 mg PO BID@0500,1700 [facility] Last Admin: 02/20/23 06:53 Dose: 20 mg Ferrous Sulfate (Ferrous Sulfate 325 Mg Tab) 325 mg PO DAILY [facility] Last Admin: 02/20/23 08:01 Dose: 325 mg Fluoxetine HCl (Fluoxetine Hcl 20 Mg Cap) 40 mg PO DAILY [facility] Last Admin: 02/20/23 08:01 Dose: 40 mg Formoterol Fumarate (Formoterol Fumarate 20 Mcg/2 Ml Nebu) 20 mcg INHALATION RT-BID [facility] Last Admin: 02/20/23 08:17 Dose: 20 mcg Furosemide (Furosemide 20 Mg Tab) 20 mg PO Q2D [facility] Last Admin: 02/20/23 08:01 Dose: 20 mg Ceftriaxone Sodium 1 gm/ (Sodium Chloride) 50 mls @ 100 mls/hr IVPB Q24H [facility]; Protocol Last Admin: 02/20/23 03:18 Dose: 100 mls/hr Metoprolol Tartrate (Metoprolol Tartrate 25 Mg Tab) 25 mg PO BID@0500,1700 [facility] Last Admin: 02/20/23 08:01 Dose: 25 mg Naloxone HCl (Naloxone 0.4 Mg/Ml 1 Ml Vial) 0.2 mg IV Q2M PRN PRN Reason: Opioid Reversal Ondansetron HCl (Ondansetron 4 Mg Tab) 4 mg PO Q4H PRN PRN Reason: Nausea Prednisone (Prednisone 5 Mg Tab) 5 mg PO DAILY [facility] Last Admin: 02/20/23 08:02 Dose: 5 mg Theophylline (Theophylline 24 Hour 300 Mg Cap.Er.24h) 600 mg PO DAILY [facility] Last Admin: 02/20/23 08:02 Dose: 600 mg Trazodone HCl (Trazodone Hcl 100 Mg Tab) 100 mg PO HS [facility] Last Admin: 02/19/23 21:59 Dose: 100 mg Past medical history to include: Atrial fibrillation, COPD, hypertension, hyperlipidemia, bladder Tumma resected transplant starting immunotherapy with Dr. Benz, COVID-19 intubated May 2022, Social history: Averaged about 2 packs a day for 50 years stopped about 9 months ago. Averaged about 6 beers a day for close to 50 years. 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 . Physical examination: VITAL SIGNS: 98, 88, 14, 135/72, 90% on AIRVO GENERAL: Resting in bed. Scattered bruising, short of breath EYES: Pupils equal. Conjunctiva normal. HEENT: External appearance of nose and ears normal, oral cavity grossly normal. NECK: JVD not raised; masses not palpable. HEART: First and second heart sounds are normal; no edema. LUNGS: Respiratory rate increased, , poor air entry. Some wheezing ABDOMEN: Soft, nontender, liver spleen not palpable, no masses palpable. Baker catheter PSYCH: Alert and oriented x3; mood and affect - anxious MUSCULOSKELETAL:No Clubbing/cyanosis;muscles-grossly intact. OA INVESTIGATIONS, reviewed in the clinical context: February 20: White count 14.7 hemoglobin 7.5 platelets 592 potassium 5.3 BUN 28 creatinine 1.01 Chest CTA: Saddle embolism within the main pulmonary artery with segmental and subsegmental components. No evidence of right heart strain. Scattered pulmonary nodules. Ultrasound Doppler lower extremity: Right leg: Positive for DVT from common femoral vein through proximal calf vein. Left leg: Positive for DVT from femoral vein through proximal calf vein. February 19: White count 16.3 hemoglobin 8.2 platelets 634 potassium 5 BUN 28 creatinine 0.91 February 18: White count 15.2 hemoglobin 7.8 potassium 5.2 creatinine 0.96 February 17: Potassium 5.3 BUN 33 creatinine 1.0 Procalcitonin 0.61 White count 16.9 hemoglobin 8.5 platelets 625 sodium 138 potassium 5.4 BUN 29 creatinine 0.96 Troponin I 0.048 EKG tracing personally reviewed by me-normal sinus rhythm. Rate 96. Chest x-ray film personally reviewed by me-infiltrates. Right-sided effusion Chest CTA: No PE. Finding compatible metastatic disease of the chest and liver. Periportal adenopathy. Moderate right-sided pleural effusion. Chest ultrasound: Moderate right pleural effusion Previous testin-D echocardiogram at [facility] [November 2022: EF 50%. Small area of hypokinesis of the inferior septal wall. Moderate concentric LVH. Some aortic stenosis. Assessment plan: -Acute bilateral DVT and pulmonary saddle embolism, precipitated her underlying medical debility, and malignancy. Patient not a candidate for anticoagulant medication because of persistent hematuria. Vascular Dr. Jameson : . February 19: Thrombectomy and IVC filter placement. -Acute on chronic shortness of breath multifactorial. COPD exacerbation. Right pleural effusion. Metastatic disease of the lung. Causing acute hypoxic respiratory failure.: Slow to respond AIRVO 60/49 -Acute hypoxic respiratory failure overnight, secondary to acute saddle pulmonary embolism: New Airvo 60/ 49. -Chronic hypoxic respiratory failure from underlying COPD 2-1/2 liters of oxygen at home. -Chest pressure. Has known cardiac risk factors. Positive troponin. Was seen by by cardiology. To follow up outpatient -Bladder tumor. Patient underwent resection in September [address] Narayanan. Pathology shows: Invasive high-grade urothelial carcinoma. 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 Patient is due to start immunotherapy by DrF. Benz from oncology. This has been causing intermittent hematuria. Patient had a liver biopsy in January. Confirmed metastatic urothelial carcinoma. -Persistent hematuria: Uncontrolled February 20: 22-Kazakh Baker catheter placed -Paroxysmal atrial fibrillation currently sinus rhythm. Eliquis 2.5 mg twice a day per cardiology -Moderate right pleural effusion, contributing acute hypoxici respiratory failure. Thoracentesis 1800 mL done -Acute COPD exacerbation in an ex-smoker: Not improving DuoNeb. -Hyperlipidemia Lipitor 10 mg daily at bedtime -Depression and anxiety Prozac 40 mg a day trazodone 100 mg daily at bedtime -DO NOT RESUSCITATE Discussed with patient. Prognosis guarded. Past Medical History Past Medical History: Atrial Fibrillation, Cancer, COPD, Hyperlipidemia, Hypertension Additional Past Medical History / Comment(s): Current bladder tumor, pressure with urination. Hx Covid 06/24/22, was hospitalized at [facility] for 18 days, was in ICU and on vent, went to rehab after that, bladder cancer History of Any Multi-Drug Resistant Organisms: None Reported Additional Past Surgical History / Comment(s): Colonoscopy. Past Anesthesia/Blood Transfusion Reactions: No Reported Reaction Additional Past Anesthesia/Blood Transfusion Reaction / Comment(s): Hx blood transfusion Jul 2022, no problems. Past Psychological History: No Psychological Hx Reported Smoking Status: Former smoker Past Alcohol Use History: Daily Past Drug Use History: Marijuana - Past Family History Mother Family Medical History: No Reported History
[2023-02-20] MEDS: OXYBUTYNIN 10 MG TAB.ER.24 PO SCH (16:08)
[2023-02-20] MEDS ORDERED: LIDOCAINE 2% URO-JET JELLY 5 ML KIT URETHRAL PRN (17:00)
[2023-02-20] MEDS: PHENAZOPYRIDINE 100 MG TAB PO SCH ×2 (18:20→21:23)
[2023-02-20] MEDS: traZODone HCL 100 MG TAB PO SCH (21:23)
[2023-02-20] MEDS: ATORVASTATIN 10 MG TAB PO SCH (21:23)
[2023-02-21] MEDS: IPRATROPIUM-ALBUTEROL 3 ML NEB INHALATION SCH ×4 (04:51→15:16)
[2023-02-21 05:35] LABS: Basophils % (A) 0 %; Eosinophils # (A) 0.1 k/uL (0-0.7); Eosinophils % (A) 1 %; HCT 24.3 % (39.0-53.0); HGB 7.1 gm/dL (13.0-17.5); Hypochromasia Marked; Lymphocytes # (A) 0.9 k/uL (1.0-4.8); Lymphocytes % (A) 5 %; MCH 26.1 pg (25.0-35.0); MCHC 29.2 g/dL (31.0-37.0); MCV 89.4 fL (80.0-100.0); Mean Platelet Volume 7.7; Monocytes # (A) 1.4 k/uL (0-1.0); Monocytes % (A) 8 %; Neutrophils # (A) 14.7 k/uL (1.3-7.7); Neutrophils % (A) 84 %; Platelet Count 549 k/uL (150-450); RBC 2.72 m/uL (4.30-5.90); RDW 15.7 % (11.5-15.5); WBC 17.4 k/uL (3.8-10.6)
[2023-02-21 06:08] LABS: African American GFR (CKD) 75 (>60 ml/min/1.73 sqM); Anion Gap 3 mmol/L; Blood Urea Nitrogen 40 mg/dL (9-20); Calcium 8.2 mg/dL (8.4-10.2); Carbon Dioxide 35 mmol/L (22-30); Chloride 96 mmol/L (98-107); Glucose 130 mg/dL (74-99); Non-African American GFR(CKD) 65 (>60 ml/min/1.73 sqM); Potassium 5.5 mmol/L (3.5-5.1); Sodium 134 mmol/L (137-145)
[2023-02-21] MEDS: METOPROLOL TARTRATE 25 MG TAB PO SCH ×2 (06:11→16:43)
[2023-02-21] MEDS: FAMOTIDINE 20 MG TAB PO SCH ×2 (06:11→16:43)
--- NOTE | 2023-02-21 08:12 | XR ---
EXAMINATION TYPE: XR chest 1V portable DATE OF EXAM: 02/21/2023 6:16 AM CLINICAL INDICATION:Male, 63 years old with history of pleural effusion; [facility] COMPARISON: Chest radiographs from 02/20/2023, CT 02/15/2023 TECHNIQUE: XR chest 1V portable Frontal view of the chest. FINDINGS: Lungs/Pleura: Blunting of right costophrenic angle with patchy airspace opacities. Pulmonary nodules are less well appreciated. There is no evidence of left pleural effusion, focal consolidation, or pne umothorax. Pulmonary vascularity: Unremarkable. Heart/mediastinum: Cardiomediastinal silhouette is unremarkable. Musculoskeletal: No acute osseous pathology. IMPRESSION: 1. Increasing right lower lung patchy airspace opacities 2. Right pleural effusion. 3. Multiple pulmonary nodules are better appreciated on prior CT
[2023-02-21] MEDS: BUDESONIDE 1 MG/2 ML NEBU INHALATION SCH (08:25)
[2023-02-21] MEDS: FORMOTEROL FUMARATE 20 MCG/2 ML NEBU INHALATION SCH (08:25)
--- NOTE | 2023-02-21 08:28 | P.PN ---
Subjective Progress Note Date: 02/21/23 The patient is known to our office with metastatic muscle invasive bladder cancer. He is in the hospital with respiratory distress due to significant pleural effusion. The patient has had this drained twice by pulmonary medicine. He has metastatic disease to the lungs. He has had hematuria since his r esection as the tumor is muscle invasive and was not completely resected. Apparently he is not a candidate for chemotherapy but is to receive immune therapy or his bladder cancer if this can be tolerated. With respect to the hematuria the treatment to control this would be resection and/or radiation therapy however at this present state he is not a candidate for either. Objective - Vital Signs Vital signs: Vital Signs Temp 98 F 02/21/23 04:00 Pulse 115 H 02/21/23 07:00 Resp 14 02/21/23 07:00 BP 107/61 02/21/23 07:00 Pulse Ox 94 L 02/21/23 07:00 FiO2 70 02/21/23 07:34 Intake & Output 02/20/23 02/21/23 02/21/23 18:59 06:59 18:59 Intake Total 390 450 0 Output Total 555 380 40 Balance -165 70 -40 Weight 81 kg Intake: IV 40 40 0 0.9 NS KVO 40 40 0 Intake, IV Titration 50 Amount cefTRIAXone 1 gm In 50 Sodium Chloride 0.9% 50 ml @ 100 mls/hr IVPB Q24H [facility] Rx#:[id number] Oral 350 360 Output: Urine 555 380 40 Other: Voiding Method Indwelling Catheter Indwelling Catheter - Respiratory Respiratory: bilateral: diminished - Genitourinary Genitourinary Comment(s): Gross hematuria, indwelling catheter - Labs CBC & Chem 7: 02/21/23 05:08 02/21/23 05:08 Labs: Abnormal Lab Results - Last 24 Hours (Table) 02/21/23 02/21/23 Range/Units 05:08 05:08 WBC 17.4 H (3.8-10.6) k/uL RBC 2.72 L (4.30-5.90) m/uL Hgb 7.1 L (13.0-17.5) gm/dL Hct 24.3 L (39.0-53.0) % MCHC 29.2 L (31.0-37.0) g/dL RDW 15.7 H (11.5-15.5) % Plt Count 549 H (150-450) k/uL Neutrophils # 14.7 H (1.3-7.7) k/uL Lymphocytes # 0.9 L (1.0-4.8) k/uL Monocytes # 1.4 H (0-1.0) k/uL Sodium 134 L (137-145) mmol/L Potassium 5.5 H (3.5-5.1) mmol/L Chloride 96 L (98-107) mmol/L Carbon Dioxide 35 H (22-30) mmol/L BUN 40 H (9-20) mg/dL Glucose 130 H (74-99) mg/dL Calcium 8.2 L (8.4-10.2) mg/dL Microbiology - Last 24 Hours (Table) 02/15/23 14:28 Blood Culture - Final Blood 02/15/23 14:12 Blood Culture - Final Blood 02/19/23 09:45 Urine Culture - Final Urine,Catheterized - Imaging and Cardiology CT scan - chest: report reviewed, image reviewed Assessment and Plan Assessment: Impression: Muscle invasive, metastatic bladder cancer with secondary pleural effusion probably related to the cancer. Hematuria related to the muscle invasive bladder cancer incompletely resected Recommendations: From urologic standpoint there is nothing that I can do immediately until his pulmonary status were to stabilize if this ever happened. He is not a candidate for anesthetic alone radiation at this point time. I will follow.
--- NOTE | 2023-02-21 08:37 | P.PN ---
Subjective Progress Note Date: 02/21/23 Principal diagnosis: acute respiratory failure Patient seen this AM. States he feels his breathing has slightly improved over the past 2 days. However, despite repeat thoracentesis on 02/20 (2L removal), he has not been able to wean down his O2. He still has bright red blood in his catheter and has seen a steady decline in hemoglobin. He does report pain at times in the pelvis - per nursing they believe he is having some bladder spasms. Objective - Vital Signs Vital signs: Vital Signs Temp 98 F 02/21/23 04:00 Pulse 115 H 02/21/23 07:00 Resp 14 02/21/23 07:00 BP 107/61 02/21/23 07:00 Pulse Ox 94 L 02/21/23 07:00 FiO2 70 02/21/23 07:34 Intake & Output 02/20/23 02/21/23 02/21/23 18:59 06:59 18:59 Intake Total 390 450 0 Output Total 555 380 40 Balance -165 70 -40 Weight 81 kg Intake: IV 40 40 0 0.9 NS KVO 40 40 0 Intake, IV Titration 50 Amount cefTRIAXone 1 gm In 50 Sodium Chloride 0.9% 50 ml @ 100 mls/hr IVPB Q24H [facility] Rx#:[id number] Oral 350 360 Output: Urine 555 380 40 Other: Voiding Method Indwelling Catheter Indwelling Catheter - Constitutional General appearance: Present: mild distress - EENT Eyes: Present: EOMI, PERRLA ENT: Present: hearing grossly normal - Neck Neck: Absent: lymphadenopathy - Respiratory Respiratory: bilateral: diminished - Cardiovascular Rhythm: regular - Gastrointestinal General gastrointestinal: Absent: distended, tenderness - Integumentary Integumentary: Absent: calor, cellulitis - Neurologic Neurologic: Present: CNII-XII intact - Psychiatric Psychiatric: Present: appropriate affect - Labs CBC & Chem 7: 02/21/23 05:08 02/21/23 05:08 Labs: Abnormal Lab Results - Last 24 Hours (Table) 02/21/23 02/21/23 Range/Units 05:08 05:08 WBC 17.4 H (3.8-10.6) k/uL RBC 2.72 L (4.30-5.90) m/uL Hgb 7.1 L (13.0-17.5) gm/dL Hct 24.3 L (39.0-53.0) % MCHC 29.2 L (31.0-37.0) g/dL RDW 15.7 H (11.5-15.5) % Plt Count 549 H (150-450) k/uL Neutrophils # 14.7 H (1.3-7.7) k/uL Lymphocytes # 0.9 L (1.0-4.8) k/uL Monocytes # 1.4 H (0-1.0) k/uL Sodium 134 L (137-145) mmol/L Potassium 5.5 H (3.5-5.1) mmol/L Chloride 96 L (98-107) mmol/L Carbon Dioxide 35 H (22-30) mmol/L BUN 40 H (9-20) mg/dL Glucose 130 H (74-99) mg/dL Calcium 8.2 L (8.4-10.2) mg/dL Microbiology - Last 24 Hours (Table) 02/15/23 14:28 Blood Culture - Final Blood 02/15/23 14:12 Blood Culture - Final Blood 02/19/23 09:45 Urine Culture - Final Urine,Catheterized Assessment and Plan Assessment: 63 year old male with advanced COPD found recently to have metastatic bladder cancer. Was hospitalized with increased dyspnea and found to have saddle PE/bilateral DVT. He is currently in the ICU with significant O2 requirement. Plan: 1. Acute respiratory failure: Multifactorial: DVT->PE in the setting of significant underlying COPD as well as a likely malignant effusion. Patient has not had improvement despite attempts to wean O2. Continues to have high O2 requirements. 2. Metastatic bladder cancer: Patient not a good candidate for chemotherapy. Has had further KPS decline. Now has hematuria with slow drop in Hgb. I discussed with the patient we could attempt palliative RT to slow bleeding, but I am concerned about his ability to be out of the ICU and concern about his high O2 requirement (as well as lay supine). Patient may be a good candidate for comfort care and this will be discussed with the family. We will continue to follow. Time with Patient: Less than 30
[2023-02-21] MEDS: DOCUSATE 100 MG CAP PO SCH (09:05)
[2023-02-21] MEDS: FLUoxetine HCL 20 MG CAP PO SCH (09:05)
[2023-02-21] MEDS: FERROUS SULFATE 325 MG TAB PO SCH (09:05)
[2023-02-21] MEDS: ASPIRIN 81 MG PO SCH (09:05)
[2023-02-21] MEDS: HYDROcodone/APAP 10-325MG 1 EACH TAB PO PRN ×2 (09:05→13:50)
[2023-02-21] MEDS: predniSONE 5 MG TAB PO SCH (09:05)
[2023-02-21] MEDS: THEOPHYLLINE 24 HOUR 300 MG CAP.ER.24H PO SCH (09:06)
[2023-02-21] MEDS: ALPRAZolam 0.25 MG TAB PO SCH ×2 (09:06→15:36)
[2023-02-21] MEDS: OXYBUTYNIN 10 MG TAB.ER.24 PO SCH (09:07)
[2023-02-21] MEDS: PHENAZOPYRIDINE 100 MG TAB PO SCH ×2 (09:07→15:36)
[2023-02-21 10:09] VITALS: TEMP 98.6
--- NOTE | 2023-02-21 11:07 | P.PN ---
Subjective Progress Note Date: 02/21/23 Principal diagnosis: Saddle pulmonary embolism, DVT Patient is seen and examined in the ICU. He is status post thrombectomy for PE and IVC filter placement. Patient remains short of breath and with increased demands for oxygen. Yesterday he underwent thoracentesis with 2 L removed. According to nurse there is going to be discussion regarding recommendations for hospice/palliative care. Objective - Vital Signs Vital signs: Vital Signs Temp 98.6 F 02/21/23 08:00 Pulse 98 02/21/23 10:00 Resp 14 02/21/23 10:00 BP 106/52 02/21/23 10:00 Pulse Ox 98 02/21/23 09:30 FiO2 70 02/21/23 08:00 Intake & Output 02/20/23 02/21/23 02/21/23 18:59 06:59 18:59 Intake Total 390 450 240 Output Total 555 380 125 Balance -165 70 115 Weight 81 kg Intake: IV 40 40 0 0.9 NS KVO 40 40 0 Intake, IV Titration 50 Amount cefTRIAXone 1 gm In 50 Sodium Chloride 0.9% 50 ml @ 100 mls/hr IVPB Q24H [facility] Rx#:[id number] Oral 350 360 240 Output: Urine 555 380 125 Other: Voiding Method Indwelling Catheter Indwelling Catheter Indwelling Catheter - Exam General appearance: The patient is alert, oriented, appears ill. HET: Head is normocephalic and atraumatic. . Neck: Supple. Heart: Regular. Lungs: Equal expansion, normal respiratory effort. Abdomen: Soft, nontender, nondistended. Extremities: Normal skin color and turgor. Right groin access site without any hematoma or bleeding. Neurological: No focal deficits. - Labs CBC & Chem 7: 02/21/23 05:08 02/21/23 05:08 Labs: Abnormal Lab Results - Last 24 Hours (Table) 02/21/23 02/21/23 Range/Units 05:08 05:08 WBC 17.4 H (3.8-10.6) k/uL RBC 2.72 L (4.30-5.90) m/uL Hgb 7.1 L (13.0-17.5) gm/dL Hct 24.3 L (39.0-53.0) % MCHC 29.2 L (31.0-37.0) g/dL RDW 15.7 H (11.5-15.5) % Plt Count 549 H (150-450) k/uL Neutrophils # 14.7 H (1.3-7.7) k/uL Lymphocytes # 0.9 L (1.0-4.8) k/uL Monocytes # 1.4 H (0-1.0) k/uL Sodium 134 L (137-145) mmol/L Potassium 5.5 H (3.5-5.1) mmol/L Chloride 96 L (98-107) mmol/L Carbon Dioxide 35 H (22-30) mmol/L BUN 40 H (9-20) mg/dL Glucose 130 H (74-99) mg/dL Calcium 8.2 L (8.4-10.2) mg/dL Microbiology - Last 24 Hours (Table) 02/15/23 14:28 Blood Culture - Final Blood 02/15/23 14:12 Blood Culture - Final Blood 02/19/23 09:45 Urine Culture - Final Urine,Catheterized Assessment and Plan Assessment: 1. Acute saddle pulmonary embolism status post thrombectomy with [place] 2. Acute on chronic DVT status post IVC filter placement 3. Pleural effusion, right status post thoracentesis 4. Metastatic bladder cancer 5. Hematuria Plan: There is no indication for any further vascular surgical intervention. Continue medical and ICU management. Outpatient follow-up in 2-3 weeks. Thank you for this consultation, we will sign off at this time. The impression and plan of care has been dictated as directed. I performed a history and examination of this patient, discussed the same with the dictator. I agree with the dictator's note ,documented as a scribe. Any additional findings or plans will be noted.
--- NOTE | 2023-02-21 11:42 | P.PN ---
Subjective Progress Note Date: 02/21/23 Principal diagnosis: Acute on chronic hypoxic respiratory failure On 02/19/2023, transfer the patient to the intensive care unit because of hypoxic respiratory failure. He was transferred to the ICU yesterday. He remains on high flow oxygen at 30 L an FiO2 of 50%. Pulse ox is in order of 95- 96%. I had a high suspicion that the patient had a pulmonary embolism. He was unable to complete as the angiogram yesterday. Doppler of the lower extremity was done and the patient was found to have bilateral DVTs. As evaluation was not started as the patient is having hematuria from his bladder cancer. The patient is producing bloody urine output. He is known to have bladder cancer. This is a metastatic condition. I discussed the case with the vascular surgeon regarding the possibility of [place] filter placement and catheter directed thrombectomy. Meanwhile, I'll order another echocardiogram to evaluate his RV pressure. CT antigram of the chest was also completed this morning which essentially showed presence of a saddle embolus within the main pulmonary artery and the segmental and subsegmental branches. No evidence of any RV pattern strain based on CAT scan criteria. There is scattered bilateral pulmonary nodules which is metastatic in nature and the patient continues to have some right-sided pleural effusion and atelectatic changes in the right lung base. The patient has a white second of 16, hemoglobin stable at 8.2 and a platelet count is 634. BUN is at 28 mg and 0.9 and his sodium level is at 135. Condition is obviously still critical. Vascular surgeries on the case. We'll consult also urology regarding his hematuria. On 02/20/2023, the patient remains hypoxic and the patient is currently on 60 L with an FiO2 of 60%. Pulse ox is 98% on the current settings. Note that the patient had some initial improvement in oxygenation following the catheter directed thrombectomy and subsequently overnight, he had required higher oxygen flow. The patient also has an IVC filter placed yesterday by vascular surgery. Repeat chest x-ray shows a large right-sided pleural effusion. Based on ongoing hypoxemia shortness of breath, performed another thoracentesis on this patient with a total of 2 L of fluid was aspirated from the right lung without any complications. The patient continues to have hematuria. The patient was seen by urology. A Baker catheter 22-Dutch was placed and the patient is going to be monitored. Bladder irrigation was also done. His hemoglobin is at 7.5, white suppositive 14.7, BUN is at 28 with a creatinine of 1 and his sodium level is at 136 with a potassium level of 5.3. He is awake and alert and communicating. Reevaluated 02/21/2023, patient remains in the ICU, relatively hypoxic however he is on 70% FiO2 and 60 L flow via airvo patient is marginal at best. His IV fluids at KVO remains on Lasix. Continues to have significant hematuria and discomfort over the bladder. Remains on antibiotics in the form of Rocephin. Patient was seen by many consultants today including urology and radiation oncology, everybody seems to be in agreement that the patient is not doing well and his prognosis is extremely poor. Patient is status post thrombectomy of his pulmonary embolus and he had IVC filter placement because he could not be on heparin mostly because of his bladder bleeding/hematuria. Patient did receive 1 unit of packed RBCs, nonetheless his hemoglobin remains low mostly because of his hematuria. Hemoglobin this morning is 7.1. His potassium is elevated at 5.5 renal functioning is slightly worse with a BUN of 40 creatinine 1.19. Radiation oncology felt that the patient is not a good candidate for palliative radiation of his bladder patient continues to have hematuria intermittently clotting chest x-ray is showing reticular nodular infiltrates mostly on the right side, and there is small right-sided pleural effusion coming back in spite of thoracentesis 2 in the last 5 days clearly the pleural effusion will get worse sooner than expected. Objective - Vital Signs Vital signs: Vital Signs Temp 98.6 F 02/21/23 08:00 Pulse 96 02/21/23 11:26 Resp 17 02/21/23 11:00 BP 99/60 02/21/23 11:00 Pulse Ox 97 02/21/23 11:00 FiO2 70 02/21/23 11:13 Intake & Output 02/20/23 02/21/23 02/21/23 18:59 06:59 18:59 Intake Total 390 450 240 Output Total 555 380 155 Balance -165 70 85 Weight 81 kg Intake: IV 40 40 0 0.9 NS KVO 40 40 0 Intake, IV Titration 50 Amount cefTRIAXone 1 gm In 50 Sodium Chloride 0.9% 50 ml @ 100 mls/hr IVPB Q24H [facility] Rx#:[id number] Oral 350 360 240 Output: Urine 555 380 155 Other: Voiding Method Indwelling Catheter Indwelling Catheter Indwelling Catheter - Exam Physical Exam: Revealed 63-year-old white male in no distress on airvo, patient looks chronically ill. Head: Atraumatic normocephalic. HEENT:[ Pale, Neck is supple.] [No neck masses.] [No thyromegaly.] [No JVD.] Chest: [Diminished breath sound bilaterally no rhonchi and wheezes Cardiac Exam: [Normal S1 and S2, no S3 gallop, no murmur.] Abdomen: [Soft, nontender, no megaly, no rebound, no guarding, normal bowel sounds.] Extremities: [No clubbing, no edema, no cyanosis.] Neurological Exam: [No focal neurologic deficit.] Alert and oriented 3. Psychiatric: Normal mood, affect and normal phallus examination. Skin: No rashes. - Labs CBC & Chem 7: 02/21/23 05:08 02/21/23 05:08 Labs: Abnormal Lab Results - Last 24 Hours (Table) 02/21/23 02/21/23 Range/Units 05:08 05:08 WBC 17.4 H (3.8-10.6) k/uL RBC 2.72 L (4.30-5.90) m/uL Hgb 7.1 L (13.0-17.5) gm/dL Hct 24.3 L (39.0-53.0) % MCHC 29.2 L (31.0-37.0) g/dL RDW 15.7 H (11.5-15.5) % Plt Count 549 H (150-450) k/uL Neutrophils # 14.7 H (1.3-7.7) k/uL Lymphocytes # 0.9 L (1.0-4.8) k/uL Monocytes # 1.4 H (0-1.0) k/uL Sodium 134 L (137-145) mmol/L Potassium 5.5 H (3.5-5.1) mmol/L Chloride 96 L (98-107) mmol/L Carbon Dioxide 35 H (22-30) mmol/L BUN 40 H (9-20) mg/dL Glucose 130 H (74-99) mg/dL Calcium 8.2 L (8.4-10.2) mg/dL Microbiology - Last 24 Hours (Table) 02/15/23 14:28 Blood Culture - Final Blood 02/15/23 14:12 Blood Culture - Final Blood 02/19/23 09:45 Urine Culture - Final Urine,Catheterized Assessment and Plan Assessment: Impression: Acute on chronic hypoxic respiratory failure Acute bilateral pulmonary emboli, provoked by his underlying malignancy/transitional cell carcinoma with metastasis to liver, lungs, and bones, status post thrombectomy/catheter directed thrombectomy Status post IVC filter placement Recurrent right-sided pleural effusion, malignant unless proven otherwise Metastatic transitional cell carcinoma Recurrent hematuria secondary to bladder cancer/transitional cell carcinoma Severe underlying COPD with chronic hypoxic respiratory failure baseline FEV1 is in the range of 21% Anemia secondary to chronic disease and acute blood loss secondary to hematuria Elevated troponin and possible non-ST elevation myocardial infarction History of pulmonary hypertension Ex-smoker as of May 07. Recommendation: Discussed the patient's status with urology Discussed the patient's status radiation oncology Discussed his status and his overall prognosis with his and daughter at bedside Discussed his condition with nursing staff Awaiting cytology report from his pleural effusion 2 seems to be very understanding of his overall prognosis and the fact that he is critically ill. CODE STATUS has been to be established as DO NOT RESUSCITATE/DO NOT INTUBATE Family seems to be quite agreeable to comfort care measures/hospice This will be addressed by nursing staff and social media assistant on the case. Critical care time is over 30 minutes Time with Patient: Greater than 30
--- NOTE | 2023-02-21 12:31 | P.PN ---
Subjective Progress Note Date: 02/21/23 Principal diagnosis: Bladder cancer, bilateral lower extremity DVT, saddle PE, hematuria. In follow-up today patient reports having a "rough" morning. He is experiencing some emotional distress over lack of improvement in his current medical condition. His respiratory status is not much improved, which he was anticipating would improve after thoracentesis and thrombectomy. Hematuria persists. He did have an IVC filter placed during thrombectomy. Pleural fluid is still pending. Patient is receiving a unit of blood this morning. Noted gradual decrease in his hemoglobin since admit. Hemoglobin 7.1 today, he is symptomatic with persistent shortness of breath. No other bleeding to report, no new pain. Objective - Vital Signs Vital signs: Vital Signs Temp 98.6 F 02/21/23 08:00 Pulse 96 02/21/23 11:26 Resp 17 02/21/23 11:00 BP 99/60 02/21/23 11:00 Pulse Ox 97 02/21/23 11:00 FiO2 70 02/21/23 11:13 Intake & Output 02/20/23 02/21/23 02/21/23 18:59 06:59 18:59 Intake Total 390 450 240 Output Total 555 380 155 Balance -165 70 85 Weight 81 kg Intake: IV 40 40 0 0.9 NS KVO 40 40 0 Intake, IV Titration 50 Amount cefTRIAXone 1 gm In 50 Sodium Chloride 0.9% 50 ml @ 100 mls/hr IVPB Q24H [facility] Rx#:[id number] Oral 350 360 240 Output: Urine 555 380 155 Other: Voiding Method Indwelling Catheter Indwelling Catheter Indwelling Catheter - Constitutional General appearance: Present: average body habitus, cooperative, mild distress - EENT Eyes: Present: anicteric sclerae, EOMI ENT: Present: hearing grossly normal - Respiratory Details: Respirations labored at rest, notable shortness of breath with speech, shallow breaths, weak respiratory effort - Cardiovascular Details: Tachycardia on monitor, regular rhythm, Skin warm and dry to the touch - Gastrointestinal General gastrointestinal: Present: soft - Neurologic Neurologic: Present: CNII-XII intact (Grossly) - Musculoskeletal Musculoskeletal: Present: generalized weakness - Psychiatric Psychiatric Comment(s): Depressed affect, slightly tearful Psychiatric: Present: A&O x's 3, intact judgment & insight - Labs CBC & Chem 7: 02/21/23 05:08 02/21/23 05:08 Labs: Abnormal Lab Results - Last 24 Hours (Table) 02/21/23 02/21/23 Range/Units 05:08 05:08 WBC 17.4 H (3.8-10.6) k/uL RBC 2.72 L (4.30-5.90) m/uL Hgb 7.1 L (13.0-17.5) gm/dL Hct 24.3 L (39.0-53.0) % MCHC 29.2 L (31.0-37.0) g/dL RDW 15.7 H (11.5-15.5) % Plt Count 549 H (150-450) k/uL Neutrophils # 14.7 H (1.3-7.7) k/uL Lymphocytes # 0.9 L (1.0-4.8) k/uL Monocytes # 1.4 H (0-1.0) k/uL Sodium 134 L (137-145) mmol/L Potassium 5.5 H (3.5-5.1) mmol/L Chloride 96 L (98-107) mmol/L Carbon Dioxide 35 H (22-30) mmol/L BUN 40 H (9-20) mg/dL Glucose 130 H (74-99) mg/dL Calcium 8.2 L (8.4-10.2) mg/dL Microbiology - Last 24 Hours (Table) 02/15/23 14:28 Blood Culture - Final Blood 02/15/23 14:12 Blood Culture - Final Blood 02/19/23 09:45 Urine Culture - Final Urine,Catheterized Assessment and Plan (1) Saddle pulmonary embolus Current Visit: Yes Status: Acute Priority: High Code(s): I26.92 - SADDLE EMBOLUS OF PULMONARY ARTERY W/O ACUTE COR PULMONALE SNOMED Code(s): 558097308224845 (2) Deep vein thrombosis Current Visit: Yes Status: Acute Priority: High Code(s): I82.409 - ACUTE EMBOLISM AND THOMBOS UNSP DEEP VN UNSP LOWER EXTREMITY SNOMED Code(s): 448225992 (3) Hematuria Current Visit: Yes Status: Acute Priority: High Code(s): R31.9 - HEMATURIA, UNSPECIFIED SNOMED Code(s): 55645290 (4) Malignant neoplasm metastatic from bladder Current Visit: Yes Status: Acute Priority: High Code(s): C67.9 - MALIGNANT NEOPLASM OF BLADDER, UNSPECIFIED SNOMED Code(s): 53967008 Plan: Saddle PE, bilateral lower extremity DVT -Multifactorial including malignancy, decreased activity levels -Patient is status post thrombectomy -Due to gross hematuria patient cannot be actively anticoagulated. IVC filter has been placed Shortness of breath -Multifactorial including end-stage COPD, pleural effusion, saddle PE and metastatic malignancy. -Status post thoracentesis, pending cytology on pleural fluid. -Status post thrombectomy, unable to be anticoagulated secondary to hematuria so IVC filter has been placed. -Abx, Steroids, respiratory treatments, high flow oxygen per Critical Care/Pulmonary Stage IV high-grade urothelial bladder carcinoma -TURBT 09/29/2022 revealed a 3 cm tumor in the posterior bladder, path revealed i nvasive high-grade urothelial carcinoma, invasion of the muscularis propria,focal perineural invasion, no lymphovascular invasion. NM bone scan 10/12/2022, no mets, CT chest with contrast reported mild centrilobular emphysematous and fibrotic changes with pulmonary nodules along the left major fissure measuring 3 mm, and in the right upper lobe measuring 5 mm. Staging PET/CT concerns for metastatic disease to the lungs, liver, T4 vertebral body, and retroperitoneal lymphadenopathy. Liver biopsy 01/14/2023 confirmed metastatic urothelial carcinoma. -Patient has not received systemic treatment due to repeated hospitalizations. -Patient's performance status of 2 impacts his options for treatment. Keytruda and padcev ( immunotherapy and targeted agent) recommended treatment. Median duration of response 7-10 months. -Pt is appropriately no code. Continue aggressive medical care at this time. -F/U in clinic will be rescheduled attests: I have seen and examined patient, performed H&P, developed impression and plan of care. Discussed with dictator. Agree with documentation, dictated as a scribe
--- NOTE | 2023-02-21 16:59 | P.PN ---
Progress Note - Text Progress Note Date: 02/21/23 Chief Complaint: Short of breath 63-year-old patient who follows with [facility], with Dr. Cohen. Patient presented to weeks of increased shortness of breath. Some cough. Some brown sputum. Patient is on home oxygen 2-1/2 L. Also has some intermittent chest pressure. Patient does follow with supervisor pairing and inspecting Dr. Ellis Mullen. He was told that he's had a previous UT based on his stress test/echocardiogram done at our [facility] office. Patient has a bladder tumor that is being followed by Dr. Narayanan from urology. He did resected once. Patient is also started seeing Dr. Benz spending his first dose of immunotherapy. Patient does get intermittent hematuria. As he does not take any anticoagulation for his underlying atrial fibrillation. Patient had covered in May 2022 was on the ventilator for 9 days. 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 Patient is not short of breath at rest. No edema. is at the bedside. Patient had gone to Dr. Servin office his geriatric nurse practitioner who to send the patient to the ER. Patient known to have lung function from 20-30% l Admitted with acute COPD exacerbation, acute hypoxia, right-sided pleural effusion. February 16: Dr. Richter - 1800 mL of right thoracentesis turbid fluid, from the right site. Breathing better. Computed tomography scan chest order to rule out any underlying malignancy. Slight improvement in shortness of breath.. Decreased appetite Cardiology did resume eliquis at a smaller dose because of hematuria February 16: Laying in bed. Breathing has been better. 4 L nasal cannula. Add incentive spirometry. Eating about 25%. Increase activity. probable discharge tomorrow. February 17: Overnight patient became more short of breath. Was placed on a Airvo. 50/50. CT chest with angiogram is pending today. February 18: Yesterday evening patient Doppler ultrasound showed bilateral DVT. Discussed with Dr. Richter over the phone yesterday. Watch overnight. Because of hematuria IV heparin cannot be given. Eliquis was discontinued by cardiology on February 19. Vascular was consulted for possible IVC filter. Patient continues to have hematuria. Remains on AIRVO. Discussed with patient. He somewhat disheartened about his entire clinical picture. CT angiogram is come back showing acute saddle pulmonary embolism. He discussed with the patient about possible thrombectomy and the filter. This is being scheduled for this afternoon. February 20: ICU. For gross hematuria today 22-Frisian hematuria catheter was placed by urology today. And bladder was indicated and about 50 mL of blood clot removed. Dr. Richter removed thousand cc of turbid colored fluid from the right chest. Yesterday by Dr. Jameson: Patient underwent percutaneous thrombectomy to small amount of clot been removed. IVC filter was placed. Patient currently on AIRVO. FiO2 60% and 49 L. Telemetry sinus tachycardia. Reclining in bed awake tired. Family did feed the patient February 21: ICU. Remains short of breath. On AIRVO. Patient's and daughter the bedside. Patient is able to answer questions understands. Talk to the patient and and the daughter. Patient is agreeable to hospice. He is requesting to go home. Does not wish to in the hospital. Spoke to the hospitalist team and the nurse. We'll try to decrease oxygen as tolerated. Use morphine and Ativan as needed. If tolerated then we'll try to discharge the patient home. Understanding well the patient's oxygen requirement is significant. Time spent over 1 hour. Active Medications Acetaminophen (Acetaminophen Tab 325 Mg Tab) 650 mg PO Q6HR PRN PRN Reason: Fever and/ or Pain Last Admin: 02/19/23 14:10 Dose: 650 mg Hydrocodone Bitart/Acetaminophen (Hydrocodone/Apap 10-325mg 1 Each Tab) 1 each PO Q4HR PRN PRN Reason: Pain Last Admin: 02/21/23 13:50 Dose: 1 each Albuterol Sulfate (Albuterol Nebulized 2.5 Mg/3 Ml) 2.5 mg INHALATION RT-QID PRN PRN Reason: Shortness Of Breath Last Admin: 02/19/23 04:59 Dose: 2.5 mg Albuterol/Ipratropium (Ipratropium-Albuterol 3 Ml Neb) 3 ml INHALATION Q4H [facility] Last Admin: 02/21/23 15:16 Dose: Not Given Alprazolam (Alprazolam 0.25 Mg Tab) 0.25 mg PO TID [facility] Last Admin: 02/21/23 15:36 Dose: 0.25 mg Aspirin (Aspirin 81 Mg) 81 mg PO DAILY [facility] Last Admin: 02/21/23 09:05 Dose: 81 mg Atorvastatin Calcium (Atorvastatin 10 Mg Tab) 10 mg PO HS [facility] Last Admin: 02/20/23 21:23 Dose: 10 mg Budesonide (Budesonide 1 Mg/2 Ml Nebu) 1 mg INHALATION RT-BID [facility] Last Admin: 02/21/23 08:25 Dose: Not Given Docusate Sodium (Docusate 100 Mg Cap) 100 mg PO BID [facility] Last Admin: 02/21/23 09:05 Dose: 100 mg Famotidine (Famotidine 20 Mg Tab) 20 mg PO BID@0500,1700 [facility] Last Admin: 02/21/23 16:43 Dose: Not Given Ferrous Sulfate (Ferrous Sulfate 325 Mg Tab) 325 mg PO DAILY [facility] Last Admin: 02/21/23 09:05 Dose: 325 mg Fluoxetine HCl (Fluoxetine Hcl 20 Mg Cap) 40 mg PO DAILY [facility] Last Admin: 02/21/23 09:05 Dose: 40 mg Formoterol Fumarate (Formoterol Fumarate 20 Mcg/2 Ml Nebu) 20 mcg INHALATION RT-BID [facility] Last Admin: 02/21/23 08:25 Dose: Not Given Furosemide (Furosemide 20 Mg Tab) 20 mg PO Q2D [facility] Last Admin: 02/20/23 08:01 Dose: 20 mg Ceftriaxone Sodium 1 gm/ (Sodium Chloride) 50 mls @ 100 mls/hr IVPB Q24H [facility]; Protocol Last Admin: 02/21/23 03:16 Dose: 100 mls/hr Lidocaine HCl (Lidocaine 2% Uro-Jet Jelly 5 Ml Kit) 1 ml URETHRAL ONCE PRN PRN Reason: Urethral Pain Last Admin: 02/20/23 18:21 Dose: 1 ml Metoprolol Tartrate (Metoprolol Tartrate 25 Mg Tab) 25 mg PO BID@0500,1700 [facility] Last Admin: 02/21/23 16:43 Dose: Not Given Naloxone HCl (Naloxone 0.4 Mg/Ml 1 Ml Vial) 0.2 mg IV Q2M PRN PRN Reason: Opioid Reversal Ondansetron HCl (Ondansetron 4 Mg Tab) 4 mg PO Q4H PRN PRN Reason: Nausea Oxybutynin Chloride (Oxybutynin 10 Mg Tab.Er.24) 10 mg PO DAILY [facility] Last Admin: 02/21/23 09:07 Dose: 10 mg Phenazopyridine HCl (Phenazopyridine 100 Mg Tab) 100 mg PO TID [facility] Last Admin: 02/21/23 15:36 Dose: 100 mg Prednisone (Prednisone 5 Mg Tab) 5 mg PO DAILY [facility] Last Admin: 02/21/23 09:05 Dose: 5 mg Theophylline (Theophylline 24 Hour 300 Mg Cap.Er.24h) 600 mg PO DAILY [facility] Last Admin: 02/21/23 09:06 Dose: 600 mg Trazodone HCl (Trazodone Hcl 100 Mg Tab) 100 mg PO HS [facility] Last Admin: 02/20/23 21:23 Dose: Not Given Past medical history to include: Atrial fibrillation, COPD, hypertension, hyperlipidemia, bladder Tumma resected transplant starting immunotherapy with Dr. Benz, COVID-19 intubated May 2022, Social history: Averaged about 2 packs a day for 50 years stopped about 9 months ago. Averaged about 6 beers a day for close to 50 years. 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 . Physical examination: VITAL SIGNS: 98.6, 93, 14, 92/62, 98% on AIRVO 60/70 GENERAL: Tired. Scattered bruising, short of breath EYES: Pupils equal. Conjunctiva normal. HEENT: External appearance of nose and ears normal, oral cavity grossly normal. NECK: JVD not raised; masses not palpable. HEART: First and second heart sounds are normal; no edema. LUNGS: Respiratory rate increased, , poor air entry. Some wheezing . Accessory muscle working ABDOMEN: Soft, nontender, liver spleen not palpable, no masses palpable. Baker catheter PSYCH: Alert and oriented x3; mood and affect - anxious MUSCULOSKELETAL:No Clubbing/cyanosis;muscles-grossly intact. OA INVESTIGATIONS, reviewed in the clinical context: February 21: White count 7.4 hemoglobin 7.1 sodium 134 potassium 5.5 creatinine 1.19 February 20: White count 14.7 hemoglobin 7.5 platelets 592 potassium 5.3 BUN 28 creatinine 1.01 Chest CTA: Saddle embolism within the main pulmonary artery with segmental and subsegmental components. No evidence of right heart strain. Scattered pulmonary nodules. Ultrasound Doppler lower extremity: Right leg: Positive for DVT from common femoral vein through proximal calf vein. Left leg: Positive for DVT from femoral vein through proximal calf vein. February 19: White count 16.3 hemoglobin 8.2 platelets 634 potassium 5 BUN 28 creatinine 0.91 February 18: White count 15.2 hemoglobin 7.8 potassium 5.2 creatinine 0.96 February 17: Potassium 5.3 BUN 33 creatinine 1.0 Procalcitonin 0.61 White count 16.9 hemoglobin 8.5 platelets 625 sodium 138 potassium 5.4 BUN 29 creatinine 0.96 Troponin I 0.048 EKG tracing personally reviewed by me-normal sinus rhythm. Rate 96. Chest x-ray film personally reviewed by me-infiltrates. Right-sided effusion Chest CTA: No PE. Finding compatible metastatic disease of the chest and liver. Periportal adenopathy. Moderate right-sided pleural effusion. Chest ultrasound: Moderate right pleural effusion Previous testin-D echocardiogram at [facility] [November 2022: EF 50%. Small area of hypokinesis of the inferior septal wall. Moderate concentric LVH. Some aortic stenosis. Assessment plan: -Acute bilateral DVT and pulmonary saddle embolism, precipitated her underlying medical debility, and malignancy. Patient not a candidate for anticoagulant medication because of persistent hematuria. Vascular Dr. Jameson : . February 19: Thrombectomy and IVC filter placement. -Acute on chronic shortness of breath multifactorial. COPD exacerbation. Right pleural effusion. Metastatic disease of the lung. Causing acute hypoxic respiratory failure.: Worsening AIRVO 60/70 -Acute hypoxic respiratory failure overnight, secondary to acute saddle pulmonary embolism: New Airvo 60/ 70 -Chronic hypoxic respiratory failure from underlying COPD 2-1/2 liters of oxygen at home. -Chest pressure. Has known cardiac risk factors. Positive troponin. Was seen by by cardiology. -Bladder tumor. Patient underwent resection in September [address] Narayanan. Pathology shows: Invasive high-grade urothelial carcinoma. 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 Patient is due to start immunotherapy by DrF. Benz from oncology. This has been causing intermittent hematuria. Patient had a liver biopsy in January. Confirmed metastatic urothelial carcinoma. -Persistent hematuria: Uncontrolled February 20: 22-Frisian Baker catheter placed -Paroxysmal atrial fibrillation currently sinus rhythm. Eliquis 2.5 mg twice a day per cardiology -was discontinued -Moderate right pleural effusion, contributing acute hypoxici respiratory failure. Thoracentesis 1800 mL done -Acute COPD exacerbation in an ex-smoker: Not improving DuoNeb. -Hyperlipidemia Lipitor 10 mg daily at bedtime -Depression and anxiety Prozac 40 mg a day trazodone 100 mg daily at bedtime -DO NOT RESUSCITATE Proptosis poor. Discussed with hospice team. At the [facility] or home with hospice. Depending upon oxygen. Advance care planning: End-of-life care discussed with the patient and all the bedside. Patient's preference is to go home and not in the hospital. He was initially tearful and in denial but has accepted the fact. and the daughter understand the same. We will convey this to the hospice team and nurse. I spent for this 25 minutes Past Medical History Past Medical History: Atrial Fibrillation, Cancer, COPD, Hyperlipidemia, Hypertension Additional Past Medical History / Comment(s): Current bladder tumor, pressure with urination. Hx Covid 06/24/22, was hospitalized at [facility] for 18 days, was in ICU and on vent, went to rehab after that, bladder cancer History of Any Multi-Drug Resistant Organisms: None Reported Additional Past Surgical History / Comment(s): Colonoscopy. Past Anesthesia/Blood Transfusion Reactions: No Reported Reaction Additional Past Anesthesia/Blood Transfusion Reaction / Comment(s): Hx blood transfusion Jul 2022, no problems. Past Psychological History: No Psychological Hx Reported Smoking Status: Former smoker Past Alcohol Use History: Daily Past Drug Use History: Marijuana - Past Family History Mother Family Medical History: No Reported History
[2023-02-21 17:07] VITALS: BP 103/62; PULSE 87; RESP 15
--- NOTE | 2023-02-21 18:46 | P.DS ---
Providers Date of admission: 02/15/23 19:29 Expected date of discharge: 02/21/23 Attending physician: Kobi Rosas Consults: 02/15/23 19:29 Consult Physician Urgent Consulting Provider: Rafiq Servin Consult Reason/Comments: Pleural effusion Do you want consulting provider notified?: Yes 02/15/23 21:29 Consult Physician Routine Consulting Provider: Mayur Seals Consult Reason/Comments: Chest pressure Do you want consulting provider notified?: Yes Consult Physician Routine Consulting Provider: Medina Daniel Consult Reason/Comments: Metastatic bladder cancer Do you want consulting provider notified?: Yes 02/18/23 19:42 Consult Physician Urgent Consulting Provider: Faith Baker Consult Reason/Comments: bilateral dvts Do you want consulting provider notified?: Yes 02/19/23 10:39 Consult Physician Urgent Consulting Provider: Michael Gonzalez Consult Reason/Comments: Hematuria, known bladder Ca Do you want consulting provider notified?: Yes 02/19/23 12:13 Consult Physician Urgent Consulting Provider: Daniel Frazier Consult Reason/Comments: hematuria, known bladder cancer Do you want consulting provider notified?: Yes Primary care physician: [facility] Course: Chief Complaint: Short of breath 63-year-old patient who follows with [place], with Dr. Cohen. Patient presented to weeks of increased shortness of breath. Some cough. Some brown sputum. Patient is on home oxygen 2-1/2 L. Also has some intermittent chest pressure. Patient does follow with photo lab technician Dr. Ellis Mullen. He was told that he's had a previous ME based on his stress test/echocardiogram done at our [facility] office. Patient has a bladder tumor that is being followed by Dr. Narayanan from urology. He did resected once. Patient is also started seeing Dr. Benz spending his first dose of immunotherapy. Patient does get intermittent hematuria. As he does not take any anticoagulation for his underlying atrial fibrillation. Patient had covered in May 2022 was on the ventilator for 9 days. 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 Patient is not short of breath at rest. No edema. is at the bedside. Patient had gone to Dr. Servin office his blueprint developer who to send the patient to the ER. Patient known to have lung function from 20-30% l Admitted with acute COPD exacerbation, acute hypoxia, right-sided pleural effusion. February 16: Dr. Richter - 1800 mL of right thoracentesis turbid fluid, from the right site. Breathing better. Computed tomography scan chest order to rule out any underlying malignancy. Slight improvement in shortness of breath.. Decreased appetite Cardiology did resume eliquis at a smaller dose because of hematuria February 16: Laying in bed. Breathing has been better. 4 L nasal cannula. Add incentive spirometry. Eating about 25%. Increase activity. probable discharge tomorrow. February 17: Overnight patient became more short of breath. Was placed on a Airvo. 50/50. CT chest with angiogram is pending today. February 18: Yesterday evening patient Doppler ultrasound showed bilateral DVT. Discussed with Dr. Richter over the phone yesterday. Watch overnight. Because of hematuria IV heparin cannot be given. Eliquis was discontinued by cardiology on February 19. Vascular was consulted for possible IVC filter. Patient continues to have hematuria. Remains on AIRVO. Discussed with patient. He somewhat disheartened about his entire clinical picture. CT angiogram is come back showing acute saddle pulmonary embolism. He discussed with the patient about possible thrombectomy and the filter. This is being scheduled for this afternoon. February 20: ICU. For gross hematuria today 22-Italian hematuria catheter was placed by urology today. And bladder was indicated and about 50 mL of blood clot removed. Dr. Richter removed thousand cc of turbid colored fluid from the right chest. Yesterday by Dr. Jameson: Patient underwent percutaneous thrombectomy to small amount of clot been removed. IVC filter was placed. Patient currently on AIRVO. FiO2 60% and 49 L. Telemetry sinus tachycardia. Reclining in bed awake tired. Family did feed the patient February 18: ICU. Remains short of breath. On AIRVO. Patient's and daughter the bedside. Patient is able to answer questions understands. Talk to the patient and and the daughter. Patient is agreeable to hospice. He is requesting to go home. Does not wish to in the hospital. Spoke to the hospitalist team and the nurse. We'll try to decrease oxygen as tolerated. Use morphine and Ativan as needed. If tolerated then we'll try to discharge the patient home. Understanding well the patient's oxygen requirement is significant. Time spent over 1 hour. Admitted today patient progressed to [facility]IP/inpatient hospice care. Comfort care set initiated. [facility] hospice following. Past medical history to include: Atrial fibrillation, COPD, hypertension, hyperlipidemia, bladder Tumma resected transplant starting immunotherapy with Dr. Benz, COVID-19 intubated May 2022, Social history: Averaged about 2 packs a day for 50 years stopped about 9 months ago. Averaged about 6 beers a day for close to 50 years. 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 . Physical examination: VITAL SIGNS: 98.6, 93, 14, 92/62, 98% on AIRVO 60/70 GENERAL: Tired. Scattered bruising, short of breath EYES: Pupils equal. Conjunctiva normal. HEENT: External appearance of nose and ears normal, oral cavity grossly normal. NECK: JVD not raised; masses not palpable. HEART: First and second heart sounds are normal; no edema. LUNGS: Respiratory rate increased, , poor air entry. Some wheezing . Accessory muscle working ABDOMEN: Soft, nontender, liver spleen not palpable, no masses palpable. Baker catheter PSYCH: Alert and oriented x3; mood and affect - anxious MUSCULOSKELETAL:No Clubbing/cyanosis;muscles-grossly intact. OA INVESTIGATIONS, reviewed in the clinical context: February 21: White count 7.4 hemoglobin 7.1 sodium 134 potassium 5.5 creatinine 1.19 February 20: White count 14.7 hemoglobin 7.5 platelets 592 potassium 5.3 BUN 28 creatinine 1.01 Chest CTA: Saddle embolism within the main pulmonary artery with segmental and subsegmental components. No evidence of right heart strain. Scattered pulmonary nodules. Ultrasound Doppler lower extremity: Right leg: Positive for DVT from common femoral vein through proximal calf vein. Left leg: Positive for DVT from femoral vein through proximal calf vein. February 19: White count 16.3 hemoglobin 8.2 platelets 634 potassium 5 BUN 28 creatinine 0.91 February 18: White count 15.2 hemoglobin 7.8 potassium 5.2 creatinine 0.96 February 17: Potassium 5.3 BUN 33 creatinine 1.0 Procalcitonin 0.61 White count 16.9 hemoglobin 8.5 platelets 625 sodium 138 potassium 5.4 BUN 29 creatinine 0.96 Troponin I 0.048 EKG tracing personally reviewed by me-normal sinus rhythm. Rate 96. Chest x-ray film personally reviewed by me-infiltrates. Right-sided effusion Chest CTA: No PE. Finding compatible metastatic disease of the chest and liver. Periportal adenopathy. Moderate right-sided pleural effusion. Chest ultrasound: Moderate right pleural effusion Previous testin-D echocardiogram at [facility] [November 2022: EF 50%. Small area of hypokinesis of the inferior septal wall. Moderate concentric LVH. Some aortic stenosis. Assessment plan: -Acute bilateral DVT and pulmonary saddle embolism, precipitated her underlying medical debility, and malignancy. Patient not a candidate for anticoagulant medication because of persistent hematuria. Vascular Dr. Jameson : . February 19: Thrombectomy and IVC filter placement. -Acute on chronic shortness of breath multifactorial. COPD exacerbation. Right pleural effusion. Metastatic disease of the lung. Causing acute hypoxic respiratory failure.: Worsening AIRVO 60/70 -Acute hypoxic respiratory failure overnight, secondary to acute saddle pulmonary embolism: New Airvo 60/ 70 -Chronic hypoxic respiratory failure from underlying COPD 2-1/2 liters of oxygen at home. -Chest pressure. Has known cardiac risk factors. Positive troponin. Was seen by by cardiology. -Bladder tumor. Patient underwent resection in September [address] Narayanan. Pathology shows: Invasive high-grade urothelial carcinoma. 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 Patient is due to start immunotherapy by DrF. Benz from oncology. This has been causing intermittent hematuria. Patient had a liver biopsy in January. Confirmed metastatic urothelial carcinoma. -Persistent hematuria: Uncontrolled February 20: 22-Italian Baker catheter placed -Paroxysmal atrial fibrillation currently sinus rhythm. Eliquis 2.5 mg twice a day per cardiology -was discontinued -Moderate right pleural effusion, contributing acute hypoxici respiratory failure. Thoracentesis 1800 mL done -Acute COPD exacerbation in an ex-smoker: Not improving DuoNeb. -Hyperlipidemia Lipitor 10 mg daily at bedtime -Depression and anxiety Prozac 40 mg a day trazodone 100 mg daily at bedtime -DO NOT RESUSCITATE Advance care planning: End-of-life care discussed with the patient and all the bedside. Patient's preference is to go home and not in the hospital. He was initially tearful and in denial but has accepted the fact. and the daughter understand the same. We will convey this to the hospice team and nurse. I spent for this 25 minutes Disposition: [facility]/inpatient hospice with [facility]. Past Medical History Past Medical History: Atrial Fibrillation, Cancer, COPD, Hyperlipidemia, Hypertension Additional Past Medical History / Comment(s): Current bladder tumor, pressure with urination. Hx Covid 06/24/22, was hospitalized at [facility] for 18 days, was in ICU and on vent, went to rehab after that, bladder cancer History of Any Multi-Drug Resistant Organisms: None Reported Additional Past Surgical History / Comment(s): Colonoscopy. Past Anesthesia/Blood Transfusion Reactions: No Reported Reaction Additional Past Anesthesia/Blood Transfusion Reaction / Comment(s): Hx blood transfusion Jul 2022, no problems. Past Psychological History: No Psychological Hx Reported Smoking Status: Former smoker Past Alcohol Use History: Daily Past Drug Use History: Marijuana - Past Family History Mother Family Medical History: No Reported History Plan - Discharge Summary Discharge Rx Participant: No New Discharge Prescriptions: No Action Budesonide/Formoterol Fumarate [Symbicort 160-4.5 Mcg Inhaler] 2 puff INHALATION RT-BID@0500,1700 Acetaminophen Tab [Tylenol] 1,000 mg PO Q6HR Theophylline 12 Hour [[place]-Dur] 300 mg PO BID@0500,1700 Furosemide [Lasix] 20 mg PO Q2D Albuterol Sulfate [Proair Hfa] 2 puff INHALATION RT-QID PRN PRN Reason: Shortness Of Breath Metoprolol Tartrate 25 mg PO BID@0500,1700 Famotidine 20 mg PO BID@0500,1700 Ferrous Sulfate [Feosol] 325 mg PO DAILY Atorvastatin [Lipitor] 10 mg PO HS predniSONE 5 mg PO DAILY traZODone HCL 100 mg PO HS HYDROcodone/APAP 7.5-325MG [[place] 7.5-325] 1 tab PO Q6HR PRN 3 Days #12 tab PRN Reason: Pain ALPRAZolam [Xanax] 0.25 mg PO BID PRN PRN Reason: Anxiety FLUoxetine HCL [PROzac] 40 mg PO DAILY Ondansetron [Zofran] 4 mg PO Q4H PRN PRN Reason: Nausea Ipratropium-Albuterol Nebulize [Duoneb 0.5 mg-3 mg/3 ml Soln] 3 ml INHALATION RT-QID Discharge Medication List Acetaminophen Tab [Tylenol] 1,000 mg PO Q6HR 08/01/16 [History] Albuterol Sulfate [Proair Hfa] 2 puff INHALATION RT-QID PRN 08/01/16 [History] Budesonide/Formoterol Fumarate [Symbicort 160-4.5 Mcg Inhaler] 2 puff INHALATION RT-BID@0500,1700 08/01/16 [History] Furosemide [Lasix] 20 mg PO Q2D 08/01/16 [History] Theophylline 12 Hour [[place]-Dur] 300 mg PO BID@0500,1700 08/01/16 [History] Atorvastatin [Lipitor] 10 mg PO HS 09/24/22 [History] Famotidine 20 mg PO BID@0500,1700 09/24/22 [History] Ferrous Sulfate [Feosol] 325 mg PO DAILY 09/24/22 [History] Metoprolol Tartrate 25 mg PO BID@0500,1700 09/24/22 [History] predniSONE 5 mg PO DAILY 09/24/22 [History] traZODone HCL 100 mg PO HS 09/24/22 [History] HYDROcodone/APAP 7.5-325MG [[place] 7.5-325] 1 tab PO Q6HR PRN 3 Days #12 tab 01/01/23 [Rx] ALPRAZolam [Xanax] 0.25 mg PO BID PRN 02/15/23 [History] FLUoxetine HCL [PROzac] 40 mg PO DAILY 02/15/23 [History] Ipratropium-Albuterol Nebulize [Duoneb 0.5 mg-3 mg/3 ml Soln] 3 ml INHALATION RT-QID 02/15/23 [History] Ondansetron [Zofran] 4 mg PO Q4H PRN 02/15/23 [History] Follow up Appointment(s)/Referral(s): Medina Daniel MD [STAFF PHYSICIAN] - 10 Days Diogenes Cohen MD [Primary Care Provider] - 1-2 days Discharge/Stand Alone Forms: Personal Community [facility] Nursing Director Discharge Disposition: [facility]CH TO [facility]
== END 2023-02-21 17:42 | disposition hospice, inpatient (51) | DRG 163 ==
LOC: EC 14:02 → 3SCARD 19:29 → 2SICU 02-18 20:52
PROVIDERS: ADMIT Hospitalist; ATTEND Hospitalist
PROC: 0W993ZX Drainage of Right Pleural Cavity, Percutaneous Approach, Diagnostic (ICD-10-PCS; 2023-02-16)
PROC: B31S1ZZ Fluoroscopy of Right Pulmonary Artery using Low Osmolar Contrast (ICD-10-PCS; principal; 2023-02-18)
PROC: 02CQ3ZZ Extirpation of Matter from Right Pulmonary Artery, Percutaneous Approach (ICD-10-PCS; principal; 2023-02-18)
PROC: 02CR3ZZ Extirpation of Matter from Left Pulmonary Artery, Percutaneous Approach (ICD-10-PCS; principal; 2023-02-18)
PROC: B31T1ZZ Fluoroscopy of Left Pulmonary Artery using Low Osmolar Contrast (ICD-10-PCS; principal; 2023-02-18)
PROC: 06H03DZ Insertion of Intraluminal Device into Inferior Vena Cava, Percutaneous Approach (ICD-10-PCS; principal; 2023-02-18)
PROC: 30233N1 Transfusion of Nonautologous Red Blood Cells into Peripheral Vein, Percutaneous Approach (ICD-10-PCS; 2023-02-19)
PROC: 0T9B70Z Drainage of Bladder with Drainage Device, Via Natural or Artificial Opening (ICD-10-PCS; 2023-02-20)
PROC: 0W993ZX Drainage of Right Pleural Cavity, Percutaneous Approach, Diagnostic (ICD-10-PCS; 2023-02-20)
DX: J96.21 Acute and chronic respiratory failure with hypoxia (principal); I21.4 Non-ST elevation (NSTEMI) myocardial infarction; I26.92 Saddle embolus of pulmonary artery without acute cor pulmonale; I82.403 Acute embolism and thrombosis of unspecified deep veins of lower extremity, bilateral; C79.51 Secondary malignant neoplasm of bone; C79.89 Secondary malignant neoplasm of other specified sites; J44.1 Chronic obstructive pulmonary disease with (acute) exacerbation; D62 Acute posthemorrhagic anemia; J91.0 Malignant pleural effusion; C78.00 Secondary malignant neoplasm of unspecified lung; C78.7 Secondary malignant neoplasm of liver and intrahepatic bile duct; I82.503 Chronic embolism and thrombosis of unspecified deep veins of lower extremity, bilateral; I27.29 Other secondary pulmonary hypertension; C67.9 Malignant neoplasm of bladder, unspecified; D63.0 Anemia in neoplastic disease; I27.81 Cor pulmonale (chronic); I48.0 Paroxysmal atrial fibrillation; Z66 Do not resuscitate; Z51.5 Encounter for palliative care; R59.0 Localized enlarged lymph nodes; R31.0 Gross hematuria; E78.5 Hyperlipidemia, unspecified; I10 Essential (primary) hypertension; I35.0 Nonrheumatic aortic (valve) stenosis; F41.9 Anxiety disorder, unspecified; I25.10 Atherosclerotic heart disease of native coronary artery without angina pectoris; I25.2 Old myocardial infarction; Z99.81 Dependence on supplemental oxygen; Z79.51 Long term (current) use of inhaled steroids; Z79.52 Long term (current) use of systemic steroids; Z79.891 Long term (current) use of opiate analgesic; Z79.899 Other long term (current) drug therapy; Z87.891 Personal history of nicotine dependence; Z86.16 Personal history of COVID-19
CPT/HCPCS: 36415; 37184; 37185; 37191; 71045; 71046; 71275; 76604; 80048; 80053; 81001; 82945; 83605; 83615; 83735; 84145; 84157; 84484; 85025; 85027; 85379; 85384; 85610; 85730; 86850; 86900; 86901; 86920; 87040; 87086; 88108; 88305; 88341; 88342; 89050; 93005; 93306; 93970; 94640; 94760; 96365; 96367; 96375; 96376; 99285

== ENCOUNTER 2023-02-21 17:27 | Inpatient (IN) | payer MEDICAID ==
[2023-02-21] MEDS ORDERED: DRY MOUTH SPRAY 44.3 SPRAY/44.3 ML SPRAY MUCOUS MEM PRN (17:28)
[2023-02-21] MEDS ORDERED: ARTIFICIAL TEARS-HYPROMELLOSE DROPS 15 ML BTL BOTH EYES PRN (17:28)
[2023-02-21] MEDS ORDERED: GLYCOPYRROLATE 0.2 MG/ML 2 ML VIAL IVP PRN (17:28)
[2023-02-21] MEDS ORDERED: ONDANSETRON 4 MG/2 ML VIAL IVP PRN (17:28)
[2023-02-21] MEDS ORDERED: ATROPINE OPHTH SOLN 1% 5ML BTL SUBLINGUAL PRN (17:28)
[2023-02-21] MEDS ORDERED: MORPHINE SULFATE 2 MG/ML SYRINGE IV PRN (17:28)
[2023-02-21] MEDS ORDERED: MORPHINE SULFATE (100 MG/2 ML) 100 MG in SODIUM CHLORIDE 0.9% 100 ML IV SCH (17:30)
[2023-02-21] MEDS ORDERED: SCOPOLAMINE 1 MG/72 HR PATCH TRANSDERM SCH (17:30)
[2023-02-21] MEDS ORDERED: IPRATROPIUM-ALBUTEROL 3 ML NEB INHALATION PRN (17:34)
[2023-02-21] MEDS ORDERED: ACETAMINOPHEN SUPPOSITORY 650 MG SUPP RECTAL PRN (17:48)
[2023-02-21] MEDS: MORPHINE SULFATE 4 MG/ML SYRINGE IV PRN ×3 (18:00→21:19)
[2023-02-21] MEDS: LORazepam 2 MG/ML INJ IV PRN ×2 (18:35→22:03)
[2023-02-21] MEDS ORDERED: PHENAZOPYRIDINE 100 MG TAB PO SCH (22:00)
[2023-02-21 22:32] VITALS: RESP 14
[2023-02-22] MEDS: LORazepam 2 MG/ML INJ IV PRN (01:18)
--- NOTE | 2023-02-22 13:40 | P.HPIM ---
History of Present Illness H&P Date: 02/22/23 This is a 63 year old female with medical history of atrial fibrillation, COPD, hyperlipidemia, hypertension, bladder cancer diagnosed in September 2022 with pathology showing invasive high-grade urothelial carcinoma with lung metastasis. Former smoker. Patient came into the hospital for oxygen saturation of 85%. He was sent in from his pulmonary office. Patient sees Dr. Rodriguez outpatient. Patient is a progressive shortness of breath. Patient was found to have bilateral DVT and suspicion was high for pulmonary embolism. Vascular surgeon placed a [place] filter on February 19 and patient also underwent thrombectomy. Patient had a CT angiogram of the chest showed a saddle pulmonary embolism there is no evidence of RV strain. There were scattered bilateral pulmonary nodules metastatic in nature also has a right-sided pleural effusion. Patient underwent a right-sided thoracentesis with 800 mL fluid off. Was scheduled to undergo immunotherapy with Dr. Daniel outpatient. He continues to have hematuria from the bladder tumor and bladder cancer. There is evidence of lung metastasis. Patient had worsening of hypoxic respiratory failure and ended up requiring airflow oxygen support. The decision was made with Dr. estrella and family and patient opted for hospice. Did not complete review of systems patient was not evaluated by writing provider Patient had prior to being seen Did not complete physical exam as above. Assessment and Plan -Acute bilateral DVT and pulmonary saddle embolism, precipitated her underlying medical debility, and malignancy. Patient not a candidate for anticoagulant medication because of persistent hematuria. underwent on February 19: Thrombectomy and IVC filter placement. -Acute on chronic shortness of breath -Acute hypoxic respiratory failure secondary to COPD exacerbation and right pleural effusion and metastatic disease of the lung. Saddle PE causing worsening respiratory failure and patient requiring AIRVO oxygen support. -Acute on Chronic hypoxic respiratory failure from COPD exacerbation, oxygen dependent at baseline -Acute bilateral DVT found on admission -Bladder tumor. Patient underwent resection in September [address] Narayanan. Pathology shows: Invasive high-grade urothelial carcinoma. 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 Patient is due to start immunotherapy by DrF. Benz from oncology. This has been causing intermittent hematuria. Patient had a liver biopsy in January. Confirmed metastatic urothelial carcinoma. -Persistent hematuria: Uncontrolled with indwelling catheter in place -Paroxysmal atrial fibrillation currently sinus rhythm eliquis held due to the the hematuria. -Moderate right pleural effusion, contributing acute hypoxic respiratory failure. Thoracentesis 1800 mL done -Hyperlipidemia -Depression and anxiety -History of smoking -Covid infection requiring ICU care and ventilation back in Jun. -DO NOT RESUSCITATE Plan Impression cautious current for this patient has met with the family at the bedside and had long discussion with the patient and decision was made for hospice. Advance care planning: [facility]/inpatient hospice with [facility]. The impression and plan of care has been dictated by Jane Montero, Nurse Practitioner as directed. Dr. Ernie MD I have performed a history and physical examination and medical decision making of this patient, discussed the same with the dictator, and agree with the dictators assessment and plan as written, documented as a scribe. Based on total visit time, I have performed more than 50% of this visit. Past Medical History Past Medical History: Atrial Fibrillation, Cancer, COPD, Hyperlipidemia, Hypertension Additional Past Medical History / Comment(s): Current bladder tumor, pressure with urination. Hx Covid 06/24/22, was hospitalized at [facility] for 18 days, was in ICU and on vent, went to rehab after that, bladder cancer History of Any Multi-Drug Resistant Organisms: None Reported Additional Past Surgical History / Comment(s): Colonoscopy. Past Anesthesia/Blood Transfusion Reactions: No Reported Reaction Additional Past Anesthesia/Blood Transfusion Reaction / Comment(s): Hx blood transfusion Jul 2022, no problems. Past Psychological History: No Psychological Hx Reported Smoking Status: Former smoker Past Alcohol Use History: Daily Past Drug Use History: Marijuana - Past Family History Mother Family Medical History: No Reported History Medications and Allergies Home Medications Medication Instructions Recorded Confirmed Type Acetaminophen Tab [Tylenol] 1,000 mg PO Q6HR 08/01/16 02/21/23 History Albuterol Sulfate [Proair Hfa] 2 puff INHALATION RT-QID PRN 08/01/16 02/21/23 History Budesonide/Formoterol Fumarate 2 puff INHALATION RT-BID@0500,1700 08/01/16 02/21/23 History [Symbicort 160-4.5 Mcg Inhaler] Furosemide [Lasix] 20 mg PO Q2D 08/01/16 02/21/23 History Theophylline 12 Hour [[place]et[place]-Dur] 300 mg PO BID@0500,1700 08/01/16 02/21/23 History Atorvastatin [Lipitor] 10 mg PO HS 04/21/23 09/18/23 History Famotidine 20 mg PO BID@0500,1700 09/24/22 02/21/23 History Ferrous Sulfate [Feosol] 325 mg PO DAILY 09/24/22 02/21/23 History Metoprolol Tartrate 25 mg PO BID@0500,1700 09/24/22 02/21/23 History predniSONE 5 mg PO DAILY 09/24/22 02/21/23 History traZODone HCL 100 mg PO HS 09/24/22 02/21/23 History HYDROcodone/APAP 7.5-325MG [[place] 1 tab PO Q6HR PRN 3 Days #12 tab 01/01/23 02/21/23 Rx 7.5-325] ALPRAZolam [Xanax] 0.25 mg PO BID PRN 02/15/23 02/21/23 History FLUoxetine HCL [PROzac] 40 mg PO DAILY 02/15/23 02/21/23 History Ipratropium-Albuterol Nebulize 3 ml INHALATION RT-QID 02/15/23 02/21/23 History [Duoneb 0.5 mg-3 mg/3 ml Soln] Ondansetron [Zofran] 4 mg PO Q4H PRN 02/15/23 02/21/23 History Allergies Allergy/AdvReac Type Severity Reaction Status Date / Time No Known Allergies Allergy Verified 02/15/23 17:27 Physical Exam Vitals: Vital Signs Resp FiO2 02/22/23 00:12 28 02/21/23 21:32 45 02/21/23 20:00 14 Intake and Output 02/21/23 02/22/23 02/22/23 22:59 06:59 14:59 Intake Total 0.799 63.784 Output Total 200 Balance -199.201 63.784 Intake: Intake, IV Titration 0.799 63.784 Amount Morphine Sulfate (100 mg/ 0.799 63.784 2 ml) 100 mg In Sodium Chloride 0.9% 100 ml @ 1 MG/HR 1.02 mls/hr IV . Q24H [facility] Rx#:[id number] Output: Urine 200 Other: Voiding Method Indwelling Catheter Weight 81 kg Assessment and Plan Time with Patient: Less than 30
--- NOTE | 2023-02-22 13:46 | P.DS ---
Providers Date of admission: 02/21/23 17:45 Attending physician: Kobi Estrella Primary care physician: Allen Parish Hospital Course: Final Diagnosis -Acute bilateral DVT and pulmonary saddle embolism, precipitated her underlying medical debility, and malignancy. Patient not a candidate for anticoagulant medication because of persistent hematuria. underwent on February 19: Thrombectomy and IVC filter placement. -Acute on chronic shortness of breath -Acute hypoxic respiratory failure secondary to COPD exacerbation and right pleural effusion and metastatic disease of the lung. Saddle PE causing worsening respiratory failure and patient requiring AIRVO oxygen support. -Acute on Chronic hypoxic respiratory failure from COPD exacerbation, oxygen dependent at baseline -Acute bilateral DVT found on admission -Bladder tumor. Patient underwent resection in September [address] Narayanan. Pathology shows: Invasive high-grade urothelial carcinoma. 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 Patient is due to start immunotherapy by DrF. Benz from oncology. This has been causing intermittent hematuria. Patient had a liver biopsy in January. Confirmed metastatic urothelial carcinoma. -Persistent hematuria: Uncontrolled with indwelling catheter in place -Paroxysmal atrial fibrillation currently sinus rhythm eliquis held due to the the hematuria. -Moderate right pleural effusion, contributing acute hypoxic respiratory failure. Thoracentesis 1800 mL done -Hyperlipidemia -Depression and anxiety -History of smoking -Covid infection requiring ICU care and ventilation back in Jun. -DO NOT RESUSCITATE Patient on 02/22/2023 at 245 Hospital course This is a 63 year old female with medical history of atrial fibrillation, COPD, hyperlipidemia, hypertension, bladder cancer diagnosed in September 2022 with pathology showing invasive high-grade urothelial carcinoma with lung metastasis. Former smoker. Patient came into the hospital for oxygen saturation of 85%. He was sent in from his pulmonary office. Patient sees Dr. Rodriguez outpatient. Patient is a progressive shortness of breath. Patient was found to have bilateral DVT and suspicion was high for pulmonary embolism. Vascular surgeon placed a Biggs filter on February 19 and patient also underwent thrombectomy. Patient had a CT angiogram of the chest showed a saddle pulmonary embolism there is no evidence of RV strain. There were scattered bilateral pulmonary nodules metastatic in nature also has a right-sided pleural effusion. Patient underwent a right-sided thoracentesis with 800 mL fluid off. Was scheduled to undergo immunotherapy with Dr. Daniel outpatient. He continues to have hematuria from the bladder tumor and bladder cancer. There is evidence of lung metastasis. Patient had worsening of hypoxic respiratory failure and ended up requiring airflow oxygen support. The decision was made with Dr. estrella and family and patient opted for hospice. Thank you for allowing us to persist in the care of this patient. Patient was not evaluated however by the writing provider patient had over the night prior to being seen. The impression and plan of care has been dictated by Jane Montero, Nurse Practitioner as directed. Dr. Ernie MD I have performed a history and physical examination and medical decision making of this patient, discussed the same with the dictator, and agree with the dictators assessment and plan as written, documented as a scribe. Based on total visit time, I have performed more than 50% of this visit. Plan - Discharge Summary New Discharge Prescriptions: No Action Budesonide/Formoterol Fumarate [Symbicort 160-4.5 Mcg Inhaler] 2 puff INHALATION RT-BID@0500,1700 Acetaminophen Tab [Tylenol] 1,000 mg PO Q6HR Theophylline 12 Hour [[place]-Dur] 300 mg PO BID@0500,1700 Furosemide [Lasix] 20 mg PO Q2D Albuterol Sulfate [Proair Hfa] 2 puff INHALATION RT-QID PRN PRN Reason: Shortness Of Breath Metoprolol Tartrate 25 mg PO BID@0500,1700 Famotidine 20 mg PO BID@0500,1700 Ferrous Sulfate [Feosol] 325 mg PO DAILY Atorvastatin [Lipitor] 10 mg PO HS predniSONE 5 mg PO DAILY traZODone HCL 100 mg PO HS HYDROcodone/APAP 7.5-325MG [[place] 7.5-325] 1 tab PO Q6HR PRN 3 Days #12 tab PRN Reason: Pain ALPRAZolam [Xanax] 0.25 mg PO BID PRN PRN Reason: Anxiety FLUoxetine HCL [PROzac] 40 mg PO DAILY Ondansetron [Zofran] 4 mg PO Q4H PRN PRN Reason: Nausea Ipratropium-Albuterol Nebulize [Duoneb 0.5 mg-3 mg/3 ml Soln] 3 ml INHALATION RT-QID Discharge Medication List Acetaminophen Tab [Tylenol] 1,000 mg PO Q6HR 08/01/16 [History] Albuterol Sulfate [Proair Hfa] 2 puff INHALATION RT-QID PRN 08/01/16 [History] Budesonide/Formoterol Fumarate [Symbicort 160-4.5 Mcg Inhaler] 2 puff INHALATION RT-BID@0500,1700 08/01/16 [History] Furosemide [Lasix] 20 mg PO Q2D 08/01/16 [History] Theophylline 12 Hour [[place]-Dur] 300 mg PO BID@0500,1700 08/01/16 [History] Atorvastatin [Lipitor] 10 mg PO HS 09/24/22 [History] Famotidine 20 mg PO BID@0500,1700 09/24/22 [History] Ferrous Sulfate [Feosol] 325 mg PO DAILY 09/24/22 [History] Metoprolol Tartrate 25 mg PO BID@0500,1700 09/24/22 [History] predniSONE 5 mg PO DAILY 09/24/22 [History] traZODone HCL 100 mg PO HS 09/24/22 [History] HYDROcodone/APAP 7.5-325MG [[place] 7.5-325] 1 tab PO Q6HR PRN 3 Days #12 tab [Rx] ALPRAZolam [Xanax] 0.25 mg PO BID PRN 02/15/23 [History] FLUoxetine HCL [PROzac] 40 mg PO DAILY 02/15/23 [History] Ipratropium-Albuterol Nebulize [Duoneb 0.5 mg-3 mg/3 ml Soln] 3 ml INHALATION RT-QID 02/15/23 [History] Ondansetron [Zofran] 4 mg PO Q4H PRN 02/15/23 [History] Discharge Disposition: - Preliminary Cause of Preliminary Cause of : metastatic urothelial carcinoma
== END 2023-02-22 02:00 | disposition expired | DRG 951 ==
LOC: 2SICU 17:45 → UNDODISIN 02-22 02:45
PROVIDERS: ADMIT Hospitalist; ATTEND Hospitalist
DX: Z51.5 Encounter for palliative care (principal); I26.92 Saddle embolus of pulmonary artery without acute cor pulmonale; J96.21 Acute and chronic respiratory failure with hypoxia; I82.403 Acute embolism and thrombosis of unspecified deep veins of lower extremity, bilateral; J90 Pleural effusion, not elsewhere classified; J44.1 Chronic obstructive pulmonary disease with (acute) exacerbation; C78.00 Secondary malignant neoplasm of unspecified lung; D69.2 Other nonthrombocytopenic purpura; C67.9 Malignant neoplasm of bladder, unspecified; I48.0 Paroxysmal atrial fibrillation; Z66 Do not resuscitate; E78.5 Hyperlipidemia, unspecified; R31.9 Hematuria, unspecified; F32.A Depression, unspecified; F41.9 Anxiety disorder, unspecified; I10 Essential (primary) hypertension; Z99.81 Dependence on supplemental oxygen; Z87.891 Personal history of nicotine dependence; Z86.16 Personal history of COVID-19; Z79.51 Long term (current) use of inhaled steroids; Z79.52 Long term (current) use of systemic steroids; Z79.899 Other long term (current) drug therapy